=== PATIENT | female | born 1985 | race Caucasian/White ===

== ENCOUNTER → 2021-03-21 13:41 | Outpatient (BNVA) | payer MEDICAID, SELFPAY | PROVIDERS: PCP Registered Nurse; Visit Provider Physician Assistant ==

== ENCOUNTER → 2021-03-23 07:23 | Outpatient (BNVA) | payer MEDICAID, SELFPAY | PROVIDERS: PCP Registered Nurse; Visit Provider Surgery ==

== ENCOUNTER 2021-03-26 11:11 | Outpatient (REF) | payer MEDICAID, SELFPAY ==
--- NOTE | ~2021-03-26 | XR_ITS ---
EXAMINATION: XR CHEST CLINICAL INFORMATION: Morbid obesity. COMPARISON: Most recent chest radiograph dated 10/23/2017. TECHNIQUE: 2 views of the chest were obtained. FINDINGS: The lungs are clear. The cardiomediastinal silhouette is normal in size. There is no pleural effusion or pneumothorax. No acute osseous abnormality. XR/XR chest 2V IMPRESSION: No acute cardiopulmonary findings.
--- NOTE | 2021-03-26 11:16 | ECG_ITS ---
Test Reason : MORBID OBESITY Blood Pressure : / mmHG Vent. Rate : 082 BPM Atrial Rate : 082 BPM P-R Int : 126 ms QRS Dur : 108 ms QT Int : 362 ms P-R-T Axes : 055 016 031 degrees QTc Int : 422 ms Normal sinus rhythm Normal ECG When compared with ECG of 23-OCT-2017 15:15, No significant change was found Referred By: Jono Jones Electronically Signed By:ANN TANNER
[2021-03-26 11:45] LABS: MANUAL DIFF FLAG NO
[2021-03-26 11:49] LABS: Basophils Percent Auto 0.3 % (0-2); Eosinophils Absolute Auto 0.1 X10*3/uL (0.0-0.4); Eosinophils Percent Auto 1.2 % (0-4); Hematocrit 35.7 % (37-47); Hemoglobin 12.1 g/dl (12.0-16.0); Imm Gran Abs Auto 0.02 X10*3/uL (0.00-0.03); Imm Gran Pct Auto 0.3 % (0.0-0.4); Lymphocytes Absolute Auto 1.5 X10*3/uL (1.2-4.9); Lymphocytes Percent Auto 22.6 % (20-40); Mean Corpuscular HGB Conc 33.9 g/dl (31.0-35.0); Mean Corpuscular Hemoglobin 30.2 pg (27.0-33.0); Mean Platelet Volume 9.9 fL (9.4-12.3); Monocytes Absolute Auto 0.3 X10*3/uL (0.1-1.2); Monocytes Percent Auto 4.6 % (2-11); Neutrophils Absolute Auto 4.8 X10*3/uL (2.0-8.3); Platelet Count 211 X10*3/uL (160-400); Red Blood Count 4.01 X10*6/uL (4.20-5.50); Red Cell Distribution Width 13.1 % (11.0-16.0); White Blood Count 6.8 X10*3/uL (4.8-10.8)
[2021-03-26 12:16] LABS: Estimated Average Glucose 114 mg/dL; Hemoglobin A1c % 5.6 %
[2021-03-26 12:27] LABS: Alanine Aminotransferase 46 U/L (0-31); Albumin Level 4.3 g/dL (3.5-5.0); Alkaline Phosphatase 97 U/L (39-117); Anion Gap 15 (12-20); Aspartate Amino Transferase 56 U/L (5-31); Bilirubin Total 0.9 mg/dL (0.0-1.0); Blood Urea Nitrogen 11 mg/dL (9-16); C Reactive Protein 2.74 mg/dL (< or = 0.50); Calcium 9.5 mg/dL (8.4-10.2); Carbon Dioxide 27 mmol/L (22-29); Chloride 101 mmol/L (96-108); Cholesterol 199 mg/dL; Estimated Glomerular Filt Rate > 60; Glucose Random 102 mg/dL (60-115); HDL Cholesterol 30 mg/dL; Iron 68 mcg/dL (30-160); LDL Cholesterol Calculated 133 mg/dl; Percent Iron Saturation 21 % (15-50); Potassium 4.1 mmol/L (3.3-5.1); Sodium 139 mmol/L (135-145); Total Iron Binding Capacity 326 mcg/dL (228-428); Total Protein 7.1 g/dL (6.5-8.0); Triglycerides 182 mg/dL; Unsaturated Iron Binding 258 ug/dL
[2021-03-26 12:51] LABS: Ferritin 299 ng/mL (10-122); TSH reflex Free T4 1.73 uIU/mL (0.32-4.0); Vitamin D 25-OH Total 29.4 ng/mL (>30)
[2021-03-26 13:01] LABS: Folate 9.7 ng/mL (> or = 4.0); Vitamin B12 790 pg/mL (200-900)
[2021-03-27 10:40] LABS: Insulin Level Total 21.9 uIU/mL
[2021-03-27 19:27] LABS: Calcium (PTHI) 9.4 mg/dL (8.6-10.2); PTHI 34 pg/mL (14-64)
[2021-03-29 03:02] LABS: Zinc 77 mcg/dL (60-130)
[2021-03-29 15:10] LABS: Vitamin B1 <6 nmol/L (8-30)
[2021-03-30 01:55] LABS: Vitamin A 43 mcg/dL (38-98)
== END 2021-03-26 11:12 | disposition home or self-care (01) ==
LOC: HO.LAB 11:11
PROVIDERS: PCP Registered Nurse; Visit Provider Surgery
DX: E66.01 Morbid (severe) obesity due to excess calories (principal); J45.909 Unspecified asthma, uncomplicated; R73.03 Prediabetes
CPT/HCPCS: 36415; 71046; 80053; 80061; 82306; 82607; 82728; 82746; 83036; 83525; 83540; 83970; 84425; 84443; 84590; 84630; 85025; 86140; 93005

== ENCOUNTER 2021-03-27 10:54 | Outpatient (REF) | payer MEDICAID, SELFPAY ==
[2021-03-28 12:26] LABS: H Pylori Breath Test NOT DETECTED (NOT DETECTED)
== END 2021-03-27 10:55 | disposition home or self-care (01) ==
LOC: HO.LNP 10:54
PROVIDERS: Surgery; PCP Registered Nurse; Visit Provider Physician Assistant
DX: E66.01 Morbid (severe) obesity due to excess calories (principal); J45.909 Unspecified asthma, uncomplicated; R73.03 Prediabetes
CPT/HCPCS: 83013; 99211

== ENCOUNTER 2021-04-19 09:26 | Outpatient (REF) | payer MEDICAID, SELFPAY ==
--- NOTE | ~2021-04-19 | FL_ITS ---
EXAMINATION: XR GI SERIES CLINICAL INFORMATION: Morbid/severe obesity due to excess calories COMPARISON: None TECHNIQUE: Routine upper GI air-contrast study was performed in upright and lying position. FINDINGS: Following oral administration of thick barium and effervescent granules there is normal propagation bolus from the oral cavity through the pharynx, esophagus into the stomach without any evidence of obstruction, narrowing or stricture. The course, caliber and peristalsis of the stomach and the duodenal bulb is normal. No gastroesophageal reflux or hiatal hernia seen. FLUOROSCOPY TIME: 2.0 minutes DOSE AREA PRODUCT: 44.4-3 uGy-m2 (microgray-meter squared) FL/FL upper GI series IMPRESSION: Unremarkable upper GI air-contrast study.
--- NOTE | ~2021-04-19 | US_ITS ---
EXAMINATION: US COMPLETE ABDOMEN WITH LIVER ELASTOGRAPHY CLINICAL INFORMATION: Morbid obesity COMPARISON: None. TECHNIQUE: Real-time imaging of the abdominal viscera. Noninvasive ultrasound liver fibrosis assessment is performed using Jessenia ElastPQ point quantification shear wave elastography (pSWE) with a C5-2 MHz transducer. Multiple elastography samples are obtained. FINDINGS: PANCREAS: Normal. The visualized pancreatic head and body are normal in appearance. The remainder of the pancreas is obscured from visualization by the overlying bowel gas. ABDOMINAL AORTA: The proximal, middle, and distal aortic segments are normal in caliber. INFERIOR VENA CAVA: Visualized portions are normal. LIVER: Normal. The liver demonstrates normal size, contour and echogenicity. No focal lesion or intrahepatic biliary duct dilatation. The right lobe measures 14 cm in length. The left lobe measures 10 cm in length. Portal flow is hepatopedal Shear wave liver elastography median stiffness is 1.29 m/s (reference: normal median stiffness is 1.3 m/s or less). IQR/median stiffness to assess sampling precision is 0.23 (reference: good quality data set is IQR/median stiffness of 0.15 or less). GALLBLADDER: Normal. The gallbladder is physiologically distended without evidence of stones, sludge, polyps, wall thickening or pericholecystic fluid. Sonographic Boss sign is negative. COMMON BILE DUCT: Normal in caliber measuring 0.5 cm in diameter. RIGHT KIDNEY: Normal. No hydronephrosis. No renal calculi or focal parenchymal lesions. The kidney measures 11.7 cm in maximum dimension. LEFT KIDNEY: Normal. No hydronephrosis. No renal calculi or focal parenchymal lesions. The kidney measures 12.8 cm in maximum dimension. SPLEEN: Normal. The spleen measures 13.4 cm in maximum dimension. FREE FLUID: None. US/US abdomen comp w elastography IMPRESSION: In the absence of other known clinical signs, measurements rule out compensated advanced chronic liver disease. If there are known clinical signs, further testing may be needed for confirmation. IQR/median stiffness to assess sampling precision is 0.23 (reference: good quality data set is IQR/median stiffness of 0.15 or less). REFERENCE: Society of Radiologists in Ultrasound Liver Stiffness Thresholds (2020): LIVER STIFFNESS THRESHOLDS: *Liver Stiffness equal or less than 1.3 m/s: High probability of being normal. *Liver Stiffness less than 1.7 m/s: In the absence of other known clinical signs, rules out compensated advanced chronic liver disease. *Liver Stiffness 1.7-2.1 m/s: Suggestive of compensated advanced chronic liver disease but need further test for confirmation. *Liver Stiffness over 2.1 m/s: Rules in compensated advanced chronic liver disease. *Liver Stiffness over 2.4 m/s: Suggestive of clinically significant portal hypertension. QUALITY OF DATA SET: *IQR/Median value equal or less than 0.15 implies a quality data set. *IQR/Median value over 0.15 implies a poor quality data set. SIGNIFICANT CHANGE FROM PRIOR EXAM: Significant change if liver stiffness measurement is 10% or greater from prior exam. OTHER CONSIDERATIONS: The stage of liver fibrosis may be overestimated in the setting of acute hepatitis, liver inflammation, elevated liver function tests, hepatic vascular congestion, obstructive cholestasis, non-fasting state, and infiltrative diseases such as amyloidosis and lymphoma. In some patients with NAFLD, the liver stiffness thresholds for compensated advanced chronic liver disease may be lower. In causes other than viral hepatitis and NAFLD, liver stiffness thresholds are not well established.
== END 2021-04-19 09:27 | disposition home or self-care (01) ==
LOC: HO.US 09:26
PROVIDERS: Visit Provider Surgery
DX: Z01.818 Encounter for other preprocedural examination (principal); E66.01 Morbid (severe) obesity due to excess calories; K21.9 Gastro-esophageal reflux disease without esophagitis; J45.909 Unspecified asthma, uncomplicated; R73.03 Prediabetes
CPT/HCPCS: 74240; 76705; 76981

== ENCOUNTER → 2021-04-23 07:42 | Outpatient (BNVA) | payer MEDICAID, SELFPAY | PROVIDERS: PCP Registered Nurse; Visit Provider Surgery ==

== ENCOUNTER → 2021-04-30 08:05 | Outpatient (BNVA) | payer MEDICAID, SELFPAY | PROVIDERS: PCP Registered Nurse; Visit Provider Dietitian, Registered | DX: E66.01 Morbid (severe) obesity due to excess calories (principal); Z68.41 Body mass index [BMI] 40.0-44.9, adult | CPT/HCPCS: 97802 ==

== ENCOUNTER → 2021-05-14 08:07 | Outpatient (BNVA) | payer MEDICAID, SELFPAY | PROVIDERS: PCP Registered Nurse; Visit Provider Surgery ==

== ENCOUNTER → 2021-06-11 07:57 | Outpatient (BNVA) | payer MEDICAID, SELFPAY | PROVIDERS: PCP Registered Nurse; Visit Provider Surgery ==

== ENCOUNTER 2021-06-20 08:36 | Outpatient (REF) | payer MEDICAID, SELFPAY ==
[2021-06-20 08:47] LABS: MANUAL DIFF FLAG NO
[2021-06-20 09:03] LABS: Basophils Percent Auto 0.2 % (0-2); Eosinophils Absolute Auto 0.1 X10*3/uL (0.0-0.4); Hematocrit 36.6 % (37.0-47.0); Hemoglobin 12.1 g/dl (12.0-16.0); Imm Gran Abs Auto 0.03 X10*3/uL (0.00-0.03); Imm Gran Pct Auto 0.3 % (0.0-0.4); Lymphocytes Absolute Auto 2.3 X10*3/uL (1.2-4.9); Lymphocytes Percent Auto 26.5 % (20-40); Mean Corpuscular HGB Conc 33.1 g/dl (31.0-35.0); Mean Corpuscular Hemoglobin 29.6 pg (27.0-33.0); Mean Corpuscular Volume 89.5 fL (80.0-98.0); Monocytes Absolute Auto 0.4 X10*3/uL (0.1-1.2); Monocytes Percent Auto 4.4 % (2-11); Neutrophils Absolute Auto 5.9 x10*3/uL (2.0-8.3); Neutrophils Percent Auto 67.6 % (45-73); Red Blood Count 4.09 X10*6/uL (4.20-5.50); Red Cell Distribution Width 12.5 % (11.0-16.0); White Blood Count 8.8 X10*3/uL (4.8-10.8)
[2021-06-20 09:45] LABS: Mean Platelet Volume 11.9 fL (9.4-12.3)
[2021-06-20 09:46] LABS: Platelet Count 51 X10*3/uL (160-400)
== END 2021-06-20 08:37 | disposition home or self-care (01) ==
LOC: HO.LAB 08:36
PROVIDERS: Visit Provider Surgery
DX: D69.6 Thrombocytopenia, unspecified (principal)
CPT/HCPCS: 36415; 85025

== ENCOUNTER 2021-07-02 13:49 | Outpatient (REF) | payer MEDICAID, SELFPAY ==
[2021-07-02 15:12] LABS: Partial Thromboplastin Time 40.4 SEC (24.1-38.0)
[2021-07-04 10:31] LABS: Factor XI Activity 110 % normal (65-150)
== END 2021-07-02 13:50 | disposition home or self-care (01) ==
LOC: HO.LAB 13:49
PROVIDERS: PCP Registered Nurse; Visit Provider Internal Medicine
DX: D69.6 Thrombocytopenia, unspecified (principal)
CPT/HCPCS: 36415; 85250; 85270; 85730

== ENCOUNTER 2021-08-06 11:47 | Day surgery (SDC) | payer MEDICAID, SELFPAY ==
--- NOTE | ~2021-08-06 | CT_ITS ---
PROCEDURE: CT GUIDED BIOPSY CLINICAL INFORMATION: Thrombocytopenia. COMPARISON: None. TECHNIQUE: Following explaining CT-guided bone marrow biopsy procedure, benefits and risks, a written consent was obtained. Patient was placed prone on CT fluoroscopy table and preliminary CT imaging was obtained through the posterior pelvis. An optimal site was selected on the scanner and marked on the skin. The marked site on the skin was cleaned and draped in the usual sterile manner. 1% lidocaine was injected at the puncture site. A 22-gauge spinal needle was then advanced from the skin to the left posterior iliac crest border and 1% lidocaine was injected. Through a small skin incision, a 16-gauge guide needle was advanced from the skin from [id number] posterior iliac crest. The needle was then drilled into the bone marrow. A syringe containing EDTA and a second syringe containing heparin was attached to the needle and bone marrow aspiration performed. Subsequently, a bone cutting needle was introduced coaxially attached to a drill and advanced into the bone marrow. A core bone marrow sample was then obtained. The guide needle was withdrawn subsequently and complete hemostasis was achieved at the puncture site. A simple Band-Aid was applied postprocedure. Patient tolerated the procedure extremely well. Conscious sedation was administered and patient monitored by the radiologist and the IR nursing for [address] examination was performed using dose optimization techniques as appropriate, variously including the following: *Automated exposure control *Adjustment of mA and/or kV according to patient size (this includes techniques or standardized protocols for targeted exams where dose is matched to indication/reason for exam; i.e. extremities or head) *Use of iterative reconstruction technique DLP: 444 mGy-cm FINDINGS: Successful CT fluoroscopy-guided bone marrow biopsy performed without immediate complications. CT/CT biopsy bone marrow IMPRESSION: Successful CT fluoroscopy-guided bone marrow biopsy performed through the right posterior iliac bone marrow.
--- NOTE | ~2021-08-06 | CT_ITS ---
PROCEDURE: CT GUIDED BIOPSY CLINICAL INFORMATION: Thrombocytopenia. COMPARISON: None. TECHNIQUE: Following explaining CT-guided bone marrow biopsy procedure, benefits and risks, a written consent was obtained. Patient was placed prone on CT fluoroscopy table and preliminary CT imaging was obtained through the posterior pelvis. An optimal site was selected on the scanner and marked on the skin. The marked site on the skin was cleaned and draped in the usual sterile manner. 1% lidocaine was injected at the puncture site. A 22-gauge spinal needle was then advanced from the skin to the left posterior iliac crest border and 1% lidocaine was injected. Through a small skin incision, a 16-gauge guide needle was advanced from the skin from [id number] posterior iliac crest. The needle was then drilled into the bone marrow. A syringe containing EDTA and a second syringe containing heparin was attached to the needle and bone marrow aspiration performed. Subsequently, a bone cutting needle was introduced coaxially attached to a drill and advanced into the bone marrow. A core bone marrow sample was then obtained. The guide needle was withdrawn subsequently and complete hemostasis was achieved at the puncture site. A simple Band-Aid was applied postprocedure. Patient tolerated the procedure extremely well. Conscious sedation was administered and patient monitored by the radiologist and the IR nursing for [address] examination was performed using dose optimization techniques as appropriate, variously including the following: *Automated exposure control *Adjustment of mA and/or kV according to patient size (this includes techniques or standardized protocols for targeted exams where dose is matched to indication/reason for exam; i.e. extremities or head) *Use of iterative reconstruction technique DLP: 444 mGy-cm FINDINGS: Successful CT fluoroscopy-guided bone marrow biopsy performed without immediate complications. CT/CT biopsy aspirate bone marrow IMPRESSION: Successful CT fluoroscopy-guided bone marrow biopsy performed through the right posterior iliac bone marrow.
[2021-08-06 12:10] VITALS: BMI 42.4
[2021-08-06 12:13] LABS: MANUAL DIFF FLAG NO
[2021-08-06 12:20] LABS: Basophils Percent Auto 0.3 % (0-2); Eosinophils Absolute Auto 0.1 X10*3/uL (0.0-0.4); Eosinophils Percent Auto 1.2 % (0-4); Hematocrit 37.7 % (37.0-47.0); Hemoglobin 12.5 g/dl (12.0-16.0); Imm Gran Abs Auto 0.03 X10*3/uL (0.00-0.03); Imm Gran Pct Auto 0.4 % (0.0-0.4); Lymphocytes Absolute Auto 2.2 X10*3/uL (1.2-4.9); Lymphocytes Percent Auto 27.9 % (20-40); Mean Corpuscular HGB Conc 33.2 g/dl (31.0-35.0); Mean Corpuscular Hemoglobin 29.3 pg (27.0-33.0); Mean Corpuscular Volume 88.3 fL (80.0-98.0); Mean Platelet Volume 10.5 fL (9.4-12.3); Monocytes Absolute Auto 0.4 X10*3/uL (0.1-1.2); Monocytes Percent Auto 4.9 % (2-11); Neutrophils Absolute Auto 5.1 x10*3/uL (2.0-8.3); Neutrophils Percent Auto 65.3 % (45-73); Platelet Count 85 X10*3/uL (160-400); Red Blood Count 4.27 X10*6/uL (4.20-5.50); Red Cell Distribution Width 12.8 % (11.0-16.0); White Blood Count 7.8 X10*3/uL (4.8-10.8)
[2021-08-06 12:22] LABS: INTERNATIONAL NORM RATIO 1.1 (0.9-1.1); Prothrombin Time 12.6 SEC (9.9-13.0)
[2021-08-06 12:24] LABS: UPreg QC Valid YES; Urine Pregnancy NEGATIVE (NEGATIVE)
[2021-08-06 12:25] LABS: Partial Thromboplastin Time 42.9 SEC (24.1-38.0)
[2021-08-06 15:38] LABS: Bone Marrow SEE SEPARATE REPORT
[2021-08-06 15:45] VITALS: BP 124/72; PULSE 89; RESP 16; TEMP 36.7; O2SAT 97
[2021-08-06 16:00] VITALS: BP 126/81; PULSE 85; RESP 16; O2SAT 96
[2021-08-06 16:15] VITALS: BP 129/81; PULSE 85; RESP 16; O2SAT 97
[2021-08-06 16:30] VITALS: BP 116/74; PULSE 84; RESP 16; O2SAT 97
[2021-08-06 16:46] VITALS: BP 127/77; PULSE 89; RESP 16; TEMP 37.4; O2SAT 97
== END 2021-08-06 17:04 | disposition home or self-care (01) ==
PROVIDERS: Radiology Diagnostic Radiology; PCP Registered Nurse; Visit Provider Radiology Diagnostic Radiology
PROC: (CPT 38221; principal; 2021-08-06 13:30)
DX: D69.6 Thrombocytopenia, unspecified (principal); D69.2 Other nonthrombocytopenic purpura; I10 Essential (primary) hypertension
CPT/HCPCS: 36415; 38221; 38222; 81025; 85025; 85097; 85610; 85730; 88184; 88185; 88237; 88264; 88305; 88311; 88313; 99152; J1642; J2250; J3010

== ENCOUNTER 2023-03-17 09:59 | Emergency (ER) | payer MEDICAID, SELFPAY ==
--- NOTE | ~2023-03-17 | CT_ITS ---
EXAMINATION: CT ABDOMEN AND PELVIS WITHOUT CONTRAST CLINICAL INFORMATION: Right flank pain radiating to right lower quadrant. Urinary frequency. COMPARISON: Abdominal ultrasound March 2022 TECHNIQUE: Multidetector volumetric imaging was performed from the superior aspect of the liver through the pubic symphysis. Sagittal and coronal reformatted images were obtained on the technologist's workstation. This CT examination was performed using dose optimization techniques as appropriate, variously including the following: *Automated exposure control *Adjustment of mA and/or kV according to patient size (this includes techniques or standardized protocols for targeted exams where dose is matched to indication/reason for exam; i.e. extremities or head) *Use of iterative reconstruction technique DLP: 925 mGy-cm FINDINGS: LUNG BASES: The visualized lung bases are unremarkable. LIVER, GALLBLADDER, AND BILIARY TREE: The liver is slightly enlarged and low in attenuation suggestive of fatty infiltration. Liver is normal in size and contour. The gallbladder is unremarkable with no evidence of radiopaque gallstones, gallbladder wall thickening, or obvious pericholecystic inflammatory changes. PANCREAS: Unremarkable. SPLEEN: Upper normal-size measuring 12.8 cm in length. ADRENAL GLANDS: Unremarkable. KIDNEYS AND URETERS: The kidneys are normal in size, shape, and attenuation. No hydronephrosis, hydroureter, or calculi seen. No perinephric stranding. BLADDER: Unremarkable. GASTROINTESTINAL TRACT: The small and large bowel are unremarkable. There are surgical clips at the base of the cecum. The appendix is not seen and may been removed. ABDOMINAL WALL: No significant hernia is appreciated. LYMPH NODES: Normal. VASCULAR: Unremarkable. PELVIC VISCERA: Unremarkable. OSSEOUS STRUCTURES: Degenerative changes of the spine. CT/CT abdomen pelvis wo IV con IMPRESSION: No acute findings. Slightly enlarged fatty liver. Upper normal-size spleen. Fleischner guidelines were followed.
[2023-03-17 10:01] VITALS: BP 192/98; PULSE 76; RESP 18; TEMP 36.9; O2SAT 100; BMI 43.3
--- NOTE | 2023-03-17 10:12 | MHC.EDTECH ---
Urine and labs collected and sent
[2023-03-17 10:15] LABS: MANUAL DIFF FLAG NO
[2023-03-17 10:16] LABS: Appearance Urine Clear; Color Urine Yellow; Glucose Urine UA Negative (Negative); Leukocyte Esterase Urine Trace (Negative); Nitrite Urine Negative (Negative); PH 5.5 (5.0-9.0); UMIC TRIGGER UACC YES; Urine Blood Negative (Negative); Urine Ketones Negative (Negative); Urine Protein Negative (Neg-Trace)
[2023-03-17 10:17] LABS: UPreg QC Valid YES
[2023-03-17 10:18] LABS: Urine Pregnancy NEGATIVE (NEGATIVE)
[2023-03-17 10:19] LABS: Bacteria Urine Trace (None Seen); Hyaline Casts Urine 0-2 /LPF (0-2); RBC Urine 0-2 /HPF (0-2); WBC Urine 0-5 /HPF (0-5)
[2023-03-17 10:22] LABS: Basophils Percent Auto 0.3 % (0-2); Eosinophils Absolute Auto 0.1 X10*3/uL (0.0-0.4); Eosinophils Percent Auto 1.4 % (0-4); Hemoglobin 12.3 g/dl (12.0-16.0); Imm Gran Abs Auto 0.04 X10*3/uL (0.00-0.03); Imm Gran Pct Auto 0.4 % (0.0-0.4); Lymphocytes Absolute Auto 2.3 X10*3/uL (1.2-4.9); Lymphocytes Percent Auto 23.8 % (20-40); Mean Corpuscular HGB Conc 33.2 g/dl (31.0-35.0); Mean Corpuscular Hemoglobin 29.5 pg (27.0-33.0); Mean Corpuscular Volume 88.7 fL (80.0-98.0); Mean Platelet Volume 10.1 fL (9.4-12.3); Monocytes Absolute Auto 0.4 X10*3/uL (0.1-1.2); Monocytes Percent Auto 3.9 % (2-11); Neutrophils Absolute Auto 6.9 x10*3/uL (2.0-8.3); Neutrophils Percent Auto 70.2 % (45-73); Platelet Count 246 X10*3/uL (160-400); Red Blood Count 4.17 X10*6/uL (4.20-5.50); Red Cell Distribution Width 13.3 % (11.0-16.0); White Blood Count 9.9 X10*3/uL (4.8-10.8)
[2023-03-17 10:37] LABS: Anion Gap 12 (12-20); Blood Urea Nitrogen 9 mg/dL (9-16); Calcium 9.3 mg/dL (8.4-10.2); Carbon Dioxide 27 mmol/L (22-29); Chloride 105 mmol/L (96-108); Creatinine Clr Calc Pharmacy 129.3; Estimated Glomerular Filt Rate > 60; Glucose Random 135 mg/dL (60-115); Potassium 4.2 mmol/L (3.3-5.1); Sodium 140 mmol/L (135-145)
--- NOTE | 2023-03-17 10:47 | ED.BACK ---
HPI - Back Pain/Injury General Chief Complaint: Back Pain/Injury Stated Complaint: Back pain Time Seen by Provider: 03/17/23 10:47 Source: patient, RN notes reviewed and old records reviewed Mode of arrival: ambulatory History of Present Illness HPI Narrative: 37-year-old female with a past medical history of vitamin B1 deficiency, obesity, thrombocytopenia, prediabetic, asthma, restless leg syndrome, fibromyalgia, presenting to the ED complaining of right flank pain radiating around to RLQ since yesterday with associated nausea and urinary frequency. Denies experiencing similar symptoms in the past, fever/chills, vomiting, diarrhea, hematuria/dysuria, vaginal bleeding/discharge, incontinence/retention MD elicited complaint: back pain Related Data Home Medications Medication Instructions Recorded Confirmed acetaminophen 325 mg tablet 325 mg PO QID PRN pain 03/21/21 08/10/21 (Tylenol) albuterol sulfate 90 mcg/actuation 2 puff PO Q6H PRN wheezing 03/21/21 08/10/21 aerosol inhaler (ProAir HFA) cyclobenzaprine 10 mg tablet 10 mg PO BEDTIME 03/21/21 08/10/21 gabapentin 300 mg capsule 600 mg PO BID 03/21/21 08/10/21 ibuprofen 200 mg tablet 200 mg PO Q6H PRN Pain 03/21/21 08/10/21 levetiracetam 250 mg tablet 125 - 250 mg PO BEDTIME 03/21/21 08/10/21 ropinirole 0.25 mg tablet 0.5 mg PO BEDTIME 03/21/21 08/10/21 Previous Rx's Medication Instructions Recorded thiamine HCl (vitamin B1) 100 mg 100 mg PO DAILY #30 tabs 04/01/21 tablet acetaminophen 500 mg tablet 500 mg PO Q6H PRN fever or pain 03/17/23 (Tylenol Extra Strength) #14 tabs cyclobenzaprine 5 mg tablet 5 mg PO Q8H PRN pain (scale score 03/17/23 7-10) 5 days #14 tabs lidocaine 5 % topical patch 1 patch topical DAILY PRN pain #30 03/17/23 (Lidoderm) ea naproxen 500 mg tablet 500 mg PO BID PRN pain 10 days #20 03/17/23 tabs Allergies Allergy/AdvReac Type Severity Reaction Status Date / Time No Known Allergies Allergy Verified 08/10/21 11:45 Review of Systems Review of Systems: Constitutional: No Fever, No Chills, No Fatigue, No Malaise ENT/Mouth: No Ear Pain, No sore throat, No Rhinorrhea, No Swallowing Difficulty Eyes: No Eye Pain, No Swelling, No Redness Cardiovascular: No Chest Pain, No SOB Respiratory: No Cough, No Sputum, No Dyspnea Gastrointestinal: + Nausea, No Vomiting, No Diarrhea, No Constipation, + Abdominal pain Genitourinary: No irregular bleeding, No Dysuria, + Urinary Frequency, No Hematuria, No Urinary Incontinence/retention, + Flank Pain, No Urinary Flow Changes, No Hesitancy Musculoskeletal: No joint pain, No Myalgias, No Joint Swelling Skin: No Skin Lesions, No rash Neuro: No Weakness, No Numbness, No Paresthesias Yes all other systems are reviewed and are negative Constitutional: Constitutional: Reports as per [facility] [place] Past Medical History Attestation statement: The following information was validated with the patient. Source: old records reviewed Medical History Asthma Depression Fibromyalgia Morbid obesity Prediabetes Restless leg syndrome Surgical History Hx of appendectomy Hx of breast surgery Hx of colonoscopy Hx of endoscopy Hx of neck surgery Hx of wisdom tooth extraction Family History Family History Mother History of lung surgery Lung cancer COPD (chronic obstructive pulmonary disease) Father Diabetes HTN (hypertension) Brother Diabetes Family/Other Lung cancer Throat cancer Diabetes Maternal Grandmother Lung cancer Heart attack Stroke Diabetes Paternal Grandfather Prostate CA Family/Other Prostate CA Paternal Grandmother CHF (congestive heart failure) Diabetes Social History Social History Alcohol intake: current Alcohol intake frequency: holidays/special occasions only Alcohol type: wine Patient Tobacco Use Status: Never used Tobacco Advance Directives: No Advance Directives Information Provided: No Current occupational status: unemployed Physical Exam Vital Signs: Vital Signs: Last Vital Signs Temp 98.5 F 03/17/23 10:01 Pulse 76 03/17/23 10:01 Resp 18 03/17/23 10:01 BP 192/98 H 03/17/23 10:01 Pulse Ox 100 03/17/23 10:01 O2 Del Method Room Air 03/17/23 10:01 BMI result Body Mass Index 43.3 Const: General: cooperative, healthy appearing and no acute distress Orientation/consciousness: patient oriented x3 Limitations: no limitations HEENT: Head: Yes normal to inspection and Yes atraumatic Ears: hearing grossly normal bilaterally General nose exam: Normal external nose present Face and sinus: Yes normal facial exam Eyes: General: appearance normal, both eyes and all related structures EOM: EOMs intact bilaterally Neck: Neck: Yes normal visual inspection and Yes no meningeal signs Resp: Effort & Inspection: normal respiratory effort and no respiratory distress Cardio: Rate: regular rate Heart sounds: S1 normal heart sound present and S2 normal heart sound present GI: Inspection: Yes normal to inspection Palpation (GI): Soft to palpation, Tenderness to palpation present (GI) in the RLQ; with no rebound tenderness, no guarding and not rigid : General: Yes CVA tenderness on the right Back/Spine/Pelvis: Other: No midline cervical/thoracic/lumbar spinous tenderness/step-off or deformity Back: CVA tenderness Skin: Rashes: no rashes Wounds: no wounds Neuro: Other: Strength intact throughout. No saddle anesthesia. Sensation intact to light touch. Neurovascular intact distally General: patient oriented x3, tone normal, moves all extremities and no meningeal signs Cranial nerves: Yes CN's II-XII intact bilaterally Gait exam (Neuro): Normal gait present Extrem: General: Yes normal to inspection Course Course Course Narrative: -1113--labs and UA unremarkable CT abdomen pelvis wo IV con IMPRESSION: No acute findings. Slightly enlarged fatty liver. Upper normal-size spleen. ? Fleischner guidelines were followed. Results discussed with patient including worrisome signs and symptoms and strict return precautions, and when to return to the emergency department. They verbalized understanding and feel safe for discharge at this time. Medical Decision Making Medical Decision Making MDM Narrative: 37-year-old female with a past medical history of vitamin B1 deficiency, obesity, thrombocytopenia, prediabetic, asthma, restless leg syndrome, fibromyalgia, presenting to the ED complaining of right flank pain radiating around to RLQ since yesterday with associated nausea and urinary frequency. On exam VSS, NAD, nontoxic appearing, +R CVAT & RLQ ttp, no rebound or guarding. No midline spinous tenderness. Concern for renal colic/stone/pyelo vs UTI vs MSK pain/strain. Patient with prior appendectomy. Lower suspicion for cholecystitis/lithiasis/pancreatitis, cauda equina/cord compression Plan: Labs, UA ordered in triage, CT Please refer to course for remaining clinical decision making, interpretation of labs/imaging results, and discussions with consultants and/or family members. Differential Diagnosis Differential Diagnoses: The differential diagnosis associated with the presentation includes As above Admission/Observation Consideration of admission/observation: Escalation of care including admission/observation considered Lab Data MDM Lab Attestation statement: I reviewed the patient's lab results. 03/17/23 10:10 03/17/23 10:10 Labs: Lab Results 03/17/23 03/17/23 03/17/23 Range/Units 10:10 10:10 10:10 WBC 9.9 (4.8-10.8) X10*3/uL RBC 4.17 L (4.20-5.50) X10*6/uL Hgb 12.3 (12.0-16.0) g/dl Hct 37.0 (37.0-47.0) % MCV 88.7 (80.0-98.0) fL MCH 29.5 (27.0-33.0) pg MCHC 33.2 (31.0-35.0) g/dl RDW 13.3 (11.0-16.0) % Plt Count 246 D (160-400) X10*3/uL MPV 10.1 (9.4-12.3) fL Immature Gran % (Auto) 0.4 (0.0-0.4) % Neut % (Auto) 70.2 (45-73) % Lymph % (Auto) 23.8 (20-40) % [place] % (Auto) 3.9 (2-11) % Eos % (Auto) 1.4 (0-4) % Baso % (Auto) 0.3 (0-2) % Lymph # (Auto) 2.3 (1.2-4.9) X10*3/uL [place] # (Auto) 0.4 (0.1-1.2) X10*3/uL Eos # (Auto) 0.1 (0.0-0.4) X10*3/uL Baso # (Auto) 0.0 (0.0-0.2) X10*3/uL Abs Immat Gran (auto) 0.04 H (0.00-0.03) X10*3/uL Absolute Neuts (auto) 6.9 (2.0-8.3) x10*3/uL Absolute Nucleated RBC 0.000 (0.0-0.012) X10*3/uL Nucleated RBC % (auto) 0.0 (0.0-0.2) /100WBC Sodium 140 (135-145) mmol/L Potassium 4.2 (3.3-5.1) mmol/L Chloride 105 (96-108) mmol/L Carbon Dioxide 27 (22-29) mmol/L Anion Gap 12 (12-20) BUN 9 (9-16) mg/dL Creatinine 0.78 (0.5-1.4) mg/dL Estim Creat Clear Calc 129.3 Estimated GFR > 60 Random Glucose 135 H (60-115) mg/dL Calcium 9.3 (8.4-10.2) mg/dL Urine Color Yellow Urine Appearance Clear Urine pH 5.5 (5.0-9.0) Ur Specific [place] 1.020 (1.005-1.025) Urine Protein Negative (Neg-Trace) mg/dL Urine Glucose (UA) Negative (Negative) mg/dL Urine Ketones Negative (Negative) mg/dL Urine Blood Negative (Negative) Urine Nitrite Negative (Negative) Ur Leukocyte Esterase Trace H (Negative) Urine RBC 0-2 (0-2) /HPF Urine WBC 0-5 (0-5) /HPF Ur Squamous Epith Cells 3-5 (0-2) /HPF Urine Bacteria Trace (None Seen) Hyaline Casts 0-2 (0-2) /LPF Urine Test (NEGATIVE) 03/17/23 Range/Units 10:10 WBC (4.8-10.8) X10*3/uL RBC (4.20-5.50) X10*6/uL Hgb (12.0-16.0) g/dl Hct (37.0-47.0) % MCV (80.0-98.0) fL MCH (27.0-33.0) pg MCHC (31.0-35.0) g/dl RDW (11.0-16.0) % Plt Count (160-400) X10*3/uL MPV (9.4-12.3) fL Immature Gran % (Auto) (0.0-0.4) % Neut % (Auto) (45-73) % Lymph % (Auto) (20-40) % [place] % (Auto) (2-11) % Eos % (Auto) (0-4) % Baso % (Auto) (0-2) % Lymph # (Auto) (1.2-4.9) X10*3/uL [place] # (Auto) (0.1-1.2) X10*3/uL Eos # (Auto) (0.0-0.4) X10*3/uL Baso # (Auto) (0.0-0.2) X10*3/uL Abs Immat Gran (auto) (0.00-0.03) X10*3/uL Absolute Neuts (auto) (2.0-8.3) x10*3/uL Absolute Nucleated RBC (0.0-0.012) X10*3/uL Nucleated RBC % (auto) (0.0-0.2) /100WBC Sodium (135-145) mmol/L Potassium (3.3-5.1) mmol/L Chloride (96-108) mmol/L Carbon Dioxide (22-29) mmol/L Anion Gap (12-20) BUN (9-16) mg/dL Creatinine (0.5-1.4) mg/dL Estim Creat Clear Calc Estimated GFR Random Glucose (60-115) mg/dL Calcium (8.4-10.2) mg/dL Urine Color Urine Appearance Urine pH (5.0-9.0) Ur Specific [place] (1.005-1.025) Urine Protein (Neg-Trace) mg/dL Urine Glucose (UA) (Negative) mg/dL Urine Ketones (Negative) mg/dL Urine Blood (Negative) Urine Nitrite (Negative) Ur Leukocyte Esterase (Negative) Urine RBC (0-2) /HPF Urine WBC (0-5) /HPF Ur Squamous Epith Cells (0-2) /HPF Urine Bacteria (None Seen) Hyaline Casts (0-2) /LPF Urine Test NEGATIVE (NEGATIVE) Radiology Impression Discussion of test interpretation with radiology: I have reviewed the radiologist's reading. External Record Review External record reviewed: Inpatient record, Office record, Outpatient record, Prior outpatient labs, Prior outpatient radiology, Primary care record and Outside ED record Tests considered The following testing was considered but not selected: As above Prescription Management I considered prescription management with: Pain Medication and Antibiotic Discharge Plan Discharge Clinical Impression: Acute flank pain Patient Disposition: Home, Self-Care Instructions: Flank Pain (ED) Additional Instructions: Your urine, blood work, and CT scan were reassuring Your pain is likely musculoskeletal Flexeril is a muscle relaxer, take at night as it makes you drowsy, do not drive, drink alcohol, or operate machinery while taking it Naproxen as an anti-inflammatory / pain medication, take with food Lidoderm patches are numbing patches, apply to painful area In addition take Tylenol at home If symptoms persist or worsen, pain becomes unbearable, you developed urinary retention or incontinence, or weakness return to the ED Prescriptions: New lidocaine [Lidoderm] 5 % adhesive patch,medicated 1 patch topical DAILY MDD remove after 12 hours PRN (Reason: pain) Qty: 30 0RF Rx Instructions: leave on most painful area for up to 12 hrs cyclobenzaprine 5 mg tablet 5 mg PO Q8H PRN (Reason: pain (scale score 7-10)) 5 Days Qty: 14 0RF acetaminophen [Tylenol Extra Strength] 500 mg tablet 500 mg PO Q6H PRN (Reason: fever or pain) Qty: 14 0RF naproxen 500 mg tablet 500 mg PO BID PRN (Reason: pain) 10 Days Qty: 20 0RF No Action thiamine HCl (vitamin B1) 100 mg tablet 100 mg PO DAILY Qty: 30 2RF gabapentin 300 mg capsule 600 mg PO BID ropinirole 0.25 mg tablet 0.5 mg PO BEDTIME cyclobenzaprine 10 mg tablet 10 mg PO BEDTIME levetiracetam 250 mg tablet 125 - 250 mg PO BEDTIME albuterol sulfate [ProAir HFA] 90 mcg/actuation HFA aerosol inhaler 2 puff PO Q6H PRN (Reason: wheezing) ibuprofen 200 mg tablet 200 mg PO Q6H PRN (Reason: Pain) acetaminophen [Tylenol] 325 mg tablet 325 mg PO QID PRN (Reason: pain) Referrals: Holger Strickland MD [Primary Care Provider] - 5 days Interventions: ED Discharge Assessment Last Done: 03/17/23 12:28 Discharge Date/Time: 03/17/23 12:29
== END 2023-03-17 12:29 | disposition home or self-care (01) ==
PROVIDERS: Emergency Provider Emergency Medicine; PCP Internal Medicine
DX: M54.50 Low back pain, unspecified (principal); R10.31 Right lower quadrant pain; R45.1 Restlessness and agitation; Z79.899 Other long term (current) drug therapy
CPT/HCPCS: 36415; 74176; 80048; 81001; 81025; 85025; 99282; 99284

== ENCOUNTER 2023-09-29 13:24 | Outpatient (AMB) | payer BC, SELFPAY ==
[2023-09-29 13:32] VITALS: BP 150/80; PULSE 82; TEMP 36.5; O2SAT 96; BMI 44.9
--- NOTE | 2023-09-29 13:32 | AM.OFFWIN_ITS ---
Intake Vital Signs 09/29/23 13:32 Height 5 ft 5 in Weight 270 lb BMI 44.9 BP 150/80 H Blood Pressure Location Lt brachial Position Sitting Pulse 82 Pulse Source Pulse Oximeter Temp 97.7 F Temp Source Temporal Artery Scan Pulse Oximetry (%) 96 Oxygen Delivery Method Room Air Intake Visit Reasons: Est/low grade fever/vomiting (lobby masked) Intake Note: pt is here today low grade fever vomiting started Patient Tobacco Use Status: Never used Tobacco Allergies No Known Allergies Allergy (Verified 09/29/23 13:32) Do you need a note to return to daycare/school/sports/work: Yes HPI HPI Comments History of Present Illness Details 38-year-old female presents today compla ining of nausea vomiting and diarrhea for the last 3 days. She has been trying to stay hydrated and slowly advance her diet but somewhat unsuccessfully in the last day. She did go to [employer] today but was sent home. Does relate to diffuse abdominal pain but not specific PFSH Medical History Asthma Depression Fibromyalgia Morbid obesity Prediabetes Restless leg syndrome Surgical History Hx of appendectomy Hx of breast surgery Hx of colonoscopy Hx of endoscopy Hx of neck surgery Hx of wisdom tooth extraction Family History Mother History of lung surgery Lung cancer COPD (chronic obstructive pulmonary disease) Father Diabetes HTN (hypertension) Brother Diabetes Family/Other Lung cancer Throat cancer Diabetes Maternal Grandmother Lung cancer Heart attack Stroke Diabetes Paternal Grandfather Prostate CA Family/Other Prostate CA Paternal Grandmother CHF (congestive heart failure) Diabetes Social History Alcohol intake: current Alcohol intake frequency: holidays/special occasions only Alcohol type: wine Patient Tobacco Use Status: Never used Tobacco Current occupational status: unemployed Review of Systems Const All systems reviewed & are unremarkable except as noted in HPI and below Reports fatigue Eyes Reports no additional complaints ENT Reports no additional complaints Card Reports no additional complaints Resp Reports no additional complaints GI Reports change in stool character, Reports loose stools and Reports vomiting (X1 this morning) Reports no additional complaints Endo Reports fatigue Physical Exam Vital Signs: Last Vital Signs Temp 97.7 F 09/29/23 13:32 Pulse 82 09/29/23 13:32 BP 150/80 H 09/29/23 13:32 Pulse Ox 96 09/29/23 13:32 Oxygen Delivery Method Room Air 09/29/23 13:32 BMI result Body Mass Index 44.9 Const General: acute distress mild HEENT Head: Yes normal to inspection, Yes normocephalic and Yes atraumatic Ears: hearing grossly normal bilaterally General nose exam: Normal external nose present Face and sinus: Yes normal facial exam Mouth: Normal oral and palatal mucosa present Throat: Yes posterior oropharynx normal Eyes General: appearance normal, both eyes and all related structures Resp Effort & Inspection: normal respiratory effort Auscultation: clear to auscultation bilaterally Cardio Rate: regular rate Rhythm: regular rhythm GI Inspection: Yes normal to inspection Palpation (GI): Soft to palpation and Tenderness to palpation present (GI) (Mild diffuse tenderness. No right lower quadrant pain no guarding no Jeffery) Assessment & Plan Assessment & Plan (1) Enteritis due to Norovirus: Code(s): A08.11 - Acute gastroenteropathy due to [place] agent Plan: Continue to remain hydrated use ondansetron as needed. Plan See plan Medications: New ondansetron 4 mg PO TID PRN 10 tabs 0RF nausea and vomiting Coding Level of Care Code Est Pt Level 3 (10639) Diagnoses Enteritis due to Norovirus A08.11
== END 2023-09-29 16:00 | disposition home or self-care (01) ==
PROVIDERS: PCP Internal Medicine; Visit Provider Physician Assistant Medical
DX: A08.11 Acute gastroenteropathy due to Norwalk agent (principal)
CPT/HCPCS: 99213

== ENCOUNTER 2023-12-11 13:13 | Outpatient (AMB) | payer BC, SELFPAY ==
[2023-12-11 13:19] VITALS: BP 150/92; PULSE 82; TEMP 36.4; O2SAT 98
--- NOTE | 2023-12-11 13:19 | AM.OFFWIN_ITS ---
Intake Vital Signs 12/11/23 13:19 Height 5 ft 5 in BP 150/92 H Blood Pressure Location Rt brachial Position Sitting Pulse 82 Pulse Source Pulse Oximeter Temp 97.6 F Temp Source Oral Pulse Oximetry (%) 98 Intake Visit Reasons: EP lightheaded dizziness headache since friday Intake Note: pt is here for lightheadedness, dizziness with headache since friday Patient Tobacco Use Status: Never used Tobacco Allergies No Known Allergies Allergy (Verified 12/11/23 13:19) Do you need a note to return to daycare/school/sports/work: Yes HPI HPI Comments History of Present Illness Details 38 y/o female patient who presents to [facility] with c/o headaches, lightheadedness and dizziness since Friday. Denies nausea or vomiting. Denies fevers or chills. Denies any recent sick contact. Denies any head injury or trauma. Denies . She does endorse snoring at night time. [facility] Medical History Asthma Depression Fibromyalgia Morbid obesity Prediabetes Restless leg syndrome Surgical History Hx of appendectomy Hx of breast surgery Hx of colonoscopy Hx of endoscopy Hx of neck surgery Hx of wisdom tooth extraction Family History Mother History of lung surgery Lung cancer COPD (chronic obstructive pulmonary disease) Father Diabetes HTN (hypertension) Brother Diabetes Family/Other Lung cancer Throat cancer Diabetes Maternal Grandmother Lung cancer Heart attack Stroke Diabetes Paternal Grandfather Prostate CA Family/Other Prostate CA Paternal Grandmother CHF (congestive heart failure) Diabetes Social History Alcohol intake: current Alcohol intake frequency: holidays/special occasions only Alcohol type: wine Patient Tobacco Use Status: Never used Tobacco Current occupational status: unemployed Review of Systems Const All systems reviewed & are unremarkable except as noted in HPI and below Physical Exam Vital Signs: Last Vital Signs Temp 97.6 F 12/11/23 13:19 Pulse 82 12/11/23 13:19 BP 150/92 H 12/11/23 13:19 Pulse Ox 98 12/11/23 13:19 Const General: comfortable and no acute distress Nutritional Appearance: obese Orientation/consciousness: patient oriented x3 HEENT Head: Yes normocephalic Ears: external ears normal and TM abnormal bulging and with fluid behind the TM bilateral; not with effusion, not erythematous, not perforated, not retracted and not scarred General nose exam: Normal nasal mucous membranes and turbinates present Face and sinus: Yes sinuses nontender Mouth: moist mucous membranes Throat: Yes posterior oropharynx normal Resp Effort & Inspection: normal respiratory effort, able to speak in complete sentences, no audible wheezes and no cough Auscultation: clear to auscultation bilaterally, no crackles, no rales, no rhonchi and no wheezes Cardio Rate: regular rate Rhythm: regular rhythm Neuro General: patient oriented x3, gait normal and moves all extremities Psych Speech and movement: Normal speech and movement present Assessment & Plan Assessment & Plan (1) Dizziness: Code(s): R42 - Dizziness and giddiness Plan: - Hydrate well - Advised to get enough sleep at night - F/U with PCP for Sleep study - Rest. - No clear etiology at this time. Medications: New meclizine 50 mg PO BID 30 tabs 0RF R42 - Dizziness and giddiness Coding Level of Care Code Est Pt Level 3 (14839) Diagnoses Dizziness R42 Time Spent (min) 15
== END 2023-12-11 13:39 | disposition home or self-care (01) ==
PROVIDERS: PCP Internal Medicine; Visit Provider Nurse Practitioner Family
DX: R42 Dizziness and giddiness (principal)
CPT/HCPCS: 99213

== ENCOUNTER 2024-01-04 13:00 | Emergency (ER) | payer MEDICAID, SELFPAY ==
--- NOTE | ~2024-01-04 | CT_ITS ---
EXAMINATION: CT ABDOMEN AND PELVIS WITHOUT CONTRAST CLINICAL INFORMATION: Left lower quadrant pain blood in stool. Question colitis COMPARISON: CT abdomen pelvis 03/17/2023 TECHNIQUE: Multidetector volumetric imaging was performed from the superior aspect of the liver through the pubic symphysis. Sagittal and coronal reformatted images were obtained on the technologist's workstation. This CT examination was performed using dose optimization techniques as appropriate, variously including the following: *Automated exposure control *Adjustment of mA and/or kV according to patient size (this includes techniques or standardized protocols for targeted exams where dose is matched to indication/reason for exam; i.e. extremities or head) *Use of iterative reconstruction technique DLP: 92 mGy-cm FINDINGS: LUNG BASES: The lung bases are clear LIVER, GALLBLADDER, AND BILIARY TREE: The liver is mildly enlarged in size measuring 22 cm. It has normal contour and attenuation. No focal hepatic lesion or biliary ductal dilatation is present. The gallbladder is unremarkable with no evidence of radiopaque gallstones, gallbladder wall thickening, or obvious pericholecystic inflammatory changes. PANCREAS: Unremarkable. SPLEEN: Unremarkable. ADRENAL GLANDS: Unremarkable. KIDNEYS AND URETERS: The kidneys are normal in size, shape, and attenuation. No hydronephrosis, hydroureter, or calculi seen. No perinephric stranding. BLADDER: Unremarkable. GASTROINTESTINAL TRACT: The small and large bowel are unremarkable. Appendix is likely removed with a surgical suture at the site. ABDOMINAL WALL: No significant hernia is appreciated. LYMPH NODES: Normal. VASCULAR: Unremarkable. PELVIC VISCERA: The uterus is anteverted with a cervical tampon. No adnexal mass or free fluid. No abnormal pelvic lymph nodes. OSSEOUS STRUCTURES: No aggressive lytic or sclerotic process seen. CT/CT abdomen pelvis wo IV con IMPRESSION: No acute intra-abdominal process seen. Fleischner guidelines were followed.
[2024-01-04 13:40] VITALS: BP 188/104; PULSE 75; RESP 17; TEMP 36.7; O2SAT 97; BMI 45.2
--- NOTE | 2024-01-04 13:45 | ED_ITS ---
HPI - General Adult General Chief complaint: Abdominal Pain Stated complaint: blood in stool Time Seen by Provider: 01/04/24 18:30 Source: patient Mode of arrival: ambulatory Limitations: no limitations History of Present Illness ED Provider: Flaquito THOMAS HPI narrative: 38-year-old female history of restless legs syndrome, fibromyalgia, vitamin B1 deficiency, fatty liver presents to the ED for left lower quadrant abdominal pain with also blood in stool. Patient states having episode yesterday and today. Patient denies any dizziness, chest pain, shortness of breath, weakness. Patient denies any trauma. Patient denies any history of any ulcers. Related Data Previous Rx's ?Medication ?Instructions ?Recorded meclizine 50 mg tablet 50 mg PO BID #30 tabs 12/11/23 Allergies Allergy/AdvReac Type Severity Reaction Status Date / Time No Known Allergies Allergy Verified 01/04/24 13:45 Review of Systems 2 Review of Systems: Left lower quadrant abdominal pain. Two episodes of rectal bleeding. Yes all other systems are reviewed and are negative PMFSH Past Medical History Medical History Asthma Depression Fibromyalgia Morbid obesity Prediabetes Restless leg syndrome Surgical History Hx of appendectomy Hx of breast surgery Hx of colonoscopy Hx of endoscopy Hx of neck surgery Hx of wisdom tooth extraction Family History Family History Mother History of lung surgery Lung cancer COPD (chronic obstructive pulmonary disease) Father Diabetes HTN (hypertension) Brother Diabetes Family/Other Lung cancer Throat cancer Diabetes Maternal Grandmother Lung cancer Heart attack Stroke Diabetes Paternal Grandfather Prostate CA Family/Other Prostate CA Paternal Grandmother CHF (congestive heart failure) Diabetes Social History Social History Alcohol intake: current Alcohol intake frequency: holidays/special occasions only Alcohol type: wine Patient Tobacco Use Status: Never used Tobacco Advance Directives: No Advance Directives Information Provided: No Do you have a plan to hurt others: No Plan Current occupational status: unemployed Physical Exam ED Vital Signs: Vital Signs - 24 hr 01/04/24 13:40 01/04/24 16:00 01/04/24 20:26 Temperature 98.0 F 97.7 F 98.2 F Pulse Rate 75 82 76 Respiratory Rate 17 16 Blood Pressure 188/104 H 153/101 H 138/86 Pulse Oximetry 97 97 98 Oxygen Delivery Method Room Air Room Air Room Air BMI result Body Mass Index 45.2 Const General: cooperative, healthy appearing, comfortable, no acute distress, well developed, alert, awake and Physically active Orientation/consciousness: oriented to person, oriented to place, oriented to time and patient oriented x3 HENMT Head: Yes normal to inspection, Yes No palpable skull fracture present, Yes normocephalic, Yes atraumatic and No abrasion Eyes General: appearance normal, both eyes and all related structures Neck Neck: Yes normal visual inspection, Yes full ROM, Yes no lymphadenopathy, Yes no meningeal signs, Yes trachea midline, Yes supple, No anterior neck swelling and No tender Chest Chest palpation & inspection: normal inspection of the chest and normal palpation of entire chest wall Resp Effort & Inspection: normal respiratory effort and able to speak in complete sentences Auscultation: clear to auscultation bilaterally Cardio Jugular venous distension: no JVD Heart sounds: S1 normal heart sound present and S2 normal heart sound present GI Other: Rectal exam negative for sammi blood. Negative for melena. Negative for obvious hemorrhoids. Negative for anal fissures. Inspection: Yes normal to inspection Palpation (GI): Soft to palpation, not firm, Tenderness to palpation present (GI) in the LLQ, no guarding and not rigid General: No CVA tenderness and Yes no CVA tenderness Back/Spine/Pelvis Back: no CVA tenderness, No CVA tenderness and No back tenderness Skin General skin exam: no rashes or lesions noted, elasticity normal and turgor normal Neuro General: oriented to person, oriented to place, oriented to time, patient oriented x3, gait normal, tone normal, moves all extremities, Normal light touch and pain sensation, no meningeal signs, no focal motor deficits, CN's II-XI intact bilaterally and normal sensation to monofilament Extrem General: Yes normal to inspection, Yes full ROM and Yes capillary refill normal Psych Appearance: grossly normal, well kempt and not disheveled Course Course Course Narrative: RME: Done by LILA Lange: Patient presents to the ED for lower abdominal pain ( LLQ) with blood in stool for the past two days. Patient denies any rectal pain. Patient denies any vomiting. Patient denies any history of ulcers. Patient states no history of GI bleeding. Physical exam positive for periumbilical left lower quadrant tenderness on palpation. Labs ordered Medical Decision Making Medical Decision Making [facility] Narrative: 38-year-old female presents to the ED for left lower quadrant abdominal pain and 2 episodes of rectal bleeding. Patient has picture of bloody stool on her phone and the stool was sammi red blood. Abdominal CT scan labs normal. RECTAL EXAM NORMAL. PATIENT NOT HAVING GI BLEED. PATIENT EXPLAINED WORRISOME SIGNS INFORMED TO RETURN TO ED IMMEDIATELY IF SHE HAS NOT Differential Diagnosis Differential Diagnoses: The differential diagnosis associated with the presentation includes (COLITIS, HEMORRHOIDS, GI BLEED,) Admission/Observation Consideration of admission/observation: Escalation of care including admission/observation considered Lab Data [facility] Lab Attestation statement: I reviewed the patient's lab results. 01/04/24 14:50 01/04/24 14:50 Labs: Lab Results 01/04/24 01/04/24 01/04/24 Range/Units 14:50 18:35 19:14 WBC 7.5 (4.8-10.8) X10*3/uL RBC 4.11 L (4.20-5.50) X10*6/uL Hgb 12.4 (12.0-16.0) g/dl Hct 36.0 L (37.0-47.0) % MCV 87.6 (80.0-98.0) fL MCH 30.2 (27.0-33.0) pg MCHC 34.4 (31.0-35.0) g/dl RDW 13.3 (11.0-16.0) % Plt Count 211 (160-400) X10*3/uL MPV 9.9 (9.4-12.3) fL Immature Gran % (Auto) 0.4 (0.0-0.4) % Neut % (Auto) 67.6 (45-73) % Lymph % (Auto) 25.0 (20-40) % Starr % (Auto) 4.7 (2-11) % Eos % (Auto) 1.9 (0-4) % Baso % (Auto) 0.4 (0-2) % Lymph # (Auto) 1.9 (1.2-4.9) X10*3/uL Starr # (Auto) 0.4 (0.1-1.2) X10*3/uL Eos # (Auto) 0.1 (0.0-0.4) X10*3/uL Baso # (Auto) 0.0 (0.0-0.2) X10*3/uL Abs Immat Gran (auto) 0.03 (0.00-0.03) X10*3/uL Absolute Neuts (auto) 5.1 (2.0-8.3) x10*3/uL Absolute Nucleated RBC 0.000 (0.0-0.012) X10*3/uL Nucleated RBC % (auto) 0.0 (0.0-0.2) /100WBC PT 12.4 (11.1-13.3) SEC INR 1.0 (0.9-1.1) APTT 31.8 (26.0-36.8) SEC Sodium 138 (135-145) mmol/L Potassium 4.1 (3.3-5.1) mmol/L Chloride 105 (96-108) mmol/L Carbon Dioxide 25 (22-29) mmol/L Anion Gap 12 (12-20) BUN 9 (9-16) mg/dL Creatinine 0.72 (0.5-1.4) mg/dL Estim Creat Clear Calc 142.3 Estimated GFR > 60 Random Glucose 98 (60-115) mg/dL Calcium 9.4 (8.4-10.2) mg/dL Total Bilirubin 0.5 (0.0-1.0) mg/dL AST 37 H (5-31) U/L ALT 35 H (0-31) U/L Alkaline Phosphatase 86 (39-117) U/L Total Protein 7.1 (6.5-8.0) g/dL Albumin 4.1 (3.5-5.0) g/dL Beta HCG, Quant < 2 mIU/mL Urine Color Yellow Urine Appearance Clear Urine pH 5.5 (5.0-9.0) Ur Specific [place] 1.020 (1.005-1.025) Urine Protein Negative (Neg-Trace) mg/dL Urine Glucose (UA) Negative (Negative) mg/dL Urine Ketones Negative (Negative) mg/dL Urine Blood Negative (Negative) Urine Nitrite Negative (Negative) Ur Leukocyte Esterase Negative (Negative) Stool Occult Blood NEGATIVE (NEGATIVE) Independent Interpretation I performed an independent interpretation of an: CT Scan Radiology Impression Discussion of test interpretation with radiology: I have reviewed the radiologist's reading. Independent Historian Clinical information obtained from an independent historian. History obtained from or confirmed by: Other (PATIENT) External Record Review External record reviewed: Other (PRIOR VISITS) Discharge Plan Discharge Clinical Impression: Rectal bleeding Patient Disposition: Home, Self-Care Instructions: Rectal Bleeding (ED) Additional Instructions: RECOMMEND FOLLOW-UP WITH PRIMARY CARE PROVIDER AND V BELT BUILDER. RETURN TO THE ED IMMEDIATELY FOR WEAKNESS, DIZZINESS, NAUSEA, VOMITING, ABDOMINAL PAIN, RECTAL BLEEDING, PALE SKIN, CHEST PAIN, SHORTNESS OF BREATH, OR ANY OTHER CONCERNING SYMPTOMS. Prescriptions: No Action meclizine 50 mg tablet 50 mg PO BID Qty: 30 0RF Referrals: [facility] [place] [facility] [Provider Group] (RECTAL BLEEDING) Stand Alone Forms: Work/School Release Interventions: ED Discharge Assessment Last Done: 01/04/24 20:26 Discharge Date/Time: 01/04/24 20:27 Print Language: Beninese
[2024-01-04 14:57] LABS: MANUAL DIFF FLAG NO
[2024-01-04 15:01] LABS: Basophils Percent Auto 0.4 % (0-2); Eosinophils Absolute Auto 0.1 X10*3/uL (0.0-0.4); Eosinophils Percent Auto 1.9 % (0-4); Hemoglobin 12.4 g/dl (12.0-16.0); Imm Gran Abs Auto 0.03 X10*3/uL (0.00-0.03); Imm Gran Pct Auto 0.4 % (0.0-0.4); Lymphocytes Absolute Auto 1.9 X10*3/uL (1.2-4.9); Mean Corpuscular HGB Conc 34.4 g/dl (31.0-35.0); Mean Corpuscular Hemoglobin 30.2 pg (27.0-33.0); Mean Corpuscular Volume 87.6 fL (80.0-98.0); Mean Platelet Volume 9.9 fL (9.4-12.3); Monocytes Absolute Auto 0.4 X10*3/uL (0.1-1.2); Monocytes Percent Auto 4.7 % (2-11); Neutrophils Absolute Auto 5.1 x10*3/uL (2.0-8.3); Neutrophils Percent Auto 67.6 % (45-73); Platelet Count 211 X10*3/uL (160-400); Red Blood Count 4.11 X10*6/uL (4.20-5.50); Red Cell Distribution Width 13.3 % (11.0-16.0); White Blood Count 7.5 X10*3/uL (4.8-10.8)
[2024-01-04 15:11] LABS: Prothrombin Time 12.4 SEC (11.1-13.3)
[2024-01-04 15:14] LABS: Partial Thromboplastin Time 31.8 SEC (26.0-36.8)
[2024-01-04 15:31] LABS: Alanine Aminotransferase 35 U/L (0-31); Albumin Level 4.1 g/dL (3.5-5.0); Alkaline Phosphatase 86 U/L (39-117); Anion Gap 12 (12-20); Aspartate Amino Transferase 37 U/L (5-31); Bilirubin Total 0.5 mg/dL (0.0-1.0); Blood Urea Nitrogen 9 mg/dL (9-16); Calcium 9.4 mg/dL (8.4-10.2); Carbon Dioxide 25 mmol/L (22-29); Chloride 105 mmol/L (96-108); Creatinine Clr Calc Pharmacy 142.3; Estimated Glomerular Filt Rate > 60; Glucose Random 98 mg/dL (60-115); Potassium 4.1 mmol/L (3.3-5.1); Sodium 138 mmol/L (135-145); Total Protein 7.1 g/dL (6.5-8.0)
[2024-01-04 15:33] LABS: HCG Quantitative < 2 mIU/mL
[2024-01-04 16:00] VITALS: BP 153/101; PULSE 82; TEMP 36.5; O2SAT 97
[2024-01-04 18:42] LABS: Appearance Urine Clear; Color Urine Yellow; Glucose Urine UA Negative (Negative); Leukocyte Esterase Urine Negative (Negative); Nitrite Urine Negative (Negative); PH 5.5 (5.0-9.0); Urine Blood Negative (Negative); Urine Ketones Negative (Negative); Urine Protein Negative (Neg-Trace)
[2024-01-04 19:23] LABS: OBS Int Ctl Valid YES; OBS1 NEGATIVE (NEGATIVE)
[2024-01-04 20:26] VITALS: BP 138/86; PULSE 76; RESP 16; TEMP 36.8; O2SAT 98
== END 2024-01-04 20:27 | disposition home or self-care (01) ==
PROVIDERS: Physician Assistant; Emergency Provider Internal Medicine
DX: K62.5 Hemorrhage of anus and rectum (principal); J45.909 Unspecified asthma, uncomplicated
CPT/HCPCS: 36415; 74176; 80053; 81003; 82272; 84702; 85025; 85610; 85730; 99283; 99284

== ENCOUNTER 2024-09-29 05:22 | Emergency (ER) | payer BC, SELFPAY ==
--- NOTE | ~2024-09-29 | XR_ITS ---
CLINICAL HISTORY: chest pain with SOB 1 view chest x-ray Comparison: CR - XR CHEST 2V - 03/26/21 11:51 EDT Findings: The lungs are clear. Normal size heart. No acute fracture. IMPRESSION: 1. No acute cardiopulmonary abnormality. This document has been electronically signed by: Alfonso Reynoso on 09/29/2024 05:57:31
[2024-09-29 05:24] VITALS: BP 172/80; PULSE 82; RESP 22; TEMP 36.8; O2SAT 93; BMI 44.9
--- NOTE | 2024-09-29 05:32 | ECG_ITS ---
Test Reason : CP Blood Pressure : */* mmHG Vent. Rate : 72 BPM Atrial Rate : 72 BPM P-R Int : 136 ms QRS Dur : 102 ms QT Int : 360 ms P-R-T Axes : 30 20 35 degrees QTcB Int : 394 ms Normal sinus rhythm Incomplete right bundle branch block Borderline ECG When compared with ECG of 26-Mar-2021 11:34, No significant change was found Referred By: Generic ED Physician Electronically Signed By: FREDERIC WILSON MD
[2024-09-29 06:09] LABS: MANUAL DIFF FLAG NO
[2024-09-29 06:13] LABS: Basophils Percent Auto 0.5 % (0-2); Eosinophils Absolute Auto 0.2 X10*3/uL (0.0-0.4); Eosinophils Percent Auto 1.9 % (0-4); Hematocrit 37.1 % (37.0-47.0); Hemoglobin 12.7 g/dl (12.0-16.0); Imm Gran Abs Auto 0.07 X10*3/uL (0.00-0.03); Imm Gran Pct Auto 0.9 % (0.0-0.4); Lymphocytes Absolute Auto 1.7 X10*3/uL (1.2-4.9); Lymphocytes Percent Auto 22.1 % (20-40); Mean Corpuscular HGB Conc 34.2 g/dl (31.0-35.0); Mean Corpuscular Hemoglobin 29.8 pg (27.0-33.0); Mean Corpuscular Volume 87.1 fL (80.0-98.0); Mean Platelet Volume 9.9 fL (9.4-12.3); Monocytes Absolute Auto 0.4 X10*3/uL (0.1-1.2); Monocytes Percent Auto 4.9 % (2-11); Neutrophils Absolute Auto 5.5 x10*3/uL (2.0-8.3); Neutrophils Percent Auto 69.7 % (45-73); Platelet Count 219 X10*3/uL (160-400); Red Blood Count 4.26 X10*6/uL (4.20-5.50); Red Cell Distribution Width 13.2 % (11.0-16.0); White Blood Count 7.9 X10*3/uL (4.8-10.8)
[2024-09-29 06:24] LABS: Alanine Aminotransferase 42 U/L (0-31); Albumin Level 4.1 g/dL (3.5-5.0); Alkaline Phosphatase 117 U/L (39-117); Anion Gap 12 (12-20); Aspartate Amino Transferase 46 U/L (5-31); Bilirubin Total 0.5 mg/dL (0.0-1.0); Blood Urea Nitrogen 10 mg/dL (9-16); Calcium 9.3 mg/dL (8.4-10.2); Carbon Dioxide 27 mmol/L (22-29); Chloride 104 mmol/L (96-108); Creatinine Clr Calc Pharmacy 148.7; Estimated Glomerular Filt Rate > 60; Glucose Random 192 mg/dL (60-115); Sodium 139 mmol/L (135-145); Total Protein 7.4 g/dL (6.5-8.0)
[2024-09-29 06:30] LABS: Troponin-I High Sensitivity < 2.7 ng/L (<3.5-17.0)
[2024-09-29 06:54] LABS: Influenza A PCR NEGATIVE (Negative); Influenza B PCR NEGATIVE (Negative); Resp Syncy Virus RNA Qual PCR NEGATIVE (Negative); SARS COV2 PCR INHOUSE NEGATIVE (Negative)
[2024-09-29 08:00] VITALS: BP 156/82; PULSE 78; RESP 18; TEMP 36.8; O2SAT 100
--- NOTE | 2024-09-29 08:01 | ED_ITS ---
HPI - Chest Pain General Chief Complaint: Chest Pain Stated Complaint: CP, SoB Time Seen by Provider: 09/29/24 07:55 Source: patient Mode of arrival: ambulatory Limitations: no limitations History of Present Illness HPI narrative: This is a 39 years old the patient presented to the emergency department with a chief complaint of shortness of breath and left-sided sharp chest pain ongoing for about a week. Patient stated that she was diagnosed with a pneumonia a month ago and since then she has been having episodes of chest pain shortness of breath. MD complaint: chest pain and other (SOB) Onset (ago): week(s) Timing of current episode: constant Prior episodes: Yes Onset: during rest Pain location: substernal Pain radiation: none Severity: mild Quality: sharp Relieving factors: nothing Exacerbating factors: nothing Context: recent illness Associated symptoms: nausea Risk Factors Coronary artery disease risk factors: none Related Data Previous Rx's ?Medication ?Instructions ?Recorded meclizine 50 mg tablet 50 mg PO BID #30 tabs 12/11/23 Allergies Allergy/AdvReac Type Severity Reaction Status Date / Time No Known Allergies Allergy Verified 09/29/24 05:24 Review of Systems 2 Constitutional: Constitutional: Reports no additional constitutional complaints Cardiovascular: Cardiovascular: Reports as per HPI PMFSH Past Medical History PMF Narrative: Fibromyalgia, asthma, restless legs syndrome Medical History Depression Prediabetes Asthma Restless leg syndrome Fibromyalgia Morbid obesity Surgical History Hx of wisdom tooth extraction Hx of colonoscopy Hx of endoscopy Hx of neck surgery Hx of breast surgery Hx of appendectomy Family History Family History Mother History of lung surgery Lung cancer COPD (chronic obstructive pulmonary disease) Father Diabetes HTN (hypertension) Brother Diabetes Family/Other Lung cancer Throat cancer Diabetes Maternal Grandmother Lung cancer Heart attack Stroke Diabetes Paternal Grandfather Prostate CA Family/Other Prostate CA Paternal Grandmother CHF (congestive heart failure) Diabetes Social History Social History Alcohol intake: current Alcohol intake frequency: holidays/special occasions only Alcohol type: wine Patient Tobacco Use Status: Never used Tobacco Advance Directives: No Advance Directives Information Provided: Yes Do you have a plan to hurt others: No Plan Current occupational status: unemployed Physical Exam 2 Vital Signs: Vital Signs: Last Vital Signs Temp 98.2 F 09/29/24 08:00 Pulse 78 09/29/24 08:00 Resp 18 09/29/24 08:00 BP 156/82 H 09/29/24 08:00 Pulse Ox 100 09/29/24 08:00 O2 Del Method Room Air 09/29/24 08:00 BMI result Body Mass Index 44.9 No acute distress stable vital sign Const: General: cooperative Orientation/consciousness: patient oriented x3 Limitations: no limitations HEENT: Head: Yes normal to inspection Ears: hearing grossly normal bilaterally General nose exam: Normal external nose present Neck: Neck: Yes normal visual inspection and Yes full ROM Chest: Chest palpation & inspection: normal inspection of the chest Resp: Effort & Inspection: normal respiratory effort Auscultation: clear to auscultation bilaterally Cardio: Jugular venous distension: no JVD Rate: regular rate Rhythm: r egular rhythm GI: Inspection: Yes normal to inspection Palpation (GI): Soft to palpation, not firm and nontender Percussion: Yes normal to percussion Auscultation: normal bowel sounds : General: Yes no CVA tenderness Back/Spine/Pelvis: Back: no CVA tenderness Skin: General skin exam: no rashes or lesions noted Lesions: no lesions Rashes: no rashes Neuro: General: patient oriented x3 Cranial nerves: Yes CN's II-XII intact bilaterally Gait exam (Neuro): Normal gait present Course Reevaluation(s) Reevaluation #1: Patient presented to the emergency department with a chief complaint of chest pain, delta trop is flat, D-dimer is negative she has a low risk I think she can be discharged home also chest x-ray was normal she will follow-up with the PCP Time: 08:58 Medical Decision Making Medical Decision Making [facility] Narrative: Patient presented with chest pain, we will obtain electrocardiogram labs Differential Diagnosis Differential Diagnoses: The differential diagnosis associated with the presentation includes ACS/pericarditis/noncardiac chest pain Consult Healthcare Provider Management of the patient was discussed with: Hospitalist Lab Data MDM Lab Attestation statement: I reviewed the patient's lab results. 09/29/24 06:03 09/29/24 06:03 Labs: Lab Results 09/29/24 09/29/24 Range/Units 06:03 08:14 WBC 7.9 (4.8-10.8) X10*3/uL RBC 4.26 (4.20-5.50) X10*6/uL Hgb 12.7 (12.0-16.0) g/dl Hct 37.1 (37.0-47.0) % MCV 87.1 (80.0-98.0) fL MCH 29.8 (27.0-33.0) pg MCHC 34.2 (31.0-35.0) g/dl RDW 13.2 (11.0-16.0) % Plt Count 219 (160-400) X10*3/uL MPV 9.9 (9.4-12.3) fL Immature Gran % (Auto) 0.9 H (0.0-0.4) % Neut % (Auto) 69.7 (45-73) % Lymph % (Auto) 22.1 (20-40) % [place] % (Auto) 4.9 (2-11) % Eos % (Auto) 1.9 (0-4) % Baso % (Auto) 0.5 (0-2) % Lymph # (Auto) 1.7 (1.2-4.9) X10*3/uL [place] # (Auto) 0.4 (0.1-1.2) X10*3/uL Eos # (Auto) 0.2 (0.0-0.4) X10*3/uL Baso # (Auto) 0.0 (0.0-0.2) X10*3/uL Abs Immat Gran (auto) 0.07 H (0.00-0.03) X10*3/uL Absolute Neuts (auto) 5.5 (2.0-8.3) x10*3/uL Absolute Nucleated RBC 0.000 (0.0-0.012) X10*3/uL Nucleated RBC % (auto) 0.0 (0.0-0.2) /100WBC D-Dimer High Sensitivty < 150 NG/ML Sodium 139 (135-145) mmol/L Potassium 4.0 (3.3-5.1) mmol/L Chloride 104 (96-108) mmol/L Carbon Dioxide 27 (22-29) mmol/L Anion Gap 12 (12-20) BUN 10 (9-16) mg/dL Creatinine 0.68 (0.5-1.4) mg/dL Estim Creat Clear Calc 148.7 Estimated GFR > 60 Random Glucose 192 H (60-115) mg/dL Calcium 9.3 (8.4-10.2) mg/dL Total Bilirubin 0.5 (0.0-1.0) mg/dL AST 46 H (5-31) U/L ALT 42 H (0-31) U/L Alkaline Phosphatase 117 (39-117) U/L Troponin I High Sens < 2.7 < 2.7 (<3.5-17.0) ng/L Total Protein 7.4 (6.5-8.0) g/dL Albumin 4.1 (3.5-5.0) g/dL Influenza Type A (PCR) NEGATIVE (Negative) Influenza Type B (PCR) NEGATIVE (Negative) RSV RNA Qual (PCR) NEGATIVE (Negative) SARS-CoV-2 RNA (RT-PCR) NEGATIVE (Negative) ABG Data Attestation ABG: I personally reviewed and interpreted this ABG as follows: Independent Interpretation I performed an independent interpretation of an: EKG Interpretation: Normal sinus rhythm rate [address]-T changes this is a normal electrocardiogram Radiology Impression Discussion of test interpretation with radiology: I have reviewed the radiologist's reading. Discharge Plan Discharge Clinical Impression: Chest pain Qualifiers: Chest pain type: unspecified Qualified Code(s): R07.9 - Chest pain, unspecified Patient Disposition: Home, Self-Care Instructions: Chest Pain (DC) Additional Instructions: Please follow-up with your primary care physician call today and make an appointment. Your blood work was normal including the blood test for heart attack in the blood test for blood clot your chest x-ray also was within normal limits no pneumonia Prescriptions: No Action meclizine 50 mg tablet 50 mg PO BID Qty: 30 0RF Referrals: Physician,None [Primary Care Provider] - 2 days Print Language: [place]
--- OUTSIDE RECORDS SUMMARY | 2024-09-29 08:15 | XMS_ITS | Clinical Summary ---
Author Organization [facility] Address [address] [place] [address] Care Team Providers Care Protective Signal Superintendent Name Role Phone Akosua Kaplan MD Primary Care Provider Unavail able Allergies No known active allergies Medications Medication Sig Dispensed Refills Start Date End Date Status omeprazole (PRILOSEC) 20 MG capsule TAKE ONE CAPSULE BY MOUTH EVERY DAY 30 Cap 2 12/03/2017 Active fluticasone (FLONASE) 50 MCG/ACT nasal spray 2 sprays in each nostril daily 1 Bottle 0 05/27/2018 Active ALBUTEROL SULFATE (PROAIR HFA) 108 (90 BASE) MCG/ACT Aero Soln Inhale 2 Puffs into the lungs 4 times daily as needed for Cough or Wheezing. 1 Inhaler 0 05/27/2018 Active Active Problems Problem Noted Date Rectal bleeding 10/10/2017 Overview: Flex sigmoidoscopy pending. Follows with GI Elevated transaminase level 09/10/2017 Overview: Secondary to , s/p abdominal US 02/2017 ASCUS with positive high risk HPV 2016 Overview: 11/17/2014 at [facility] obgyn Marijuana use 05/12/2017 Prehypertension 05/12/2017 Fibromyalgia 03/11/2017 Overview: Followed with infectious disease and tucking machine operator as well as neurologist. No history of lymes disease (nonalcoholic steatohepatitis) 02/2017 Overview: February 2017; abdominal ultrasound GERD (gastroesophageal reflux disease) 0 02/24/2017 Overview: S/p EGD which was normal 01/20/2018 follows with GI Morbid obesity with BMI of 45.0-49.9, ad ult 02/24/2017 Polycystic ovarian syndrome 02/24/2017 Immunizations Name Administration Dates Next Due Pneumoccoccal(Adult) Polysaccharide PPSV23 09/03 Tdap 09/03/2013,11/13/2011 Family History Medical History Relation Name Comments Diabetes Brother Asthma, depress ion/anxiety Diabetes Father Hypercholestere ifeanyi, HTN Stroke Maternal Grandfather [place] Maternal Grandmother Lung ca ncer (smoker) Depression/Anxiety Mother GERD CA Prostate Paternal Grandfather CA Breast Negative Hx CA Colon Negative Hx CA Ovarian Negative Hx Uterine Cancer Negative Hx Relation Name Status Comments Brother Father Maternal Grandfather Maternal Grandmother Mother Paternal Grandfather Social History Tobacco Use Types Packs/Day Years Used Date Smoking Tobacco: Never Smokeless Tobacco: Never Alcohol Use Standard Drinks/Week Comments Yes 1 (1 standard drink = 0.6 oz pur e alcohol) per week Sex Assigned at Date Recorded Not on file Last Filed Vital Signs Vital Sign Reading Time Taken Comments Blood Pressure 110/72 07/25/2018 11:40 AM EST Pulse 72 07/25/2018 11:40 AM EST Temperature 36.7 ??C (98 ??F) 07/25/2018 11: 40 AM EST Respiratory Rate 20 07/10/2018 1:04 PM EST Oxygen Saturation 98% 05/27/2018 9:53 AM EDT Inhaled Oxygen Concentration - - Weight 123.6 kg (272 lb 6.4 oz) 018 11:40 AM EST Height 165.1 cm (5' 5 ) 07/25/2018 11:4 0 AM EST Body Mass Index 45.33 07/25/2018 11:40 AM EST Plan of Treatment Health Maintenance Due Date Last Done Comments Covid-19 Vaccine (#1) 03/20/1988 CERVICAL CANCER SCREENING 10/09/20202017, 11/07/2014 (External Completion) BASELINE HEALTH EXAM 18-39 05/12/2022 05/12/2017, CHOLESTEROL SCREENING 09/10/2022 09/10/2017 DTAP/TDAP/TD (3 - Td or Tdap) 09/03/2023 09/03/2013, 11/13/2011 INFLUENZA (#1) 2024 05/12/2017 (Refused) BMI CHECK/ADVISE 07/28/2024 05/27/2018, 06/2018, 10/28/2017, Additional history exists PNEUMOCOCCAL VACCINE FOR HIG H RISK PATIENTS (#1) 2052 09/03/2013 Care Teams Protective Signal Superintendent Relationship Specialty Start Date End Date Akosua Kaplan MD PCP - General Internal Medicine 02/17/17
--- OUTSIDE RECORDS SUMMARY | 2024-09-29 08:15 | XMS_ITS | Clinical Summary ---
Author Organization [facility] Address [address] [place] [address] Care Team Providers Care Supervisor Boat Outfitting Name Role Phone Akosua Kaplan MD Primary Care Provider Surgical History Surgery Date Site/Laterality Comments APPENDECTOMY 02/04/2016 PROCEDURE: LAPAROSCOPIC APPENDECTOMY WISDOM TOOTH EXTRACTION PROCEDURE: HISTORICAL WISDOM TEETH EXTRACTION COLONOSCOPY 2013 PROCEDURE: HISTORICAL COLONOSCOPY FLEXIBLE SIGMOIDOSCOPY 01/20/2018 PROCEDURE: HISTORICAL FLEXIBLE SIGMOIDOSCOPY; COMMENT: normal up to the transverse colon. 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 No history of lymes disease Marijuana use 05/12/2017 DX:Marijuana use Prehypertension 05/12/2017 DX:Prehypertensi on ASCUS with positive high risk HPV 05/29/2017 DX:ASCUS with positive high risk HPV; COMMENT: 11/17/2014 at [facility] obgyn Rectal bleeding 10/10/2017 DX:Rectal bleedi ng; COMMENT: Flex sigmoidoscopy pending. Follows with GI Elevated transaminase level 09/10/2017 DX:E levated transaminase level; COMMENT: Secondary to , s/p abdominal US 02/2017 (nonalcoholic steatohepatitis) 03/04/2017 DX: (nonalcoholic steatohepatitis); COMMENT: February 2017; abdominal ultrasound GERD (gastroesophageal reflux disease) 02/24/2017 DX:GERD (gastroesophageal reflux disease); COMMENT: S/p EGD which was normal 01/20/2018 follows with GI Family History Medical History Relation Name Comments Diabetes Brother Asthma, depress ion/anxiety Diabetes Father Hypercholestere ifeanyi, HTN Stroke Maternal Grandfather Heart attack Maternal Grandmother Lung ca ncer (smoker) Depression Mother GERD Prostate cancer Paternal Grandfather Breast cancer Neg Hx Colon cancer Neg Hx Ovarian cancer Neg Hx Uterine cancer Neg Hx Relation Name Status Comments Brother Father Maternal Grandfather Maternal Grandmother Mother Paternal Grandfather Social History Tobacco Use Types Packs/Day Years Used Date Smoking Tobacco: Never Smokeless Tobacco: Never Alcohol Use Standard Drinks/Week Comments Yes 1 (1 standard drink = 0.6 oz pur e alcohol) Comments Unknown Sex and Gender Information Value Date Recorded Sex Assigned at Not on file Legal Sex Female 3:06 AM EST Gender Identity Not on file Sexual Orientation Not on file Obstetrics History Plan of Treatment Health Maintenance Due Date Last Done Comments Hepatitis B Vaccines (1 of 3 - 19+ 3-dose series) 2006 Cervical Cancer Screening: P ap Smear 10/09/2020 10/09/2017 DTaP,Tdap,and Td Vaccines (3 - Td or Tdap) 09/03/2023 09/03/2013, 11/13/2011 COVID-19 Vaccine (2023-2 5 season) 2024 Influenza Vaccine (#1) 2024 Pneumococcal Vaccine: Pediatrics (0 to 5 Years) and At-Risk Patients (6 to 64 Years) Aged Out 09/03/2013 No longer eligible b ased on patient's age to complete this topic HIB Vaccines Aged Out No longer eligi ble based on patient's age to complete this topic HPV Vaccines Aged Out No longer eligi ble based on patient's age to complete this topic Hepatitis A Vaccines Aged Out No long er eligible based on patient's age to complete this topic IPV Vaccines Aged Out No longer eligi ble based on patient's age to complete this topic MMR Vaccines Aged Out No longer eligi ble based on patient's age to complete this topic Meningococcal ACWY Vaccine Aged Out N o longer eligible based on patient's age to complete this topic Meningococcal B Vacine Aged Out No lo nger eligible based on patient's age to complete this topic RSV Immunization Patients Under 20 months Aged Out No longer eligible b ased on patient's age to complete this topic Varicella Vaccines Aged Out No longer eligible based on patient's age to complete this topic Procedures Procedure Name Priority Date/Time Associated Diagnosis Comments PAP SMEAR Routine 10/09/2017 from Last 3 Months or Most Recently Relevant to Health Maintenance Results * Pap smear (10/09/2017) 10/09/2017 Narrative HISTORICAL TESTING LAB RESULTING AGENCY - 10/13/2017 3:49 PM EDT [id number] THINPREP PAP, IMAGED: NEGATIVE FOR SQUAMOUS INTRAEPITHELIAL LESION AND MALIGNANCY ??. RESULT OF APTIMA HIGH RISK HPV ASSAY: ? NEGATIVE ?? 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 ENDOCERVICAL/TRANSFORMATION ZONE COMPONENT PRESENT. SOURCE: THINPREP PAP HPV ANY DX: ??REFLEX 16 AND 18, CERVICAL, IMAGED: CLINICAL INFORMATION: HPV ANY DIAGNOSIS. PAP HX NEG [Z12.4, Z01.419] us Maria [facility] LAB CYTOLOGY ORDERABLES Final R esult HISTORICAL TESTING LAB RESULTING AGENCY from Last 3 Months or Most Recently Relevant to Health Maintenance Care Teams Supervisor Boat Outfitting Relationship Specialty Start Date End Date Akosua Kaplan MD PCP - General Internal Medicine 02/17/17
[2024-09-29 08:32] LABS: D Dimer High Sensitivity < 150 NG/ML
[2024-09-29 08:43] LABS: Troponin-I High Sensitivity < 2.7 ng/L (<3.5-17.0)
[2024-09-29 09:14] VITALS: BP 156/82; PULSE 78; RESP 18; TEMP 36.8; O2SAT 100
== END 2024-09-29 09:14 | disposition home or self-care (01) ==
PROVIDERS: Emergency Provider Emergency Medicine
DX: R07.9 Chest pain, unspecified (principal); J45.909 Unspecified asthma, uncomplicated
CPT/HCPCS: 0241U; 36415; 71045; 80053; 84484; 85025; 85379; 93005; 99283; 99284

== ENCOUNTER → 2024-09-29 05:32 | Outpatient (BNV) | payer BC, SELFPAY | PROVIDERS: Emergency Provider Emergency Medicine; Visit Provider Internal Medicine Cardiovascular Disease | DX: I45.10 Unspecified right bundle-branch block (principal) | CPT/HCPCS: 93010 ==

== ENCOUNTER → 2024-09-29 05:33 | Outpatient (BNV) | payer MEDICAID, SELFPAY | PROVIDERS: Visit Provider Radiology Vascular & Interventional Radiology | DX: R06.02 Shortness of breath (principal) | CPT/HCPCS: 71045 ==

== ENCOUNTER 2024-10-15 11:29 | Outpatient (AMB) | payer BC, SELFPAY ==
--- NOTE | 2024-10-15 11:31 | MHC.PC.OV ---
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 Intake Note: New [place] to [place] care and [place] [facility] [place] Special[place] Required: No Allergies No Known Allergies Allergy (Verified 10/15/24 12:10) Medication List - Last Reconciled 10/15/24 by SUE Wang No Known Home Meds Tobacco use date assessed: 10/15/24 Dental Screening Dental Screen Date: 10/15/24 Did you have a dental visit in the last 12 months?: No Did you have a dental problem in the last 6 months where you did not have access to dental care?: No Was dental information given to patient?: Patient has dentist HPI HPI Comments History of Present Illness Details 39 y/o f with elevated LFTs d/t fatty liver, MDD, RLS, fibromyalgia, vitamin b 1 def, autoimmmune thrombocytopenia, + CHRISSIE , hepatosplenomegaly (CT [facility] 2021) DM 2 s/p r lymphnode removal 2020 Social: [employer] Health Maintenance Tdap declined Flu declined pap Mammo 10/14/24 Ashleigh Ledezma 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 - The patient is a 39-year-old female presenting for primary care establishment and hospital discharge follow-up. She was recently hospitalized for an asthma exacerbation at [facility] and discharged without modifications to her existing treatment regime. SHe states she does not have an asthma dx. Symptoms of chest pain, respiratory discomfort, and elevated blood pressure have resurfaced following an initial pneumonia diagnosis confirmed by radiography in August 2024. In September, further concerns arose with elevated blood pressure episodes potentially resulting in ruptured vessels in the R eye. - Medical history reveals previously treated immune thrombocytopenic purpura, a labile positive CHRISSIE, and recent documentation of chronically elevated inflammatory markers (C-reactive protein). Rheum visits have involved extensive diagnostics for unresolvable differential diagnoses, including fibromyalgia, despite inconclusive results and fluctuating blood investigative results. An underlying potential autoimmune etiology complicates the clinical trajectory. - a1c today confirms Type 2 diabetes and consistently high blood pressure EKG at ED: right bundle branch block identified has never been on meds for htn. has occassional swelling ble + snoring, has never had sleep study Having L breast pain and lump: Mammo and Us managed by [facility] done yesterday; pt reports lymphnode found but otherwise wnl. Suffers ice pick headache over R eye Visual snow last eye exam 1 month ago Exam: Awake alert NAD R conjunctival hemorrage, PERRLA,EOMI RRR, 2/6 systolic murmur Reproducible chest pain over L anterior chest wall LS CTAB No edema BLE Results Labs 09/29/24 ED visit ^ lft, glucose 192 otherwise wnl PNA 08/2024 in [place] [facility] - Labs: Positive CHRISSIE documented; consistently elevated C-reactive protein with concurrent normal erythrocyte sedimentation rate historically. - Tests and Diagnostics: Recent EKG indicates incomplete right bundle branch block; recent mammogram and ultrasound showed stable lymph node Discussion Notes I advised the patient on her chronic and acute medical conditions, emphasizing the need to manage diabetes with metformin and hypertension with lisinopril. These medications were introduced with a detailed review of potential side effects and necessary adherence to dietary timing for optimal efficacy. Emphasized the necessity of further cardiovascular evaluation, which includes an echocardiogram and potential for pulmonary function testing contingent upon findings. Highlighted the necessity for a diabetic eye examination to be scheduled, considering heightened risk factors from both elevated glucose levels and blood pressure. Discussed continuation in the evaluation of autoimmune disorders. Advised repeated labs to reassess inflammatory markers and B1 vitamin levels. Provided instructions on how to use patient portal effectively for communication and follow-up appointments. Enabled immediate referrals for sleep study. Addressed the pivotal role of continuity in appointments to sequentially address multi-systemic considerations, emphasizing the structured plan established today whilst leaving space for flexibility in emergent assessments. Assessment and Plan 1. PNA: resolved. Evaluated post-hospitalization symptoms with timely pulmonary function testing anticipated. Management to ensure stabilization of respiratory status remains a priority amidst recent pulmonary episodes. 2. Type 2 diabetes mellitus: Treatment initiated with metformin 500 mg. Focused on regulation of patient's blood glucose levels with an adjunct dietary intervention to achieve target A1C levels and mitigate long-term microvascular complications. 3. Hypertension: Commenced lisinopril 5 mg medication to address consistently elevated blood pressure readings. Highlighted the requirement for comprehensive cardiac evaluation via echocardiography for etiologic clarity and risk management. 4. Immune thrombocytopenic purpura (ITP): Monitoring for this condition reemphasized, considering the interplay between positive CHRISSIE and comorbid autoimmune symptoms that potentially influence broader diagnosis. 5. Chest pain: Investigated chest sensations and directed correlation to non-cardiac musculoskeletal origins. Likely costochondritis 6. Hepatomegaly and fatty liver disease: Continue surveillance for liver function and concurrent glucose regulation effect on hepatic outcomes with concurrent hyperlipidemia evaluation strategies. 7. Visual issues: Prioritized diabetic retinopathy awareness with ophthalmic consultation, given previous peculiar visual phenomena and shared autoimmune risks profile. RTO 2 weeks for complex close interim fu Patient Instructions - Take metformin with the evening meal to avoid stomach upset and improve diabetes management. - Begin lisinopril, monitoring for any facial swelling or persistent cough, and report immediately if these occur. - Attend prescribed specialist appointments, including eye and echocardiogram evaluations. - Utilize the patient portal for communication and immediate healthcare needs. - Schedule a follow-up visit in two weeks to evaluate response to treatments. - Be observant of any changes or exacerbation in symptoms that require urgent attention. Consent Patient was informed and verbally consented to the use of an ambient scribe for clinic note documentation during this visit. Total time spent caring for the patient today was 75 minutes. This includes time spent before the visit reviewing the chart, time spent during the visit, and time spent after the visit on documentation, reviewing laboratory results, diagnostic imaging, medications, performing a medically necessary evaluation, counseling on diagnoses, care coordination, ordering appropriate tests, ordering appropriate medications, review of tests performed by other providers, reporting test results with the patient, communication with other healthcare providers. [facility] Medical History (Updated 10/15/24 @ 18:25 by Kiara Delaney, MARINE STEAM FITTER-) Anxiety and depression Asthma Depression Fibromyalgia GERD (gastroesophageal reflux disease) Headache IBS (irritable bowel syndrome) Morbid obesity Restless leg syndrome Surgical History (Updated 10/15/24 @ 18:24 by Kiara Delaney, JODI-) Hx of appendectomy Hx of breast surgery Hx of colonoscopy (~2020) Hx of endoscopy Hx of neck surgery Hx of wisdom tooth extraction Family History (Updated 10/15/24 @ 11:47 by Alicia Herrmann MA) Mother History of lung surgery Lung cancer COPD (chronic obstructive pulmonary disease) HTN (hypertension) Father Diabetes HTN (hypertension) Cardiovascular disease Brother Diabetes Family/Other Lung cancer Throat cancer Diabetes Maternal Grandmother Lung cancer Heart attack Stroke Diabetes Paternal Grandfather Prostate CA Family/Other Prostate CA Paternal Grandmother CHF (congestive heart failure) Diabetes Cardiovascular disease Social History (Updated 10/15/24 @ 11:36 by Alicia Herrmann MA) Household Members: Significant Other Housing: Apartment Are you a primary post anesthesia care unit nurse to a significant other at home: No Do you presently have visiting nurse or other home services: No Alcohol intake: current Alcohol intake frequency: holidays/special occasions only Alcohol type: wine Patient Tobacco Use Status: Never used Tobacco e-Cigarette/Vaping Use: Never Used Second Hand Smoke Exposure: No Current occupational status: unemployed Cognitive needs: No Hearing needs: No Vision needs: No Questionnaire PHQ-9 Over the last 2 weeks, how often have you been bothered by any of the following problems? 1. Little interest or pleasure in doing things: several days 2. Feeling down, depressed, or hopeless: several days 3. Trouble falling or staying asleep, or sleeping too much: more than half the days 4. Feeling tired or having little energy: nearly every day 5. Poor appetite or overeating: several days 6. Feeling bad about yourself - or that you are a failure or have let yourself or your family down: not at all 7. Trouble concentrating on things, such as reading the newspaper or watching television: several days 8. Moving or speaking so slowly that other people could have noticed. Or the opposite - being so fidgety or restless that you have been moving around a lot more than usual: not at all 9. Thoughts that you would be better off or of hurting yourself in some way: not at all Total score: 9 Depression Screening Interpretation: Positive Depression Screening Follow-up: Existing condition and Follow-up Visit Requested Depression Screening Done: Yes 59193 - PHQ-9 Billing: Yes Source: Developed by Drs. Fernando Valentino, Aga Rodriguez, Alan Anguiano and colleagues, with an educational giovanni from [employer]. Thrive Questionnaire Date Thrive assessed: 10/15/24 I am a: Patient What is your living situation today?: I have a steady place to live Within the past 12 months, did the food you bought not last and you didn't have the money to get more?: Never true Within the past 12 months, did you worry whether your food would run out before you got money to buy more?: Never true Do you have trouble paying for medicines?: No Do you have trouble getting transportation to medical appointments?: No Do you have trouble paying your heating and electricity bill?: No Do you have trouble taking care of your child, family member or friend?: No Do you have trouble with day-to-day activities such as bathing, preparing meals, shopping, managing finances, etc.?: No Are you currently unemployed and looking for a job?: No Are you interested in more education?: No Please select the resources that you would like help with: None Currently or been in a relationship where the following occur: No concerns reported THRIVE Score: 0 AUDIT C Alcohol Use Questionnaire (AUDIT-C) 1. How often do you have a drink containing alcohol?: Never 3. How often do you have six or more drinks on one occasion?: Never Total Score: 0 Score Reviewed/Action Taken: Yes MIKAELA-7 AMB Questionnaire MIKAELA-7 Date MIKAELA - 7 assessed: 10/15/24 Feeling nervous, anxious, or on edge: 1 = Several days Not being able to stop or control worryin = Not at all Worrying too much about different things: 1 = Several days Trouble relaxin = Several days Being so restless that it is hard to sit still: 0 = Not at all Becoming easily annoyed or irritable: 1 = Several days Feeling afraid as if something awful might happen: 1 = Several days Total MIKAELA-7 score (0-4 normal; 5-9 mild; 10-14 moderate; 15-21 severe): 5 Source: Developed by Drs. Fernando Valentino, Aga Rodriguez, Alan Anguiano and colleagues, with an educational giovanni from [employer]. MIKAELA-7 Assessment Billing MIKAELA-7 Assessment Tool: MIKAELA-7 Assessment 88369 Physical exam (Primary Care) Vital Signs: Last Vital Signs Temp 97.5 F 10/15/24 11:37 Pulse 76 10/15/24 11:37 Resp 13 10/15/24 11:37 BP 144/80 H 03/21/25 11:37 Pulse Ox 93 10/15/24 11:37 Oxygen Delivery Method Room Air 10/15/24 11:37 BMI result Body Mass Index 46.6 BMI Assessment/Plan discussion: High BMI High, discussed plan: lifestyle Tobacco/Smoking Status: Tobacco use Status Tobacco use date assessed 10/15/24 10/15/24 11:36 Patient Tobacco Use Status Never used Tobacco 10/15/24 11:36 e-Cigarette/Vaping Use Never Used 10/15/24 11:36 PHQ-9: PHQ-9 Score PHQ-9: Total score 9 10/15/24 11:53 Depression Screening Interpretation: Positive Depression Screening Follow-up: Existing condition and Follow-up Visit Requested Thrive Assessment: Date of Thrive Assessment Date Thrive assessed 10/15/24 10/15/24 11:32 Currently or been in a relationship where the following occur: No concerns reported Results AMB Hemoglobin A1c AMB Hemoglobin A1c 6.9 % Last Edit by Alicia Herrmann MA on 10/15/24 11:57 Results Reviewed Results Reviewed: Laboratory Last Values Hgb A1c (Clinic) 6.9 % (4.0-6.0) H 10/15/24 11:52 Coding Level of Care Code New Pt Level 5 (44823) Complex EM visit Add On G2211 Diagnoses Hospital discharge follow-up Z09 Incomplete right bundle branch block I45.10 Autoimmune thrombocytopenia D69.3 Primary hypertension I10 Hypertension type: primary hypertension Conjunctival hemorrhage, right eye H11.31 History of Lyme disease Z86.19 Diabetes mellitus type 2 with complications E11.8 Steatosis, liver K76.0 Vitamin B1 deficiency E51.9 Snoring R06.83 Influenza vaccination declined Z28.21 Tetanus, diphtheria, and acellular pertussis (Tdap) vaccination declined Z28.21 Mild episode of recurrent major depressive disorder F33.0 Major depression episode severity: mild Morbid obesity E66.01 CPT Codes PROLONG OUTPT/OFFICE VIS - G2212 Additional Codes MIKAELA-7 Assessment Billing - MIKAELA-7 Assessment Tool: MIKAELA-7 Assessment 64453 ([id number]) PHQ-9 - 35066 - PHQ-9 Billing: Yes ([id number]) Assessment & Plan Assessment & Plan (1) Hospital discharge follow-up: Code(s): Z09 - Encounter for follow-up examination after completed treatment for conditions other than malignant neoplasm (2) Incomplete right bundle branch block: Code(s): I45.10 - Unspecified right bundle-branch block Category: Medical (3) Autoimmune thrombocytopenia: Code(s): D69.3 - Immune thrombocytopenic purpura Category: Medical (4) HTN (hypertension): Code(s): I10 - Essential (primary) hypertension Category: Medical Qualifiers: Hypertension type: primary hypertension Qualified Code(s): I10 - Essential (primary) hypertension (5) Conjunctival hemorrhage, right eye: Code(s): H11.31 - Conjunctival hemorrhage, right eye Category: Medical (6) History of Lyme disease: Code(s): Z86.19 - Personal history of other infectious and parasitic diseases Category: Medical (7) Diabetes mellitus type 2 with complications: Onset Date: ~09/2024 Code(s): E11.8 - Type 2 diabetes mellitus with unspecified complications Category: Medical (8) Steatosis, liver: Code(s): K76.0 - Fatty (change of) liver, not elsewhere classified Category: Medical (9) Vitamin B1 deficiency: Code(s): E51.9 - Thiamine deficiency, unspecified Category: Medical (10) Snoring: Code(s): R06.83 - Snoring Category: Medical (11) Influenza vaccination declined: Code(s): Z28.21 - Immunization not carried out because of patient refusal Category: Medical (12) Tetanus, diphtheria, and acellular pertussis (Tdap) vaccination declined: Code(s): Z28.21 - Immunization not carried out because of patient refusal Category: Medical (13) MDD (major depressive disorder), recurrent episode: Code(s): F33.9 - Major depressive disorder, recurrent, unspecified Category: Medical Qualifiers: Major depression episode severity: mild Qualified Code(s): F33.0 - Major depressive disorder, recurrent, mild (14) Morbid obesity: Comment: BMI 46 Code(s): E66.01 - Morbid (severe) obesity due to excess calories Category: Medical Plan . Orders: Orders AMB Hemoglobin A1c Today Z13.9 - Encounter for screening, unspecified TSH reflex Free T4 Today E11.8 - Type 2 diabetes mellitus with unspecified complications, E51.9 - Thiamine deficiency, unspecified, I10 - Essential (primary) hypertension, K76.0 - Fatty (change of) liver, not elsewhere classified Vitamin D 1,25 dihydroxy Today E11.8 - Type 2 diabetes mellitus with unspecified complications, E51.9 - Thiamine deficiency, unspecified, I10 - Essential (primary) hypertension, K76.0 - Fatty (change of) liver, not elsewhere classified Vitamin B1 Today E11.8 - Type 2 diabetes mellitus with unspecified complications, E51.9 - Thiamine deficiency, unspecified, I10 - Essential (primary) hypertension, K76.0 - Fatty (change of) liver, not elsewhere classified Lipid Panel Today E11.8 - Type 2 diabetes mellitus with unspecified complications, E51.9 - Thiamine deficiency, unspecified, I10 - Essential (primary) hypertension, K76.0 - Fatty (change of) liver, not elsewhere classified Microalbumin, Random (w Creat) Today E11.8 - Type 2 diabetes mellitus with unspecified complications, E51.9 - Thiamine deficiency, unspecified, I10 - Essential (primary) hypertension, K76.0 - Fatty (change of) liver, not elsewhere classified CRP High Sensitivity Today E11.8 - Type 2 diabetes mellitus with unspecified complications, E51.9 - Thiamine deficiency, unspecified, I10 - Essential (primary) hypertension, K76.0 - Fatty (change of) liver, not elsewhere classified Erythrocyte Sedimentation Rate Today E11.8 - Type 2 diabetes mellitus with unspecified complications, E51.9 - Thiamine deficiency, unspecified, I10 - Essential (primary) hypertension, K76.0 - Fatty (change of) liver, not elsewhere classified CA echo transthoracic complete Today I10 - Essential (primary) hypertension, I45.10 - Unspecified right bundle-branch block RT home sleep study Today R06.83 - Snoring Referrals Ophthalmology Referral E11.8 - Type 2 diabetes mellitus with unspecified complications, H11.31 - Conjunctival hemorrhage, right eye, I10 - Essential (primary) hypertension Medications: New metformin ER 500 mg PO QPM 90 tabs 0RF lisinopril 5 mg PO DAILY 90 tabs 0RF
[2024-10-15 11:37] VITALS: BP 144/80; PULSE 76; RESP 13; TEMP 36.4; O2SAT 93; BMI 46.6
--- OUTSIDE RECORDS SUMMARY | 2024-10-15 14:03 | XMS_ITS | Encounter Summary ---
Author Organization [facility] Address [address] [place] [address] Care Team Providers Care Electrogalvanizing Machine Operator Name Role Phone Akosua Kaplan MD Primary Care Provider Unavail able Reason for Visit * Reason Onset Date Comments Prior Authorization 10/10/2017 Encounter Details Date Type Department Care Team Description 10/10/2017 Telephone Gastroenterology - [address] [address] [place] PA-C Prior Authorization Social History Tobacco Use Types Packs/Day Years Used Date Smoking Tobacco: Never Smokeless Tobacco: Never Alcohol Use Standard Drinks/Week Comments Yes 1 (1 standard drink = 0.6 oz pur e alcohol) per week Sex Assigned at Date Recorded Not on file documented as of this encounter Miscellaneous Notes * Telephone Encounter - Shanda Abel - 10/23/2017 1:50 PM EDT [facility] Auth # [id number] 11/04/17- 02/03/18 * Telephone Encounter - Shanda Abel - 10/10/2017 10:57 AM EDT Form faxed to [employer] for auth * Telephone Encounter - Charlee Alfonso - 10/10/2017 9:40 AM EDT Pre-auth needed Patient is scheduled for an Flex Sigmoid and Upper Endoscopy on 11-04-17 Patients insurance: Payor: [employer] / Plan: [facility] TYPE [facility] $15/$22 / Product Type: HMO [id number] Appointment is with Dary Figueroa MD Code to process pre-auth for: [id number] (Upper Endoscopy) and [id number] (Flex Sigmoid) Location of procedure: [facility] documented in this encounter Plan of Treatment Not on file documented as of this encounter Visit Diagnoses Not on filedocumented in this encounter Care Teams Electrogalvanizing Machine Operator Relationship Specialty Start Date End Date Akosua Kaplan MD PCP - General Internal Medicine 02/17/17 documented as of this encounter
--- OUTSIDE RECORDS SUMMARY | 2024-10-15 14:03 | XMS_ITS | Encounter Summary ---
Author Organization [facility] Address [address] [place] [address] Care Team Providers Care Technical Designer Name Role Phone Akosua Kaplan MD Primary Care Provider Unavail able Reason for Visit * Reason Onset Date Comments Prior Authorization 12/24/2017 Encounter Details Date Type Department Care Team Description 12/24/2017 Telephone Gastroenterology - [address] [address] [place] PA-C Prior Authorization Social History Tobacco Use Types Packs/Day Years Used Date Smoking Tobacco: Never Smokeless Tobacco: Never Alcohol Use Standard Drinks/Week Comments Yes 1 (1 standard drink = 0.6 oz pur e alcohol) per week Sex Assigned at Date Recorded Not on file documented as of this encounter Miscellaneous Notes * Telephone Encounter - Shanda Abel - 12/26/2017 9:19 AM EDT [facility] auth #[id number] 12/24/17 - 03/26/18 Dr Medina * Telephone Encounter - Shanda Abel - 12/24/2017 4:01 PM EDT Form faxed to [facility] for auth * Telephone Encounter - Asha Hilario - 12/24/2017 3:13 PM EDT Pre-auth needed Patient is scheduled for an Endoscopy on 01/20/18 Patients insurance: Payor: [employer] / Plan: -[facility] TYPE III $15/$22 / Product Type: HMO [id number] Appointment is with Gustavo Medina MD Code to process pre-auth for: [id number] and [id number] Location of procedure: [facility] documented in this encounter Plan of Treatment Not on file documented as of this encounter Visit Diagnoses Not on filedocumented in this encounter Care Teams Technical Designer Relationship Specialty Start Date End Date Akosua Kaplan MD PCP - General Internal Medicine 02/17/17 documented as of this encounter
--- OUTSIDE RECORDS SUMMARY | 2024-10-15 14:03 | XMS_ITS | Encounter Summary ---
Author Organization [facility] Address [address] [place] [address] Care Team Providers Care Research Chief Engineer Name Role Phone Akosua Kaplan MD Primary Care Provider Unavail able Encounter Details Date Type Department Care Team Description 02/26/2017 Release of Information Medical Records [address] [place] [address] Abstract, Provider Social History Tobacco Use Types Packs/Day Years Used Date Smoking Tobacco: Never Alcohol Use Standard Drinks/Week Comments Yes 0 (1 standard drink = 0.6 oz pur e alcohol) Sex Assigned at Date Recorded Not on file documented as of this encounter Plan of Treatment Not on file documented as of this encounter Visit Diagnoses Not on filedocumented in this encounter Care Teams Research Chief Engineer Relationship Specialty Start Date End Date Akosua Kaplan MD PCP - General Internal Medicine 02/17/17 documented as of this encounter
--- OUTSIDE RECORDS SUMMARY | 2024-10-15 14:03 | XMS_ITS | Clinical Summary ---
Author Organization [facility] Address [address] [place] [address] Care Team Providers Care Artillery Maintenance Supervisor Name Role Phone Akosua Kaplan MD Primary Care Provider [phone] Surgical History Surgery Date Site/Laterality Comments APPENDECTOMY [...] obesity with BMI of 4 5.0-49.9, adult ([facility]/H[facility]) 02/24/2017 DX:Morbid obesity with BMI o f 45.0-49.9, adult ([facility]) Fibromyalgia 03/11/2017 DX:Fibromyalgia; COMMENT: Followed with infectious disease and ethnic studies professor as well as neurologist. No history of lymes disease Marijuana use 05/12/2017 DX:Marijuana use Prehypertension 05/12/2017 DX:Prehypertensi on ASCUS with positive high risk HPV 05/29/2017 DX:ASCUS with positive high risk HPV; COMMENT: 11/17/2014 at [facility] obgyn Rectal bleeding 10/10/2017 DX:Rectal bleedi [...] RESULTING AGENCY - 10/13/2017 3:49 PM EDT [id number] THINPREP PAP, IMAGED: NEGATIVE FOR SQUAMOUS INTRAEPITHELIAL [...] Recently Relevant to Health Maintenance Care Teams Artillery Maintenance Supervisor Relationship Specialty Start Date End Date Akosua Kaplan MD PCP - General Internal Medicine 02/17/17
== END 2024-10-15 12:27 | disposition home or self-care (01) ==
LOC: HO.HMCFM 11:29
PROVIDERS: PCP Nurse Practitioner Family; Visit Provider Nurse Practitioner Family
DX: I45.10 Unspecified right bundle-branch block (principal); D69.3 Immune thrombocytopenic purpura; I10 Essential (primary) hypertension; H11.31 Conjunctival hemorrhage, right eye; Z86.19 Personal history of other infectious and parasitic diseases; E11.8 Type 2 diabetes mellitus with unspecified complications; K76.0 Fatty (change of) liver, not elsewhere classified; E51.9 Thiamine deficiency, unspecified; R06.83 Snoring; E66.01 Morbid (severe) obesity due to excess calories; F33.0 Major depressive disorder, recurrent, mild; Z68.42 Body mass index [BMI] 45.0-49.9, adult; Z28.21 Immunization not carried out because of patient refusal; Z13.9 Encounter for screening, unspecified

== ENCOUNTER → 2024-10-15 11:29 | Outpatient (BNVA) | payer BC, SELFPAY | PROVIDERS: Visit Provider Nurse Practitioner Family | DX: Z09 Encounter for follow-up examination after completed treatment for conditions other than malignant neoplasm (principal); I45.10 Unspecified right bundle-branch block; D69.3 Immune thrombocytopenic purpura; I10 Essential (primary) hypertension; H11.31 Conjunctival hemorrhage, right eye; E11.8 Type 2 diabetes mellitus with unspecified complications; K76.0 Fatty (change of) liver, not elsewhere classified; E51.9 Thiamine deficiency, unspecified; R06.83 Snoring; F33.0 Major depressive disorder, recurrent, mild; E66.01 Morbid (severe) obesity due to excess calories; Z68.42 Body mass index [BMI] 45.0-49.9, adult; Z86.19 Personal history of other infectious and parasitic diseases; Z28.21 Immunization not carried out because of patient refusal | CPT/HCPCS: 83036; 96127 ==

== ENCOUNTER 2024-10-15 12:37 | Outpatient (REF) | payer BC, SELFPAY ==
[2024-10-15 14:38] LABS: Cholesterol 163 mg/dL (<200); HDL Cholesterol 34 mg/dL (>40); LDL Cholesterol Calculated 75 mg/dL (<100); Triglycerides 273 mg/dL (<150)
[2024-10-15 14:49] LABS: Creatinine Urine 141.44 mg/dL; Microalbum/Creatinine Ratio Ur 17.6 ug/mg cr (<30)
[2024-10-15 14:53] LABS: TSH reflex Free T4 1.53 uIU/mL (0.32-4.0)
[2024-10-15 15:08] LABS: Erythrocyte Sedimentation Rate 38 MM/HR (0-20)
[2024-10-18 10:19] LABS: CRP High Sensitivity >20.0 mg/L
[2024-10-21 15:39] LABS: VITAMIN D (1,25 OH) D3 69 pg/mL; Vit D (1,25-Dihydroxy) Total 69 pg/mL (18-72); Vitamin D (1,25 OH) D2 <8 pg/mL
[2024-10-24 01:13] LABS: Vitamin B1 9 nmol/L (8-30)
== END 2024-10-15 12:38 | disposition home or self-care (01) ==
LOC: HO.WFDLDS 12:37
PROVIDERS: Visit Provider Nurse Practitioner Family
DX: E11.8 Type 2 diabetes mellitus with unspecified complications (principal); I10 Essential (primary) hypertension; K76.0 Fatty (change of) liver, not elsewhere classified; E51.9 Thiamine deficiency, unspecified
CPT/HCPCS: 36415; 80061; 82043; 82570; 82652; 84425; 84443; 85652; 86141

== ENCOUNTER 2024-11-01 08:37 | Outpatient (AMB) | payer BC, SELFPAY ==
--- NOTE | 2024-11-01 08:39 | A.OFFPC_ITS ---
Vital Signs 11/01/24 08:44 Height 5 ft 5 in Weight 273 lb BMI 45.4 BP 112/68 Blood Pressure Location Rt brachial Position Sitting Respiration 12 Pulse 85 Pulse Source Pulse Oximeter Temp 97.2 F Temp Source Oral Pulse Oximetry (%) 97 Oxygen Delivery Method Room Air Intake Visit Reasons: 2 weeks 30 min close interim fu multiple Intake Note: 2 week follow up. Patient also c/o of body aches x 2 weeks Furnace Charger Required: No Allergies No Known Allergies Allergy (Verified 11/01/24 08:40) Medication List - Last Reconciled 11/01/24 by Kiara Delaney, RESEARCH NEUROPSYCHOLOGIST-BC lisinopril 5 mg PO DAILY metformin ER 500 mg PO QPM Tobacco use date assessed: 11/01/24 Dental Screening Dental Screen Date: 11/01/24 Did you have a dental visit in the last 12 months?: Yes Did you have a dental problem in the last 6 months where you did not have access to dental care?: No Was dental information given to patient?: Patient has dentist HPI HPI Comments History of Present Illness Details 39 y/o f with elevated LFTs d/t fatty li greg, MDD, RLS, fibromyalgia, vitamin b 1 def, autoimmmune thrombocytopenia, + CHRISSIE , hepatosplenomegaly (CT CDH 2021) DM 2, smooth muscle ab + s/p r lymphnode removal 2020 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 Here is how to follow up on lab results and for blood pressure control after starting lisinopril. At the last office visit she was started on lisinopril 5 mg. Taking us directly without side effects. Blood pressure has improved. Does not monitor at home. Diabetes type 2 started on metformin 500 mg at the last office visit. Taking us directly without side effects. Not monitoring blood sugar at home. This is okay with me. Is still working on getting a diabetic eye exam scheduled. In regards to her labs we reviewed these today in detail. She does have elevated CRP and sed rate. She reports that she has a history of smooth muscle antibody in the past. I do not have records of these but she reports that she will get me the records. She has chronic aches and pains affecting multiple joints specific to her hip. She reports that while walking she has pain in lateral lower extremities bilateral, right worse than left, reports a severe tightening of her calf muscles to a point where she has to stop walking. She reports that overall her muscles feel tight after short duration of physical activity. She continues to complain of pain in the left anterior chest wall that has been persistent for months without change. She also complains of right upper quadrant pain present since August when she was diagnosed with pneumonia. At that time it was thought to be relative to the pneumonia. This is not resolved and the pain continuous. It is intermittent in nature. Described as a deep ache. Worse with twisting her torso. Not associated with any fever, chills, nausea, vomiting, change in bowel habits. Echocardiogram scheduled for next week Results Labs 09/29/24 ED visit ^ lft, glucose 192 otherwise wnl PNA 08/2024 in [place] at Urgent Care - Labs: Positive CHRISSIE documented; consist ently elevated C-reactive protein with concurrent normal erythrocyte sedimentation rate historically. - Tests and Diagnostics: Recent EKG lillie cates incomplete right bundle branch block; recent mammogram and ultrasound showed stable lymph node Physical Exam Awake alert NAD R PERRLA,EOMI RRR, 2/6 systolic murmur Reproducible chest pain over L anterior chest wall LS CTAB Abd soft, normoactive bs, pain over RUQ w/ palp w/o rebound or rigidity. No CvAT No spinal tenderness, normal strength No edema BLE Tone is firm in ext x 4, more so in legs; Discussion Notes During the visit, I discussed the patient's current management plan for hypertension, with lisinopril having shown effective improvement in blood pressure. We explored ongoing muscle and leg pain, chest discomfort, and a potential secondary case of fibromyalgia, noting elevated inflammatory markers and positive antibody tests. Based on ongoing discomfort and uncertain diagnosis, I recommended additional specialty evaluations to further elucidate the underlying condition. I proposed referrals to immunology to address possible autoimmune factors, and a consult with physiatry to assess musculoskeletal pain, emphasizing the need for answers due to the complexity of symptoms. Follow-up appointments were discussed, particularly in relation to awaiting results of previously ordered echocardiogram. Recommendations included scheduling an eye exam for diabetes management and addressing outstanding medical records from past visits, highlighting integration into care. The patient expressed understanding and agreement with the proposed plan. Assessment and Plan 1. Hypertension: The patient's blood pre ssure management with lisinopril is effective. I advised continuing the current treatment without alterations. 2. Muscle Pain: The patient's persistent muscle discomfort necessitates further evaluation by a rotary drill operator to assess underlying causes related to musculoskeletal and activity limitations. 3. Chest Pain: I advised monitoring and reevaluation considering the ongoing nature of chest discomfort, linked potentially to inflammatory or muscular origins. 4. Elevated Inflammatory Markers: The linda zhang has elevated ESR and CRP along with positive antibodies; I recommended an immunology consultation to assess for autoimmune involvement. 5. Autoimmune Conditions: Given the diag nosis of autoimmune thrombocytopenia, I advised an immunology referral for extensive evaluation of concurrent autoimmune factors potentially affecting the patient. 6. DM 2 cont Metformin, schedule eye exa m. Patient Instructions - Continue taking lisinopril as prescrib ed for blood pressure. - Schedule an appointment with physiatry for musculoskeletal assessment. - Await contact or initiate scheduling w ith the allergy and immunology clinic for evaluation. - Follow through with an home health clinical supervisor for an overdue diabetic eye exam. - Monitor symptoms and report any signif icant changes or worsening immediately. - RTO 3 months with labs 1 week before f or DM, Htn fu sooner PRN Consent Patient was informed and verbally consented to the use of an ambient scribe for clinic note documentation during this visit. Total time spent caring for the patient today was 45 minutes. This includes time spent before the visit reviewing the chart, time spent during the visit, and time spent after the visit on documentation, reviewing laboratory results, diagnostic imaging, medications, performing a medically necessary evaluation, counseling on diagnoses, care coordination, ordering appropriate tests, ordering appropriate medications, review of tests performed by other providers, reporting test results with the patient, communication with other healthcare providers. [facility] Medical History (Updated 11/01/24 @ 10:08 by JODI Wang-ALESSANDRO) Anxiety and depression Asthma Depression Fibromyalgia GERD (gastroesophageal reflux disease) Headache IBS (irritable bowel syndrome) Morbid obesity Restless leg syndrome Surgical History (Updated 10/15/24 @ 18:24 by JODI Wang-ALESSANDRO) Hx of appendectomy Hx of breast surgery Hx of colonoscopy (~2020) Hx of endoscopy Hx of neck surgery Hx of wisdom tooth extraction Family History (Updated 10/15/24 @ 11:47 by Alicia Herrmann MA) Mother History of lung surgery Lung cancer COPD (chronic obstructive pulmonary disease) HTN (hypertension) Father Diabetes HTN (hypertension) Cardiovascular disease Brother Diabetes Family/Other Lung cancer Throat cancer Diabetes Maternal Grandmother Lung cancer Heart attack Stroke Diabetes Paternal Grandfather Prostate CA Family/Other Prostate CA Paternal Grandmother CHF (congestive heart failure) Diabetes Cardiovascular disease Social History (Updated 10/15/24 @ 11:36 by Alicia Herrmann MA) Household Members: Significant Other Both parents involved: No Caregiver staying overnight: No Housing: Apartment Are you a primary respiratory care specialist to a significant other at home: No Do you presently have visiting nurse or other home services: No 75 years or older and lives alone: No Alcohol intake: current Alcohol intake frequency: holidays/special occasions only Alcohol type: wine Patient Tobacco Use Status: Never used Tobacco e-Cigarette/Vaping Use: Never Used Second Hand Smoke Exposure: No Current occupational status: unemployed Cognitive needs: No Hearing needs: No Vision needs: No Questionnaire Thrive Questionnaire Date Thrive assessed: 11/01/24 I am a: Patient What is your living situation today?: I have a steady place to live Within the past 12 months, did the food you bought not last and you didn't have the money to get more?: Never true Within the past 12 months, did you worry whether your food would run out before you got money to buy more?: Never true Do you have trouble paying for medicines?: No Do you have trouble getting transportation to medical appointments?: No Do you have trouble paying your heating and electricity bill?: No Do you have trouble taking care of your child, family member or friend?: No Do you have trouble with day-to-day activities such as bathing, preparing meals, shopping, managing finances, etc.?: No Are you currently unemployed and looking for a job?: No Are you interested in more education?: No Please select the resources that you would like help with: None Currently or been in a relationship where the following occur: No concerns reported THRIVE Score: 0 MIKAELA-7 AMB Questionnaire MIKAELA-7 Date MIKAELA - 7 assessed: 11/01/24 Source: Developed by Drs. Fernando Valentino, Aga Rodriguez, Alan Anguiano and colleagues, with an educational giovanni from [employer]. Physical exam (Primary Care) Vital Signs: Last Vital Signs Temp 97.2 F 11/01/24 08:44 Pulse 85 11/01/24 08:44 Resp 12 11/01/24 08:44 BP 112/68 11/01/24 08:44 Pulse Ox 97 11/01/24 08:44 Oxygen Delivery Method Room Air 11/01/24 08:44 BMI result Body Mass Index 45.4 Tobacco/Smoking Status: Tobacco use Status Tobacco use date assessed 11/01/24 11/01/24 08:42 Patient Tobacco Use Status Never used Tobacco 11/01/24 08:42 e-Cigarette/Vaping Use Never Used 11/01/24 08:42 Thrive Assessment: Date of Thrive Assessment Date Thrive assessed 11/01/24 11/01/24 08:42 Currently or been in a relationship where the following occur: No concerns reported Coding Level of Care Code Est Pt Level 5 (18835) Complex EM visit Add On G2211 Diagnoses Primary hypertension I10 Hypertension type: primary hypertension Diabetes mellitus type 2 with complications E11.8 Autoimmune thrombocytopenia D69.3 CHRISSIE positive R76.8 Elevated C-reactive protein (CRP) R79.82 Elevated sed rate R70.0 Myalgia M79.10 Arthralgia, unspecified joint M25.50 Joint pain location: unspecified Raised antibody titer R76.0 Assessment & Plan Assessment & Plan (1) HTN (hypertension): Code(s): I10 - Essential (primary) hypertension Category: Medical Qualifiers: Hypertension type: primary hypertension Qualified Code(s): I10 - Essential (primary) hypertension (2) Diabetes mellitus type 2 with complications: Onset Date: ~09/2024 Code(s): E11.8 - Type 2 diabetes mellitus with unspecified complications Category: Medical (3) Autoimmune thrombocytopenia: Code(s): D69.3 - Immune thrombocytopenic purpura Category: Medical (4) CHRISSIE positive: Code(s): R76.8 - Other specified abnormal immunological findings in serum Category: Medical (5) Elevated C-reactive protein (CRP): Code(s): R79.82 - Elevated C-reactive protein (CRP) Category: Medical (6) Elevated sed rate: Code(s): R70.0 - Elevated erythrocyte sedimentation rate Category: Medical (7) Myalgia: Code(s): M79.10 - Myalgia, unspecified site Category: Medical (8) Arthralgia: Code(s): M25.50 - Pain in unspecified joint Category: Medical Qualifiers: Joint pain location: unspecified Qualified Code(s): M25.50 - Pain in unspecified joint (9) Raised antibody titer: Comment: SMOOTH MUSCLE + Code(s): R76.0 - Raised antibody titer Category: Medical Plan . Orders: Orders Comprehensive Met. Panel 3 Months E11.8 - Type 2 diabetes mellitus with unspecified complications, I10 - Essential (primary) hypertension Hemoglobin A1c 3 Months E11.8 - Type 2 diabetes mellitus with unspecified co mplications, I10 - Essential (primary) hypertension Vitamin B12 and Folate 3 Months E11.8 - Type 2 diabetes mellitus with unspecified complications, I10 - Essential (primary) hypertension Lipid Panel 3 Months E11.8 - Type 2 diabetes mellitus with unspecified complications, I10 - Essential (primary) hypertension Referrals Allergy & Immunology Referral D69.3 - Immune thrombocytopenic purpura, R70.0 - Elevated erythrocyte sedimentation rate, R76.8 - Other specified abnormal immunological findings in serum, R79.82 - Elevated C-reactive protein (CRP) Physiatry Referral M25.50 - Pain in unspecified joint, M79.10 - Myalgia, unspecified site, R70.0 - Elevated erythrocyte sedimentation rate, R76.8 - Other specified abnormal immunological findings in serum, R79.82 - Elevated C-reactive protein (CRP)
[2024-11-01 08:44] VITALS: BP 112/68; PULSE 85; RESP 12; TEMP 36.2; O2SAT 97; BMI 45.4
--- OUTSIDE RECORDS SUMMARY | 2024-11-01 09:10 | XMS_ITS | Encounter Summary ---
Author Organization [facility] Address [address] [place] [address] Care Team Providers Care Adjustment Clerk Name Role Phone Akosua Kaplan MD Primary Care Provider Unavail able Encounter Details Date Type Department Care Team Description 01/20/2018 Hospital Medical Records [address] [place] [address] Mindy Medina MD [address] [place] [address] Social History Tobacco Use Types Packs/Day Years [...] on filedocumented in this encounter Care Teams Adjustment Clerk Relationship Specialty Start Date End Date Akosua Kaplan MD PCP - General Internal Medicine 02/17/17 documented as of this encounter
--- OUTSIDE RECORDS SUMMARY | 2024-11-01 09:10 | XMS_ITS | Encounter Summary ---
Author Organization [facility] Address [address] [place] [address] Care Team Providers Care Jet Wiper Name Role Phone Akosua Kaplan MD Primary Care Provider Unavail able Reason for Visit * Reason Onset Date Comments Prior Authorization 12/24/2017 Encounter Details Date Type Department Care Team Description 12/24/2017 Telephone Gastroenterology - [address] [address] [place] PA-C Prior Authorization Social History [...] Shanda Abel - 12/26/2017 9:19 AM EDT [facility] auth #[id number] 12/24/17 - 03/26/18 Dr Medina * Telephone Encounter - Shanda Abel - 12/24/2017 4:01 PM EDT Form faxed to [facility] for auth * Telephone Encounter - Asha Hilario - 12/24/2017 3:13 PM EDT Pre-auth needed Patient is scheduled for an Endoscopy on 01/20/18 Patients insurance: Payor: [employer] / Plan: -[facility] TYPE III $15/$22 / Product Type: HMO [id number] Appointment is with Gsutavo Medina MD Code to process pre-auth for: [id number] and [id number] Location of procedure: [facility] documented in this encounter Plan of Treatment Not on file documented as of this encounter Visit Diagnoses Not on filedocumented in this encounter Care Teams Jet Wiper Relationship Specialty Start Date End Date Akosua Kaplan MD PCP - General Internal Medicine 02/17/17 documented as of this encounter
--- OUTSIDE RECORDS SUMMARY | 2024-11-01 09:10 | XMS_ITS | Clinical Summary ---
Author Organization [facility] Address [address] [place] [address] Care Team Providers Care Ophthalmic Aide Name Role Phone Akosua Kaplan MD Primary [...] obesity with BMI of 4 5.0-49.9, adult ([facility]/HCC) 02/24/2017 DX:Morbid obesity with BMI o f 45.0-49.9, adult ([facility]) Fibromyalgia 03/11/2017 DX:Fibromyalgia; COMMENT: Followed with infectious disease and automotive general sales manager as well as neurologist. No history of lymes disease Marijuana use 05/12/2017 DX:Marijuana use Prehypertension 05/12/2017 DX:Prehypertensi on ASCUS with positive high risk HPV 05/29/2017 DX:ASCUS with positive high risk HPV; COMMENT: 11/17/2014 at [facility] obgyn Rectal bleeding 10/10/2017 DX:Rectal bleedi [...] RESULTING AGENCY - 10/13/2017 3:49 PM EDT [id number] THINPREP PAP, IMAGED: NEGATIVE FOR SQUAMOUS INTRAEPITHELIAL [...] Recently Relevant to Health Maintenance Care Teams Ophthalmic Aide Relationship Specialty Start Date End Date Akosua Kaplan MD PCP - General Internal Medicine 02/17/17
--- OUTSIDE RECORDS SUMMARY | 2024-11-01 09:10 | XMS_ITS | Clinical Summary ---
Author Organization [facility] Address [address] [place] [address] Care Team Providers Care Lead Cook Name Role Phone Akosua Kaplan MD Primary [...] high risk HPV 2016 Overview: 11/17/2014 at [facility] obgyn Marijuana use 05/12/2017 Prehypertension 05/12/2017 Fibromyalgia 03/11/2017 Overview: Followed with infectious disease and plant maintenance supervisor as well as neurologist. No history of [...] Father Hypercholestere ifeanyi, HTN Stroke Maternal Grandfather [place] Maternal Grandmother Lung ca ncer (smoker) Depression/Anxiety [...] - Td or Tdap) 09/03/2023 09/03/2013, 11/13/2011 BMI CHECK/ADVISE 07/28/2024 05/27/2018, 06/2018, 10/28/2017, Additional history exists INFLUENZA (Season Ended) 2025 05/12/2017 (Refu sed) PNEUMOCOCCAL VACCINE FOR HIG H RISK PATIENTS (#1) 2052 09/03/2013 Care Teams Lead Cook Relationship Specialty Start Date End Date Akosua Kaplan MD PCP - General Internal Medicine 02/17/17
== END 2024-11-01 09:13 | disposition home or self-care (01) ==
LOC: HO.HMCFM 08:37
PROVIDERS: PCP Nurse Practitioner Family; Visit Provider Nurse Practitioner Family
DX: I10 Essential (primary) hypertension (principal); E11.8 Type 2 diabetes mellitus with unspecified complications; D69.3 Immune thrombocytopenic purpura; R76.8 Other specified abnormal immunological findings in serum; R79.82 Elevated C-reactive protein (CRP); R70.0 Elevated erythrocyte sedimentation rate; M79.10 Myalgia, unspecified site; M25.50 Pain in unspecified joint; R76.0 Raised antibody titer

== ENCOUNTER → 2024-11-01 08:37 | Outpatient (BNVA) | payer BC, SELFPAY | PROVIDERS: PCP Nurse Practitioner Family; Visit Provider Nurse Practitioner Family | DX: Z13.89 Encounter for screening for other disorder (principal) ==

== ENCOUNTER → 2024-11-08 07:57 | Outpatient (REF) | payer BC, SELFPAY ==
--- NOTE | 2024-11-08 08:00 | CA_ITS ---
Transthoracic Echocardiogram Patient (Last, First, Middle): Rachelle Shore A Gender: Female Date of : 1985 Age: 39 Procedure Date: 11/08/2024 Procedure Type: Transthoracic Echocardiogram Location: OP Height: 165. cm Weight: 122.47 kg BSA: 2.25 m2 Heart Rate: 77 bpm BP: 128 / 70 mmHg Banquet Server: RIAZ Referring MD: Kiara Delaney [facility]- Rn Gastroenterology: Mitch Cortez MD Symptoms: I10 - Essential (primary) hypertension Study Quality: Technically Difficult w/contrast ECG Rhythm: Sinus Conclusions: - 1. Technically limited study 2. Normal LV systolic function with LVEF of 60-65% 3. Limited visualization of cardiac valves with normal cardiac valvular Dopplers Findings Procedure Information Contrast agent, definity, is being given per protocol without apparent complications. Left Ventricle Normal left ventricular size, thickness, and systolic function. The visually estimated ejection fraction is between 60-65%. Spectral Doppler is indicative of a normal filling pattern. Right Ventricle The right ventricle was not well visualized. Atria The left atrium is normal in size. Interatrial shunt cannot be excluded. The right atrium was not well visualized. Aortic Valve The aortic valve was not well visualized. There is mild aortic valve stenosis. There is no aortic valve regurgitation. Mitral Valve Normal mitral valve structure and function. There is trace mitral valve regurgitation. There is no mitral valve stenosis. Pulmonic Valve The pulmonic valve was not well visualized. Tricuspid Valve The tricuspid valve was not well visualized. Tricuspid regurgitation envelope is inadequate for calculation of right ventricular systolic pressure. Great Vessels The aorta was not well visualized. The pulmonary artery was not well visualized. Venous The inferior vena cava is normal in size and collapses greater than 50% with inspiration. Pericardium/Pleural The pericardium was not well visualized. Prior Study Comparison No prior study available for comparison. Measurements 2D Linear Measurements IVSd: 1.01 0.6-0.9/0.6-1.0 cm LVIDd: 4.50 3.9-5.3/4.2-5.9 cm LVIDd Index: 2.00 2.4-3.2/2.2-3.1 cm/m2 LVIDs: 2.89 2.0-3.6 cm LVPWd: 0.89 0.7-1.1 cm LA Diam: 4.60 2.7-3.8/3.0-4.0 cm LAIDs Index: 2.04 1.5-2.3 cm/m2 LV Mass: 177.60 67-162/88-224 g LV Mass Index: 78.94 43-95/49-115 g/m2 LVOT Diam: 1.90 3.0+(-)1.3 cm 2D Systolic Function EF 4C: 55.00 >55% EF 2C: 69.90 >55% EF BiP: 62.70 >55% Mitral Valve MV Pk E: 0.99 MV PK A: 0.83 MV Decel Time: 240.00 E/A: 1.20 E'Lateral: 13.70 E'Medial: 9.25 E/E' Med: 10.60 E/E' Lat: 7.20 PHT: 70.00 MVA PHT: 3.14 Decel Zapata: 4.10 Aortic Valve AoV Pk Perfecto: 1.62 AoV Mn Perfecto: 1.12 AoV VTI: 0.34 AoV Pk Grad: 10.00 Aov Mn Grad: 6.00 CARMEN Cont.VTI: 2.55 LVOT LVOT Pk Perfecto: 1.57 LVOT Mn Perfecto: 1.06 LVOT VTI: 0.30 LVOT Pk Grad: 10.00 LVOT Mn Grad: 5.00 LVOT Diam: 1.90 LVOT Area: 2.84 Diastolic Function MV Pk E: 0.99 MV Pk A: 0.83 E/A: 1.20 E'Medial: 9.25 E/E' Med: 10.60 E' Laterial: 13.70 E/E' Lat: 7.20 Right Ventricle TAPSE (mm): 21.90 TVS' Perfecto: 10.20 Tricuspid Valve RA Press: 3.00 Great Vessels Aorta Sinus of Valsalva: 2.90 2.0-3.5 cm Ao Asc: 3.10 2.1-3.4 cm Ao Arch: 2.90 Pulmonary Valve PV Pk Perfecto: 1.15 Peak PV Grad: 5.00 Updated in Other Vendor System with Status of Final Mitch Cortez MD electronically signed on 11/08/2024 4:34:50 PM with status of Final
--- OUTSIDE RECORDS SUMMARY | 2024-11-08 08:02 | XMS_ITS | Encounter Summary ---
Author Organization [facility] Address [address] [place] [address] Care Team Providers Care Professional Athlete Name Role Phone Akosua Kaplan MD Primary Care Provider Unavail able Reason for Visit * Reason Onset Date Comments Prior Authorization 10/10/2017 Encounter Details Date Type Department Care Team Description 10/10/2017 Telephone Gastroenterology - [address] [address] [place] PA-C Prior Authorization Social History [...] Shanda Abel - 10/23/2017 1:50 PM EDT [facility] Auth # [id number] 11/04/17- 02/03/18 * Telephone Encounter - Shanda Abel - 10/10/2017 10:57 AM EDT Form faxed to [employer] for auth * Telephone Encounter - Charlee Alfonso - 10/10/2017 9:40 AM EDT Pre-auth needed Patient is scheduled for an Flex Sigmoid and Upper Endoscopy on 11-04-17 Patients insurance: Payor: [employer] / Plan: [facility] TYPE [facility] $15/$22 / Product Type: HMO [id number] Appointment is with Dary Figueroa MD Code to process pre-auth for: [id number] (Upper Endoscopy) and [id number] (Flex Sigmoid) Location of procedure: [facility] documented in this encounter Plan of Treatment Not on file documented as of this encounter Visit Diagnoses Not on filedocumented in this encounter Care Teams Professional Athlete Relationship Specialty Start Date End Date Akosua Kaplan MD PCP - General Internal Medicine 02/17/17 documented as of this encounter
--- OUTSIDE RECORDS SUMMARY | 2024-11-08 08:02 | XMS_ITS | Clinical Summary ---
Author Organization [facility] Address [address] [place] [address] Care Team Providers Care Shoe Reconditioner Name Role Phone Akosua Kaplan MD Primary [...] high risk HPV 2016 Overview: 11/17/2014 at [facility] obgyn Marijuana use 05/12/2017 Prehypertension 05/12/2017 Fibromyalgia 03/11/2017 Overview: Followed with infectious disease and cocktail lounge manager as well as neurologist. No history [...] Father Hypercholestere ifeanyi, HTN Stroke Maternal Grandfather [place] Maternal Grandmother Lung ca ncer (smoker) Depression/Anxiety [...] RISK PATIENTS (#1) 2052 09/03/2013 Care Teams Shoe Reconditioner Relationship Specialty Start Date End Date Akosua Kaplan MD PCP - General Internal Medicine 02/17/17
--- OUTSIDE RECORDS SUMMARY | 2024-11-08 08:02 | XMS_ITS | Clinical Summary ---
Author Organization [facility] Address [address] [place] [address] Care Team Providers Care Buffet Waiter/Waitress Name Role Phone Akosua Kaplan MD Primary [...] obesity with BMI of 4 5.0-49.9, adult (CMS/HCC V24, CMS/HCC V28) 02/24/2017 DX:Morbid obesity wit h BMI of 45.0-49.9, adult ([facility]) Fibromyalgia 03/11/2017 DX:Fibromyalgia; COMMENT: Followed with infectious disease and case management associate as well as neurologist. No history of lymes disease Marijuana use 05/12/2017 DX:Marijuana use Prehypertension 05/12/2017 DX:Prehypertensi on ASCUS with positive high risk HPV 05/29/2017 DX:ASCUS with positive high risk HPV; COMMENT: 11/17/2014 at [facility] obn Rectal bleeding 10/10/2017 DX:Rectal bleedi ng; COMMENT: [...] Vaccine (2023-2 5 season) 2024 Influenza Vaccine (Season Ended) 2025 Pneumococcal Vaccine: Pediatrics (0 to 5 Years) [...] age to complete this topic Meningococcal B Vaccine Aged Out No l onger eligible based on patient's age to complete [...] RESULTING AGENCY - 10/13/2017 3:49 PM EDT [id number] THINPREP PAP, IMAGED: NEGATIVE FOR SQUAMOUS INTRAEPITHELIAL [...] Recently Relevant to Health Maintenance Care Teams Buffet Waiter/Waitress Relationship Specialty Start Date End Date Akosua Kaplan MD PCP - General Internal Medicine 02/17/17
--- OUTSIDE RECORDS SUMMARY | 2024-11-08 08:02 | XMS_ITS | Encounter Summary ---
Author Organization [facility] Address [address] [place] [address] Care Team Providers Care Manager Event Name Role Phone Akosua Kaplan MD Primary Care Provider Unavail able Encounter Details Date Type Department Care Team Description 09/22/2018 Release of Information Medical Records [address] [place] [address] Abstract, Provider Social History Tobacco Use Types [...] on filedocumented in this encounter Care Teams Manager Event Relationship Specialty Start Date End Date Akosua Kaplan MD PCP - General Internal Medicine 02/17/17 documented as of this encounter
== END ==
LOC: HO.CARD 07:57
PROVIDERS: PCP Nurse Practitioner Family; Visit Provider Nurse Practitioner Family
DX: I10 Essential (primary) hypertension (principal); I45.10 Unspecified right bundle-branch block
CPT/HCPCS: 93306; Q9957

== ENCOUNTER → 2024-11-08 08:00 | Outpatient (BNV) | payer BC, SELFPAY | PROVIDERS: PCP Nurse Practitioner Family; Visit Provider Internal Medicine Cardiovascular Disease | DX: I10 Essential (primary) hypertension (principal) | CPT/HCPCS: 93306 ==

== ENCOUNTER 2024-11-12 10:29 | Outpatient (AMB) | payer BC, SELFPAY ==
--- NOTE | 2024-11-12 07:37 | A.OFFPC_ITS ---
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 Here is how to follow up on lab results and for blood pressure control after starting lisinopril. At the last office visit she was started on lisinopril 5 mg. Taking us directly without side effects. Blood pressure has improved. Does not monitor at home. Diabetes type 2 started on metformin 500 mg at the last office visit. Taking us directly without side effects. Not monitoring blood sugar at home. This is okay with me. Is still working on getting a diabetic eye exam scheduled. In regards to her labs we reviewed these today in detail. She does have elevated CRP and sed rate. She reports that she has a history of smooth muscle antibody in the past. I do not have records of these but she reports that she will get me the records. She has chronic aches and pains affecting multiple joints specific to her hip. She reports that while walking she has pain in lateral lower extremities bilateral, right worse than left, reports a severe tightening of her calf muscles to a point where she has to stop walking. She reports that overall her muscles feel tight after short duration of physical activity. She continues to complain of pain in the left anterior chest wall that has been persistent for months without change. She also complains of right upper quadrant pain present since August when she was diagnosed with pneumonia. At that time it was thought to be relative to the pneumonia. This is not resolved and the pain continuous. It is intermittent in nature. Described as a deep ache. Worse with twisting her torso. Not associated with any fever, chills, nausea, vomiting, change in bowel habits. Echocardiogram scheduled for next week Results Labs 3/5/25 ED visit ^ lft, glucose 192 otherwise wnl PNA 08/2024 in [place] at Urgent Care - Labs: Positive CHRISSIE documented; consist ently elevated C-reactive protein with concurrent normal erythrocyte sedimentation rate historically. - Tests and Diagnostics: Recent EKG lillie cates incomplete right bundle branch block; recent mammogram and ultrasound showed stable lymph node Physical Exam Awake alert NAD R PERRLA,EOMI RRR, 2/6 systolic murmur Reproducible chest pain over L anterior chest wall LS CTAB Abd soft, normoactive bs, pain over RUQ w/ palp w/o rebound or rigidity. No CvAT No spinal tenderness, normal strength No edema BLE Tone is firm in ext x 4, more so in legs; Discussion Notes During the visit, I discussed the patient's current management plan for hypertension, with lisinopril having shown effective improvement in blood pressure. We explored ongoing muscle and leg pain, chest discomfort, and a potential secondary case of fibromyalgia, noting elevated inflammatory markers and positive antibody tests. Based on ongoing discomfort and uncertain diagnosis, I recommended additional specialty evaluations to further elucidate the underlying condition. I proposed referrals to immunology to address possible autoimmune factors, and a consult with physiatry to assess musculoskeletal pain, emphasizing the need for answers due to the complexity of symptoms. Follow-up appointments were discussed, particularly in relation to awaiting results of previously ordered echocardiogram. Recommendations included scheduling an eye exam for diabetes management and addressing outstanding medical records from past visits, highlighting integration into care. The patient expressed understanding and agreement with the proposed plan. Assessment and Plan 1. Hypertension: The patient's blood pre ssure management with lisinopril is effective. I advised continuing the current treatment without alterations. 2. Muscle Pain: The patient's persistent muscle discomfort necessitates further evaluation by a install technician to assess underlying causes related to musculoskeletal and activity limitations. 3. Chest Pain: I advised monitoring and reevaluation considering the ongoing nature of chest discomfort, linked potentially to inflammatory or muscular origins. 4. Elevated Inflammatory Markers: The linda zhang has elevated ESR and CRP along with positive antibodies; I recommended an immunology consultation to assess for autoimmune involvement. 5. Autoimmune Conditions: Given the diag nosis of autoimmune thrombocytopenia, I advised an immunology referral for extensive evaluation of concurrent autoimmune factors potentially affecting the patient. 6. DM 2 cont Metformin, schedule eye exa m. Patient Instructions - Continue taking lisinopril as prescrib ed for blood pressure. - Schedule an appointment with physiatry for musculoskeletal assessment. - Await contact or initiate scheduling w ith the allergy and immunology clinic for evaluation. - Follow through with an certified energy manager for an overdue diabetic eye exam. - Monitor symptoms and report any signif icant changes or worsening immediately. - RTO 3 months with labs 1 week before f or DM, Htn fu sooner PRN Consent Patient was informed and verbally consented to the use of an ambient scribe for clinic note documentation during this visit. Total time spent caring for the patient today was 45 minutes. This includes time spent before the visit reviewing the chart, time spent during the visit, and time spent after the visit on documentation, reviewing laboratory results, diagnostic imaging, medications, performing a medically necessary evaluation, counseling on diagnoses, care coordination, ordering appropriate tests, ordering appropriate medications, review of tests performed by other providers, reporting test results with the patient, communication with other healthcare providers. [facility] Medical History (Updated 11/09/24 @ 10:39 by JODI Wang-ALESSNADRO) Anxiety and depression Asthma Depression Fibromyalgia GERD (gastroesophageal reflux disease) Headache IBS (irritable bowel syndrome) Morbid obesity Restless leg syndrome Surgical History (Updated 10/15/24 @ 18:24 by JODI Wang-ALESSANDRO) Hx of appendectomy Hx of breast surgery Hx of colonoscopy (~2020) Hx of endoscopy Hx of neck surgery Hx of wisdom tooth extraction Family History (Updated 10/15/24 @ 11:47 by Alicia Herrmann MA) Mother History of lung surgery Lung cancer COPD (chronic obstructive pulmonary disease) HTN (hypertension) Father Diabetes HTN (hypertension) Cardiovascular disease Brother Diabetes Family/Other Lung cancer Throat cancer Diabetes Maternal Grandmother Lung cancer Heart attack Stroke Diabetes Paternal Grandfather Prostate CA Family/Other Prostate CA Paternal Grandmother CHF (congestive heart failure) Diabetes Cardiovascular disease Social History (Updated 10/15/24 @ 11:36 by Alicia Herrmann MA) Household Members: Significant Other Housing: Apartment Are you a primary child care coordinator to a significant other at home: No Do you presently have visiting nurse or other home services: No Alcohol intake: current Alcohol intake frequency: holidays/special occasions only Alcohol type: wine Patient Tobacco Use Status: Never used Tobacco e-Cigarette/Vaping Use: Never Used Second Hand Smoke Exposure: No Current occupational status: unemployed Cognitive needs: No Hearing needs: No Vision needs: No Questionnaire Thrive Questionnaire Date Thrive assessed: 11/01/24 MIKAELA-7 AMB Questionnaire MIKAELA-7 Date MIKAELA - 7 assessed: 11/01/24 Source: Developed by Drs. Fernando Valentino, Aga Rodriguez, Alan Anguiano and colleagues, with an educational giovanni from [employer]. Physical exam (Primary Care) Tobacco/Smoking Status: Tobacco use Status Tobacco use date assessed 11/01/24 11/04/24 10:16 Patient Tobacco Use Status Never used Tobacco 11/04/24 10:16 e-Cigarette/Vaping Use Never Used 11/04/24 10:16 Thrive Assessment: Date of Thrive Assessment Date Thrive assessed 11/01/24 11/04/24 10:16 Coding
--- NOTE | 2024-11-12 07:40 | MHC.PC.OV ---
Intake Visit Reasons: review labs Intake Note: telehealth to review labs [place] Manager Required: No Allergies No Known Allergies Allergy (Verified 11/12/24 10:27) Medication List - Last Reconciled 11/12/24 by JODI Wang- lisinopril 5 mg PO DAILY metformin ER 500 mg PO QPM Tobacco use date assessed: 11/01/24 Dental Screening Dental Screen Date: 11/01/24 HPI HPI Comments History of Present Illness Details 39 y/o f with elevated LFTs d/t fatty liver, MDD, RLS, fibromyalgia, vitamin b 1 def, autoimmmune thrombocytopenia, + CHRISSIE , hepatosplenomegaly (CT CDH 2021) DM 2, smooth muscle ab + s/p r lymphnode removal 2020 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 Telehealth results today to review Echo, done to eval murmur noted on physical exam along w/ uncontrolled HTN: - The patient is a 39-year-old female presenting with echocardiogram findings suggestive of aortic stenosis. - The echocardiogram showed suboptimal results, revealing aortic valve stenosis and trace mitral valve regurgitation. - The patient recalls her father underwent surgery for potentially his aortic valve but is not entirely sure, ? familial predisposition. - She experiences persistent left-sided chest pain initially thought to be breast-related. - She is in the process of scheduling and completing multiple specialist referrals and assessments, including allergy/immunology (she needs to call), ophthalmology (scheduled next week), and physiatry (02/2025), along with a planned sleep study (December 2024). Results Echo 10/2024 - see below Labs 09/29/24 ED visit ^ lft, glucose 192 otherwise wnl PNA 08/2024 in [place] at Urgent Care - Labs: Positive CHRISSIE documented; consistently elevated C-reactive protein with concurrent normal erythrocyte sedimentation rate historically. - Tests and Diagnostics: Recent EKG indicates incomplete right bundle branch block; recent mammogram and ultrasound showed stable lymph node Assessment and Plan 1. Aortic Valve Stenosis & Mild Mitral Valve Regurgitation; Chest pain The echocardiogram findings indicate aortic valve stenosis. Given her age, this raises concerns of a possible genetic or autoimmune etiology. Referral to cardiology is planned for further workup Persistent chest pain, not fully attributed to breast pain, necessitates further investigation. A cardiology referral will assist in elucidating cardiac contribution. Telehealth Attestation This visit was conducted via telehealth, and all medical evaluation was appropriately documented. Information was obtained accurately through virtual communication. The patient has been explained that this is an interactive (audio/video) telehealth encounter and what that consists of. The patient understands and wishes to proceed. [employer] platform was used. Total time spent caring for the patient today was 16 minutes. This includes time spent before the visit reviewing the chart, time spent during the visit, and time spent after the visit on documentation, reviewing laboratory results, diagnostic imaging, medications, performing a medically necessary evaluation, counseling on diagnoses, care coordination, ordering appropriate tests, ordering appropriate medications, review of tests performed by other providers, reporting test results with the patient, communication with other healthcare providers. REPLACED BY [facility] Medical History Anxiety and depression Asthma Depression Fibromyalgia GERD (gastroesophageal reflux disease) Headache IBS (irritable bowel syndrome) Morbid obesity Restless leg syndrome Surgical History Hx of appendectomy Hx of breast surgery Hx of colonoscopy (~2020) Hx of endoscopy Hx of neck surgery Hx of wisdom tooth extraction Family History Mother History of lung surgery Lung cancer COPD (chronic obstructive pulmonary disease) HTN (hypertension) Father Diabetes HTN (hypertension) Cardiovascular disease Brother Diabetes Family/Other Lung cancer Throat cancer Diabetes Maternal Grandmother Lung cancer Heart attack Stroke Diabetes Paternal Grandfather Prostate CA Family/Other Prostate CA Paternal Grandmother CHF (congestive heart failure) Diabetes Cardiovascular disease Social History Household Members: Significant Other Both parents involved: No Caregiver staying overnight: No Housing: Apartment Are you a primary career development facilitator to a significant other at home: No Do you presently have visiting nurse or other home services: No 75 years or older and lives alone: No Alcohol intake: current Alcohol intake frequency: holidays/special occasions only Alcohol type: wine Patient Tobacco Use Status: Never used Tobacco e-Cigarette/Vaping Use: Never Used Second Hand Smoke Exposure: No Current occupational status: unemployed Cognitive needs: No Hearing needs: No Vision needs: No Questionnaire Thrive Questionnaire Date Thrive assessed: 11/01/24 MIKAELA-7 AMB Questionnaire MIKAELA-7 Date MIKAELA - 7 assessed: 11/01/24 Source: Developed by Drs. Fernando Valentino, Aga Rodriguez, Alan Anguiano and colleagues, with an educational giovanni from [employer]. Physical exam (Primary Care) Tobacco/Smoking Status: Tobacco use Status Tobacco use date assessed 11/01/24 11/12/24 07:42 Patient Tobacco Use Status Never used Tobacco 11/12/24 07:42 e-Cigarette/Vaping Use Never Used 11/12/24 07:42 Thrive Assessment: Date of Thrive Assessment Date Thrive assessed 11/01/24 11/12/24 07:42 Telehealth Telehealth Telehealth Platform: [employer] Location of provider rendering services: practice address Location of patient: address on file Patient Identification confirmed using: Name, : Yes Telehealth method: voice only Patient verbally consented to treatment: Yes Patient verbally consented to billing insurance company: Yes Patient informed of any privacy concerns related to visit: Yes Minutes spent on Phone/Video with Pt.: 8 Results Reviewed Results Reviewed: [address] [address] Cardiology Report Signed Patient: Rachelle Shore MR#: [id number] : 1985 Acct:[id number] Age/Sex: 39 / F ADM Date: 11/08/24 Loc: [facility] Attending Dr: Kiara KAY Ordering Physician: Kiara Delaney Date of Service: 11/08/24 Procedure(s): CA echo transthorac w con Accession Number(s): cc: Kiara Delaney~ Transthoracic Echocardiogram Patient (Last, First, Middle): Rachelle Shore A Gender: Female Date of : 1985 Age: 39 Procedure Date: 11/08/2024 Procedure Type: Transthoracic Echocardiogram Location: OP Height: 165. cm Weight: 122.47 kg BSA: 2.25 m2 Heart Rate: 77 bpm BP: 128 / 70 mmHg Bioinformatics Programmer: RIAZ Keene MD: Kiara Delaney [facility] Screen Operator: Mitch Cortez MD Symptoms: I10 - Essential (primary) hypertension Study Quality: Technically Difficult w/contrast ECG Rhythm: Sinus Conclusions: - 1. Technically limited study 2. Normal LV systolic function with LVEF of 60-65% 3. Limited visualization of cardiac valves with normal cardiac valvular Dopplers Findings Procedure Information Contrast agent, definity, is being given per protocol without apparent complications. Left Ventricle Normal left ventricular size, thickness, and systolic function. The visually estimated ejection fraction is between 60-65%. Spectral Doppler is indicative of a normal filling pattern. Right Ventricle The right ventricle was not well visualized. Atria The left atrium is normal in size. Interatrial shunt cannot be excluded. The right atrium was not well visualized. Aortic Valve The aortic valve was not well visualized. There is mild aortic valve stenosis. There is no aortic valve regurgitation. Mitral Valve Normal mitral valve structure and function. There is trace mitral valve regurgitation. There is no mitral valve stenosis. Pulmonic Valve The pulmonic valve was not well visualized. Tricuspid Valve The tricuspid valve was not well visualized. Tricuspid regurgitation envelope is inadequate for calculation of right ventricular systolic pressure. Great Vessels The aorta was not well visualized. The pulmonary artery was not well visualized. Venous The inferior vena cava is normal in size and collapses greater than 50% with inspiration. Pericardium/Pleural The pericardium was not well visualized. Prior Study Comparison No prior study available for comparison. Measurements 2D Linear Measurements IVSd: 1.01 0.6-0.9/0.6-1.0 cm LVIDd: 4.50 3.9-5.3/4.2-5.9 cm LVIDd Index: 2.00 2.4-3.2/2.2-3.1 cm/m2 LVIDs: 2.89 2.0-3.6 cm LVPWd: 0.89 0.7-1.1 cm LA Diam: 4.60 2.7-3.8/3.0-4.0 cm LAIDs Index: 2.04 1.5-2.3 cm/m2 LV Mass: 177.60 67-162/88-224 g LV Mass Index: 78.94 43-95/49-115 g/m2 LVOT Diam: 1.90 3.0+(-)1.3 cm 2D Systolic Function EF 4C: 55.00 >55% EF 2C: 69.90 >55% EF BiP: 62.70 >55% Mitral Valve MV Pk E: 0.99 MV PK A: 0.83 MV Decel Time: 240.00 E/A: 1.20 E'Lateral: 13.70 E'Medial: 9.25 E/E' Med: 10.60 E/E' Lat: 7.20 PHT: 70.00 MVA PHT: 3.14 Decel [place]: 4.10 Aortic Valve AoV Pk Perfecto: 1.62 AoV Mn Perfecto: 1.12 AoV VTI: 0.34 AoV Pk Grad: 10.00 Aov Mn Grad: 6.00 CARMEN Cont.VTI: 2.55 LVOT LVOT Pk Perfecto: 1.57 LVOT Mn Perfecto: 1.06 LVOT VTI: 0.30 LVOT Pk Grad: 10.00 LVOT Mn Grad: 5.00 LVOT Diam: 1.90 LVOT Area: 2.84 Diastolic Function MV Pk E: 0.99 MV Pk A: 0.83 E/A: 1.20 E'Medial: 9.25 E/E' Med: 10.60 E' Laterial: 13.70 E/E' Lat: 7.20 Right Ventricle TAPSE (mm): 21.90 TVS' Perfecto: 10.20 Tricuspid Valve RA Press: 3.00 Great Vessels Aorta Sinus of Valsalva: 2.90 2.0-3.5 cm Ao Asc: 3.10 2.1-3.4 cm Ao Arch: 2.90 Pulmonary Valve PV Pk Perfecto: 1.15 Peak PV Grad: 5.00 Updated in Other Vendor System with Status of Final Mitch Cortez MD electronically signed on 11/08/2024 4:34:50 PM with status of Final Coding Level of Care Code Tele Est Pt Level 3 (89481) Complex EM visit Add On G2211 Diagnoses Aortic valve stenosis, etiology of cardiac valve disease unspecified I35.0 Cardiac valve disease etiology: etiology unspecified Incomplete right bundle branch block I45.10 Primary hypertension I10 Hypertension type: primary hypertension History of Lyme disease Z86.19 Elevated C-reactive protein (CRP) R79.82 Assessment & Plan Assessment & Plan (1) Aortic valvar stenosis: Comment: echo 10/2024 mild, mild mitral valve regurg Code(s): I35.0 - Nonrheumatic aortic (valve) stenosis Category: Medical Qualifiers: Cardiac valve disease etiology: etiology unspecified Qualified Code(s): I35.0 - Nonrheumatic aortic (valve) stenosis (2) Incomplete right bundle branch block: Code(s): I45.10 - Unspecified right bundle-branch block Category: Medical (3) HTN (hypertension): Code(s): I10 - Essential (primary) hypertension Category: Medical Qualifiers: Hypertension type: primary hypertension Qualified Code(s): I10 - Essential (primary) hypertension (4) History of Lyme disease: Code(s): Z86.19 - Personal history of other infectious and parasitic diseases Category: Medical (5) Elevated C-reactive protein (CRP): Code(s): R79.82 - Elevated C-reactive protein (CRP) Category: Medical Plan . Orders: Referrals Cardiology Referral I10 - Essential (primary) hypertension, I35.0 - Nonrheumatic aortic (valve) stenosis, I45.10 - Unspecified right bundle-branch block, R79.82 - Elevated C-reactive protein (CRP), Z86.19 - Personal history of other infectious and parasitic diseases
--- OUTSIDE RECORDS SUMMARY | 2024-11-12 11:24 | XMS_ITS | Clinical Summary ---
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 No history of lymes disease Marijuana use 05/12/2017 DX:Marijuana use Prehypertension 05/12/2017 DX:Prehypertensi on ASCUS with positive high risk HPV 05/29/2017 DX:ASCUS with positive high risk HPV; COMMENT: 11/17/2014 at [facility] obn Rectal bleeding 10/10/2017 DX:Rectal bleedi [...] RESULTING AGENCY - 10/13/2017 3:49 PM EDT [id number] THINPREP PAP, IMAGED: NEGATIVE FOR SQUAMOUS INTRAEPITHELIAL LESION AND MALIGNANCY ??. RESULT OF APTIMA HIGH RISK HPV ASSAY: ? NEGATIVE ?? 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 ENDOCERVICAL/TRANSFORMATION ZONE COMPONENT PRESENT. SOURCE: THINPREP PAP HPV ANY DX: ??REFLEX 16 AND 18, CERVICAL, IMAGED: CLINICAL INFORMATION: HPV ANY DIAGNOSIS. PAP HX NEG [Z12.4, Z01.419] us Marai MASON LAB CYTOLOGY ORDERABLES Final R esult HISTORICAL TESTING LAB RESULTING AGENCY from Last 3 Months or Most Recently Relevant to Health Maintenance Care Teams Software Support Specialist Relationship Specialty Start Date End Date Akosua Kaplan MD PCP - General Internal Medicine 02/17/17
== END 2024-11-12 14:33 | disposition home or self-care (01) ==
LOC: HO.HMCFM 10:29
PROVIDERS: PCP Nurse Practitioner Family; Visit Provider Nurse Practitioner Family
DX: I35.0 Nonrheumatic aortic (valve) stenosis (principal); I45.10 Unspecified right bundle-branch block; I10 Essential (primary) hypertension; Z86.19 Personal history of other infectious and parasitic diseases; R79.82 Elevated C-reactive protein (CRP)

== ENCOUNTER → 2024-11-12 10:29 | Outpatient (BNVA) | payer BC, SELFPAY | PROVIDERS: PCP Nurse Practitioner Family; Visit Provider Nurse Practitioner Family | DX: I35.0 Nonrheumatic aortic (valve) stenosis (principal); I34.0 Nonrheumatic mitral (valve) insufficiency; I45.10 Unspecified right bundle-branch block; I10 Essential (primary) hypertension; R79.82 Elevated C-reactive protein (CRP); Z86.19 Personal history of other infectious and parasitic diseases | CPT/HCPCS: 98966 ==

== ENCOUNTER 2024-12-27 12:07 | Outpatient (REF) | payer BC, SELFPAY ==
--- OUTSIDE RECORDS SUMMARY | 2024-12-27 13:16 | XMS_ITS | Encounter Summary ---
Author Organization [facility] Address [address] [place] [address] Care Team Providers Care Manager Location Name Role Phone Akosua Kaplan MD Primary Care Provider Unavail able Reason for Visit * Reason Onset Date Comments Prior Authorization 10/10/2017 Encounter Details Date Type Department Care Team Description 10/10/2017 Telephone Gastroenterology - [address] [address] [place] PA-C Prior Authorization Social History [...] Shanda Abel - 10/23/2017 1:50 PM EDT [facility] Auth # [id number] 11/04/17- 02/03/18 * Telephone Encounter - Shanda Abel - 10/10/2017 10:57 AM EDT Form faxed to [employer] for auth * Telephone Encounter - Charlee Alfonso - 10/10/2017 9:40 AM EDT Pre-auth needed Patient is scheduled for an Flex Sigmoid and Upper Endoscopy on 11-04-17 Patients insurance: Payor: [employer] / Plan: [facility] TYPE III $15/$22 / Product Type: HMO [id number] Appointment is with Dary Figueroa MD Code to process pre-auth for: 41711 (Upper Endoscopy) and 95099 (Flex Sigmoid) Location of procedure: [facility] documented in this encounter Plan of Treatment Not on file documented as of this encounter Visit Diagnoses Not on filedocumented in this encounter Care Teams Manager Location Relationship Specialty Start Date End Date Akosua Kaplan MD PCP - General Internal Medicine 02/17/17 documented as of this encounter
[2024-12-27 13:18] LABS: MANUAL DIFF FLAG NO
[2024-12-27 13:30] LABS: Basophils Percent Auto 0.4 % (0-2); Eosinophils Absolute Auto 0.1 X10*3/uL (0.0-0.4); Eosinophils Percent Auto 1.5 % (0-4); Hemoglobin 12.2 g/dl (12.0-16.0); Imm Gran Abs Auto 0.05 X10*3/uL (0.00-0.03); Imm Gran Pct Auto 0.7 % (0.0-0.4); Lymphocytes Absolute Auto 1.8 X10*3/uL (1.2-4.9); Lymphocytes Percent Auto 23.9 % (20-40); Mean Corpuscular HGB Conc 34.9 g/dl (31.0-35.0); Mean Corpuscular Hemoglobin 30.5 pg (27.0-33.0); Mean Corpuscular Volume 87.5 fL (80.0-98.0); Mean Platelet Volume 9.8 fL (9.4-12.3); Monocytes Absolute Auto 0.2 X10*3/uL (0.1-1.2); Monocytes Percent Auto 3.1 % (2-11); Neutrophils Absolute Auto 5.3 x10*3/uL (2.0-8.3); Neutrophils Percent Auto 70.4 % (45-73); Platelet Count 217 X10*3/uL (160-400); Red Cell Distribution Width 13.2 % (11.0-16.0); White Blood Count 7.5 X10*3/uL (4.8-10.8)
[2024-12-27 13:39] LABS: Ammonia 27 umol/L (13-55)
[2024-12-27 13:47] LABS: Lactic Acid 1.5 mmol/L (0.5-2.0)
[2024-12-27 13:58] LABS: Alanine Aminotransferase 47 U/L (0-31); Albumin Level 4.4 g/dL (3.5-5.0); Alkaline Phosphatase 100 U/L (39-117); Anion Gap 13 (12-20); Aspartate Amino Transferase 46 U/L (5-31); Bilirubin Total 0.5 mg/dL (0.0-1.0); Blood Urea Nitrogen 10 mg/dL (9-16); C Reactive Protein 2.42 mg/dL (< or = 0.50); Calcium 9.5 mg/dL (8.4-10.2); Carbon Dioxide 27 mmol/L (22-29); Chloride 103 mmol/L (96-108); Estimated Glomerular Filt Rate > 60; Glucose Random 129 mg/dL (60-115); Potassium 4.2 mmol/L (3.3-5.1); Sodium 139 mmol/L (135-145); Total Protein 7.2 g/dL (6.5-8.0)
[2024-12-27 14:00] LABS: Ammonia 37 umol/L (13-55)
[2024-12-27 14:08] LABS: Erythrocyte Sedimentation Rate 34 MM/HR (0-20)
[2024-12-28 04:54] LABS: IgA 255 mg/dL (47-310); IgG 887 mg/dL (600-1640); IgM 188 mg/dL (50-300)
[2024-12-28 11:29] LABS: Immunoglobulin G Subclass 1 409 mg/dL (382-929); Immunoglobulin G Subclass 2 302 mg/dL (241-700); Immunoglobulin G Subclass 3 27 mg/dL (22-178); Immunoglobulin G Subclass 4 35.8 mg/dL (4-86); Immunoglobulin G Total 808 mg/dL (600-1640)
[2024-12-28 17:53] LABS: Anti DNA DS Antibody <1 IU/mL; Antibody to SS-A Antigen <1.0 NEG AI (<1.0 NEG); Antibody to SS-B Antigen <1.0 NEG AI (<1.0 NEG)
[2024-12-28 20:53] LABS: Cardiolipin IgG Ab <2.0 GPL-U/mL; Cardiolipin IgM Ab <2.0 MPL-U/mL
[2024-12-28 22:08] LABS: SM/Ribonucleoprotein Ab <1.0 NEG AI (<1.0 NEG); Smith Protein <1.0 NEG AI (<1.0 NEG)
[2024-12-29 19:07] LABS: Prot Elec - Albumin 4.2 g/dL (3.8-4.8); Prot Elec - Alpha1 0.3 g/dL (0.2-0.3); Prot Elec - Alpha2 0.7 g/dL (0.5-0.9); Prot Elec - Beta 1 0.5 g/dL (0.4-0.6); Prot Elec - Beta 2 0.4 g/dL (0.2-0.5); Prot Elec - Gamma 0.8 g/dL (0.8-1.7); Prot Elec - Total Protein 6.9 g/dL (6.1-8.1)
[2024-12-29 19:22] LABS: Tetanus Antitoxiod Antibody 0.34 IU/mL
[2024-12-30 04:59] LABS: Beta-2 Glycoprotein IgA 4.6 U/mL (<20.0); Beta-2 Glycoprotein IgG <2.0 U/mL (<20.0); Beta-2 Glycoprotein IgM <2.0 U/mL (<20.0)
[2025-01-02 15:24] LABS: Anti Nuclear Antibody Pattern Nuclear, Speckled; Anti Nuclear Antibody Screen POSITIVE (NEGATIVE)
[2025-01-03 11:19] LABS: Phosphatidylethanol 16:0-18:1 NEGATIVE; Phosphatidylethanol 16:0-18:2 NEGATIVE
== END 2024-12-27 12:08 | disposition home or self-care (01) ==
LOC: HO.LAB 12:07
PROVIDERS: PCP Nurse Practitioner Family; Visit Provider Allergy & Immunology
DX: T78.40XA Allergy, unspecified, initial encounter (principal); R53.83 Other fatigue
CPT/HCPCS: 36415; 80053; 80321; 81256; 82140; 82550; 82784; 83516; 83520; 83605; 84165; 85025; 85652; 86038; 86039; 86140; 86146; 86147; 86225; 86235; 86355; 86357; 86359; 86360; 86648; 86774

== ENCOUNTER → 2025-01-18 07:56 | Outpatient (REF) | payer BC, SELFPAY ==
--- OUTSIDE RECORDS SUMMARY | 2025-01-18 08:00 | XMS_ITS | Clinical Summary ---
Author Organization [facility] Address [address] [place] [address] Care Team Providers Care Engineer Intern Name Role Phone Akosua Kaplan MD Primary [...] obesity wit h BMI of 45.0-49.9, adult ([facility]) Fibromyalgia 03/11/2017 DX:Fibromyalgia; COMMENT: Followed with infectious disease and nascar pit crew person as well as neurologist. No history of lymes disease Marijuana use 05/12/2017 DX:Marijuana use Prehypertension 05/12/2017 DX:Prehypertensi on ASCUS with positive high risk HPV 05/29/2017 DX:ASCUS with positive high risk HPV; COMMENT: 11/17/2014 at [facility] obn Rectal bleeding 10/10/2017 DX:Rectal bleedi [...] RESULTING AGENCY - 10/13/2017 3:49 PM EDT [id number] THINPREP PAP, IMAGED: NEGATIVE FOR SQUAMOUS INTRAEPITHELIAL LESION AND MALIGNANCY . RESULT OF APTIMA HIGH RISK HPV ASSAY: NEGATIVE (SEROTYPES 16,18,31,33,35,39,45,51,52,56,58,59,66,68) JEAN-PIERRE NOLAN(ASCP) (CASE ELECTRONICALLY SIGNED 10 13 2017) ADEQUACY: SATISFACTORY. ENDOCERVICAL/TRANSFORMATION ZONE COMPONENT PRESENT. SOURCE: THINPREP PAP HPV ANY DX: REFLEX 16 AND 18, CERVICAL, IMAGED: CLINICAL INFORMATION: HPV ANY DIAGNOSIS. PAP HX NEG [Z12.4, Z01.419] us Maria MASON LAB CYTOLOGY ORDERABLES Final R esult HISTORICAL TESTING LAB RESULTING AGENCY from Last 3 Months or Most Recently Relevant to Health Maintenance Care Teams Engineer Intern Relationship Specialty Start Date End Date Akosua Kaplan MD PCP - General Internal Medicine 02/17/17
== END ==
LOC: HO.SL 07:56
PROVIDERS: PCP Nurse Practitioner Family; Visit Provider Nurse Practitioner Family
DX: R06.83 Snoring (principal); G47.13 Recurrent hypersomnia
CPT/HCPCS: 95806

== ENCOUNTER → 2025-01-18 08:39 | Outpatient (BNV) | payer BC, SELFPAY | PROVIDERS: PCP Nurse Practitioner Family; Visit Provider Internal Medicine | DX: G47.33 Obstructive sleep apnea (adult) (pediatric) (principal) | CPT/HCPCS: 95806 ==

== ENCOUNTER 2025-01-24 14:04 | Outpatient (AMB) | payer BC, SELFPAY ==
--- NOTE | 2025-01-24 14:08 | A.OFFPC_ITS ---
Intake Visit Reasons: review sleep study results Intake Note: Telehealth to review sleep study Piano Accompanist Required: No Allergies No Known Allergies Allergy (Verified 01/24/25 15:57) Medication List - Last Reconciled 01/24/25 by JODI Wang- lisinopril 5 mg PO DAILY metformin ER 500 mg PO QPM Tobacco use date assessed: 01/24/25 Dental Screening Dental Screen Date: 01/24/25 Did you have a dental visit in the last 12 months?: Yes Did you have a dental problem in the last 6 months where you did not have access to dental care?: No Was dental information given to patient?: Patient has dentist HPI HPI Comments 2 History of Present Illness0 Details 39 y/o f with elevated LFTs d/t fatty li greg, MDD, RLS, fibromyalgia, vitamin b 1 def, autoimmmune thrombocytopenia, + CHRISSIE , hepatosplenomegaly (CT CDH 2021) DM 2, smooth muscle ab + s/p r lymphnode removal 2020 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 History of Present Illness - The patient is a 39-year-old female pr esenting to review sleep study results - See below for report - Diagnosed moderate to severe obstructi ve sleep apnea from recent sleep study. - Low nocturnal oxygen levels reported i n sleep study. Results: - Diagnostic Tests: Sleep Study indicati ng moderate to severe obstructive sleep apnea and low nocturnal oxygen levels. Assessment and Plan 1. Obstructive Sleep Apnea - Plan for CPAP therapy. - Pt agrees to the Requirement to use t he machine for at least 4 hours per night on 70% of nights. - Discussed fittings and options for mas ks. - 60-day follow-up for compliance review . - Recommend checking insurance for suppl y options. 2. Nocturnal Hypoxemia - Linked to obstructive sleep apnea. - CPAP to assist. Patient would like to think about this and check w/ insurance before starting. I have created the order but have not submitted she has an appt w/ me next week and we can fu Given names of Donn, [facility] and [facility] for DME providers. Telehealth Attestation This visit was conducted via telehealth, and the documentation accurately reflects the visit's event. The patient has been explained that this is an interactive (audio/video) telehealth encounter and what that consists of. The patient understands and wishes to proceed. [employer] platform was used. Total time spent caring for the patient today was 21 minutes. This includes time spent before the visit reviewing the chart, time spent during the visit, and time spent after the visit on documentation, reviewing laboratory results, diagnostic imaging, medications, performing a medically necessary evaluation, counseling on diagnoses, care coordination, ordering appropriate tests, ordering appropriate medications, review of tests performed by other providers, reporting test results with the patient, communication with other healthcare providers. [facility] Medical History Anxiety and depression Asthma Depression Fibromyalgia GERD (gastroesophageal reflux disease) Headache IBS (irritable bowel syndrome) Morbid obesity Restless leg syndrome Surgical History Hx of appendectomy Hx of breast surgery Hx of colonoscopy (~2020) Hx of endoscopy Hx of neck surgery Hx of wisdom tooth extraction Family History Mother History of lung surgery Lung cancer COPD (chronic obstructive pulmonary disease) HTN (hypertension) Father Diabetes HTN (hypertension) Cardiovascular disease Brother Diabetes Family/Other Lung cancer Throat cancer Diabetes Maternal Grandmother Lung cancer Heart attack Stroke Diabetes Paternal Grandfather Prostate CA Family/Other Prostate CA Paternal Grandmother CHF (congestive heart failure) Diabetes Cardiovascular disease Social History Household Members: Significant Other Both parents involved: No Caregiver staying overnight: No Housing: Apartment Are you a primary direct care provider to a significant other at home: No Do you presently have visiting nurse or other home services: No 75 years or older and lives alone: No Alcohol intake: current Alcohol intake frequency: holidays/special occasions only Alcohol type: wine Patient Tobacco Use Status: Never used Tobacco e-Cigarette/Vaping Use: Never Used Second Hand Smoke Exposure: No Current occupational status: unemployed Cognitive needs: No Hearing needs: No Vision needs: No Questionnaire Thrive Questionnaire Date Thrive assessed: 11/01/24 MIKAELA-7 AMB Questionnaire MIKAELA-7 Date MIKAELA - 7 assessed: 11/01/24 Source: Developed by Drs. Fernando Valentino, Aga Rodriguez, Alan Anguiano and colleagues, with an educational giovanni from [employer]. Physical exam (Primary Care) Tobacco/Smoking Status: Tobacco use Status Tobacco use date assessed 01/24/25 01/24/25 14:09 Patient Tobacco Use Status Never used Tobacco 01/24/25 14:09 e-Cigarette/Vaping Use Never Used 01/24/25 14:09 Thrive Assessment: Date of Thrive Assessment Date Thrive assessed 11/01/24 01/24/25 14:09 Telehealth Telehealth Telehealth Platform: [employer] Location of provider rendering services: practice address Location of patient: address on file Patient Identification confirmed using: Name, : Yes Telehealth method: voice only Patient verbally consented to treatment: Yes Patient verbally consented to billing insurance company: Yes Patient informed of any privacy concerns related to visit: Yes Minutes spent on Phone/Video with Pt.: 7 Results Reviewed Results Reviewed: Coding Level of Care Code Tele Est Pt Level 3 (97681) Complex EM visit Add On G2211 Diagnoses KATERINE (obstructive sleep apnea) G47.33 Assessment & Plan Assessment & Plan (1) KATERINE (obstructive sleep apnea): Onset Date: ~01/24/25 Comment: KATERINE MOD-SEVERE, AHI 16.3 SNORING 70% BORDERLINE NOCTURNAL HYPOXEMIA, O2 SAT < 88% FOR 6 MINUTES PLAN: CPAP W/ AUTOPAP MODE AND PRESSURE OF 6-20CM Code(s): G47.33 - Obstructive sleep apnea (adult) (pediatric) Category: Medical Plan .
--- OUTSIDE RECORDS SUMMARY | 2025-01-24 14:38 | XMS_ITS | Clinical Summary ---
Author Organization [facility] Address [address] [place] [address] Care Team Providers Care Bus Aide Name Role Phone Akosua Kaplan MD [...] obesity wit h BMI of 45.0-49.9, adult ([facility]) Fibromyalgia 03/11/2017 DX:Fibromyalgia; COMMENT: Followed with infectious disease and reverse logistics analyst as well as neurologist. No history of lymes disease Marijuana use 05/12/2017 DX:Marijuana use Prehypertension 05/12/2017 DX:Prehypertensi on ASCUS with positive high risk HPV 05/29/2017 DX:ASCUS with positive high risk HPV; COMMENT: 11/17/2014 at [facility] obn Rectal bleeding 10/10/2017 DX:Rectal bleedi [...] RESULTING AGENCY - 10/13/2017 3:49 PM EDT [id number] THINPREP PAP, IMAGED: NEGATIVE FOR SQUAMOUS INTRAEPITHELIAL [...] Recently Relevant to Health Maintenance Care Teams Bus Aide Relationship Specialty Start Date End Date Akosua Kaplan MD PCP - General Internal Medicine 02/17/17
== END 2025-01-24 16:04 | disposition home or self-care (01) ==
LOC: HO.HMCFM 14:04
PROVIDERS: PCP Nurse Practitioner Family; Visit Provider Nurse Practitioner Family
DX: G47.33 Obstructive sleep apnea (adult) (pediatric) (principal)

== ENCOUNTER → 2025-01-24 14:04 | Outpatient (BNVA) | payer BC, SELFPAY | PROVIDERS: PCP Nurse Practitioner Family; Visit Provider Nurse Practitioner Family | DX: G47.33 Obstructive sleep apnea (adult) (pediatric) (principal); G25.81 Restless legs syndrome; M79.7 Fibromyalgia | CPT/HCPCS: 98966 ==

== ENCOUNTER 2025-01-27 07:38 | Outpatient (REF) | payer BC, SELFPAY ==
--- OUTSIDE RECORDS SUMMARY | 2025-01-27 07:40 | XMS_ITS | Clinical Summary ---
Author Organization [facility] Address [address] [place] [address] Care Team Providers Care Criminal Defense Lawyer Name Role Phone Akosua Kaplan MD Primary [...] obesity wit h BMI of 45.0-49.9, adult ([facility]) Fibromyalgia 03/11/2017 DX:Fibromyalgia; COMMENT: Followed with infectious disease and rotary drier as well as neurologist. No history of lymes disease Marijuana use 05/12/2017 DX:Marijuana use Prehypertension 05/12/2017 DX:Prehypertensi on ASCUS with positive high risk HPV 05/29/2017 DX:ASCUS with positive high risk HPV; COMMENT: 11/17/2014 at [facility] obn Rectal bleeding 10/10/2017 DX:Rectal bleedi [...] (2023-2 5 season) 2024 Influenza Vaccine (#1) 2025 Pneumococcal Vaccine: Pediatrics (0 to 5 [...] RESULTING AGENCY - 10/13/2017 3:49 PM EDT [id number] THINPREP PAP, IMAGED: NEGATIVE FOR SQUAMOUS INTRAEPITHELIAL [...] Recently Relevant to Health Maintenance Care Teams Criminal Defense Lawyer Relationship Specialty Start Date End Date Akosua Kaplan MD PCP - General Internal Medicine 02/17/17
[2025-01-27 08:36] LABS: Hemoglobin A1C 164.9195 umol/L; Total Hemoglobin (HGBA1C) 3275.3911 umol/L
[2025-01-27 08:48] LABS: Alanine Aminotransferase 56 U/L (0-31); Albumin Level 4.5 g/dL (3.5-5.0); Alkaline Phosphatase 116 U/L (39-117); Anion Gap 10 (12-20); Aspartate Amino Transferase 51 U/L (5-31); Blood Urea Nitrogen 9 mg/dL (9-16); Calcium 9.1 mg/dL (8.4-10.2); Carbon Dioxide 28 mmol/L (22-29); Chloride 104 mmol/L (96-108); Cholesterol 178 mg/dL (<200); Estimated Glomerular Filt Rate > 60; HDL Cholesterol 35 mg/dL (>40); Potassium 4.4 mmol/L (3.3-5.1); Sodium 138 mmol/L (135-145); Total Protein 7.2 g/dL (6.5-8.0); Triglycerides 199 mg/dL (<150)
[2025-01-27 09:19] LABS: Folate 7.4 ng/mL (> or = 4.0); Vitamin B12 823 pg/mL (200-900)
== END 2025-01-27 07:39 | disposition home or self-care (01) ==
LOC: HO.LAB 07:38
PROVIDERS: PCP Nurse Practitioner Family; Visit Provider Nurse Practitioner Family
DX: E11.8 Type 2 diabetes mellitus with unspecified complications (principal); I10 Essential (primary) hypertension
CPT/HCPCS: 36415; 80053; 80061; 82607; 82746; 83036

== ENCOUNTER 2025-02-02 08:20 | Outpatient (AMB) | payer BC, SELFPAY ==
--- NOTE | 2025-02-02 08:24 | A.OFFPC_ITS ---
Vital Signs 02/02/25 08:27 Height 5 ft 5 in Weight 280 lb 2 oz BMI 46.6 BP 130/84 Blood Pressure Location Rt brachial Position Sitting Respiration 14 Pulse 83 Pulse Source Pulse Oximeter Temp 98.5 F Temp Source Oral Pulse Oximetry (%) 96 Intake Visit Reasons: 12 WEEKS 30MIN LABS 1 WEEK BEFORE ROUTINE DM FU Intake Note: Follow up. Lab results Allergies No Known Allergies Allergy (Verified 02/02/25 08:32) Medication List - Last Reconciled 02/02/25 by JODI Wang- lisinopril 5 mg PO DAILY metformin ER 500 mg PO QPM Tobacco use date assessed: 02/02/25 Dental Screening Dental Screen Date: 01/24/25 HPI HPI Comments History of Present Illness Details 39 y/o f with elevated LFTs d/t fatty li greg, MDD, RLS, fibromyalgia, vitamin b 1 def, autoimmmune thrombocytopenia, + CHRISSIE , hepatosplenomegaly (CT CDH 2021) DM 2, smooth muscle ab + , KATERINE, Aortic Valve Stenosis, Incomplete RBBB, Elevated Ferritin, s/p r lymphnode removal 2020 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 Labs done. 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 Cards first appt next week for eval and tx of Echo History of Present Illness - The patient is a 39-year-old female pr esenting with complex routine follow-up - Increasing dyspnea impacting daily act ivities, worsening over two months. - Significant dizziness episode while se ated at 8 PM, lasting five minutes. - Increased muscle spasms with physical activity, worsening over two weeks. - Dysphagia with increased difficulty sw allowing noted in the last two months; family history present. - HTN - controlled on lisinopril w/o vidya e effects. - Type 2 diabetes mellitus with A1c impr oving from 6.9 to 6.8. Tolerating metformin er 500mg QD. DM Eye exam UTD. - New dx KATERINE. Agreeable to start CPAP th erapy. Order to be faxed to [facility]. Still having chest pain - initial appt w/ Cards next week and also feels breathing not great, feels more out of breath; feels very sob with short distances Also having some dizziness Had episode while seated at 8pm at home, last 5 min, This clears w/ time Legs very painful, spasms feel like they could collapse Feels like going to have a douglas horse bilat. did have one in the right calf. Feels she is drinking enough fluids Feels like she cannot regulate body temp Feels like having a hard time swallowing in the past 2 months Cannot ID any triggers; spit itself can cause this sensation Mom dx w/ Achalasia RUQ abd pain cont Hx of elevated ferritin, lab review 2020 299 Did see Heme 2021. Had initial consult w/ Dr Biswas from Immune, labs done, will fu next week for a plan Review of Systems - Respiratory: Reports increased dyspnea on exertion and rest. - Cardiovascular: Denies new chest pain, reports dizziness episode. - Gastrointestinal: Reports dysphagia in creasing over two months. - Musculoskeletal: Reports muscle spasms and increased leg cramps. - Neurological: Reports dizziness with a significant episode while seated. - Endocrine: Reports ongoing management of diabetes with recent A1c improvement. - General: Reports stable elevated liver enzymes. Physical Exam Awake alert NAD PERRLA,EOMI RRR, 2/6 systolic murmur Reproducible chest pain over L anterior chest wall LS CTAB Abd soft, normoactive bs, pain over RUQ w/ palp w/o rebound or rigidity. No CvAT No spinal tenderness, normal strength No edema BLE Tone is firm in ext x 4, more so in legs; Results - Labs: A1c decreased from 6.9 to 6.8, s table elevated liver enzymes, previously elevated ferritin at 299, other routine labs reportedly stable. - Sleep study + for KATERINE Discussion Notes During the visit, we reviewed the patient's complex medical history including sleep apnea, hypertension, and diabetes. We discussed ongoing management strategies and the importance of regular follow-ups. For sleep apnea, I will send a CPAP order to [facility], addressing insurance coverage if needed. We discussed increasing metformin dosage to improve diabetes management. I emphasized follow-ups with cardiology for the reported cardiovascular symptoms. The importance of regular follow-ups, managing anxiety over medical findings, and the role of consistent communication with specialists were also discussed. The patient acknowledges understanding the plan and necessity of communication with all involved specialties. The patient is aware of the need to notify if there are any issues obtaining medications or equipment prescribed. Assessment and Plan 1. Sleep Apnea - CPAP order to [facility]. - Insurance coverage discussions. - Compliance visit in 3 months to be marie johnnie. 2. Essential Hypertension - Continue lisinopril. - Monitor blood pressure, 3. Type 2 Diabetes Mellitus - Increase metformin dosage from 500mg Q D to 1000mg QD - Aim for A1c 6. 4. Dysphagia/RUQ pain - Monitor symptoms; family history consi tay, MOm w/ achalasia; If cont, will need to consider GI referral Hold @ this time, 5. Dyspnea on Exertion - Scallop Dredger follow-up. - Consider Pulm referral after Immune an d Cards work up. 6. Dizziness - Document episodes. - Cardiology notify. 7. Increased Muscle Tone/Spasms - Ensure hydration. - Monitor progression. 8. Elevated Liver Enzymes/Ferritin - Continue stable monitoring. I called lab unable to add Ferritin to 01/27/25 labs; will consider need to re- eval in the future. Patient Instructions - Use CPAP machine as instructed; call i f issues arise with mask or machine. - Take lisinopril as prescribed. - Increase metformin to two tablets once a day. - Watch for difficulty swallowing specif ic foods or liquids and tell me about any changes. - Keep cardiology appointments and tell them about dizziness and breathing symptoms. - Stay hydrated and report any muscle cr amping or pain. - Follow up in three months or as needed . Consent Patient was informed and verbally consented to the use of an ambient scribe for clinic note documentation during this visit. Total time spent caring for the patient today was 45 minutes. This includes time spent before the visit reviewing the chart, time spent during the visit, and time spent after the visit on documentation, reviewing laboratory results, diagnostic imaging, medications, performing a medically necessary evaluation, counseling on diagnoses, care coordination, ordering appropriate tests, ordering appropriate medications, review of tests performed by other providers, reporting test results with the patient, communication with other healthcare providers. [facility] Medical History Anxiety and depression Asthma Depression Fibromyalgia GERD (gastroesophageal reflux disease) Headache IBS (irritable bowel syndrome) Morbid obesity Restless leg syndrome Surgical History Hx of wisdom tooth extraction Hx of colonoscopy (~2020) Hx of endoscopy Hx of neck surgery Hx of breast surgery Hx of appendectomy Family History Mother History of lung surgery Lung cancer COPD (chronic obstructive pulmonary disease) HTN (hypertension) Father Diabetes HTN (hypertension) Cardiovascular disease Brother Diabetes Family/Other Lung cancer Throat cancer Diabetes Maternal Grandmother Lung cancer Heart attack Stroke Diabetes Paternal Grandfather Prostate CA Family/Other Prostate CA Paternal Grandmother CHF (congestive heart failure) Diabetes Cardiovascular disease Social History (Updated 02/02/25 @ 08:30 by Deisy Arroyo CMA) Household Members: Significant Other Both parents involved: No Caregiver staying overnight: No Housing: Apartment Are you a primary skin care therapist to a significant other at home: No Do you presently have visiting nurse or other home services: No 75 years or older and lives alone: No Alcohol intake: current Alcohol intake frequency: holidays/special occasions only Alcohol type: wine Patient Tobacco Use Status: Never used Tobacco e-Cigarette/Vaping Use: Never Used Second Hand Smoke Exposure: No Current occupational status: unemployed Cognitive needs: No Hearing needs: No Vision needs: No Questionnaire Thrive Questionnaire Date Thrive assessed: 10/15/24 I am a: Patient What is your living situation today?: I have a steady place to live Within the past 12 months, did the food you bought not last and you didn't have the money to get more?: Never true Within the past 12 months, did you worry whether your food would run out before you got money to buy more?: Never true Do you have trouble paying for medicines?: No Do you have trouble getting transportation to medical appointments?: No Do you have trouble paying your heating and electricity bill?: No Do you have trouble taking care of your child, family member or friend?: No Do you have trouble with day-to-day activities such as bathing, preparing meals, shopping, managing finances, etc.?: No Are you currently unemployed and looking for a job?: No Are you interested in more education?: No Please select the resources that you would like help with: None Currently or been in a relationship where the following occur: No concerns reported THRIVE Score: 0 AUDIT C Alcohol Use Questionnaire (AUDIT-C) 1. How often do you have a drink containing alcohol?: Never 3. How often do you have six or more drinks on one occasion?: Never Total Score: 0 MIKAELA-7 AMB Questionnaire MIKAELA-7 Date MIKAELA - 7 assessed: 11/01/24 Source: Developed by Drs. Fernando Valentino, Aga Rodriguez, Alan Anguiano and colleagues, with an educational giovanni from [employer]. Physical exam (Primary Care) Vital Signs: Last Vital Signs Temp 98.5 F 02/02/25 08:27 Pulse 83 02/02/25 08:27 Resp 14 02/02/25 08:27 BP 130/84 02/02/25 08:27 Pulse Ox 96 02/02/25 08:27 BMI result Body Mass Index 46.6 Tobacco/Smoking Status: Tobacco use Status Tobacco use date assessed 02/02/25 02/02/25 08:30 Patient Tobacco Use Status Never used Tobacco 02/02/25 08:30 e-Cigarette/Vaping Use Never Used 02/02/25 08:30 Thrive Assessment: Date of Thrive Assessment Date Thrive assessed 10/15/24 02/02/25 08:24 Currently or been in a relationship where the following occur: No concerns reported Results Reviewed Results Reviewed: RUN: 02/02/25 0832 PAGE 1 [facility] [address] [place] [id number] Nurse Special: Dg Chowdhury M.D. Specimen Inquiry Name: Rachelle Shore Age/Sex: 39/F : 1985 Unit#: [id number] Attend Dr: Kiara Delaney EMERGENCY VETERINARIAN- Re01/27/25 Status: DEP REF Location: HO.LAB Disch: SPEC : [id number] ANGIE: 01/27/25 STATUS: COMP REQ : [id number] RECD: 01/27/[address] [facility] [address]: Kiara Delaney EMERGENCY VETERINARIAN- COMP: 01/27/25 ENTERED: 01/27/[address]: ORDERED: CMP, Lipid Panel Test Result Flag Reference Sodium 138 135-145 mmol/L Potassium 4.4 3.3-5.1 mmol/L CL 104 96-108 mmol/L CO2 28 22-29 mmol/L Gap 10 L 12-20 BUN 9 9-16 mg/dL Creat 0.61 0.5-1.4 mg/dL eGFR > 60 Chronic Kidney Disease: Estimated GFR < 60 mL/min/1.73m2 Severe Kidney Disease: Estimated GFR < 15 mL/min/1.73m2 Glucose, Random 174 H 60-115 mg/dL CA 9.1 8.4-10.2 mg/dL Total Bili 0.5 0.0-1.0 mg/dL AST (GOT) 51 H 5-31 U/L ALT (GPT) 56 H 0-31 U/L Protein, Total 7.2 6.5-8.0 g/dL Alb 4.5 3.5-5.0 g/dL Triglyceride 199 H <150 mg/dL Desirable Triglyceride: less than 150 mg/dL Borderline High Triglyceride 150-199 mg/dL High Triglyceride: 200-499 mg/dL Very High Triglyceride: greater than or equal to 5OO mg/dL Cholesterol 178 <200 mg/dL Desirable Cholesterol: less than 200 mg/dL Borderline High Cholesterol: 200-239 mg/dL High Cholesterol: greater than 239 mg/dL LDL Calculated 104 H <100 mg/dL Desirable LDL: less than 100 mg/dL Near Optimal/Above Optimal LDL: 110-129 mg/dL Borderline High LDL: 130-159 mg/dL High LDL: 160-189 mg/dL Very High LDL: greater than or equal to 190 mg/dL HDL 35 L >40 mg/dL Desirable HDL: greater than 40 mg/dL Note: This HDL assay may give artificially low results in patients with liver disease. Alk Phos 116 39-117 U/L Coding Level of Care Code Est Pt Level 5 (18276) Complex EM visit Add On G2211 Diagnoses Primary hypertension I10 Hypertension type: primary hypertension Aortic valve stenosis, etiology of cardiac valve disease unspecified I35.0 Cardiac valve disease etiology: etiology unspecified Incomplete right bundle branch block I45.10 Diabetes mellitus type 2 with complications E11.8 Steatosis, liver K76.0 Arthralgia, unspecified joint M25.50 Joint pain location: unspecified Myalgia M79.10 KATERINE (obstructive sleep apnea) G47.33 Elevated ferritin R79.89 Assessment & Plan Assessment & Plan (1) HTN (hypertension): Code(s): I10 - Essential (primary) hypertension Category: Medical Qualifiers: Hypertension type: primary hypertension Qualified Code(s): I10 - Essential (primary) hypertension (2) Aortic valvar stenosis: Comment: echo 10/2024 mild, mild mitral valve regurg Code(s): I35.0 - Nonrheumatic aortic (valve) stenosis Category: Medical Qualifiers: Cardiac valve disease etiology: etiology unspecified Qualified Code(s): I35.0 - Nonrheumatic aortic (valve) stenosis (3) Incomplete right bundle branch block: Code(s): I45.10 - Unspecified right bundle-branch block Category: Medical (4) Diabetes mellitus type 2 with complications: Onset Date: ~09/2024 Comment: HTN and obesity BMI > 46 Code(s): E11.8 - Type 2 diabetes mellitus with unspecified complications Category: Medical (5) Steatosis, liver: Code(s): K76.0 - Fatty (change of) liver, not elsewhere classified Category: Medical (6) Arthralgia: Code(s): M25.50 - Pain in unspecified joint Category: Medical Qualifiers: Joint pain location: unspecified Qualified Code(s): M25.50 - Pain in unspecified joint (7) Myalgia: Code(s): M79.10 - Myalgia, unspecified site Category: Medical (8) KATERINE (obstructive sleep apnea): Onset Date: ~01/24/25 Comment: KATERINE MOD-SEVERE, AHI 16.3 SNORING 70% BORDERLINE NOCTURNAL HYPOXEMIA, O2 SAT < 88% FOR 6 MINUTES PLAN: CPAP W/ AUTOPAP MODE AND PRESSURE OF 6-20CM [facility] Code(s): G47.33 - Obstructive sleep apnea (adult) (pediatric) Category: Medical (9) Elevated ferritin: Comment: HEME EVAL 2021 Code(s): R79.89 - Other specified abnormal findings of blood chemistry Category: Medical Plan . Medications: Changed From metformin ER 500 mg PO QPM 90 tabs 0RF To metformin ER 1,000 mg (2 x 500 mg) PO QPM 180 tabs 1RF Refilled lisinopril 5 mg PO DAILY 90 tabs 0RF
[2025-02-02 08:27] VITALS: BP 130/84; PULSE 83; RESP 14; TEMP 36.9; O2SAT 96; BMI 46.6
--- OUTSIDE RECORDS SUMMARY | 2025-02-02 08:29 | XMS_ITS | Clinical Summary ---
Author Organization [facility] Address [address] [place] [address] Care Team Providers Care Buying Agent Name Role Phone Akosua Kaplan MD Primary [...] wit h BMI of 45.0-49.9, adult ([facility]) Fibromyalgia 03/11/2017 DX:Fibromyalgia; COMMENT: Followed with infectious disease and scanning clerk as well as neurologist. No history of lymes disease Marijuana use 05/12/2017 DX:Marijuana use Prehypertension 05/12/2017 DX:Prehypertensi on ASCUS with positive high risk HPV 05/29/2017 DX:ASCUS with positive high risk HPV; COMMENT: 11/17/2014 at [facility] obn Rectal bleeding 10/10/2017 DX:Rectal bleedi [...] 5 Years) and At-Risk Patients (6 to 49 Years) Aged Out 09/03/2013 No longer eligible [...] RESULTING AGENCY - 10/13/2017 3:49 PM EDT [id number] THINPREP PAP, IMAGED: NEGATIVE FOR SQUAMOUS INTRAEPITHELIAL [...] Recently Relevant to Health Maintenance Care Teams Buying Agent Relationship Specialty Start Date End Date Akosua Kaplan MD PCP - General Internal Medicine 02/17/17
== END 2025-02-02 08:58 | disposition home or self-care (01) ==
LOC: HO.HMCFM 08:21
PROVIDERS: PCP Nurse Practitioner Family; Visit Provider Nurse Practitioner Family
DX: I10 Essential (primary) hypertension (principal); I35.0 Nonrheumatic aortic (valve) stenosis; I45.10 Unspecified right bundle-branch block; E11.8 Type 2 diabetes mellitus with unspecified complications; K76.0 Fatty (change of) liver, not elsewhere classified; M25.50 Pain in unspecified joint; M79.10 Myalgia, unspecified site; G47.33 Obstructive sleep apnea (adult) (pediatric); R79.89 Other specified abnormal findings of blood chemistry

== ENCOUNTER 2025-02-10 12:45 | Outpatient (AMB) | payer BC, SELFPAY ==
--- NOTE | 2025-02-10 12:51 | MHC.OFFVIS ---
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 There was reported on the echocardiogram in the body of the report that she had mild aortic stenosis although the summary says that normal cardiac valves with Doppler. I reviewed the echocardiogram again it seems like she has no aortic stenosis and the body of the report probably has a typographical error. However patient over the last month has been getting more and more short of breath and that is where she is referred here. She gets short of breath with even minimal exertion. This is a new symptom for her which has gone significantly worse over the last month or so. She has had shortness of breath for some time. She denies any clear orthopnea but does have nocturnal cough. She denies any wheezing otherwise. Denies any leg edema. No abdominal distension. She has no exertional chest pain. However she has intermittently episodes of thumping in his chest and says that that is quite painful. She has recently diagnose hypertension diabetes as recently diagnose moderately severe sleep apnea. She said she has issue with a weight for some time and had join the bariatric surgical program in his had achieved some weight loss but then subsequently current undergo surgery because of thrombocytopenia and since then has gained some weight back. [facility] Medical History Anxiety and depression Headache GERD (gastroesophageal reflux disease) IBS (irritable bowel syndrome) Depression Asthma Restless leg syndrome Fibromyalgia Morbid obesity Surgical History Hx of wisdom tooth extraction Hx of colonoscopy (~2020) Hx of endoscopy Hx of neck surgery Hx of breast surgery Hx of appendectomy Family History Mother History of lung surgery Lung cancer COPD (chronic obstructive pulmonary disease) HTN (hypertension) Father Diabetes HTN (hypertension) Cardiovascular disease Brother Diabetes Family/Other Lung cancer Throat cancer Diabetes Maternal Grandmother Lung cancer Heart attack Stroke Diabetes Paternal Grandfather Prostate CA Family/Other Prostate CA Paternal Grandmother CHF (congestive heart failure) Diabetes Cardiovascular disease Social History Household Members: Significant Other Both parents involved: No Caregiver staying overnight: No Housing: Apartment Are you a primary intensive care unit registered nurse to a significant other at home: No Do you presently have visiting nurse or other home services: No 75 years or older and lives alone: No Alcohol intake: current Alcohol intake frequency: holidays/special occasions only Alcohol type: wine Patient Tobacco Use Status: Never used Tobacco e-Cigarette/Vaping Use: Never Used Second Hand Smoke Exposure: No Current occupational status: unemployed Cognitive needs: No Hearing needs: No Vision needs: No Review of Systems Const Denies chills, Denies daytime sleepiness, Denies fatigue, Denies fever(s), Denies frequent falls, Denies poor appetite, Denies snoring, Denies stops breathing during sleep, Denies weakness, Denies weight gain and Denies weight loss Eyes Denies loss of vision ENT Denies dizziness and Denies hearing loss Card Denies chest pain, Denies claudication, Denies leg edema, Denies lightheadedness, Denies palpitations, Denies dyspnea, Denies dyspnea on exertion and Denies orthopnea Resp Denies cough, Denies excessive phlegm production, Denies dyspnea, Denies dyspnea on exertion, Denies snoring and Denies wheezing GI Denies abdominal pain, Denies hematochezia, Denies change in bowel habits, Denies nausea and Denies vomiting Denies urinary frequency and Denies dysuria Musc Denies arthralgias, Denies muscle weakness, Denies numbness and Denies other (frequent falls) Skin/Breast Denies nail changes and Denies rash Neuro Denies Abnormal speech present, Denies dizziness, Denies frequent falls, Denies loss of vision, Denies memory loss, Denies numbness and Denies weakness Psych Denies depression and Denies memory loss Endo Denies fatigue and Denies palpitations Clayton/Lymph Reports easy bruising and Reports other (anemia) Aller/Immun Denies wheezing Physical Exam Vital Signs: Last Vital Signs Pulse 85 02/10/25 12:52 BP 120/80 02/10/25 12:52 BMI result Body Mass Index 45.5 Const General: cooperative, comfortable, no acute distress, alert and awake Nutritional Appearance: obese Orientation/consciousness: patient oriented x3 Limitations: no limitations HEENT Head: Yes normocephalic and Yes atraumatic Neck Neck: Yes trachea midline, Yes supple and Yes no JVD Resp Effort & Inspection: normal respiratory effort Auscultation: clear to auscultation bilaterally Cardio Jugular venous distension: no JVD Rate: regular rate Rhythm: regular rhythm Heart sounds: S1 normal heart sound present, S2 normal heart sound present, no click, no gallops and no murmurs GI Auscultation: normal bowel sounds Skin General skin exam: no rashes or lesions noted Neuro General: patient oriented x3 and no focal motor deficits Speech: No Abnormal speech present Extrem General: Yes no clubbing, cyanosis or edema Office Procedures EKG Details: EKG shows normal sinus rhythm normal EKG with small R prime which could be incomplete right bundle-branch block which was seen in the past. [id number], Complete Assessment & Plan Assessment & Plan (1) Short of breath on exertion: Code(s): R06.02 - Shortness of breath Category: Medical Plan: Exertional shortness of breath which has been rapidly progressive recently as per the patient with no other signs of congestive heart failure. She has multiple risk factors including diabetes and hypertension which could make her susceptible for atherosclerotic disease. Would suggest her to undergo exercise myocardial perfusion imaging to evaluate for the same. If this is within normal limits I suspect that her shortness of breath is probably related to passive smoking exposure and underlying chronic lung disease and/or restrictive pulmonary defect related to her weight. Echocardiogram is within normal limits with normal LV function as well as no valvular abnormalities including aortic stenosis and this was after thorough review of the findings. Will correct the findings in the main body of the echocardiogram. She has multiple comorbidities related to her weight and this was discussed with her and she would be main focus of treatment. She understands. Her blood pressure is currently well optimized on lisinopril therapy. Her diabetes on metformin therapy with improving hemoglobin A1c. She would also benefit from sleep apnea treatment. Given his symptoms suggestive of palpitation extra systoles will obtain a Holter monitor. Will follow up in the clinic in 2 months time, sooner p.r.n.. Thank you for allowing me to partake in her care Coding Level of Care Code New Pt Level 4 (43209) Complex EM visit Add On G2211 Diagnoses Short of breath on exertion R06.02 CPT Codes EKG - CPT: 68092-[id number], Complete ([id number])
[2025-02-10 12:52] VITALS: BP 120/80; PULSE 85; BMI 45.5
--- OUTSIDE RECORDS SUMMARY | 2025-02-10 13:08 | XMS_ITS | Clinical Summary ---
Author Organization [facility] Address [address] [place] [address] Care Team Providers Care Oiler Bander Name Role Phone Akosua Kaplan MD Primary [...] obesity wit h BMI of 45.0-49.9, adult ([facility]) Fibromyalgia 03/11/2017 DX:Fibromyalgia; COMMENT: Followed with infectious disease and electrostatic powder coating technician as well as neurologist. No history of lymes disease Marijuana use 05/12/2017 DX:Marijuana use Prehypertension 05/12/2017 DX:Prehypertensi on ASCUS with positive high risk HPV 05/29/2017 DX:ASCUS with positive high risk HPV; COMMENT: 11/17/2014 at [facility] obn Rectal bleeding 10/10/2017 DX:Rectal bleedi [...] RESULTING AGENCY - 10/13/2017 3:49 PM EDT [id number] THINPREP PAP, IMAGED: NEGATIVE FOR SQUAMOUS INTRAEPITHELIAL [...] Recently Relevant to Health Maintenance Care Teams Oiler Bander Relationship Specialty Start Date End Date Akosua Kaplan MD PCP - General Internal Medicine 02/17/17
== END 2025-02-10 13:21 | disposition home or self-care (01) ==
LOC: HO.HCS 12:46
PROVIDERS: PCP Nurse Practitioner Family; Visit Provider Internal Medicine Cardiovascular Disease
DX: R06.02 Shortness of breath (principal)
CPT/HCPCS: 93010; 99214

== ENCOUNTER → 2025-02-10 12:45 | Outpatient (BNVA) | payer BC, SELFPAY | PROVIDERS: PCP Nurse Practitioner Family; Visit Provider Internal Medicine Cardiovascular Disease | DX: R06.02 Shortness of breath (principal) | CPT/HCPCS: 93005 ==

== ENCOUNTER 2025-02-25 09:19 | Outpatient (AMB) | payer BC, SELFPAY ==
[2025-02-25 09:25] VITALS: BMI 45.8
--- NOTE | 2025-02-25 09:25 | MHC.OFFVIS ---
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 Patient was referred by [facility] on 11/04/24. At today's visit she states that for the last 13 years she has had muscle pain. Patient states that she has been to multiple departments through out the years to figure out why her muscles are so tight. She states that she has numbness and tingling that radiates all over her body. Patient reports that she never tried physical therapy and didn't feel comfortable with injections. 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 Patient was referred for elevated CRP. Noted elevated CRP and ESR (September and December). Review of labs done in [facility]: Positive CHRISSIE Normal SSA, SSB, anti Charles, dsDNA, B12 and folate. Do not see CK levels as well. Reviewed notes from Cardiology as well. She says CRP been elevated for a few years. She says she's been chronicallhy ill (fatigue, muscle pain, joint pain, spasms, numbness, tightness) without specific diagnosis. She understands blood tests are non specific. Saw Rheumatology before COVID at [facility]. No specific diagnosis besides fibromyalgia. No EMG done yet. No muscle biopspy. History of Lyme? - but after seeing ID it was thought that it was false positive. Brother has RA. Recalls uncle with spina bifida. [facility] Medical History Anxiety and depression Headache GERD (gastroesophageal reflux disease) IBS (irritable bowel syndrome) Depression Asthma Restless leg syndrome Fibromyalgia Morbid obesity Surgical History Hx of wisdom tooth extraction Hx of colonoscopy (~2020) Hx of endoscopy Hx of neck surgery Hx of breast surgery Hx of appendectomy Family History Mother History of lung surgery Lung cancer COPD (chronic obstructive pulmonary disease) HTN (hypertension) Father Diabetes HTN (hypertension) Cardiovascular disease Brother Diabetes Family/Other Lung cancer Throat cancer Diabetes Maternal Grandmother Lung cancer Heart attack Stroke Diabetes Paternal Grandfather Prostate CA Family/Other Prostate CA Paternal Grandmother CHF (congestive heart failure) Diabetes Cardiovascular disease Social History (Updated 02/25/25 @ 09:32 by Raquel Horna) Household Members: Significant Other Both parents involved: No Caregiver staying overnight: No Housing: Apartment Are you a primary animal daycare provider to a significant other at home: No Do you presently have visiting nurse or other home services: No 75 years or older and lives alone: No Alcohol intake: current Alcohol intake frequency: holidays/special occasions only Alcohol type: wine Patient Tobacco Use Status: Never used Tobacco e-Cigarette/Vaping Use: Never Used Second Hand Smoke Exposure: No Current occupational status: employed 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 Patient was appropriately conversant and oriented. Good historian. MSK: Inspection reveals appropriate head and neck positioning. Cervical ROM was full. Spurling's sign negative. Bilateral shoulder, elbow and wrist ROM WNL. No ligamentous laxity or crepitance. No increased effusion. Lumbar range of motion full. No specific abnormalities or instability found on inspection and palpation of the spine and extremities. Strength is 5/5 in all muscle groups tested. No increased tone noted. No atrophy. No skin changes noted. Neurological: Mood appears normal, good affect, and appropriate for the circumstances. Neurologic examination of the upper and lower extremities was nonfocal with intact sensation, muscle stretch reflexes and without focal motor deficits. De Luna?s negative bilaterally. Babinski was down going bilaterally. Clonus was negative. Gait is non-antalgic without loss of balance. Patient was able to perform heel walk and toe walk. Patient able to squat. Vital Signs: BMI result Body Mass Index 45.8 Results Reviewed Results Reviewed: Results and notes reviewed as above. Assessment & Plan Assessment & Plan (1) Arthralgia: Code(s): M25.50 - Pain in unspecified joint Category: Medical Qualifiers: Joint pain location: unspecified Qualified Code(s): M25.50 - Pain in unspecified joint (2) Myalgia: Code(s): M79.10 - Myalgia, unspecified site Category: Medical Plan Chronic complains of pain/myalgia/arthralgia and paresthesias. Blood tests such as ESR and CRP, even CHRISSIE, are nonspecific. Recent tests for dsDNA, anti Charles, SSA/SSB, were all negative. Do not see that CK has been tested at all. No EMG yet. We can check CK levels. Advised to not exercise prior to blood test, and to hydrate fully, so as to avoid false positive. We can do EMG to rule out myopathy although low suspicion as exam does not show weakness or atrophy. To be scheduled. Referring patient to our deep fat cook fry. Assessment and plan discussed with patient, and patient was agreeable. All questions were answered thoroughly. Arianne Osullivan MD, MICHAEL Board Certified, [place] Board of [employer] Medicine and Rehabilitation (ABPMR) Board Certified, [place] Board of Electrodiagnostic Medicine (ABEM) Orders: Orders CK, Total+Isoenzymes, Serum Today M79.10 - Myalgia, unspecified site NE nerve conduction velocity Today M79.10 - Myalgia, unspecified site NE electromyogram (EMG) Today M79.10 - Myalgia, unspecified site Referrals Rheumatology Referral M25.50 - Pain in unspecified joint, M79.10 - Myalgia, unspecified site Coding Level of Care Code New Pt Level 4 (48576) Diagnoses Arthralgia, unspecified joint M25.50 Joint pain location: unspecified Myalgia M79.10
--- OUTSIDE RECORDS SUMMARY | 2025-02-25 09:32 | XMS_ITS | Clinical Summary ---
Author Organization [facility] Address [address] [place] [address] Care Team Providers Care Mental Health Professional Name Role Phone Akosua Kaplan MD Primary [...] obesity wit h BMI of 45.0-49.9, adult ([facility]) Fibromyalgia 03/11/2017 DX:Fibromyalgia; COMMENT: Followed with infectious disease and aligner barrel and receiver as well as neurologist. No history of lymes disease Marijuana use 05/12/2017 DX:Marijuana use Prehypertension 05/12/2017 DX:Prehypertensi on ASCUS with positive high risk HPV 05/29/2017 DX:ASCUS with positive high risk HPV; COMMENT: 11/17/2014 at [facility] obn Rectal bleeding 10/10/2017 DX:Rectal bleedi [...] or Tdap) 09/03/2023 09/03/2013, 11/13/2011 COVID-19 Vaccine ( - 2023-2 5 season) 2024 Depression Screening 07/28/2024 Influenza Vaccine (#1) 2025 Pneumococcal Vaccine: Pediatrics [...] RESULTING AGENCY - 10/13/2017 3:49 PM EDT [id number] THINPREP PAP, IMAGED: NEGATIVE FOR SQUAMOUS INTRAEPITHELIAL [...] Recently Relevant to Health Maintenance Care Teams Mental Health Professional Relationship Specialty Start Date End Date Akosua Kaplan MD PCP - General Internal Medicine 02/17/17
--- OUTSIDE RECORDS SUMMARY | 2025-02-25 09:32 | XMS_ITS | Encounter Summary ---
Author Organization Located Within [facility] Address [address] [place] [address] Phone Care Team Providers Care Cast Shell Grinder Name Role Phone Maia Diamond MEDICAL PATHOLOGY TEACHER Primary Care Provider Susie Goode MD Unavailable [phone] Melyssa Matthew PA-C Unavailable [phone] Holger Strickland MD Unavailable Holger Strickland MD Primary Care Provider [phone] Unknown, Unknown Primary Care Provider Kiara Vernon TRACTOR CRANE OPERATOR Primary Care Provider Reason for Referral * MRI/CAT Scan - Closed Specialty Diagnoses / Procedures Referred By Cecile hopper Referred To Contact Radiology Diagnoses Dizziness Numbness Procedures MRI Brain Carlos Fox MD Phone: tel: fax: [email or web address] Referral ID Status Reason Start Date Expiration Date Visits Re quested Visits Authorized [id number] Closed 03/05/2022 03/05/2023 1 1 Encounter Details Date Type Department Care Team (Latest Contact Info) Description 03/05/2022 Transcribe Orders [facility] Department [address] [place] [phone] Carlos Fox MD [address] [place] [address], [address] [place] [address] [email or web address] Dizziness (Primary Dx); Numbness Social History Tobacco Use Types Packs/Day Years Used Date Smoking Tobacco: Never Smokeless Tobacco: Never Alcohol Use Standard Drinks/Week Comments Yes 0 (1 standard drink = 0.6 oz pur e alcohol) 1-2 drinks, 1-2 x month Child or Family Care Answer Date Record ed Do you have problems with on e of the following making it difficult for you to work, study, or receive health care? No 10/29/2021 Education Answer Date Recorded Are you interested in help w ith more adult education (for example, completing high school, GED, job training, learning the Congolese language, technical skills, or developing parenting skills)? No 10/29/2021 Are you concerned about learning? Not on file 10/29/2021 Not on file 10/29/2021 Not on file 10/29/2021 Food Answer Date Recorded Within the past 6 months we worried whether our food would run out before we got money to buy more. Sometimes True 022 Within the past 6 months the food we bought just didn't last and we didn't have enough money to get more. Sometimes True 10/2021 Paying for Meds Answer Date Recorded Do you have trouble paying for medicines? No 10/29/2021 Paying Utility Bills Answer Date Record ed Do you have trouble paying your heating or elect ricity bill? No 10/29/2021 Transportation Answer Date Recorded Has the lack of transportati on kept you from medical appointments or from getting medications? No 10/29/2021 Comments No Sex and Gender Information Value Date Recorded Sex Assigned at Female 09/21/2018 5:03 PM EST Legal Sex Female 5:25 PM EST Gender Identity Female 09/21/2018 5:03 PM EST Sexual Orientation Straight 09/21/2018 5: 03 PM EST documented as of this encounter Plan of Treatment Not on file documented as of this encounter Results * MRI BRAIN WITHOUT CONTRAST (03/12/2022 9:03 PM EDT) Anatomical Region Laterality Modality Head Magnetic Resonan ce 03/12/2022 10:0 3 PM EDT Impressions 03/13/2022 9:20 AM EDT No acute intracranial abnormality. Narrative 03/13/2022 9:20 AM EDT MRI BRAIN WITHOUT CONTRAST TECHNIQUE: Multi-sequence, multi-planar MRI of the brain was performed without intravenous contrast. COMPARISON: MRI BRAIN WITHOUT CONTRAST FINDINGS: Brain Parenchyma: No evidence of acute infarct, mass lesion, or hemorrhage. Ventricular System and Extra-Axial Spaces: There is no evidence of midline shift or hydrocephalus. Extracranial Structures: Arterial flow voids in the skull base are present. No sinus or mastoid fluid. Procedure Note Tanika Luis MD - 03/13/2022 MRI BRAIN WITHOUT CONTRAST TECHNIQUE: Multi-sequence, multi-planar MRI of the brain was performed withoutintravenous contrast. COMPARISON: MRI BRAIN WITHOUT CONTRAST FINDINGS: Brain Parenchyma: No evidence of acute infarct, mass lesion, orhemorrhage. Ventricular System and Extra-Axial Spaces: There is no evidence of midlineshift or hydrocephalus. Extracranial Structures: Arterial flow voids in the skull base arepresent. No sinus or mastoid fluid. IMPRESSION: No acute intracranial abnormality. us Carlos Fox MD IMG MR HEAD/NECK Final Resul t documented in this encounter Visit Diagnoses Diagnosis Dizziness- Primary Dizziness and giddiness Numbness Disturbance of skin sensation Dizziness Dizziness and giddiness Numbness Disturbance of skin sensation documented in this encounter Additional Health Concerns Assessment Noted Time PHQ-2 Depression Total Score: 2 10/30/19 22 9:55 AM EDT documented as of this encounter Care Teams Cast Shell Grinder Relationship Specialty Start Date End Date Maia Diamond CNP [address] [place] [address] [email or web address] PCP - General Internal Medicine 10/11/19 01/09/23 Holger Strickland MD [address] [place] [address] PCP - General Internal Medicine 01/10/23 06/22/23 Unknown, Vy, PCP - General 06/23/23 10/13/24 Kiara Turk NP [address] [place] [address] [facility] [place] [address] [email or web address] PCP - General Nurse Practitioner 10/14/24 Susie Goode MD [address] [place] [address] [email or web address] 08/13/21 Melyssa Matthew PA-C [address] [place] [phone] [email or web address] Physician Computer Recycling Worker Hematology 08/15/21 Holger Strickland MD [address] [place] [address] [email or web address] Insurance Assigned Provider 04/06/22 04/05/23 documented as of this encounter Additional Source Comments The information contained in this document represents components of the legal health record. It is not the complete legal health record.Located Within [facility]
== END 2025-02-25 10:17 | disposition home or self-care (01) ==
LOC: HO.HOS 09:19
PROVIDERS: PCP Nurse Practitioner Family; Visit Provider Physical Medicine & Rehabilitation
DX: M25.50 Pain in unspecified joint (principal); M79.10 Myalgia, unspecified site
CPT/HCPCS: 99203

== ENCOUNTER → 2025-03-04 07:57 | Outpatient (REF) | payer BC, SELFPAY ==
--- OUTSIDE RECORDS SUMMARY | 2025-03-04 08:00 | XMS_ITS | Encounter Summary ---
Author Organization [facility] Address [address] [place] [address] Care Team Providers Care Road Consultant Name Role Phone Akosua Kaplan MD Primary Care Provider Unavail able Reason for Visit * Reason Onset Date Comments Prior Authorization 10/10/2017 Encounter Details Date Type Department Care Team Description 10/10/2017 Telephone Gastroenterology - [address] [address] [place] Robin PA-C Prior Authorization Social History [...] Shanda Abel - 10/23/2017 1:50 PM EDT [facility] Auth # [id number] 11/04/17- 02/03/18 * Telephone Encounter - Shanda Abel - 10/10/2017 10:57 AM EDT Form faxed to [email or web address] for auth * Telephone Encounter - Charlee Alfonso - 10/10/2017 9:40 AM EDT Pre-auth needed Patient is scheduled for an Flex Sigmoid and Upper Endoscopy on 11-04-17 Patients insurance: Payor: [employer] / Plan: [facility] TYPE III $15/$22 / Product Type: HMO [id number] Appointment is with Dary Figueroa MD Code to process pre-auth for: 71943 (Upper Endoscopy) and 80907 (Flex Sigmoid) Location of procedure: [facility] documented in this encounter Plan of Treatment Not on file documented as of this encounter Visit Diagnoses Not on filedocumented in this encounter Care Teams Road Consultant Relationship Specialty Start Date End Date Akosua Kaplan MD PCP - General Internal Medicine 02/17/17 documented as of this encounter
--- OUTSIDE RECORDS SUMMARY | 2025-03-04 08:00 | XMS_ITS | Clinical Summary ---
Author Organization [facility] Address [address] [place] [address] Care Team Providers Care Barking Machine Feeder Name Role Phone Akosua Kaplan MD Primary [...] wit h BMI of 45.0-49.9, adult ([facility]) Fibromyalgia 03/11/2017 DX:Fibromyalgia; COMMENT: Followed with infectious disease and agricultural education teacher as well as neurologist. No history of lymes disease Marijuana use 05/12/2017 DX:Marijuana use Prehypertension 05/12/2017 DX:Prehypertensi on ASCUS with positive high risk HPV 05/29/2017 DX:ASCUS with positive high risk HPV; COMMENT: 11/17/2014 at [facility] obn Rectal bleeding 10/10/2017 DX:Rectal bleedi ng; [...] RESULTING AGENCY - 10/13/2017 3:49 PM EDT [id number] THINPREP PAP, IMAGED: NEGATIVE FOR SQUAMOUS INTRAEPITHELIAL [...] Recently Relevant to Health Maintenance Care Teams Barking Machine Feeder Relationship Specialty Start Date End Date Akosua Kaplan MD PCP - General Internal Medicine 02/17/17
--- NOTE | 2025-03-04 08:08 | HM_ITS ---
Conclusion: 1. Patient was monitored for total period of 6 days and 22 hours 2. Baseline was normal sinus rhythm with average heart of 82 beats per minute 3. Rare PACs noted 4. No significant pauses noted 5. Patient marked the counter 18 times with symptoms of predominantly chest pain correlating with sinus rhythm MTDD
[2025-03-09 21:13] LABS: CK-BB None Detected (None Detected); CK-MB 0 % (<5); CK-MM 100 % (95-100); Creatine Kinase,Total,Serum 84 U/L (20-239)
== END ==
LOC: HO.CARD 07:57
PROVIDERS: Absent Provider Physical Medicine & Rehabilitation; PCP Nurse Practitioner Family; Visit Provider Internal Medicine Cardiovascular Disease
DX: R00.2 Palpitations (principal); M79.10 Myalgia, unspecified site
CPT/HCPCS: 36415; 82552; 93242

== ENCOUNTER → 2025-03-04 08:08 | Outpatient (BNV) | payer BC, SELFPAY | PROVIDERS: Absent Provider Physical Medicine & Rehabilitation; PCP Nurse Practitioner Family; Visit Provider Internal Medicine Cardiovascular Disease | DX: I49.1 Atrial premature depolarization (principal) | CPT/HCPCS: 93244 ==

== ENCOUNTER 2025-03-21 08:56 | Outpatient (AMB) | payer BC, SELFPAY ==
--- NOTE | 2025-03-21 09:00 | MHC.PC.OV ---
Vital Signs 03/21/25 09:05 Height 5 ft 5 in Weight 269 lb 8 oz BMI 44.8 BP 114/72 Blood Pressure Location Rt brachial Position Sitting Respiration 14 Pulse 88 Pulse Source Pulse Oximeter Temp 97.8 F Temp Source Temporal Artery Scan Pulse Oximetry (%) 97 Oxygen Delivery Method Room Air Intake Visit Reasons: body rash Intake Note: Rachelle presents in the office today for a body rash. Allergies No Known Allergies Allergy (Verified 03/21/25 09:03) Tobacco use date assessed: 03/21/25 Dental Screening Dental Screen Date: 03/21/25 Did you have a dental visit in the last 12 months?: Yes Did you have a dental problem in the last 6 months where you did not have access to dental care?: No Was dental information given to patient?: Patient has dentist HPI HPI Comments History of Present Illness Details This is a 39-year-old female with a past medical history of hypertension, aortic valve stenosis, KATERINE and type 2 diabetes presenting for evaluation of a rash. The patient had a heart monitor for a week that was removed about a week ago. She had a red patch where it was on the left side of the chest that was itchy. This started to fade. Last Friday she developed itching and redness and a couple of small bumps on her back which spread to her stomach and her arms. She took an antihistamine 1 time. Her scalp is also itchy. No fevers, chills or recent illnesses. No other new environmental exposures other than the heart monitor adhesive patch. ROS: Constitutional: No fevers or chills Eyes: No vision changes, blurry vision, double vision, eye pain, eye redness, eye discharge. ENT: No ear pain, congestion or sore throat Respiratory: No shortness of breath, cough or sputum production. Gastrointestinal: No vomiting or diarrhea Musculoskeletal: No myalgias Skin: see HPI Physical exam: Constitutional: Alert, in no distress. Ear, Nose and Throat: Canals clear. TMs normal. Normal nasal mucosa. No nasal discharge. No oral lesions. Neck: Supple, Full range of motion. No lymphadenopathy. Respiratory: Clear to auscultation. Cardiovascular: S1 S2 regular. No murmurs. Skin: Mildly erythematous patches on the trunk and upper extremities with a few scattered papules on the trunk that appear excoriated. There is a well-demarcated light area of erythema on the left side of the chest where she had the monitor. Extremities: Warm and well perfused. No clubbing, cyanosis or edema. [facility] Medical History (Updated 03/21/25 @ 09:29 by LILA Clemons) Acute dermatitis Anxiety and depression Headache GERD (gastroesophageal reflux disease) IBS (irritable bowel syndrome) Depression Asthma Restless leg syndrome Fibromyalgia Morbid obesity Surgical History Hx of wisdom tooth extraction Hx of colonoscopy (~2020) Hx of endoscopy Hx of neck surgery Hx of breast surgery Hx of appendectomy Family History Mother History of lung surgery Lung cancer COPD (chronic obstructive pulmonary disease) HTN (hypertension) Father Diabetes HTN (hypertension) Cardiovascular disease Brother Diabetes Family/Other Lung cancer Throat cancer Diabetes Maternal Grandmother Lung cancer Heart attack Stroke Diabetes Paternal Grandfather Prostate CA Family/Other Prostate CA Paternal Grandmother CHF (congestive heart failure) Diabetes Cardiovascular disease Social History (Updated 03/21/25 @ 09:04 by Shilpa Reece MA) Household Members: Significant Other Both parents involved: No Caregiver staying overnight: No Housing: Apartment Are you a primary home care associate to a significant other at home: No Do you presently have visiting nurse or other home services: No 75 years or older and lives alone: No Alcohol intake: current Alcohol intake frequency: holidays/special occasions only Alcohol type: wine Patient Tobacco Use Status: Never used Tobacco e-Cigarette/Vaping Use: Never Used Second Hand Smoke Exposure: No Use of substances other than those prescribed or required for medical reasons: No Current occupational status: employed Current occupation: [employer]- [employer] Cognitive needs: No Hearing needs: No Vision needs: No Questionnaire Thrive Questionnaire Date Thrive assessed: 10/15/24 I am a: Patient What is your living situation today?: I have a steady place to live Within the past 12 months, did the food you bought not last and you didn't have the money to get more?: Never true Within the past 12 months, did you worry whether your food would run out before you got money to buy more?: Never true Do you have trouble paying for medicines?: No Do you have trouble getting transportation to medical appointments?: No Do you have trouble paying your heating and electricity bill?: No Do you have trouble taking care of your child, family member or friend?: No Do you have trouble with day-to-day activities such as bathing, preparing meals, shopping, managing finances, etc.?: No Are you currently unemployed and looking for a job?: No Are you interested in more education?: No Please select the resources that you would like help with: None Currently or been in a relationship where the following occur: No concerns reported THRIVE Score: 0 MIKAELA-7 AMB Questionnaire MIKAELA-7 Date MIKAELA - 7 assessed: 11/01/24 Source: Developed by Drs. Fernando Valentino, Aga Rodriguez, Alan Anguiano and colleagues, with an educational giovanni from [employer]. Physical exam (Primary Care) Vital Signs: Last Vital Signs Temp 97.8 F 03/21/25 09:05 Pulse 88 03/21/25 09:05 Resp 14 03/21/25 09:05 BP 114/72 03/21/25 09:05 Pulse Ox 97 03/21/25 09:05 Oxygen Delivery Method Room Air 03/21/25 09:05 BMI result Body Mass Index 44.8 Tobacco/Smoking Status: Tobacco use Status Tobacco use date assessed 03/21/25 03/21/25 09:08 Patient Tobacco Use Status Never used Tobacco 03/21/25 09:04 e-Cigarette/Vaping Use Never Used 03/21/25 09:04 Thrive Assessment: Date of Thrive Assessment Date Thrive assessed 10/15/24 03/21/25 09:01 Currently or been in a relationship where the following occur: No concerns reported Coding Level of Care Code Est Pt Level 3 (19779) Diagnoses Acute dermatitis L30.9 Assessment & Plan Assessment & Plan (1) Acute dermatitis: Code(s): L30.9 - Dermatitis, unspecified Category: Medical Plan: This is likely a delayed hypersensitivity reaction to the adhesive from the heart monitor. Start Zyrtec 10 mg daily with Pepcid 20 mg twice daily. Continue both until symptom-free for 1 week then stop Pepcid. Continue Zyrtec another 2 weeks and if symptoms do not return stop this medication. Applied topical triamcinolone to the rash twice daily for 10 days. Reviewed side effects of topical steroids. Call if symptoms do not resolve were worsen. Medications: New famotidine (Pepcid) 20 mg PO BID 60 tabs 0RF cetirizine (Zyrtec) 10 mg PO DAILY 30 tabs 0RF triamcinolone acetonide 0.1% 1 appl topical BID 30 grams 0RF
[2025-03-21 09:05] VITALS: BP 114/72; PULSE 88; RESP 14; TEMP 36.6; O2SAT 97; BMI 44.8
--- OUTSIDE RECORDS SUMMARY | 2025-03-21 09:35 | XMS_ITS | Encounter Summary ---
Author Organization [facility] Address [address] [place] [address] [place] [address] Phone Care Team Providers Care Agents' Records Clerk Name Role Phone Maia Diamond VISION IMPAIRED TEACHER Primary Care Provider Susie Goode MD Unavailable [phone] Melyssa Matthew PA-C Unavailable [phone] Holger Strickland MD Unavailable Holger Strickland MD Primary Care Provider [phone] Unknown, Unknown Primary Care Provider Kiara Vernon CONE TRUCKER Primary Care Provider Reason for Referral * MRI/CAT Scan - Closed Specialty Diagnoses / Procedures Referred By Cecile hopper Referred To Contact Radiology Diagnoses Dizziness Numbness Procedures MRI Brain Carlos Fox MD Phone: tel: fax: [email or web address] Referral ID Status Reason Start Date Expiration Date Visits Re quested Visits Authorized [id number] Closed 03/05/2022 03/05/2023 1 1 Encounter Details Date Type Department Care Team (Latest Contact Info) Description 03/05/2022 Transcribe Orders [facility] Department [address] [place] [phone] Carlos Fox MD [address] [place] [address], [address] [place] [address] [email or web address] Dizziness (Primary Dx); Numbness Social History [...] high school, GED, job training, learning the Beninese language, technical skills, or developing parenting skills)? [...] documented as of this encounter Care Teams Agents' Records Clerk Relationship Specialty Start Date End Date Maia Diamond CNP [address] [place] [address] [email or web address] PCP - General Internal Medicine 10/11/19 01/09/23 Holger Strickland MD [address] [place] [address] PCP - General Internal Medicine 01/10/23 06/22/23 Unknown, Vy, PCP - General 06/23/23 10/13/24 Kiara Turk, CEASAR [address] [place] [address] [facility] [place] [address] [email or web address] PCP - General Nurse Practitioner 10/14/24 Susie Goode MD [address] [place] [address] [email or web address] 08/13/21 Melyssa Matthew PA-C [address] [place] [address] Physician Systems Test Analyst Hematology 08/15/21 Holger Strickland MD [address] [place] [address] [email or web address] Insurance Assigned Provider 04/06/22 04/05/23 documented as of this encounter Additional Source Comments The information contained in this document represents components of the legal health record. It is not the complete legal health record.[facility]
--- OUTSIDE RECORDS SUMMARY | 2025-03-21 09:35 | XMS_ITS | Clinical Summary ---
Author Organization [facility] Address [address] [place] [address] Care Team Providers Care Bar Finish Operator Name Role Phone Akosua Kaplan MD [...] obesity wit h BMI of 45.0-49.9, adult ([facility]) Fibromyalgia 03/11/2017 DX:Fibromyalgia; COMMENT: Followed with infectious disease and flight security specialist as well as neurologist. No history of lymes disease Marijuana use 05/12/2017 DX:Marijuana use Prehypertension 05/12/2017 DX:Prehypertensi on ASCUS with positive high risk HPV 05/29/2017 DX:ASCUS with positive high risk HPV; COMMENT: 11/17/2014 at [facility] obn Rectal bleeding 10/10/2017 DX:Rectal bleedi [...] RESULTING AGENCY - 10/13/2017 3:49 PM EDT [id number] THINPREP PAP, IMAGED: NEGATIVE FOR SQUAMOUS INTRAEPITHELIAL [...] Recently Relevant to Health Maintenance Care Teams Bar Finish Operator Relationship Specialty Start Date End Date Akosua Kaplan MD PCP - General Internal Medicine 02/17/17
== END 2025-03-21 09:28 | disposition home or self-care (01) ==
LOC: HO.HMCFM 08:57
PROVIDERS: PCP Nurse Practitioner Family; Visit Provider Physician Assistant Medical
DX: L30.9 Dermatitis, unspecified (principal)

== ENCOUNTER 2025-03-30 09:19 | Outpatient (REF) | payer BC, SELFPAY ==
--- NOTE | 2025-03-30 09:22 | EMG_ITS ---
Chief complaint: Muscle aches Please see my previous note for full history. Reason for referral: Evaluate for myopathy Procedure done: Right upper and lower extremities NCS/EMG Precautions and/or limitations: None The limb temperature was monitored continuously and remained between 32-36 degrees C during the performance of the NCS. Nerve Conduction Studies Anti Sensory Summary Table ?Stim Site NR Onset (ms) Norm Onset (ms) Peak (ms) Norm Peak (ms) O-P Amp (?V) Norm O-P Amp Site1 Site2 Delta-0 (ms) Dist (cm) Perfecto (m/s) Norm Perfecto (m/s) Right Median Anti Sensory (2nd Digit) Wrist ? 2.8 3.7 <3.6 36.8 >10 Wrist 2nd Digit 2.8 14.0 50 Left Sural Anti Sensory (Lat Mall) Calf ? 2.1 2.8 <4.0 6.7 >5.0 Calf Lat Mall 2.1 14.0 67 Right Sural Anti Sensory (Lat Mall) Calf ? 2.9 3.4 <4.0 5.8 >5.0 Calf Lat Mall 2.9 14.0 48 Right Ulnar Anti Sensory (5th Digit) Wrist ? 1.8 2.6 <3.7 15.1 >15.0 Wrist 5th Digit 1.8 14.0 78 Motor Summary Table ?Stim Site NR Onset (ms) Norm Onset (ms) O-P Amp (mV) Norm O-P Amp iAmp (mV) Amp (1st) (%) Site1 Site2 Delta-0 (ms) Dist (cm) Perfecto (m/s) Norm Perfecto (m/s) Right Median Motor (Abd Poll Brev) Wrist ? 3.7 <3.9 8.4 >4.5 9.9 100.0 Elbow Wrist 3.7 19.5 53 >45 Elbow ? 7.4 8.6 10.2 102.4 Right Peroneal Motor (Ext Dig Brev) Ankle ? 3.8 <4.0 5.9 >2.5 7.0 100.0 Ankle Ext Dig Brev 3.8 0.0 B Fib ? 9.8 5.5 6.7 93.2 B Fib Ankle 6.0 30.5 51 >40 Poplt ? 10.6 5.2 6.3 88.1 Poplt B Fib 0.8 5.0 63 >40 Right Tibial Motor (Abd Cortes Brev) Ankle ? 4.1 <5 14.6 >2.5 19.9 100.0 Ankle Abd Cortes Brev 4.1 0.0 Knee ? 11.8 14.0 19.1 95.9 Knee Ankle 7.7 39.0 51 >40 Right Ulnar Motor (Abd Dig Minimi) Wrist ? 2.7 <3.0 8.8 >5 9.9 100.0 B Elbow Wrist 3.6 20.0 56 >45 B Elbow ? 6.3 8.4 9.8 95.5 A Elbow B Elbow 1.5 10.0 67 >45 A Elbow ? 7.8 8.3 10.1 94.3 Comparison Summary Table ?Stim Site NR Peak (ms) Norm Peak (ms) P-T Amp (?V) Site1 Site2 Delta-P (ms) Norm Delta (ms) Right Median/Radial Dig I Comparison (Digit 1 - 10cm) Median ? 3.1 <2.9 88.2 Median Radial 0.8 Radial ? 2.3 <2.8 26.7 EMG ?Side Muscle Nerve Root Ins Act Fibs Psw Amp Dur Poly Recrt Int Pat Comment Right 1stDorInt Ulnar C8-T1 Nml Nml Nml Nml Nml 0 Nml Complete Right FlexCarRad Median C6-7 Nml Nml Nml Nml Nml 0 Nml Complete Right FlexCarpiUln Ulnar C8,T1 Nml Nml Nml Nml Nml 0 Nml Complete Right Biceps Musculocut C5-6 Nml Nml Nml Nml Nml 0 Nml Complete Right Triceps Radial C6-7-8 Nml Nml Nml Nml Nml 0 Nml Complete Right Deltoid Axillary C5-6 Nml Nml Nml Nml Nml 0 Nml Complete Right AbdHallucis MedPlantar S1-2 Nml Nml Nml Nml Nml 0 Nml Complete Right AntTibialis Dp Br Peron L4-5 Nml Nml Nml Nml Nml 0 Nml Complete Right PostTibialis Tibial L5, S1 Nml Nml Nml Nml Nml 0 Nml Complete Right MedGastroc Tibial S1-2 Nml Nml Nml Nml Nml 0 Nml Complete Right VastusMed Femoral L2-4 Nml Nml Nml Nml Nml 0 Nml Complete Paraspinal EMG ?Side Muscle Nerve Root Ins Act Fibs Psw Comment Right Cervical Upper Rami Nml Nml Nml Right Cervical Mid Rami Nml Nml Nml Right Cervical Lower Rami Nml Nml Nml Right Lumbar Upper Rami Nml Nml Nml Right Lumbar Mid Rami Nml Nml Nml Right Lumbar Lower Rami Nml Nml Nml FINDINGS: Right median sensory nerve showed prolonged peak latency. Increase interlatency difference between right median radial sensory nerves. All other nerves tested were within normal. Concentric needle EMG was performed in selected muscles of the right upper and lower extremities, cervical paraspinals, lumbar paraspinals. Study did not reveal signs of electric abnormalities as shown in the table above. No myopathic looking units. IMPRESSION: 1. This is an abnormal study. 2. There is electrodiagnostic evidence for right mild median neuropathy at the wrist, consistent with carpal tunnel syndrome. 3. There is no electrodiagnostic evidence for ulnar neuropathy, brachial plexopathy, cervical radiculopathy, peroneal neuropathy, tibial neuropathy, lumbosacral plexopathy, lumbar radiculopathy, or peripheral neuropathy. 3. There is no electrodiagnostic evidence for myopathy. CLINICAL COMMENT: Advised to wear wrist splints at night. She is waiting to see Rheumatology Thank you for your kind referral. Arianne Osullivan MD, MICHAEL Board Certified, [place] Board of Physical Medicine and Rehabilitation (ABPMR) Board Certified, [place] Board of Electrodiagnostic Medicine (ABEM) CODIN [phone] x [phone] MTDD
--- OUTSIDE RECORDS SUMMARY | 2025-03-30 10:03 | XMS_ITS | Encounter Summary ---
Author Organization [facility] Address [address] [place] [address] Phone Care Team Providers Care Detonator Assembler Name Role Phone Maia Diamond CNP Primary Care Provider Vick Yuen MD Unavailable [phone] Susie Goode MD Unavailable [phone] Melyssa MatthewC Unavailable [phone] Holger Strickland MD Unavailable Holger Strickland MD Primary Care Provider Unknown, Unknown Primary Care Provider Kiara Vernon NP Primary Care Provider Encounter Details Date Type Department Care Team (Latest Contact Info) Description 12/06/2020 Transcribe Orders Virtual Department [address] [place] [address] Aga Noble NP [address] [place] [address] Pre-procedure lab exam (Primary Dx) Social History Tobacco Use Types Packs/Day Years [...] work, study, or receive health care? No 04/14/2019 Education Answer Date Recorded Are you interested in help w ith more adult education (for example, completing high school, GED, job training, learning the Maltese language, technical skills, or developing parenting skills)? Yes 04/14/2019 Are you concerned about learning? Not on file 04/14/2019 Not on file 04/14/2019 Not on file 04/14/2019 Food Answer Date Recorded Within the past 6 months we worried whether our food would run out before we got money to buy more. Often True 04/14/2019 Within the past 6 months the food we bought just didn't last and we didn't have enough money to get more. Often True 9 Paying for Meds Answer Date Recorded Do you have trouble paying for medicines? Yes 04/14/2019 Paying Utility Bills Answer Date Record ed Do you have trouble paying your heating or elect ricity bill? Yes 04/14/2019 Transportation Answer Date Recorded Has the lack of transportati on kept you from medical appointments or from getting medications? No 04/14/2019 Comments No Sex and Gender Information Value Date Recorded Sex Assigned at Female 09/21/2018 5:03 PM EST Legal Sex Female 5:25 PM EST Gender Identity Female 09/21/2018 5:03 PM EST Sexual Orientation Straight 09/21/2018 5: 03 PM EST documented as of this encounter Plan of Treatment Not on file documented as of this encounter Results * COVID-19 PCR Order (12/08/2020 12:40 PM EDT) COVID-19 Comment [id number] [facility] COVID Testing Status Sent to [facility] 12/08/2020 12:4 0 PM EDT 12/08/2020 4:43 PM EDT Aga Noble NP BODY FLUIDS AND STOOLS OR DERABLES Final Result [facility] [address] [place] [address] documented in this encounter Visit Diagnoses Diagnosis Pre-procedure lab exam- Primary Pre-procedural laboratory examination documented in this encounter Additional Health Concerns Infection Onset Date Last Indicated Resolved Time CoV-Risk 08/16/2021 08/17/2021 08/18/2021 7:33 AM EST CoV-Exposed Comment:Positive COVID-19 08/16/2021 08/16/2021 08/18/2021 7:3 3 AM EST COVID-19 08/17/2021 08/17/2021 09/07/2021 1:22 AM EST Assessment Noted Time PHQ-2 Depression Total Score: 0 09/29/19 2:34 PM EST documented as of this encounter Care Teams Detonator Assembler Relationship Specialty Start Date End Date Maia Diamond, ARIANNA [address] [place] [address] [email or web address] PCP - General Internal Medicine 10/11/19 01/09/23 Holger Strickland MD [address] [place] [address] [email or web address] PCP - General Internal Medicine 01/10/23 06/22/23 Unknown, Vy, PCP - General 06/23/23 10/13/24 Kiara Turk, CEASAR [address] [place] [address] [facility] [place] [address] [email or web address] PCP - General Nurse Practitioner 10/14/24 Vick Yuen MD [address] [place] [address] [email or web address] Insurance Assigned Provider 01/31/20 01/05/22 Susie Goode MD [address] [place] [address] [email or web address] Hematology [email or web address] Oncology 08/13/21 Melyssa Matthew PA-C [address] [place] [address] [email or web address] Physician Tensile Tester Hematology 08/15/21 Holger Strickland MD [address] [place] [address] [email or web address] Insurance Assigned Provider 04/06/22 04/05/23 documented as of this encounter Additional Source Comments The information contained in this document represents components of the legal health record. It is not the complete legal health record.[facility]
--- OUTSIDE RECORDS SUMMARY | 2025-03-30 10:03 | XMS_ITS | Encounter Summary ---
Author Organization [facility]ly [facility] Address [address] [place] [address] [place] [address] Phone Care Team Providers Care Fixed Income Portfolio Manager Name Role Phone Maia Diamond WATCH PARTS GRINDER Primary Care Provider Susie Goode MD Unavailable [phone] Melyssa Matthew PA-C Unavailable [phone] Holger Strickland MD Unavailable Holger Strickland MD Primary Care Provider [phone] Unknown, Unknown Primary Care Provider Kiara Vernon TESTING SHAKING SHIPPING Primary Care Provider Reason for Referral * MRI/CAT Scan - Closed Specialty Diagnoses / Procedures Referred By Cecile hopper Referred To Contact Radiology Diagnoses Dizziness Numbness Procedures MRI Brain Carlos Fox MD Phone: tel: fax: [email or web address] Referral ID Status Reason Start Date Expiration Date Visits Re quested Visits Authorized [id number] Closed 03/05/2022 03/05/2023 1 1 Encounter Details Date Type Department Care Team (Latest Contact Info) Description 03/05/2022 Transcribe Orders [facility] Department [address] [place] [address] Carlos Fox MD [address] [place] [address], [address] [place] [address] [email or web address] Dizziness (Primary Dx); Numbness Social [...] high school, GED, job training, learning the Wolof language, technical skills, or developing parenting skills)? [...] documented as of this encounter Care Teams Fixed Income Portfolio Manager Relationship Specialty Start Date End Date Maia Diamond CNP [address] [place] [address] [email or web address] PCP - General Internal Medicine 10/11/19 01/09/23 Holger Strickland MD [address] [place] [address] PCP - General Internal Medicine 01/10/23 06/22/23 Unknown, Vy, PCP - General 06/23/23 10/13/24 Kiara Turk, CEASAR [address] [place] [address] [facility] [place] [address] [email or web address] PCP - General Nurse Practitioner 10/14/24 Susie Goode MD [address] [place] [address] [email or web address] 08/13/21 Melyssa Matthew PA-C [address] [place] [address] Physician Ship Propeller Finisher Hematology 08/15/21 Holger Strickland MD [address] [place] [address] [email or web address] Insurance Assigned Provider 04/06/22 04/05/23 documented as of this encounter Additional Source Comments The information contained in this document represents components of the legal health record. It is not the complete legal health record.[facility]
--- OUTSIDE RECORDS SUMMARY | 2025-03-30 10:03 | XMS_ITS | Encounter Summary ---
Author Organization [facility] Address [address] [place] [address] Phone Care Team Providers Care Dental Service Chief Name Role Phone Maia Diamond CITY EDITOR Primary Care Provider Susie Goode MD Unavailable [phone] Melyssa Matthew PA-C Unavailable [phone] Holger Strickland MD Unavailable Holger Strickland MD Primary Care Provider [phone] Unknown, Unknown Primary Care Provider Kiara Vernon NP Primary Care Provider Encounter Details Date Type Department Care Team (Late st Contact Info) Description 03/05/2022 Procedure Pass [facility], [address] [address] Social History Tobacco Use Types Packs/Day Years [...] high school, GED, job training, learning the Gambian language, technical skills, or developing parenting skills)? [...] Diagnoses Not on filedocumented in this encounter Additional Health Concerns Assessment Noted Time PHQ-2 Depression Total Score: 2 10/30/19 22 9:55 AM EDT documented as of this encounter Care Teams Dental Service Chief Relationship Specialty Start Date End Date Maia iDamond CNP [address] [place] [address] PCP - General Internal Medicine 10/11/19 01/09/23 Holger Strickland MD [address] [place] [address] PCP - General Internal Medicine 01/10/23 06/22/23 Unknown, Vy, PCP - General 06/23/23 10/13/24 Kiara Turk NP NPI: [id number] [place] [address] [place] [address] [email or web address] PCP - General Nurse Practitioner 10/14/24 Susie Goode MD [address] [place] [address] [email or web address] Hematology and Oncology 08/13/21 Melyssa Matthew PA-C [address] [place] [address] [email or web address] Physician Hot Pipe Gauger Hematology 08/15/21 Holger Strickland MD [address] [place] [address] [email or web address] Insurance Assigned Provider 04/06/22 04/05/23 documented as of this encounter Additional Source Comments The information contained in this document represents components of the legal health record. It is not the complete legal health record.[facility]
--- OUTSIDE RECORDS SUMMARY | 2025-03-30 10:03 | XMS_ITS | Encounter Summary ---
Author Organization [facility] Address [address] [place] [address] Phone Care Team Providers Care Social Science Teacher Name Role Phone Maia Diamond INTEGRATED CIRCUIT LAYOUT DESIGNER Primary Care Provider Vick Yuen MD Unavailable [phone] Susie Goode MD Unavailable [phone] Melyssa MatthewC Unavailable [phone] Holger Strickland MD Unavailable Holger Strickland MD Primary Care Provider [phone] Unknown, Unknown Primary Care Provider Kiara Vernon NP Primary Care Provider Encounter Details Date Type Department Care Team (Late st Contact Info) Description 05/22/2020 Ancillary Orders [facility] Medical [facility] Rheumatology [address] [place] [address] Dick Coles MD [address] [place] [address] [email or web address] Fibromyalgia Social History Tobacco Use Types Packs/Day Years [...] high school, GED, job training, learning the Australian language, technical skills, or developing parenting skills)? [...] documented as of this encounter Results * XR HAND 3 OR MORE VIEWS (BILATERAL) (05/22/2020 11:28 AM EDT) Anatomical Region Laterality Modality Hand Left Computed Radiogr aphy 05/22/2020 11:5 4 AM EDT Impressions 05/22/2020 12:01 PM EDT No significant arthritic changes. No clear explanation for the patient's signs and symptoms. Narrative 05/22/2020 12:01 PM EDT HISTORY: Pain and stiffness bilaterally. COMPARISON: Arthritis series of hands and wrists 10/15/2018. VIEWS: Three views of each hand and wrist was obtained in an arthritis series. FINDINGS: Left: No significant arthritic changes. Joint spaces well-maintained. No evidence of fractures, subluxations or dislocations. No suspicious lytic or blastic lesions within the bones. No suspicious soft tissue calcifications. Right: No significant arthritic changes. Joint spaces well-maintained. No evidence of fractures, subluxations or dislocations. No suspicious lytic or blastic lesions within the bones. No suspicious soft tissue calcifications. Procedure Note Deven Ellis MD - 05/22/2020 HISTORY: Pain and stiffness bilaterally. COMPARISON: Arthritis series of hands and wrists 10/15/2018. VIEWS: Three views of each hand and wrist was obtained in an arthritisseries. FINDINGS: Left: No significant arthritic changes. Joint spaces well-maintained. Noevidence of fractures, subluxations or dislocations. No suspicious lyticor blastic lesions within the bones. No suspicious soft tissuecalcifications. Right: No significant arthritic changes. Joint spaces well-maintained. Noevidence of fractures, subluxations or dislocations. No suspicious lyticor blastic lesions within the bones. No suspicious soft tissuecalcifications. IMPRESSION: No significant arthritic changes. No clear explanation for the patient'ssigns and symptoms. Dick Coles MD IMG XR UPPER EXTR EMITY Final Result documented in this encounter Visit Diagnoses Diagnosis Fibromyalgia Unspecified myalgia and myositis Fibromyalgia Unspecified myalgia and myositis documented in this encounter Additional Health Concerns Infection Onset Date Last Indicated Resolved Time CoV-Risk 08/16/2021 08/17/2021 08/18/2021 7:33 AM EST CoV-Exposed Comment:Positive COVID-19 08/16/2021 08/16/2021 08/18/2021 7:3 3 AM EST COVID-19 08/17/2021 08/17/2021 09/07/2021 1:22 AM EST Assessment Noted Time PHQ-2 Depression Total Score: 0 09/29/19 2:34 PM EST documented as of this encounter Care Teams Social Science Teacher Relationship Specialty Start Date End Date Maia Diamond CNP [address] [place] [address] PCP - General Internal Medicine 10/11/19 01/09/23 Holger Strickland MD [address] [place] [address] PCP - General Internal Medicine 01/10/23 06/22/23 Unknown, Unknown, MD PCP - General 06/23/23 10/13/24 Kiara Turk, DINKEY DISPATCHER [address] [place] [address] [email or web address] PCP - General Nurse Practitioner 10/14/24 Vick Yuen MD [address] [place] [address] Insurance Assigned Provider 01/31/20 01/05/22 Susie Goode MD [address] [place] [address] [email or web address] 08/13/21 Melyssa Matthew PA-C [address] [place] [address] [email or web address] Physician Cytogenetic Technologist Hematology 08/15/21 Holger Strickland MD [address] [place] [address] Insurance Assigned Provider 04/06/22 04/05/23 documented as of this encounter Additional Source Comments The information contained in this document represents components of the legal health record. It is not the complete legal health record.[facility]
--- OUTSIDE RECORDS SUMMARY | 2025-03-30 10:03 | XMS_ITS | Encounter Summary ---
Author Organization Formerly [facility] Address [address] [place] [address] Phone Care Team Providers Care Smocker Name Role Phone Maia Diamond COLOR TECHNICIAN Primary Care Provider Maia Diamond COLOR TECHNICIAN Primary Care Provider Vick Yuen MD Unavailable [phone] Susie Goode MD Unavailable [phone] Melsysa Matthew-C Unavailable Holger Strickland MD Unavailable Holger Strickland MD Primary Care Provider [phone] Unknown, Unknown Primary Care Provider Kaira Vernon PROCESS PROJECT ENGINEER Primary Care Provider Encounter Details Date Type Department Care Team (Late st Contact Info) Description 06/08/2019 Procedure Pass [place] Admitting Dept - Virtual Department [address] [place] [address] Social History Tobacco Use Types Packs/Day Years [...] high school, GED, job training, learning the Irish language, technical skills, or developing parenting skills)? [...] filedocumented in this encounter Additional Health Concerns Infection Onset Date Last Indicated Resolved Time CoV-Risk 12/30/2019 12/30/2019 01/13/2020 1:24 AM EDT CoV-Risk 02/12/2020 02/12/2020 02/26/2020 1:24 AM EDT CoV-Risk 05/01/2020 05/01/2020 05/15/2020 1:24 AM EDT CoV-Risk 08/16/2021 08/17/2021 08/18/2021 7:33 AM EST CoV-Exposed Comment:Positive COVID-19 08/16/2021 08/16/2021 08/18/2021 7:3 3 AM EST COVID-19 08/17/2021 08/17/2021 09/07/2021 1:22 AM EST Assessment Noted Time PHQ-2 Depression Total Score: 0 09/29/19 2:34 PM EST documented as of this encounter Care Teams Smocker Relationship Specialty Start Date End Date Maia Diamond BetsyARIANNA [address] [place], [place] [email or web address] PCP - General Internal Medicine 04/13/19 10/10/19 Dankjose Maia BetsyARIANNA [address] [place], [place] [email or web address] PCP - General Internal Medicine 10/11/19 01/09/23 Holger Strickland MD [address] [place], [place] [email or web address] PCP - General Internal Medicine 01/10/23 06/22/23 Unknown, Vy, PCP - General 06/23/23 10/13/24 Kiara Turk, CEASAR [address] [place] [phone] [email or web address] PCP - General Nurse Practitioner 10/14/24 Vick Yuen MD [address] [place], [place] [email or web address] Insurance Assigned Provider 01/31/20 01/05/22 Susie Goode MD [address] [place] [address] [email or web address] Hematology and Oncology 08/13/21 Melyssa Matthew PA-C [address] [place] [address] [email or web address] Physician Associate Professor Of Theatre Hematology 08/15/21 Holger Strickland MD [address] [place] [address] [email or web address] Insurance Assigned Provider 04/06/22 04/05/23 documented as of this encounter Additional Source Comments The information contained in this document represents components of the legal health record. It is not the complete legal health record.[facility]
--- OUTSIDE RECORDS SUMMARY | 2025-03-30 10:03 | XMS_ITS | Encounter Summary ---
Author Organization [facility] Address [address] [place] [address] Phone Care Team Providers Care Bingo Clerk Name Role Phone Maia Diamond CNP Primary Care Provider Vick Yuen MD Unavailable Susie Goode MD Unavailable [phone] Melyssa Matthew-C Unavailable Holger Strickland MD Unavailable Holger Strickland MD Primary Care Provider Unknown, Unknown Primary Care Provider Kiara Vernon NP Primary Care Provider Encounter Details Date Type Department Care Team (Latest Contact Info) Description 01/05/2021 Transcribe Orders Virtual Department [address] [place] [address] Aga Noble NP [address] [place], [place] [id number] (nonalcoholic steatohepatitis) (Primary Dx); LLQ abdominal pain; RUQ abdominal pain Social History Tobacco Use Types Packs/Day Years [...] high school, GED, job training, learning the Kazakh language, technical skills, or developing parenting skills)? [...] documented as of this encounter Results * US LIVER WITH ELASTOGRAPHY (01/23/2021 9:30 AM EDT) Anatomical Region Laterality Modality Abdomen Ultrasound 01/23/2021 9:01 PM EDT Impressions 01/23/2021 9:11 PM EDT Sonographic findings of steatosis. The IQR to median ratio is less than 15% and the measure of liver stiffness is therefore acceptable. The median shear wave speed is 1.21 m/s. This is less than or equal to 1.3 m/s, which corresponds with a high probability of being normal. SOCIETY OF RADIOLOGISTS IN ULTRASOUND CONSENSUS: In the setting of elevated liver function tests, nonfasting, vascular congestion, etc., the stage of liver fibrosis may be overestimated. In some patients with NAFLD, the cut-off values for compensated advanced chronic liver disease may be lower. In causes other than viral hepatitis and NAFLD, the cut-off values are not well established. Narrative 01/23/2021 9:11 PM EDT TECHNIQUE: Focused ultrasound evaluation of the liver. Volumetric sweeps were obtained and reviewed. COMPARISON: None FINDINGS: LIVER: Diffusely echogenic liver parenchyma is compatible with steatosis. No focal lesions. Portal vein is patent. ELASTOGRAPHY: Liver stiffness measurements were obtained in the right hepatic lobe on a M2G ultrasound machine. 2D shear wave elastography technique was utilized following SRU guidelines. 10 valid measurements were obtained. Median shear wave speed is: 1.21 m/s (4.5 kPa). IQR to median ratio: 6.82% (m/s) and 13.3% (kPa) BILIARY: Gallbladder: Unremarkable Common bile duct measures 0.5 cm, minimally dilated. Others: Visualized portions of the pancreas are unremarkable. Right hydronephrosis. Visualized portions of the upper aorta and inferior vena cava are unremarkable. Procedure Note Ling Kim MD - 01/23/2021 TECHNIQUE: Focused ultrasound evaluation of the liver. Volumetric sweeps wereobtained and reviewed. COMPARISON: None FINDINGS: LIVER: Diffusely echogenic liver parenchyma is compatible with steatosis.No focal lesions. Portal vein is patent. ELASTOGRAPHY: Liver stiffness measurements were obtained in the righthepatic lobe on a [employer] ultrasound machine. 2D shear wave elastographytechnique was utilized following SRU guidelines. 10 valid measurements were obtained. Median shear wave speed is: 1.21m/s (4.5 kPa). IQR to median ratio: 6.82% (m/s) and 13.3% (kPa) BILIARY: Gallbladder: Unremarkable Common bile duct measures 0.5 cm, minimally dilated. Others: Visualized portions of the pancreas are unremarkable. Righthydronephrosis. Visualized portions of the upper aorta and inferior venacava are unremarkable. IMPRESSION: Sonographic findings of steatosis. The IQR to median ratio is less than 15% and the measure of liverstiffness is therefore acceptable. The median shear wave speed is 1.21 m/s. This is less than or equal to1.3 m/s, which corresponds with a high probability of being normal. SOCIETY OF RADIOLOGISTS IN ULTRASOUND CONSENSUS: In the setting of elevated liver function tests, nonfasting, vascularcongestion, etc., the stage of liver fibrosis may be overestimated. Insome patients with NAFLD, the cut-off values for compensated advancedchronic liver disease may be lower. In causes other than viral hepatitisand NAFLD, the cut-off values are not well established. us Aga Noble SINGLE RESOURCE BOSS IMG US ABDOMEN Final Res ult documented in this encounter Visit Diagnoses Diagnosis (nonalcoholic steatohepatitis)- Primary Other chronic nonalcoholic liver disease LLQ abdominal pain Abdominal pain, left lower quadrant RUQ abdominal pain Abdominal pain, right upper quadrant (nonalcoholic steatohepatitis) Other chronic nonalcoholic liver disease LLQ abdominal pain Abdominal pain, left lower quadrant RUQ abdominal pain Abdominal pain, right upper quadrant documented in this encounter Additional Health Concerns Infection Onset Date Last Indicated Resolved Time CoV-Risk 08/16/2021 08/17/2021 08/18/2021 7:33 AM EST CoV-Exposed Comment:Positive COVID-19 08/16/2021 08/16/2021 08/18/2021 7:3 3 AM EST COVID-19 08/17/2021 08/17/2021 09/07/2021 1:22 AM EST Assessment Noted Time PHQ-2 Depression Total Score: 0 09/29/19 19 2:34 PM EST documented as of this encounter Care Teams Bingo Clerk Relationship Specialty Start Date End Date Maia Diamond CNP [address] [place] [address] PCP - General Internal Medicine 10/11/19 01/09/23 Holger Strickland MD [address] [place] [address] PCP - General Internal Medicine 01/10/23 06/22/23 Unknown, Unknown, PCP - General 06/23/23 10/13/24 Kiara Turk NP [address] [place] [address] [email or web address] PCP - General Nurse Practitioner 10/14/24 Vick Yuen MD [address] [place] [address] [email or web address] Insurance Assigned Provider 01/31/20 01/05/22 Susie Goode MD [address] [place] [address] [email or web address] 08/13/21 Melyssa Matthew PA-C [address] [place] [address] Physician Community Center Worker Hematology 08/15/21 Holger Strickland MD [address] [place] [phone] Insurance Assigned Provider 04/06/22 04/05/23 documented as of this encounter Additional Source Comments The information contained in this document represents components of the legal health record. It is not the complete legal health record.[facility]
--- OUTSIDE RECORDS SUMMARY | 2025-03-30 10:03 | XMS_ITS | Encounter Summary ---
Author Organization [facility] Address [address] [place] [address] Phone Care Team Providers Care Physician/Allergy/Immunology Name Role Phone Vick Yuen MD Primary Care Provider Maia Diamond CNP Primary Care Provider Maia Diamond CNP Primary Care Provider Vick Yuen MD Unavailable Susie Goode MD Unavailable [phone] Melyssa Matthew-Junior Unavailable Holger Strickland MD Unavailable Holger Strickland MD Primary Care Provider [phone] Unknown, Unknown Primary Care Provider Kiara Vernon NP Primary Care Provider Encounter Details Date Type Department Care Team (Late st Contact Info) Description 11/18/2018 Procedure Pass [facility],Outside Imaging [address] [place], [place] [phone] Social History Tobacco Use Types Packs/Day Years Used Date Smoking Tobacco: Never Assessed Comments No Sex and Gender Information Value [...] COVID-19 08/17/2021 08/17/2021 09/07/2021 1:22 AM EST documented as of this encounter Care Teams Physician/Allergy/Immunology Relationship Specialty Start Date End Date Vick Yuen MD [address] [place] [address] [email or web address] PCP - General Internal Medicine 11/03/18 04/12/19 Maia Diamond CNP [address] [place] [address] [email or web address] PCP - General Internal Medicine 04/13/19 10/10/19 Maia Diamond CNP [address] [place] [address] [email or web address] PCP - General Internal Medicine 10/11/19 01/09/23 Holger Strickland MD [address] [place] [address] PCP - General Internal Medicine 6/16/23 11/26/23 Unknown, Unknown, MD PCP - General 06/23/23 10/13/24 Kiara Turk NP [address] [place] [address] [email or web address] PCP - General Nurse Practitioner 10/14/24 Vick Yuen MD [address] [place] [phone] Insurance Assigned Provider 01/31/20 01/05/22 Susie Goode MD [address] [place] [address] [email or web address] 08/13/21 Melyssa Matthew PA-C [address] [place] [address] Physician Supervisor Dock Hematology 08/15/21 Holger Strickland MD [address] [place] [phone] Insurance Assigned Provider 04/06/22 04/05/23 documented as of this encounter Additional Source Comments The information contained in this document represents components of the legal health record. It is not the complete legal health record.[facility]
--- OUTSIDE RECORDS SUMMARY | 2025-03-30 10:04 | XMS_ITS | Encounter Summary ---
Author Organization [facility] Address [address] [place] [address] [place] [phone] Phone Care Team Providers Care Project Controls Scheduler Name Role Phone Maia Diamond VP ANCILLARY Primary Care Provider Susie Goode MD Unavailable [phone] Melyssa Matthew PA-C Unavailable [phone] Holger Strickland MD Unavailable Holger Strickland MD Primary Care Provider [phone] Unknown, Unknown Primary Care Provider Kiara Vernon NP Primary Care Provider Encounter Details Date Type Department Care Team (Late st Contact Info) Description 11/25/2022 Procedure Pass [facility], Ct Scan - [address] [address] Social History Tobacco Use Types Packs/Day Years Used Date Smoking Tobacco: Never Smokeless Tobacco: Never Alcohol Use Standard Drinks/Week Comments Yes 0 (1 standard drink = 0.6 oz pur e alcohol) 1-2 drinks, monthly or less Child or Family Care Answer Date Record ed Do you have problems with on e of the following making it difficult for you to work, study, or receive health care? No 11/06/2022 Education Answer Date Recorded Are you interested in help w ith more adult education (for example, completing high school, GED, job training, learning the Slovenian language, technical skills, or developing parenting skills)? No 11/06/2022 Food Answer Date Recorded Within the past 6 months we worried whether our food would run out before we got money to buy more. Never True 11/06/2022 Within the past 6 months the food we bought just didn't last and we didn't have enough money to get more. Never True Residential Stability Answer Date Recor ded What is your housing situation today? I have karla sing 11/06/2022 How many times have you move d in the past 12 months? Zero (I did not move) 11/06/2022 Paying for Meds Answer Date Recorded Do you have trouble paying for medicines? No 11/06/2022 Paying Utility Bills Answer Date Record ed Do you have trouble paying your heating or elect ricity bill? No 11/06/2022 Transportation Answer Date Recorded Has the lack of transportati on kept you from medical appointments or from getting medications? No 11/06/2022 Unemployment Answer Date Recorded Are you currently unemployed or working on a part-time or temporary basis, and looking for work? No 11/06/2022 Intimate Partner Violence Answer Date R ecorded Denied Basic Needs Not on file 11/06/2022 In the past 12 months have y ou been in a relationship with a person who hurts, threatens, or tries to control you? No 11/06/2022 Worried food would run out Not on file 11/06 In the past 12 months have y ou been in a relationship with a person who hurts, threatens, or tries to control you? No 11/06/2022 Comments No Sex and Gender Information Value [...] Noted Time PHQ-2 Depression Total Score: 2 11/07/19 23 2:27 AM EDT documented as of this encounter Care Teams Project Controls Scheduler Relationship Specialty Start Date End Date Maia Diamond CNP [address] [place] [address] PCP - General Internal Medicine 10/11/19 01/09/23 Holger Strickland MD [address] [place] [address] PCP - General Internal Medicine 01/10/23 06/22/23 Unknown, Unknown, PCP - General 06/23/23 10/13/24 Kiara Turk, ALPACA FARMER [address] [place] [address] [address] [email or web address] PCP - General Nurse Practitioner 10/14/24 Susie Goode MD [address] [place] [address] [email or web address] 08/13/21 Melyssa Matthew PA-C [address] [place] [address] Physician Yarn Weight And Strength Tester Hematology 08/15/21 Holger Strickland MD [address] [place] [address] [email or web address] Insurance Assigned Provider 04/06/22 04/05/23 documented as of this encounter Additional Source Comments The information contained in this document represents components of the legal health record. It is not the complete legal health record.[facility]
--- OUTSIDE RECORDS SUMMARY | 2025-03-30 10:04 | XMS_ITS | Encounter Summary ---
Author Organization [facility] Address [address] [place] [address] Phone Care Team Providers Care Professor Of Legal Studies Name Role Phone Vick Yuen MD Primary Care Provider Maia Diamond CNP Primary Care Provider Maia Diamond CNP Primary Care Provider Vick Yuen MD Unavailable [phone] Susie Goode MD Unavailable [phone] Melyssa Matthew-Junior Unavailable [phone] Holger Strickland MD Unavailable Holger Strickland MD Primary Care Provider [phone] Unknown, Unknown Primary Care Provider Kiara Vernon NP Primary Care Provider Reason for Referral * MRI/CAT Scan - Closed Specialty Diagnoses / Procedures Referred By Cecile hopper Referred To Contact Procedures MRI Brain Outside (No Interpretation) System, Provider Not In, PhD [address] [address] Referral ID Status Reason Start Date Expiration Date Visits Re quested Visits Authorized [id number] Closed 11/18/2018 11/18/2019 1 1 Encounter Details Date Type Department Care Team (Late st Contact Info) Description 11/18/2018 Ancillary Orders [facility],Outside Imaging [address] [place] [address] System, Provider Not In, PhD Partners [address] [address] Social History Tobacco Use Types Packs/Day Years Used Date Smoking Tobacco: Never Smokeless Tobacco: Never Alcohol Use Standard Drinks/Week Comments Yes 3 (1 standard drink = 0.6 oz pur e alcohol) occasional Comments No Sex and Gender Information Value Date Recorded Sex Assigned at Female 09/21/2018 5:03 PM EST Legal Sex Female 5:25 PM EST Gender Identity Female 09/21/2018 5:03 PM EST Sexual Orientation Straight 09/21/2018 5: 03 PM EST documented as of this encounter Plan of Treatment Not on file documented as of this encounter Results * MRI Brain Outside (No Interpretation) (11/17/2014 12:00 AM EDT) Narrative SYSTEMGENERATED, DOCUMENTATION - 11/18/2018 5:04 PM EDT This study is for PACS storage only and not for interpretation. us Provider Not In System PhD IMG OUTSIDE IMAGING W /OUT INTERPRETATION Final Result documented in this encounter Visit Diagnoses Not on filedocumented [...] documented as of this encounter Care Teams Professor Of Legal Studies Relationship Specialty Start Date End Date Vick Yuen MD [address] [place] [address] [email or web address] PCP - General Internal Medicine 11/03/18 04/12/19 Maia Diamond CNP [address] [place] [address] [email or web address] PCP - General Internal Medicine 04/13/19 10/10/19 Maia Diamond, ARIANNA [address] [place] [address] [email or web address] PCP - General Internal Medicine 10/11/19 01/09/23 Holger Strickland MD [address] [place] [address] [email or web address] PCP - General Internal Medicine 01/10/23 06/22/23 Unknown, Vy, PCP - General 06/23/23 10/13/24 Kiara Turk, CEASAR [address] [place] [address] [phone] [email or web address] PCP - General Nurse Practitioner 10/14/24 Vick Yuen MD [address] [place] [address] [email or web address] Insurance Assigned Provider 01/31/20 01/05/22 Susie Goode MD [address] [place] [address] [email or web address] Surgical Hematology and Oncology 08/13/21 Melyssa Matthew PA-C [address] [place] [address] [email or web address] Physician Life Support Technician Hematology 08/15/21 Holger Strickland MD [address] [place] [address] [email or web address] Insurance Assigned Provider 04/06/22 04/05/23 documented as of this encounter Additional Source Comments The information contained in this document represents components of the legal health record. It is not the complete legal health record.[facility]
--- OUTSIDE RECORDS SUMMARY | 2025-03-30 10:04 | XMS_ITS | Encounter Summary ---
Author Organization [facility] Address [address] [place] [address] Phone Care Team Providers Care Coring Machine Operator Name Role Phone Vick Yuen MD Primary Care Provider Maia Diamond CNP Primary Care Provider Maia Diamond CNP Primary Care Provider Vick Yuen MD Unavailable Susie Goode MD Unavailable [phone] Melyssa Matthew-Junior Unavailable Holger Strickland MD Unavailable Holger Strickland MD Primary Care Provider Unknown, Unknown Primary Care Provider Kiara Vernon NP Primary Care Provider Encounter Details Date Type Department Care Team (Late st Contact Info) Description 11/12/2018 Procedure Pass [facility], [address] [address] Social History Tobacco Use Types Packs/Day Years [...] documented as of this encounter Care Teams Coring Machine Operator Relationship Specialty Start Date End Date Vick Yuen MD [address] [place] [address] [email or web address] PCP - General Internal Medicine 11/03/18 04/12/19 Maia Diamond CNP [address] [place] [address] [email or web address] PCP - General Internal Medicine 04/13/19 10/10/19 Maia Diamond CNP [address] [place] [address] [email or web address] PCP - General Internal Medicine 10/11/19 01/09/23 Holger Strickland MD [address] [place] [address] PCP - General Internal Medicine 01/10/23 06/22/23 Unknown, Vy, PCP - General 06/23/23 10/13/24 Kiara Turk NP [address] [place] [address] [email or web address] PCP - General Nurse Practitioner 10/14/24 Vick Yuen MD [address] [place] [address] Insurance Assigned Provider 01/31/20 01/05/22 Susie Goode MD [address] [place] [address] Hematology and Oncology 08/13/21 Melyssa Matthew PA-C [address] [place] [address] Physician Chicken Vaccinator Hematology 08/15/21 Holger Strickland MD [address] [place] [address] [email or web address] Insurance Assigned Provider 04/06/22 04/05/23 documented as of this encounter Additional Source Comments The information contained in this document represents components of the legal health record. It is not the complete legal health record.[facility]
--- OUTSIDE RECORDS SUMMARY | 2025-03-30 10:04 | XMS_ITS | Encounter Summary ---
Author Organization [facility] Address [address] [place] [address] Phone Care Team Providers Care Cell Assembly Pinner Name Role Phone Maia Diamond CNP Primary Care Provider Vick Yuen MD Unavailable Susie Goode MD Unavailable [phone] Melyssa MatthewC Unavailable [phone] Holger Strickland MD Unavailable Holger Strickland MD Primary Care Provider [phone] Unknown, Unknown Primary Care Provider Kiara Vernon NP Primary Care Provider Encounter Details Date Type Department Care Team (Latest Contact Info) Description 12/06/2020 Transcribe Orders [facility] Laboratory [address] [phone] Aga Noble NP [address] [place] [address] Rectal bleeding (Primary Dx); Generalized abdominal pain Social History Tobacco Use Types [...] high school, GED, job training, learning the Azerbaijani language, technical skills, or developing parenting skills)? [...] documented as of this encounter Results * Calprotectin, stool (12/14/2020 11:31 AM EDT) Calprotectin, stool <27.1 <50.0 mcg/g [facility] Calprotectin Interp Negative Negative [facility] Stool (Stool) 12/14/2020 11: 31 AM EDT 12/14/2020 11:33 AM EDT Aga Noble NP BODY FLUIDS AND STOOLS OR DERABLES Final Result [facility] [address] [place] [address] * Hepatitis B core antibody, total (12/06/2020 1:34 PM EDT) Pathologist [facility] HEP B CORE AB, TOT NON-REACTI VE NON-REACTI VE [facility] Blood 12/06/2020 1:34 PM EDT 12/06/2020 1:45 PM EDT Aga Noble CONCRETE FORM SETTER LAB BLOOD ORDERABLES Roro l Result Performing Organization Address City/[facility]/ZIP Co de Phone Number [address] [address] * CPK (creatine kinase) (12/06/2020 1:34 PM EDT) Pathologist [facility] CREATINE KINASE 88 21 - 215 U/L [facility] Blood 12/06/2020 1:34 PM EDT 12/06/2020 1:45 PM EDT Aga Noble CONCRETE FORM SETTER LAB BLOOD ORDERABLES Roro l Result Performing Organization Address [facility]/ZIP Co de Phone Number [address] [address] * (ABNORMAL) Ferritin (12/06/2020 1:34 PM EDT) Pathologist [facility] FERRITIN 204(H) 13 - 150 ug/L [facility] Blood 12/06/2020 1:34 PM EDT 12/06/2020 1:45 PM EDT Aga Noble CONCRETE FORM SETTER LAB BLOOD ORDERABLES Roro l Result Performing Organization Address City/[facility]/ZIP Co de Phone Number [address] [address] * Iron and iron binding capacity (12/06/2020 1:34 PM EDT) Pathologist [facility] IRON 72 30 - 160 ug/dL [facility] IRON BINDING CAPACITY 312 228 - 428 ug/dL [facility] TRANSFERRIN SATURAT. 23 15 - 50 % [facility] Blood 12/06/2020 1:34 PM EDT 12/06/2020 1:45 PM EDT Aga Noble NP LAB BLOOD ORDERABLES Roro l Result Performing Organization Address [facility] Co de Phone Number [address] [address] * Hepatitis C antibody, qualitative (12/06/2020 1:34 PM EDT) HCV NON-REACTIV E NON-REACTI VE [facility] Blood 12/06/2020 1:34 PM EDT 12/06/2020 1:45 PM EDT Aga Noble NP LAB BLOOD ORDERABLES Roro l Result Performing Organization Address [facility] Phone Number [address] [address] * Hepatitis B surface antigen (12/06/2020 1:34 PM EDT) HBV SURFACE ANTIGEN NON-REACTI VE NON-REACTI VE [facility] Blood 12/06/2020 1:34 PM EDT 12/06/2020 1:45 PM EDT Aga Noble NP LAB BLOOD ORDERABLES Roro l Result Performing Organization Address [facility] Co de Phone Number [address] [address] * Hepatitis B surface antibody (12/06/2020 1:34 PM EDT) HBV SURFACE ANTIBODY Negative [facility] Comment: Unvaccinated: Negative Vaccinated: Positive Blood 12/06/2020 1:34 PM EDT 12/06/2020 1:45 PM EDT Aga Noble NP LAB BLOOD ORDERABLES Roro l Result Performing Organization Address City/[facility] Co de Phone Number [address] [address] * HEPATITIS A ANTIBODY, TOTAL (12/06/2020 1:34 PM EDT) [facility] HAV TOTAL AB NON-REACTI VE NON-REACTI VE [facility] Blood 12/06/2020 1:34 PM EDT 12/06/2020 1:45 PM EDT Aga Noble NP LAB BLOOD ORDERABLES Roro l Result Performing Organization Address [facility]/State/ZIP Co de Phone Number [address] [address] * (ABNORMAL) C-Reactive Protein (12/06/2020 1:34 PM EDT) [facility] C REACTIVE PROTEIN 24.9(H) 0.0 - 4.0 mg/L [facility] Blood 12/06/2020 1:34 PM EDT 12/06/2020 1:45 PM EDT Aga Nolbe CONCRETE FORM SETTER LAB BLOOD ORDERABLES Roro l Result Performing Organization Address City/[facility]/ZIP Co de Phone Number [address] [address] * (ABNORMAL) Comprehensive metabolic panel (12/06/2020 1:34 PM EDT) [facility] SODIUM 139 133 - 146 mmol/L [facility] POTASSIUM 4.2 3.3 - 5.1 mmol/L [facility] CHLORIDE 103 96 - 108 mmol/L [facility] CO2 23 21 - 35 mmol/L [facility] BUN 8 6 - 19 mg/dL [facility] CREATININE 0.60 0.5 - 1.5 mg/dL [facility] GLUCOSE 113(H) 70 - 99 mg/dL [facility] ALBUMIN 4.3 3.9 - 4.8 g/dL [facility] TOTAL PROTEIN 7.5 6.5 - 8.0 g/dL [facility] CALCIUM 9.7 8.4 - 10.3 mg/dL [facility] ALKALINE PHOSPHATASE 117 39 - 117 U/L [facility] TOTAL BILIRUBIN 0.4 0.0 - 1.2 mg/dL [facility] AST 48(H) 0 - 37 U/L [facility] ALT 41(H) 0 - 40 U/L [facility] GLOBULIN 3.2 1 - 4.8 g/dL [facility] EGFR 120 >59 mL/min/1.7 3m2 [facility] Comment:Estimated glomerular filtration rate calculated using the CKD-EPI equation. ANION GAP 17 10 - 20 mmol/L [facility] Blood 12/06/2020 1:34 PM EDT 12/06/2020 1:45 PM EDT Aga Noble NP LAB BLOOD ORDERABLES Roro l Result Performing Organization Address City/[facility]/ZIP Co de Phone Number [facility] [address] [place] [address] * Ceruloplasmin (12/06/2020 1:34 PM EDT) CERULOPLASMIN 38 20 - 60 mg/dL [facility] Blood 12/06/2020 1:34 PM EDT 12/06/2020 1:44 PM EDT Aga Noble NP LAB BLOOD ORDERABLES Roro l Result [facility] [address] [place] [address] * Tissue transglutaminase IgA (12/06/2020 1:34 PM EDT) TTG IGA ANTIBODY <1.2 <4.0 (Negative) U/mL [facility] Blood 12/06/2020 1:34 PM EDT 12/06/2020 1:45 PM EDT Aga Noble NP LAB BLOOD ORDERABLES Roro l Result [facility] [address] [place] [address] * Smooth Muscle Antibody (12/06/2020 1:34 PM EDT) SMOOTH MUSCLE AB POSITIVE AT 1:40 [facility] Comment:Normal: Negative at 1:20 Blood 12/06/2020 1:34 PM EDT 12/06/2020 1:44 PM EDT Aga Noble CONCRETE FORM SETTER LAB BLOOD ORDERABLES Roro l Result Performing Organization Address City/[facility]/ZIP Co de Phone Number [address] [address] * Antinuclear antibody (CHRISSIE) (12/06/2020 1:34 PM EDT) CHRISSIE SCREEN ON HEP 2 Negative Negative [facility] Blood 12/06/2020 1:34 PM EDT 12/06/2020 1:45 PM EDT Aga Noble CONCRETE FORM SETTER LAB BLOOD ORDERABLES Roro l Result Performing Organization Address [facility] Co de Phone Number [address] [address] * Anti-Mitochondrial Antibody (AMA) (12/06/2020 1:34 PM EDT) MITOCHONDRIAL AB NEGATIVE AT 1:20 [facility] Comment:Normal: Negative at 1:20 Blood 12/06/2020 1:34 PM EDT 12/06/2020 1:44 PM EDT Aga Noble CONCRETE FORM SETTER LAB BLOOD ORDERABLES Roro l Result Performing Organization Address City/[facility]/ZIP Co de Phone Number [address] [address] * Oofwm-5-zvphaiqtavv phenotyping (12/06/2020 1:34 PM EDT) ALPHA 1 ANTITRYPSIN 167 100 - 190 mg/dL [facility] Comment: (NOTE) ADDITIONAL INFORMATION Method: Nephelometry A1A PHENOTYPE MM bands [facility] Comment: (NOTE) ADDITIONAL INFORMATION Method: Isoelectric Focusing, This assay identifies the phenotype of the circulating yghen-8-skpcjjrrate (A1A) protein. If the patient is on replacement therapy or has been recently transfused, the phenotype will detect patient and replacement or transfused plasma A1A protein. This test also cannot detect a null allele which could be responsible for an A1A deficiency. Blood 12/06/2020 1:34 PM EDT 12/06/2020 1:45 PM EDT Aga Noble CONCRETE FORM SETTER LAB BLOOD ORDERABLES Roro mcmillan Result [facility] [address] [place] [address] documented in this encounter Visit Diagnoses Diagnosis Rectal bleeding- Primary Hemorrhage of rectum and anus Generalized abdominal pain Abdominal pain, generalized documented in this encounter Additional Health Concerns Infection Onset Date Last Indicated Resolved Time CoV-Risk 08/16/2021 08/17/2021 08/18/2021 7:33 AM EST CoV-Exposed Comment:Positive COVID-19 08/16/2021 08/16/2021 08/18/2021 7:3 3 AM EST COVID-19 08/17/2021 08/17/2021 09/07/2021 1:22 AM EST Assessment Noted Time PHQ-2 Depression Total Score: 0 09/29/19 2:34 PM EST documented as of this encounter Care Teams Cell Assembly Pinner Relationship Specialty Start Date End Date Maia Diamond CNP [address] [place] [address] [email or web address] PCP - General Internal Medicine 10/11/19 01/09/23 Holger Strickland MD [address] [place] [address] PCP - General Internal Medicine 01/10/23 06/22/23 Unknown, Vy, PCP - General 06/23/23 10/13/24 Kiara Turk, CONCRETE FORM SETTER [address] [place] [address] [facility] [place] [address] [email or web address] PCP - General Nurse Practitioner 10/14/24 Vick Yuen MD [address] [place] [address] [email or web address] Insurance Assigned Provider 01/31/20 01/05/22 Susie Goode MD [address] [place] [address] [email or web address] 08/13/21 Melyssa Matthew PA-C [address] [place] [address] [email or web address] Physician Industrial Safety And Health Technician Hematology 08/15/21 Holger Strickland MD [address] [place] [address] [email or web address] Insurance Assigned Provider 04/06/22 04/05/23 documented as of this encounter Additional Source Comments The information contained in this document represents components of the legal health record. It is not the complete legal health record.[facility]
--- OUTSIDE RECORDS SUMMARY | 2025-03-30 10:04 | XMS_ITS | Encounter Summary ---
Author Organization [facility] Address [address] [place] [address] Phone Care Team Providers Care Hand Heel Seat Fitter Name Role Phone Maia Diamond CNP Primary Care Provider Vick Yuen MD Unavailable Susie Goode MD Unavailable [phone] Melyssa Matthew-C Unavailable [phone] Holger Strickland MD Unavailable Holger Strickland MD Primary Care Provider [phone] Unknown, Unknown Primary Care Provider Kiara Vernon NP Primary Care Provider Encounter Details Date Type Department Care Team (Late st Contact Info) Description 12/11/2020 Procedure Pass [facility] Admitting Dept Virtual Department [address] [place] [address] Social History Tobacco Use Types Packs/Day Years [...] high school, GED, job training, learning the Portuguese language, technical skills, or developing parenting skills)? [...] documented as of this encounter Care Teams Hand Heel Seat Fitter Relationship Specialty Start Date End Date Maia Diamond CNP [address] [place] [address] [email or web address] PCP - General Internal Medicine 10/11/19 01/09/23 Holger Strickland MD [address] [place] [address] PCP - General Internal Medicine 01/10/23 06/22/23 Unknown, Vy, PCP - General 06/23/23 10/13/24 Kiara Turk, ALUMINUM MOLDER [address] [place] [address] [address] [email or web address] PCP - General Nurse Practitioner 10/14/24 Vick Yuen MD [address] [place] [address] Insurance Assigned Provider 01/31/20 01/05/22 Susie Goode MD [address] [place] [address] [email or web address] 08/13/21 Melyssa Matthew PA-C [address] [place] [address] Physician Boring Machine Feeder Hematology 08/15/21 Holger Strickland MD [address] [place] [address] Insurance Assigned Provider 04/06/22 04/05/23 documented as of this encounter Additional Source Comments The information contained in this document represents components of the legal health record. It is not the complete legal health record.[facility]
--- OUTSIDE RECORDS SUMMARY | 2025-03-30 10:04 | XMS_ITS | Encounter Summary ---
Author Organization [facility] Address [address] [place] [address] [place] [address] Phone Care Team Providers Care Social Studies Teacher Name Role Phone Susie Goode MD Unavailable [phone] Melyssa Matthew PA-C Unavailable [phone] Holger Strickland MD Unavailable Holger Strickland MD Primary Care Provider [phone] Unknown, Unknown Primary Care Provider Kiara Vernon NP Primary Care Provider Encounter Details Date Type Department Care Team (Late st Contact Info) Description 03/13/2023 Procedure Pass [facility] - [address] [place] [address] Social History Tobacco Use Types Packs/Day Years Used Date Smoking Tobacco: Never Smokeless Tobacco: Never Alcohol Use Standard Drinks/Week Comments Not Currently 0 (1 standard drink = 0.6 oz [...] high school, GED, job training, learning the Emirati language, technical skills, or developing parenting skills)? [...] your housing situation today? I have karla lr 11/06/2022 How many times have you move [...] basis, and looking for work? No 11/06/2022 Digital Access Answer Date Recorded No 12/18/2022 No 12/18/2022 Reliable internet access at home? Not on file 12/18/2022 Device with a working camera? Not on file Intimate Partner Violence Answer Date R ecorded [...] as of this encounter Care Teams Social Studies Teacher Relationship Specialty Start Date End Date Holger Strickland MD [address] [place] [address] PCP - General Internal Medicine 01/10/23 06/22/23 Unknown, Vy, PCP - General 06/23/23 10/13/24 Kiara Turk NP [address] [place] [address] [facility] [place] [address] [email or web address] PCP - General Nurse Practitioner 10/14/24 Susie Godoe MD [address] [place] [address] [email or web address] 08/13/21 Melyssa Matthew PA-C [address] [place] [address] [facility] Teacher Hematology 08/15/21 Holger Strickland MD [address] [place] [address] [email or web address] Insurance Assigned Provider 04/06/22 04/05/23 documented as of this encounter Additional Source Comments The information contained in this document represents components of the legal health record. It is not the complete legal health record.[facility]
--- OUTSIDE RECORDS SUMMARY | 2025-03-30 10:04 | XMS_ITS | Encounter Summary ---
Author Organization [facility] Address [address] [place] [address] Phone Care Team Providers Care Digital Photo Printer Name Role Phone Maia Diamond CNP Primary Care Provider Vick Yuen MD Unavailable [phone] Susie Goode MD Unavailable [phone] Melyssa Matthew-C Unavailable [phone] Holger Strickland MD Unavailable Holger Strickland MD Primary Care Provider Unknown, Unknown Primary Care Provider Kiara Vernon NP Primary Care Provider Encounter Details Date Type Department Care Team (Late st Contact Info) Description 12/28/2020 Procedure Pass [place] Admitting Dept - Virtual Department [address] [place] [address] Social History Tobacco Use Types Packs/Day Years [...] high school, GED, job training, learning the Romansh language, technical skills, or developing parenting skills)? [...] documented as of this encounter Care Teams Digital Photo Printer Relationship Specialty Start Date End Date Maia Diamond CNP [address] [place] [address] [email or web address] PCP - General Internal Medicine 10/11/19 01/09/23 Holger Strickland MD [address] [place] [address] PCP - General Internal Medicine 01/10/23 06/22/23 Unknown, Vy, PCP - General 06/23/23 10/13/24 Kiara Turk, FACILITIES SUPERVISOR [address] [place] [address] [address] [email or web address] PCP - General Nurse Practitioner 10/14/24 Vick Yuen MD [address] [place] [address] Insurance Assigned Provider 01/31/20 01/05/22 Susie Goode MD [address] [place] [address] [email or web address] [email or web address] 08/13/21 Melyssa Matthew PA-C [address] [place] [address] Physician Network Professional Hematology 08/15/21 Holger Strickland MD [address] [place] [address] Insurance Assigned Provider 04/06/22 04/05/23 documented as of this encounter Additional Source Comments The information contained in this document represents components of the legal health record. It is not the complete legal health record.[facility]
--- OUTSIDE RECORDS SUMMARY | 2025-03-30 10:04 | XMS_ITS | Encounter Summary ---
Author Organization [facility] Address [address] [place] [address] Phone Care Team Providers Care Genetic Coordinator Name Role Phone Maia Diamond CNP Primary Care Provider Vick Yuen MD Unavailable [phone] Susie Goode MD Unavailable [phone] Melyssa Matthew-C Unavailable [phone] Holger Strickland MD Unavailable Holger Strickland MD Primary Care Provider Unknown, Unknown Primary Care Provider Kiara Vernon NP Primary Care Provider Encounter Details Date Type Department Care Team (Late st Contact Info) Description 05/17/2020 Procedure Pass [facility] - [address] [address] Social History Tobacco Use Types Packs/Day Years [...] high school, GED, job training, learning the Ukrainian language, technical skills, or developing parenting skills)? [...] documented as of this encounter Care Teams Genetic Coordinator Relationship Specialty Start Date End Date Maia Diamond CNP [address] [place] [address] [email or web address] PCP - General Internal Medicine 10/11/19 01/09/23 Holger Strickland MD [address] [place] [address] PCP - General Internal Medicine 01/10/23 06/22/23 Unknown, Vy, PCP - General 06/23/23 10/13/24 Kiara Turk, PLASTIC TUBING INSULATION SUPERVISOR [address] [place] [address] [address] [email or web address] PCP - General Nurse Practitioner 10/14/24 Vick Yuen MD [address] [place] [address] Insurance Assigned Provider 01/31/20 01/05/22 Susie Goode MD [address] [place] [address] Hematology and Oncology 08/13/21 Melyssa Matthew PA-C [address] [place] [address] Physician Occupational Health Nurse Supervisor Hematology 08/15/21 Holger Strickland MD [address] [place] [address] Insurance Assigned Provider 04/06/22 04/05/23 documented as of this encounter Additional Source Comments The information contained in this document represents components of the legal health record. It is not the complete legal health record.[facility]
--- OUTSIDE RECORDS SUMMARY | 2025-03-30 10:04 | XMS_ITS | Clinical Summary ---
Author Organization [facility] Address [address] [place] [address] Phone Care Team Providers Care Wool Hat Forming Machine Tender Name Role Phone Susie Goode MD Unavailable Melyssa Matthew PA-C Unavailable [phone] Kiara Turk NP Primary Care Provider Allergies No known active allergies Medications therapeutic multivitamin tablet Take 1 tablet by mouth daily. Active ibuprofen (ADVIL,MOTRIN) 200 MG tabletIndications :Fibromyalgia,Chr onic pain disorder Take 400 mg by mouth every 6 (six) hours as needed for pain (specific location in comments). Active ascorbic acid (VITAMIN C ORAL) Take by mouth daily. Active acetaminophen (TYLENOL) 325 mg tablet Take 1-2 tablets (325-650 mg total) by mouth every 6 (six) hours as needed (mild - moderate pain). 9 Active docosahexaenoic acid/epa (FISH OIL ORAL) Take by mouth. Active cholecalciferol, vitamin D3, (VITAMIN D3 ORAL) Take 1,000 Units by mouth daily. Active thiamine (VITAMIN B-1) 100 MG tablet TAKE 1 TABLET BY MOUTH EVERY DAY 90 tablet 3 Active Active Problems Problem Noted Date Diagnosed Date Splenomegaly 12/24/2022 Overview (12/24/2022): Chronic finding, stable on most recent imaging 11/2022 Mass of upper outer quadrant of right breast Assessment & Plan (11/11/2022 6:50 AM EDT): Check ultrasound LUQ pain 11/11/2022 Assessment & Plan (11/11/2022 6:50 AM EDT): Check CT abdomen/pelvis given ongoing pain, history of abnormal study. Essential hypertension 11/11/2022 Assessment & Plan (11/11/2022 6:49 AM EDT): Discussed pharmacologic management of hypertension, she prefers to restart the spironolactone which she previously took for PCOS. Nausea 08/14/2022 Assessment & Plan (08/14/2022 2:37 PM EST): The nausea appears to be dyspepsia associated. Increase the omeprazole from 20 to 40 mg for 2 weeks only. I can call in an antiemetic. Obtain hCG urine just to rule out even though the patient had menstruation just a couple days ago. Mau called into the pharmacy. Avoidance of nonsteroidals for at least 3 weeks. Skin nodule 08/14/2022 Enlarged lymph nodes 08/14/2022 Assessment & Plan (08/14/2022 2:35 PM EST): This should be a left axillary subdermal nodule, will obtain a ultrasound at [facility] and see if it is a cyst or a lymph node. If it turns out to be a lymph node I would refer the patient to general surgery to investigate further. IFG (impaired fasting glucose) 06/13/2022 Assessment & Plan (06/13/2022 10:33 PM EST): Continue to monitor. Continue to cut back on starches/sweets Hirsutism 06/13/2022 Assessment & Plan (06/13/2022 10:34 PM EST): Await labs. Consider increasing dose prn Arthralgia 12/01/2021 Elevated C-reactive protein (CRP) 12/01/2021 Positive CHRISSIE (antinuclear antibody) 11/06/2021 Overview (11/06/2021): Low pos Anti-smooth Muscle AB Likely the cause of her Low positive CHRISSIE - labs with normal lft's and U/S with stable hepatic steatosis - continue GI f/u Assessment & Plan (11/06/2021 6:28 AM EDT): Low pos Anti-smooth Muscle AB Likely the cause of her Low positive CHRISSIE - labs with normal lft's and U/S with stable hepatic steatosis - continue GI f/u Morbid obesity 10/16/2021 Thrombocytopenia 06/13/2021 Assessment & Plan (06/13/2021 9:33 AM EST): -Referral to Hematology placed 05/14/21 Plt 55 06/08/21 Plt 62 Vitamin B1 deficiency 04/26/2021 Diverticulosis 12/12/2020 Overview (12/12/2020): 2020 colonoscopy Left ovarian cyst 05/31/2020 Overview (05/31/2020): 4.9 cm , hemorrhagic on u/s Assessment & Plan (05/31/2020 2:27 PM EST): As pain much better, recommend repeat in 6-8 weeks If persistent or enlarging, will then discuss removal/cystectomy Secondary fibromyalgia 05/05/2019 Chronic fatigue syndrome 05/05/2019 Spondylosis of cervical hilda on without myelopathy or radiculopathy 11/12/2018 Lumbar spondylosis 11/12/2018 Dysmenorrhea 10/15/2018 Neck pain 10/15/2018 Pain in both hands 10/15/2018 Sleep disorder 10/15/2018 Tinnitus of both ears 09/28/2018 Infertility, female 09/28/2018 Chronic tension-type headache, not intractable 0 09/28/2018 Rectal bleeding 10/10/2017 Overview (09/28/2018): Overview: Flex sigmoidoscopy pending. Follows with GI Elevated transaminase level 09/10/2017 Overview (09/28/2018): Overview: Secondary to , s/p abdominal US 02/2017 ASCUS with positive high risk HPV 05/29/2017 Overview (09/28/2018): Overview: 11/17/2014 at [facility] obgyn Marijuana use 05/12/2017 Fibromyalgia 03/11/2017 Overview (10/16/2021): Overview: Followed with infectious disease and obstetrician/gynecologist as well as neurologist. No history of lymes disease Followed with infectious disease and obstetrician/gynecologist as well as neurologist. No history of lymes disease Assessment & Plan (11/11/2022 6:50 AM EDT): Continue to work on regular physical activity, healthy weight loss. Prefers to avoid starting pharmacologic therapy at this time. Assessment & Plan (11/06/2021 6:26 AM EDT): Patient's symptoms are most consistent with fibromyalgia, she does have elevations in her inflammatory markers which has been persistent. We have previously tried a course of prednisone without improvement in symptoms or inflammation markers. No signs or symptoms to suggest underlying inflammatory arthritis - continue gabapentin and cyclobenzaprine per PCP. Consider trial of Lyrica. Will leave to discretion of PCP -d/c Amitriptyline due to AE - stressed importance of exercise and treating underlying depression/anxiety for fibromyalgia. -Imperative to treat underlying sleep disorder . Encouraged pt to consider trial of CPAP until completes her goal of weight loss. (nonalcoholic steatohepatitis) 03/04/2017 Overview (09/28/2018): Overview: February 2017; abdominal ultrasound GERD (gastroesophageal reflux disease) 7 Overview (09/28/2018): Overview: S/p EGD which was normal 01/20/2018 follows with GI Morbid obesity with BMI of 45.0-49.9, adult 01/27 Assessment & Plan (06/13/2022 10:33 PM EST): Referring to RD Polycystic ovarian syndrome 02/24/2017 Assessment & Plan (12/18/2021 11:02 AM EDT): Hirsutism as expression of PCOS. Agree with the management spironolactone which she appears to be tolerating well. Obtain potassium level and sodium levels today along with creatinine. Patient will keep up with fluids for this diuretic. Consider increase in 2 months if no effect. The increase would be from 50 mg twice daily up to 100 mg twice daily. For insulin resistance assessment check hemoglobin A1c in 2 months consider metformin if A1c on the rise. This was discussed with the patient also on visit. 15 minutes of discussion time taken but an additional 10 minutes to research topics associated with today. 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 PCOS based on history -Will get a TSH w/ reflex -HCG quant -CBC -Hgb evaluation -Discussed PCOS management w/ OCPs. Pt will consider this option will like to get more information first before starting OCPs -Naproxen ordered to help w/ bleeding -Warning s/sx discussed and when how to contact midwives At high risk for tick borne illness 05/26/2019 11/01/2021 Acute bilateral low back pain 10/15/2018 11/01/2021 Insomnia 09/28/2018 05/05/2019 Prehypertension 05/12/2017 11/11/2022 Immunizations Immunization Administration Dates Next Due Influenza Quadrivalent MDCK Preservative Free IM 04/21/2019 Influenza Quadrivalent Preservative Free IM 05/29,05/29/2020,09/02/2018 Influenza Recombinant Yamile valent Preservative Free IM 04/05/2020 MMR 11/03/2018 Pneumococcal polysaccharide PPSV23 09/03/2013 Tdap 09/03/2013,11/13/2011 Family History Medical History Relation Comments Diabetes Brother Diabetes Father Cancer Maternal Grandmother Lung cancer Cancer Mother Lung cancer Emphysema Mother Seizures Mother Relation Status Comments Brother Alive Father Alive Maternal Grandmother Mother Alive Social History Tobacco Use Types Packs/Day Years Used Date Smoking Tobacco: Never Smokeless Tobacco: Never Tobacco Cessation:Counseling Given: Not Answered Alcohol Use Standard Drinks/Week Comments Not Currently 0 (1 standard drink = 0.6 oz pur e alcohol) 1-2 drinks, monthly or less Child or Family Care Answer Date Record ed Do you have problems with on e of the following making it difficult for you to work, study, or receive health care? No 11/06/2022 Education Answer Date Recorded Are you interested in more education? Not on lilian e 11/07/2024 Are you concerned about learning? Not on file 11/07/2024 No 11/07/2024 No 11/07/2024 Food Answer Date Recorded Within the past [...] Orientation Straight 09/21/2018 5: 03 PM EST Last Filed Vital Signs Vital Sign Reading Time Taken Comments Blood Pressure 128/64 09/08/2024 4:28 PM EST Pulse 101 11/06/2022 1:01 PM EDT Temperature 36.1 C (97 F) 10/01/2022 1:25 PM EST Respiratory Rate 16 11/06/2022 1:01 PM EDT Oxygen Saturation 96% 11/06/2022 1:01 PM EDT Inhaled Oxygen Concentration - - Weight 123.7 kg (272 lb 9.6 oz) 11/06/2022 1:01 PM EDT Height 165.1 cm (5' 5 ) 11/06/2022 1:01 PM EDT Body Mass Index 45.36 11/06/2022 1:01 PM EDT Plan of Treatment Health Maintenance Due Date Last Done Comments HEPATITIS A VACCINES (1 of 2 - Risk 2-dose series) 2006 PNEUMOCOCCAL VACCINES (0-49 years) (2 of 2 - PCV) 09/03/2014 09/03/2013 Adult Td,Tdap Booster 09/03/2023 09/03/2013, 012 DEPRESSION SCREENING 11/07/2023 11/06/2022 INFLUENZA VACCINE (#1) 2025 0, 05/29/2020, 04/05/2020, Additional history exists BLOOD PRESSURE 03/08/2025 09/08/2024 COVID-19 VACCINE ( season) 2025 SCREENING FOR DIABETES 09/22/2027 5, 11/06/2022, 10/16/2018 PAP SMEAR 09/08/2029 09/08/2024, 10/0 07/2018, 04/27/2019, Additional history exists HEPATITIS C SCREENING Completed 11/06/2022 , 11/06/2022, 11/30/2021, Additional history exists HIV ONE-TIME SCREENING (18-65 YEARS) Completed 11/06/2022 SMOKING STATUS SCREENING (Once After 26 Yrs) Completed 10/14/2024 HIB VACCINES Aged Out No longer eligi ble based on patient's age to complete this topic MENINGOCOCCAL VACCINES (ACWY) Aged Out No longer eligible based on patient's age to complete this topic MENINGOCOCCAL VACCINES (B) Aged Out N o longer eligible based on patient's age to complete this topic Medical Devices Not on file Procedures Procedure Name Priority Date/Time Associated Diagnosis Comments PAP TEST Routine 09/08/2024 12:00 AM EST HEPATITIS C ANTIBODY, QUALITATIVE Routine 11/06/2022 1:58 PM EDT Routine general medical examination at a health care facility GLUCOSE Routine 10/16/2018 9:39 AM EDT Infertility, female from Last 3 Months or Most Recently Relevant to Health Maintenance Results * Pap Test (09/08/2024 12:00 AM EST) 09/08/2024 09/09/2024 9:3 2 AM EST Narrative SEE NARRATIVE - 09/15/2024 11:27 [place] [address] Graphic Pre Press Trades Worker: Robin Alonso MD MECHANICAL METER TESTER Cytology Report FINAL DIAGNOSIS A. PAP SMEAR (THIN PREP) CE: SPECIMEN ADEQUACY: Satisfactory for evaluation; transformation zone present. INTERPRETATION: NEGATIVE FOR INTRAEPITHELIAL LESION OR MALIGNANCY. This specimen was analyzed by the automated ThinPrep Imaging System ([employer] Pari.) and the selected mejia were reviewed by a assembler golf wood head. Electronically Signed Out By: JEAN-PIERRE Jolley(ASCP) The Pap test is a screening test primarily for squamous cancers and precursors and has associated false-negative and false-positive results. New technologies such as liquid-based preparations may decrease but will not eliminate all false-negative results. Regular sampling and follow-up of unexplained clinical signs and symptoms are recommended to minimize false negative results. PROCEDURES/ADDENDA HPV Testing (Requested) Ordered Date: 09/09/2024 A. PAP SMEAR (THIN PREP) CE: High-risk HPV Panel w/ extended genotyping NEG HPV 16-NEG HPV 18-NEG HPV 45-NEG HPV 33/58-NEG HPV 31-NEG HPV 56/59/66-NEG HPV 51-NEG HPV 52-NEG HPV 35/39/68-NEG Performed by real-time polymerase chain reaction (PCR) at [facility], [address] [place] [address] using the FDA-approved BD Onclarity9 HPV Assay with extended genotyping. Uses of the assay in scenarios other than those approved by the FDA should be considered off-label use. The accuracy and precision of this test for all other off-label specimen sources has been verified in the Cytopathology Laboratory of the [facility] and has not been cleared or approved by the U.S. Food and Drug Administration. Clinical correlation is advised. The assay assesses the E6/E7 DNA target and utilizes human beta globin as an internal control. Cytology and HPV testing are screening assays and should not be used as the sole means of detecting cancer. False-positives and false-negatives can occur. CLINICAL HISTORY Date of Last Menstrual Period: 08-15-2024 Other Clinical Conditions: Screening Pap SPECIMEN SOURCE A: PAP SMEAR (THIN PREP) CE Patient Name: SCOTT SHORE : 1985 (Age: 38) Sex: F Institution: [facility] Location[place] [facility] [place] Date of Collection: 09/08/2024 Date of Reported: 09/15/2024 11:27 Results to: Bobby Pearce MD us Bobby Pearce MD CYTOLOGY ORDERABLES Final Result SEE NARRATIVE * Hepatitis C antibody, qualitative (11/06/2022 1:58 PM EDT) HCV NON-REACTIV E NON-REACTI VE [facility] Blood 11/06/2022 1:58 PM EDT 11/06/2022 2:06 PM EDT us Maia Humphreyricky NURSE ADVISOR LAB BLOOD ORDERABLES F inal Result Performing Organization Address City/[facility]/ZIP Co de Phone Number [address] [address] * (ABNORMAL) Glucose (10/16/2018 9:39 AM EDT) GLUCOSE 105(H) 70 - 99 mg/dL [facility] Blood 10/16/2018 9:39 AM EDT 10/16/2018 9:44 AM EDT us Fernando Srinivasan MD LAB BLOOD ORDERABLES Final Resu lt Performing Organization Address [facility] Co de Phone Number [address] [address] from Last 3 Months or Most Recently Relevant to Health Maintenance Insurance [facility] POS [facility] [place] [address] [place] [address] [facility] [place] [place] [address] [facility] [place] [address] Advance Directives For more information, please contact: [phone] (9AM - 5PM [place], Friday-Friday) * Full Code (Latest Code Status on File) Date Activated Date Inactivated Comments 12/28/2020 11:33 AM Question Answer Comments Code Status Confirmed With: Patient * Full Code (Presumed) Date Activated Date Inactivated Comments 06/08/2019 12:19 PM 06/08/2019 6:25 PM Care Teams Wool Hat Forming Machine Tender Relationship Specialty Start Date End Date Kiara Turk NP [address] [place] [phone] [email or web address] PCP - General Nurse Practitioner 10/14/24 Susie Goode MD [address] [place] [address] [email or web address] 08/13/21 Melyssa Matthew PA-C [address] [place] [address] Physician Maintenance Service Technician Hematology 08/15/21 Additional Source Comments The information contained in this document represents components of the legal health record. It is not the complete legal health record.[facility]
--- OUTSIDE RECORDS SUMMARY | 2025-03-30 10:04 | XMS_ITS | Encounter Summary ---
Author Organization [facility] Address [address] [place] [address] Phone Care Team Providers Care Gauge And Weigh Machine Adjuster Name Role Phone Maia Diamond GOVERNOR ASSEMBLER HYDRAULIC Primary Care Provider Susie Goode MD Unavailable [phone] Melyssa Matthew PA-C Unavailable [phone] Holger Strickland MD Unavailable Holger Strickland MD Primary Care Provider [phone] Unknown, Unknown Primary Care Provider Kiara Vernon NP Primary Care Provider Encounter Details Date Type Department Care Team (Late st Contact Info) Description 10/01/2022 Procedure Pass [employer] [employer] [facility], [address] [place] [address] Social History Tobacco Use Types Packs/Day Years [...] high school, GED, job training, learning the Croatian language, technical skills, or developing parenting skills)? [...] documented as of this encounter Care Teams Gauge And Weigh Machine Adjuster Relationship Specialty Start Date End Date Maia Diamond CNP [address] [place] [address] PCP - General Internal Medicine 10/11/19 01/09/23 Holger Strickland MD [address] [place] [address] PCP - General Internal Medicine 01/10/23 06/22/23 Unknown, Vy, PCP - General 06/23/23 10/13/24 Kiara Turk NP [address] [place] [address] [place] [address] [email or web address] PCP - General Nurse Practitioner 10/14/24 Susie Goode MD [address] [place] [address] [email or web address] Hematology and Oncology 08/13/21 Melyssa Matthew PA-C [address] [place] [address] [email or web address] Physician Weapons System Instrument Mechanic Hematology 08/15/21 Holger Strickland MD [address] [place] [address] [email or web address] Insurance Assigned Provider 04/06/22 04/05/23 documented as of this encounter Additional Source Comments The information contained in this document represents components of the legal health record. It is not the complete legal health record.[facility]
--- OUTSIDE RECORDS SUMMARY | 2025-03-30 10:04 | XMS_ITS | Encounter Summary ---
Author Organization [facility] Address [address] [place] [address] Phone Care Team Providers Care Clinical Data Abstractor Name Role Phone Maia Diamond BEHAVIORAL HEALTH CASE MANAGER Primary Care Provider Susie Goode MD Unavailable [phone] Melyssa Matthew PA-C Unavailable [phone] Holger Strickland MD Unavailable Holger Strickland MD Primary Care Provider [phone] Unknown, Unknown Primary Care Provider Kiara Vernon NP Primary Care Provider Encounter Details Date Type Department Care Team (Late st Contact Info) Description 11/06/2022 Procedure Pass [address] [address] Social History Tobacco Use Types Packs/Day Years [...] high school, GED, job training, learning the Lao language, technical skills, or developing parenting skills)? [...] documented as of this encounter Care Teams Clinical Data Abstractor Relationship Specialty Start Date End Date Maia Diamond CNP [address] [place] [address] PCP - General Internal Medicine 10/11/19 01/09/23 Holger Strickland MD [address] [place] [address] PCP - General Internal Medicine 01/10/23 06/22/23 Unknown, Unknown, PCP - General 06/23/23 10/13/24 Kiara Turk, SPORTS PHOTOGRAPHER [address] [place] [address] [email or web address] PCP - General Nurse Practitioner 10/14/24 Susie Goode MD [address] [place] [address] [email or web address] 08/13/21 Melyssa Matthew PA-C [address] [place] [address] Physician Web Weaver Hematology 08/15/21 Holger Strickland MD [address] [place] [address] Insurance Assigned Provider 04/06/22 04/05/23 documented as of this encounter Additional Source Comments The information contained in this document represents components of the legal health record. It is not the complete legal health record.[facility]
--- OUTSIDE RECORDS SUMMARY | 2025-03-30 10:04 | XMS_ITS | Encounter Summary ---
Author Organization [facility] Address [address] [facility] [address] [place] [address] Phone Care Team Providers Care Informatics Application Analyst Name Role Phone Susie Goode MD Unavailable [phone] Melyssa Matthew PA-C Unavailable [phone] Unknown, Unknown Primary Care Provider Kiara Vernon ENGINEERED WOOD DESIGNER Primary Care Provider Encounter Details Date Type Department Care Team (Late st Contact Info) Description 09/08/2024 Procedure Pass [facility] - [address] [place] [address] Social History Tobacco Use Types Packs/Day Years [...] high school, GED, job training, learning the Danish language, technical skills, or developing parenting skills)? [...] documented as of this encounter Care Teams Informatics Application Analyst Relationship Specialty Start Date End Date Unknown, Unknown, MD PCP - General 06/23/23 10/13/24 Kiara Turk NP [address] [place] [address] Dr [facility] [place] [address] [email or web address] PCP - General Nurse Practitioner 10/14/24 Susie Goode MD [address] [place] [address] [email or web address] 08/13/21 Melyssa Matthew PA-C [address] [place] [address] [email or web address] Physician Commutator Inspector Hematology 08/15/21 documented as of this encounter Additional Source Comments The information contained in this document represents components of the legal health record. It is not the complete legal health record.[facility]
--- OUTSIDE RECORDS SUMMARY | 2025-03-30 10:05 | XMS_ITS | Encounter Summary ---
Author Organization [facility] Address [address] [place] [address] Phone Care Team Providers Care Manager Army Name Role Phone Susie Goode MD Unavailable [phone] Melyssa Matthew PA-C Unavailable [phone] Unknown, Unknown Primary Care Provider Kiara Vernon COUTIERIER Primary Care Provider Encounter Details Date Type Department Care Team (Late st Contact Info) Description 09/08/2024 Procedure Pass [facility] - [address] [place] [address] Social History Tobacco Use Types Packs/Day Years [...] documented as of this encounter Care Teams Manager Army Relationship Specialty Start Date End Date Unknown, Unknown, MD PCP - General 06/23/23 10/13/24 Kiara Turk NP [address] [place] [address] [place] [address] [email or web address] PCP - General Nurse Practitioner 10/14/24 Susie Goode MD [address] [place] [address] [email or web address] 08/13/21 Melyssa Matthew PA-C [address] [place] [address] [email or web address] Physician Statement Request Clerk Hematology 08/15/21 documented as of this encounter Additional Source Comments The information contained in this document represents components of the legal health record. It is not the complete legal health record.[facility]
--- OUTSIDE RECORDS SUMMARY | 2025-03-30 10:05 | XMS_ITS | Clinical Summary ---
Author Organization [facility] Address [address] [place] [address] Care Team Providers Care Police Chief Deputy Name Role Phone Akosua Kaplan MD Primary [...] wit h BMI of 45.0-49.9, adult ([facility]) Fibromyalgia 03/11/2017 DX:Fibromyalgia; COMMENT: Followed with infectious disease and hot saw helper as well as neurologist. No history of lymes disease Marijuana use 05/12/2017 DX:Marijuana use Prehypertension 05/12/2017 DX:Prehypertensi on ASCUS with positive high risk HPV 05/29/2017 DX:ASCUS with positive high risk HPV; COMMENT: 11/17/2014 at [facility] obn Rectal bleeding 10/10/2017 DX:Rectal bleedi [...] - Td or Tdap) 09/03/2023 09/03/2013, 11/13/2011 Depression Screening 07/28/2024 COVID-19 Vaccine (1 - 2023-2 5 season) 2025 Influenza Vaccine (#1) 2025 Pneumococcal Vaccine: Pediatrics [...] RESULTING AGENCY - 10/13/2017 3:49 PM EDT [id number] THINPREP PAP, IMAGED: NEGATIVE FOR SQUAMOUS INTRAEPITHELIAL [...] Recently Relevant to Health Maintenance Care Teams Police Chief Deputy Relationship Specialty Start Date End Date Akosua Kaplan MD PCP - General Internal Medicine 02/17/17
== END 2025-03-30 09:20 | disposition home or self-care (01) ==
LOC: HO.NEURO 09:19
PROVIDERS: PCP Nurse Practitioner Family; Visit Provider Physical Medicine & Rehabilitation
DX: M79.10 Myalgia, unspecified site (principal); R94.131 Abnormal electromyogram [EMG]
CPT/HCPCS: 95886; 95911

== ENCOUNTER → 2025-03-30 09:22 | Outpatient (BNV) | payer BC, SELFPAY | PROVIDERS: PCP Nurse Practitioner Family; Visit Provider Physical Medicine & Rehabilitation | DX: G56.01 Carpal tunnel syndrome, right upper limb (principal) | CPT/HCPCS: 95886; 95911 ==

== ENCOUNTER → 2025-04-07 07:54 | Outpatient (REF) | payer BC, SELFPAY ==
--- NOTE | ~2025-04-07 | NM_ITS ---
EXERCISE MYOCARDIAL PERFUSION STUDY INDICATION: Shortness of breath, palpitations TECHNIQUE: The patient was brought in for an exercise perfusion study on 04/07/2025. Patient performed exercise as per Juan protocol and was injected 35 mCi of sestamibi once target heart rate was achieved. Images were obtained using the SPECT gamma camera interlaced with the gating device. Images were obtained in supine position. Resting perfusion study was performed on 04/13/2025. Patient was administered 35 mCi of sestamibi intravenously at rest. Images were then obtained in supine position. Total DLP 126 mGy-cm. Images were processed with the software and compared side to side in short axis, horizontal long axis and vertical long axis views. FINDINGS: Raw aquisition reviewed. The stress perfusion study showed no significant perfusion abnormality. Both uncorrected as well as CT attenuation corrected images were reviewed. The gated study shows normal LV systolic function with calculated LVEF of >70%. LV cavity is normal in size. The gated study shows normal wall thickening and contraction of segments. Resting study shows no significant perfusion abnormality. Gating at rest reveals normal wall motion with ejection fraction at 60%. The findings are consistent with no clear reversible or fixed perfusion abnormality. VT/VT cardiolite stress test IMPRESSION: 1. Myocardial perfusion imaging study shows normal myocardial perfusion. 2. Gated LVEF is > 70% during stress and 60% during rest. 3. Transient ischemic dilatation not present. EKG component of the test reported separately. Electronically signed by: Krishna Mckinney MD 04/14/2025 04:02 PM EDT
--- NOTE | 2025-04-07 07:56 | CA_ITS ---
Acquisition Time: 2025-04-07 08:06:24 Total Exercise Time: 00:07:15 Test Indications: Dyspnea,Palpitations Medications: LISINOPRIL METFORMIN Protocol: MAIA Max HR: 160 BPM 87% of Pred: 183 BPM Max BP: 150/84 mmHG Max Work Load: 8.9 METS Exercise stress test with exercise 7 mins 15 secs of Maia Protocol, achieving 87% MPHR, with reports of SOB, no chest pain, without any arrythmias, with normotensive response to exercise. Without any EKG changes meeting criteria for ischemia. In recovery, pt's breathing slowly returned to baseline. Nuclear images pending. Test reviewed with Dr. Cortez. Referred By: Mitch Cortez Electronically Signed By: Leonides Yoon
--- OUTSIDE RECORDS SUMMARY | 2025-04-07 07:58 | XMS_ITS | Encounter Summary ---
Author Organization [facility] Address [address] [place] [address] Phone Care Team Providers Care Executive Meeting Manager Name Role Phone Maia Diamond AGRICULTURAL SCIENCES PROFESSOR Primary Care Provider Susie Goode MD Unavailable [phone] Melyssa Matthew PA-C Unavailable [phone] Holger Strickland MD Unavailable Holger Strickland MD Primary Care Provider [phone] Unknown, Unknown Primary Care Provider Kiara Vernon NP Primary Care Provider Encounter Details Date Type Department Care Team (Late st Contact Info) Description 03/05/2022 Procedure Pass [facility], [address] [address] Social History Tobacco Use Types Packs/Day Years [...] high school, GED, job training, learning the Mauritian language, technical skills, or developing parenting skills)? [...] documented as of this encounter Care Teams Executive Meeting Manager Relationship Specialty Start Date End Date Maia Diamond CNP [address] [place] [address] PCP - General Internal Medicine 10/11/19 01/09/23 Holger Strickland MD [address] [place] [address] PCP - General Internal Medicine 01/10/23 06/22/23 Unknown, Vy, PCP - General 06/23/23 10/13/24 Kiara Turk NP NPI: [id number] [place] [address] [place] [address] [email or web address] PCP - General Nurse Practitioner 10/14/24 Susie Goode MD [address] [place] [address] [email or web address] Hematology and Oncology 08/13/21 Melyssa Matthew PA-C [address] [place] [address] [email or web address] Physician Knockup Worker Hematology 08/15/21 Holger Strickland MD [address] [place] [address] [email or web address] Insurance Assigned Provider 04/06/22 04/05/23 documented as of this encounter Additional Source Comments The information contained in this document represents components of the legal health record. It is not the complete legal health record.[facility]
--- OUTSIDE RECORDS SUMMARY | 2025-04-07 07:58 | XMS_ITS | Encounter Summary ---
Author Organization [facility] Address [address] [place] [address] Phone Care Team Providers Care Zipper Repairer Name Role Phone Maia Diamond TREASURY CONSULTANT Primary Care Provider Maia Diamond TREASURY CONSULTANT Primary Care Provider Vick Yuen MD Unavailable Susie Goode MD Unavailable [phone] Melyssa Matthew-C Unavailable Holger Strickland MD Unavailable Holger Strickland MD Primary Care Provider Unknown, Unknown Primary Care Provider Kiara Vernon FOOD SERVICE TECHNICIAN Primary Care Provider Encounter Details Date Type Department Care Team (Late st Contact Info) Description 06/08/2019 Procedure Pass [place] Admitting Dept - Virtual Department [address] [place] [address] Social History Tobacco Use Types Packs/Day Years [...] high school, GED, job training, learning the Greek language, technical skills, or developing parenting skills)? [...] documented as of this encounter Care Teams Zipper Repairer Relationship Specialty Start Date End Date Maia Diamond BetsyARIANNA [address] [place], [place] [email or web address] PCP - General Internal Medicine 04/13/19 10/10/19 Dankjose Maia BetsyARIANNA [address] [place], [place] [email or web address] PCP - General Internal Medicine 10/11/19 01/09/23 Holger Strickland MD [address] [place], [place] [email or web address] PCP - General Internal Medicine 01/10/23 06/22/23 Unknown, Vy, PCP - General 06/23/23 10/13/24 Kiara Turk, CEASAR [address] [place] [address] [phone] [email or web address] PCP - General Nurse Practitioner 10/14/24 Vick Yuen MD [address] [place], [place] [email or web address] Insurance Assigned Provider 01/31/20 01/05/22 Susie Goode MD [address] [place] [address] [email or web address] [employer] Hematology and Oncology 08/13/21 Melyssa Matthew PA-C [address] [place] [address] [email or web address] Physician Alarm Field Technician Hematology 08/15/21 Holger Strickland MD [address] [place] [address] [email or web address] Insurance Assigned Provider 04/06/22 04/05/23 documented as of this encounter Additional Source Comments The information contained in this document represents components of the legal health record. It is not the complete legal health record.[facility]
--- OUTSIDE RECORDS SUMMARY | 2025-04-07 07:58 | XMS_ITS | Encounter Summary ---
Author Organization [facility] Address [address] [place] [address] Phone Care Team Providers Care Systems Software Engineer Name Role Phone Vick Yuen MD Primary Care Provider Maia Diamond CNP Primary Care Provider Maia Diamond CNP Primary Care Provider Vick Yuen MD Unavailable [phone] Susie Goode MD Unavailable [phone] Melyssa Matthew-Junior Unavailable Holger Strickland MD Unavailable Holger Strickland MD Primary Care Provider [phone] Unknown, Unknown Primary Care Provider Kiara Vernon NP Primary Care Provider Encounter Details Date Type Department Care Team (Late st Contact Info) Description 11/18/2018 Procedure Pass [facility],Outside Imaging [address] [place], [place] [id number] Social History Tobacco Use Types Packs/Day Years [...] documented as of this encounter Care Teams Systems Software Engineer Relationship Specialty Start Date End Date Vick Yuen MD [address] [place] [address] [email or web address] PCP - General Internal Medicine 11/03/18 04/12/19 Maia Diamond CNP [address] [place] [address] [email or web address] PCP - General Internal Medicine 04/13/19 10/10/19 Maia Diamond CNP [address] [place] [address] [email or web address] PCP - General Internal Medicine 10/11/19 01/09/23 Holger Strickland MD [address] [place] [address] PCP - General Internal Medicine 6/16/23 11/26/23 Unknown, Unknown, MD PCP - General 06/23/23 10/13/24 Kiara Turk NP [address] [place] [address] [email or web address] PCP - General Nurse Practitioner 10/14/24 Vick Yuen MD [address] [place] [address] Insurance Assigned Provider 01/31/20 01/05/22 Susie Goode MD [address] [place] [address] [email or web address] 08/13/21 Melyssa Matthew PA-C [address] [place] [address] Physician Graphic Art Technician Hematology 08/15/21 Holger Strickland MD [address] [place] [phone] Insurance Assigned Provider 04/06/22 04/05/23 documented as of this encounter Additional Source Comments The information contained in this document represents components of the legal health record. It is not the complete legal health record.[facility]
--- OUTSIDE RECORDS SUMMARY | 2025-04-07 07:58 | XMS_ITS | Encounter Summary ---
Author Organization [facility] Address [address] [place] [address] [place] [address] Phone Care Team Providers Care Benefit Specialist Name Role Phone Maia Diamond POLYSOM TECH Primary Care Provider Susie Goode MD Unavailable [phone] Melyssa Matthew PA-C Unavailable [phone] Holger Strickland MD Unavailable Holger Strickland MD Primary Care Provider [phone] Unknown, Unknown Primary Care Provider Kiara Vernon WAREHOUSE COORDINATOR Primary Care Provider Reason for Referral * MRI/CAT Scan - Closed Specialty Diagnoses / Procedures Referred By Cecile hopper Referred To Contact Radiology Diagnoses Dizziness Numbness Procedures MRI Brain Carlos Fox MD Phone: tel: fax: [email or web address] Referral ID Status Reason Start Date Expiration Date Visits Re quested Visits Authorized [id number] Closed 03/05/2022 03/05/2023 1 1 Encounter Details Date Type Department Care Team (Latest Contact Info) Description 03/05/2022 Transcribe Orders [facility] Department [address] [place] [address] Carlos Fox MD [address] [place] [address], [address] [place] [address] [email or web address] Dizziness (Primary Dx); Numbness Social [...] high school, GED, job training, learning the Sinhala language, technical skills, or developing parenting skills)? [...] documented as of this encounter Care Teams Benefit Specialist Relationship Specialty Start Date End Date Maia Diamond CNP [address] [place] [address] [email or web address] PCP - General Internal Medicine 10/11/19 01/09/23 Holger Strickland MD [address] [place] [address] PCP - General Internal Medicine 01/10/23 06/22/23 Unknown, Vy, PCP - General 06/23/23 10/13/24 Kiara Turk, CEASAR [address] [place] [address] [facility] [place] [address] [email or web address] PCP - General Nurse Practitioner 10/14/24 Susie Goode MD [address] [place] [address] [email or web address] 08/13/21 Melyssa Matthew PA-C [address] [place] [address] Physician Senior Counsel Hematology 08/15/21 Holger Strickland MD [address] [place] [address] [email or web address] Insurance Assigned Provider 04/06/22 04/05/23 documented as of this encounter Additional Source Comments The information contained in this document represents components of the legal health record. It is not the complete legal health record.[facility]
--- OUTSIDE RECORDS SUMMARY | 2025-04-07 07:58 | XMS_ITS | Encounter Summary ---
Author Organization [facility] Address [address] [place] [address] Phone Care Team Providers Care Pit Furnace Melter Name Role Phone Maia Diamond ANIME DESIGNER Primary Care Provider Vick Yuen MD Unavailable Susie Goode MD Unavailable [phone] Melyssa Matthew-C Unavailable Holger Strickland MD Unavailable Holger Strickland MD Primary Care Provider [phone] Unknown, Unknown Primary Care Provider Kiara Vernon NP Primary Care Provider Encounter Details Date Type Department Care Team (Late st Contact Info) Description 05/22/2020 Ancillary Orders [facility] Medical [facility] Rheumatology [address] [place] [address] Dick Coles MD [address] [place] [address] [email or web address] Fibromyalgia Social History Tobacco Use Types Packs/Day [...] high school, GED, job training, learning the Chinese language, technical skills, or developing parenting skills)? [...] documented as of this encounter Care Teams Pit Furnace Melter Relationship Specialty Start Date End Date Maia Diamond CNP [address] [place] [address] PCP - General Internal Medicine 10/11/19 01/09/23 Holger Strickland MD [address] [place] [address] PCP - General Internal Medicine 01/10/23 06/22/23 Unknown, Unknown, MD PCP - General 06/23/23 10/13/24 Kiara Turk, MATE SHIP [address] [place] [address] [email or web address] PCP - General Nurse Practitioner 10/14/24 Vick Yuen MD [address] [place] [address] Insurance Assigned Provider 01/31/20 01/05/22 Susie Goode MD [address] [place] [address] [email or web address] 08/13/21 Melyssa Matthew PA-C [address] [place] [address] [email or web address] Physician Conciliation Court Judge Hematology 08/15/21 Holger Strickland MD [address] [place] [address] Insurance Assigned Provider 04/06/22 04/05/23 documented as of this encounter Additional Source Comments The information contained in this document represents components of the legal health record. It is not the complete legal health record.[facility]
--- OUTSIDE RECORDS SUMMARY | 2025-04-07 07:59 | XMS_ITS | Encounter Summary ---
Author Organization [facility] Address [address] [place] [address] Phone Care Team Providers Care Music Therapy Specialist Name Role Phone Maia Diamond CNP Primary Care Provider Vick Yuen MD Unavailable Susie Goode MD Unavailable [phone] Melyssa Matthew-C Unavailable [phone] Holger Strickland MD Unavailable Holger Strickland MD Primary Care Provider Unknown, Unknown Primary Care Provider Kiara Vernon NP Primary Care Provider Encounter Details Date Type Department Care Team (Late st Contact Info) Description 12/11/2020 Procedure Pass [facility] Admitting Dept Virtual Department [address] [place] [address] Social History Tobacco Use Types Packs/Day Years [...] high school, GED, job training, learning the Mozambican language, technical skills, or developing parenting skills)? [...] documented as of this encounter Care Teams Music Therapy Specialist Relationship Specialty Start Date End Date Maia Diamond CNP [address] [place] [address] [email or web address] PCP - General Internal Medicine 10/11/19 01/09/23 Holger Strickland MD [address] [place] [address] PCP - General Internal Medicine 01/10/23 06/22/23 Unknown, Vy, PCP - General 06/23/23 10/13/24 Kiara Turk, TUBE BUILDER [address] [place] [address] [address] [email or web address] PCP - General Nurse Practitioner 10/14/24 Vick Yuen MD [address] [place] [address] Insurance Assigned Provider 01/31/20 01/05/22 Susie Goode MD [address] [place] [address] [email or web address] 08/13/21 Melyssa Matthew PA-C [address] [place] [address] Physician Janitorial Supervisor Hematology 08/15/21 Holger Strickland MD [address] [place] [address] Insurance Assigned Provider 04/06/22 04/05/23 documented as of this encounter Additional Source Comments The information contained in this document represents components of the legal health record. It is not the complete legal health record.[facility]
--- OUTSIDE RECORDS SUMMARY | 2025-04-07 07:59 | XMS_ITS | Encounter Summary ---
Author Organization [facility] Address [address] [place] [address] Phone Care Team Providers Care Optical Coating Technician Name Role Phone Maia Diamond CNP Primary Care Provider Vick Yuen MD Unavailable [phone] Susie Goode MD Unavailable [phone] Melyssa Matthew-C Unavailable Holger Strickland MD Unavailable Holger Strickland MD Primary Care Provider [phone] Unknown, Unknown Primary Care Provider Kiara Vernon NP Primary Care Provider Encounter Details Date Type Department Care Team (Latest Contact Info) Description 12/06/2020 Transcribe Orders Virtual Department [address] [place] [address] Aga Noble NP [address] [place] [address] Pre-procedure lab exam (Primary Dx) Social History [...] high school, GED, job training, learning the Albanian language, technical skills, or developing parenting skills)? [...] Order (12/08/2020 12:40 PM EDT) COVID-19 Comment [id number] [facility] COVID Testing Status Sent to [facility] 12/08/2020 12:4 0 PM EDT 12/08/2020 4:43 PM EDT Aga Noble NP BODY FLUIDS AND STOOLS OR DERABLES Final Result [facility] [address] [place] [address] documented in this encounter Visit Diagnoses Diagnosis [...] documented as of this encounter Care Teams Optical Coating Technician Relationship Specialty Start Date End Date Maia Diamond, ARIANNA [address] [place] [address] [email or web address] PCP - General Internal Medicine 10/11/19 01/09/23 Holger Strickladn MD [address] [place] [address] [email or web address] PCP - General Internal Medicine 01/10/23 06/22/23 Unknown, Vy, PCP - General 06/23/23 10/13/24 Kiara Turk, CEASAR [address] [place] [address] [facility] [place] [address] [email or web address] PCP - General Nurse Practitioner 10/14/24 Vick Yuen MD [address] [place] [address] [email or web address] Insurance Assigned Provider 01/31/20 01/05/22 Susie Goode MD [address] [place] [address] [email or web address] [email or web address] [email or web address] 08/13/21 Melyssa Matthew PA-C [address] [place] [address] [email or web address] Physician Sales Analyst Hematology 08/15/21 Holger Strickland MD [address] [place] [address] [email or web address] Insurance Assigned Provider 04/06/22 04/05/23 documented as of this encounter Additional Source Comments The information contained in this document represents components of the legal health record. It is not the complete legal health record.[facility]
--- OUTSIDE RECORDS SUMMARY | 2025-04-07 07:59 | XMS_ITS | Clinical Summary ---
Author Organization [facility] Address [address] [place] [address] Phone Care Team Providers Care Power Reactor Supervisor Name Role Phone Susie Goode MD Unavailable [phone] Melyssa Matthew PA-C Unavailable [phone] Kiara Turk NP Primary Care Provider Allergies [...] subdermal nodule, will obtain a ultrasound at [facility] and see if it is a cyst [...] HPV 05/29/2017 Overview (09/28/2018): Overview: 11/17/2014 at [facility] obgyn Marijuana use 05/12/2017 Fibromyalgia 03/11/2017 Overview (10/16/2021): Overview: Followed with infectious disease and motor hotel manager as well as neurologist. No history of lymes disease Followed with infectious disease and motor hotel manager as well as neurologist. No history [...] SEE NARRATIVE - 09/15/2024 11:27 [place] [address] Dietetic Technician Registered: Robin Alonso MD SPOOL TENDER Cytology Report FINAL DIAGNOSIS A. PAP SMEAR (THIN PREP) CE: SPECIMEN ADEQUACY: Satisfactory for evaluation; transformation zone present. INTERPRETATION: NEGATIVE FOR INTRAEPITHELIAL LESION OR MALIGNANCY. This specimen was analyzed by the automated ThinPrep Imaging System ([employer].) and the selected mejia were reviewed by a web systems developer. Electronically Signed Out By: JEAN-PIERRE Jolley(ASCP) The [...] by real-time polymerase chain reaction (PCR) at [facility], [address] [place] [address] using the FDA-approved BD Onclarity9 HPV Assay with extended genotyping. Uses of the assay in scenarios other than those approved by the FDA should be considered off-label use. The accuracy and precision of this test for all other off-label specimen sources has been verified in the Cytopathology Laboratory of the [facility] and has not been cleared or approved [...] : 1985 (Age: 38) Sex: F Institution: [facility] Location: [facility] Date of Collection: 09/08/2024 Date of Reported: 09/15/2024 11:27 Results to: Bobby Pearce MD us Bobby Pearce MD CYTOLOGY ORDERABLES Final Result SEE NARRATIVE * Hepatitis C antibody, qualitative (11/06/2022 1:58 PM EDT) HCV NON-REACTIV E NON-REACTI VE [facility] Blood 11/06/2022 1:58 PM EDT 11/06/2022 2:06 PM EDT us Maia Humphreyricky [facility] LAB BLOOD ORDERABLES F inal Result Performing Organization Address City/[facility]/ZIP Co de Phone Number [address] [address] * (ABNORMAL) Glucose (10/16/2018 9:39 AM EDT) GLUCOSE 105(H) 70 - 99 mg/dL [facility] Blood 10/16/2018 9:39 AM EDT 10/16/2018 9:44 AM EDT us Fernando Srinivasan MD LAB BLOOD ORDERABLES Final Resu lt Performing Organization Address [facility] Co de Phone Number [address] [address] from Last 3 Months or Most Recently Relevant to Health Maintenance Insurance [facility] POS [facility] [facility] [place] [address] [place] [address] [facility] Address[facility] [id number] [place], [place] [phone] [place] [address] [facility] Address: [facility] [id number] [place], [place] [phone] [place] [address] Advance Directives For more information, please contact: [phone] (9AM - 5PM [place], Friday-Friday) * Full Code (Latest Code Status on File) Date Activated Date Inactivated Comments 12/28/2020 11:33 AM Question Answer Comments Code Status Confirmed With: Patient * Full Code (Presumed) Date Activated Date Inactivated Comments 06/08/2019 12:19 PM 06/08/2019 6:25 PM Care Teams Power Reactor Supervisor Relationship Specialty Start Date End Date Kiara Turk NP [address] [place] [address] [email or web address] PCP - General Nurse Practitioner 10/14/24 Susie Goode MD [address] [place] [address] [email or web address] [email or web address] 08/13/21 Melyssa Matthew PA-C [address] [place] [address] Physician Bridge Design Engineer Hematology 08/15/21 Additional Source Comments The information contained in this document represents components of the legal health record. It is not the complete legal health record.[facility]
--- OUTSIDE RECORDS SUMMARY | 2025-04-07 07:59 | XMS_ITS | Encounter Summary ---
Author Organization [facility] Address [address] [place] [address] Phone Care Team Providers Care Novelties Sales Representative Name Role Phone Maia Diamond CNP Primary Care Provider Vick Yuen MD Unavailable Susie Goode MD Unavailable [phone] Melyssa Matthew-C Unavailable [phone] Holger Strickland MD Unavailable Holger Strickland MD Primary Care Provider [phone] Unknown, Unknown Primary Care Provider Kiara Vernon NP Primary Care Provider Encounter Details Date Type Department Care Team (Latest Contact Info) Description 01/05/2021 Transcribe Orders Virtual Department 30 [place] [address] Aga Noble NP 10 [place], [place] [phone] (nonalcoholic steatohepatitis) (Primary Dx); LLQ abdominal pain; [...] high school, GED, job training, learning the Yi language, technical skills, or developing parenting skills)? [...] in the right hepatic lobe on a [employer] ultrasound machine. 2D shear wave elastography technique [...] obtained in the righthepatic lobe on a [employer] ultrasound machine. 2D shear wave elastographytechnique was [...] are not well established. us Aga Noble RACECAR DRIVER IMG US ABDOMEN Final Res ult documented [...] documented as of this encounter Care Teams Novelties Sales Representative Relationship Specialty Start Date End Date Maia Diamond CNP [address] [place] [address] PCP - General Internal Medicine 10/11/19 01/09/23 Holger Strickland MD [address] [place] [address] PCP - General Internal Medicine 01/10/23 06/22/23 Unknown, Unknown, PCP - General 06/23/23 10/13/24 Kiara Turk NP [address] [place] [address] [email or web address] PCP - General Nurse Practitioner 10/14/24 Vick Yuen MD [address] [place] [address] [email or web address] Insurance Assigned Provider 01/31/20 01/05/22 Susie Goode MD [address] [place] [address] [email or web address] 08/13/21 Melyssa Matthew PA-C [address] [place] [address] Physician Particleboard Factory Worker Hematology 08/15/21 Holger Strickland MD [address] [place] [address] Insurance Assigned Provider 04/06/22 04/05/23 documented as of this encounter Additional Source Comments The information contained in this document represents components of the legal health record. It is not the complete legal health record.[facility]
--- OUTSIDE RECORDS SUMMARY | 2025-04-07 07:59 | XMS_ITS | Encounter Summary ---
Author Organization [facility] Address [address] [place] [address] Phone Care Team Providers Care Visitor Services Information Assistant Name Role Phone Maia Diamond WATERWORKS PUMP STATION OPERATOR Primary Care Provider Susie Goode MD Unavailable [phone] Melyssa Matthew PA-C Unavailable [phone] Holger Strickland MD Unavailable Holger Strickland MD Primary Care Provider [phone] Unknown, Unknown Primary Care Provider Kiara Vernon NP Primary Care Provider Encounter Details Date Type Department Care Team (Late st Contact Info) Description 10/01/2022 Procedure Pass [facility], [address] [place] [address] Social History Tobacco Use Types Packs/Day Years [...] documented as of this encounter Care Teams Visitor Services Information Assistant Relationship Specialty Start Date End Date Maia Diamond CNP [address] [place] [address] PCP - General Internal Medicine 10/11/19 01/09/23 Holger Strickland MD [address] [place] [address] PCP - General Internal Medicine 01/10/23 06/22/23 Unknown, Vy, PCP - General 06/23/23 10/13/24 Kiara Turk NP [address] [place] [address] [place] [address] [email or web address] PCP - General Nurse Practitioner 10/14/24 Susie Goode MD [address] [place] [address] [email or web address] Rental [employer] Hematology and Oncology 08/13/21 Melyssa Matthew PA-C [address] [place] [address] [email or web address] Physician Consultant Dietitian Hematology 08/15/21 Holger Strickland MD [address] [place] [address] [email or web address] Insurance Assigned Provider 04/06/22 04/05/23 documented as of this encounter Additional Source Comments The information contained in this document represents components of the legal health record. It is not the complete legal health record.[facility]
--- OUTSIDE RECORDS SUMMARY | 2025-04-07 08:00 | XMS_ITS | Encounter Summary ---
Author Organization [facility] Address [address] [place] [address] Phone Care Team Providers Care Dishcloth Folder Name Role Phone Maia Diamond CNP Primary Care Provider Vick Yuen MD Unavailable Susie Goode MD Unavailable [phone] Melyssa Matthew-C Unavailable Holger Strickland MD Unavailable Holger Strickland MD Primary Care Provider [phone] Unknown, Unknown Primary Care Provider Kiara Vernon NP Primary Care Provider Encounter Details Date Type Department Care Team (Latest Contact Info) Description 12/06/2020 Transcribe Orders [facility] Laboratory [address] [phone] Aga Noble NP 10 [place] [address] Rectal bleeding (Primary Dx); Generalized abdominal pain [...] high school, GED, job training, learning the East Timorese language, technical skills, or developing parenting skills)? [...] AM EDT) Calprotectin, stool <27.1 <50.0 mcg/g [facility] Calprotectin Interp Negative Negative [facility] Stool (Stool) 12/14/2020 11: 31 AM EDT 12/14/2020 11:33 AM EDT Aga Noble NP BODY FLUIDS AND STOOLS OR DERABLES Final Result [facility] [address] [place] [address] * Hepatitis B core antibody, total (12/06/2020 1:34 PM EDT) Pathologist [facility] HEP B CORE AB, TOT NON-REACTI VE NON-REACTI VE [facility] Blood 12/06/2020 1:34 PM EDT 12/06/2020 1:45 PM EDT Aga Noble USER ACCEPTANCE TESTER LAB BLOOD ORDERABLES Roro l Result Performing Organization Address City/[facility]/ZIP Co de Phone Number [address] [address] * CPK (creatine kinase) (12/06/2020 1:34 PM EDT) Pathologist [facility] CREATINE KINASE 88 21 - 215 U/L [facility] Blood 12/06/2020 1:34 PM EDT 12/06/2020 1:45 PM EDT Aga Noble USER ACCEPTANCE TESTER LAB BLOOD ORDERABLES Roro l Result Performing Organization Address [facility]/ZIP Co de Phone Number [address] [address] * (ABNORMAL) Ferritin (12/06/2020 1:34 PM EDT) Pathologist [facility] FERRITIN 204(H) 13 - 150 ug/L [facility] Blood 12/06/2020 1:34 PM EDT 12/06/2020 1:45 PM EDT Aga Noble USER ACCEPTANCE TESTER LAB BLOOD ORDERABLES Roro l Result Performing Organization Address City/[facility]/ZIP Co de Phone Number [address] [address] * Iron and iron binding capacity (12/06/2020 1:34 PM EDT) Pathologist [facility] IRON 72 30 - 160 ug/dL [facility] IRON BINDING CAPACITY 312 228 - 428 ug/dL [facility] TRANSFERRIN SATURAT. 23 15 - 50 % [facility] Blood 12/06/2020 1:34 PM EDT 12/06/2020 1:45 PM EDT Aga Noble NP LAB BLOOD ORDERABLES Roro l Result Performing Organization Address [facility] Co de Phone Number [address] [address] * Hepatitis C antibody, qualitative (12/06/2020 1:34 PM EDT) HCV NON-REACTIV E NON-REACTI VE [facility] Blood 12/06/2020 1:34 PM EDT 12/06/2020 1:45 PM EDT Aga Noble NP LAB BLOOD ORDERABLES Roro l Result Performing Organization Address [facility] Phone Number [address] [address] * Hepatitis B surface antigen (12/06/2020 1:34 PM EDT) HBV SURFACE ANTIGEN NON-REACTI VE NON-REACTI VE [facility] Blood 12/06/2020 1:34 PM EDT 12/06/2020 1:45 PM EDT Aga Noble NP LAB BLOOD ORDERABLES Roro l Result Performing Organization Address [facility] Co de Phone Number [address] [address] * Hepatitis B surface antibody (12/06/2020 1:34 PM EDT) HBV SURFACE ANTIBODY Negative [facility] Comment: Unvaccinated: Negative Vaccinated: Positive Blood 12/06/2020 1:34 PM EDT 12/06/2020 1:45 PM EDT Aga Noble NP LAB BLOOD ORDERABLES Roro l Result Performing Organization Address City/[facility] Co de Phone Number [address] [address] * HEPATITIS A ANTIBODY, TOTAL (12/06/2020 1:34 PM EDT) [facility] HAV TOTAL AB NON-REACTI VE NON-REACTI VE [facility] Blood 12/06/2020 1:34 PM EDT 12/06/2020 1:45 PM EDT Aga Noble NP LAB BLOOD ORDERABLES Roro l Result Performing Organization Address [facility]/State/ZIP Co de Phone Number [address] [address] * (ABNORMAL) C-Reactive Protein (12/06/2020 1:34 PM EDT) [facility] C REACTIVE PROTEIN 24.9(H) 0.0 - 4.0 mg/L [facility] Blood 12/06/2020 1:34 PM EDT 12/06/2020 1:45 PM EDT Aga Noble USER ACCEPTANCE TESTER LAB BLOOD ORDERABLES Roro l Result Performing Organization Address City/[facility]/ZIP Co de Phone Number [address] [address] * (ABNORMAL) Comprehensive metabolic panel (12/06/2020 1:34 PM EDT) [facility] SODIUM 139 133 - 146 mmol/L [facility] POTASSIUM 4.2 3.3 - 5.1 mmol/L [facility] CHLORIDE 103 96 - 108 mmol/L [facility] CO2 23 21 - 35 mmol/L [facility] BUN 8 6 - 19 mg/dL [facility] CREATININE 0.60 0.5 - 1.5 mg/dL [facility] GLUCOSE 113(H) 70 - 99 mg/dL [facility] ALBUMIN 4.3 3.9 - 4.8 g/dL [facility] TOTAL PROTEIN 7.5 6.5 - 8.0 g/dL [facility] CALCIUM 9.7 8.4 - 10.3 mg/dL [facility] ALKALINE PHOSPHATASE 117 39 - 117 U/L [facility] TOTAL BILIRUBIN 0.4 0.0 - 1.2 mg/dL [facility] AST 48(H) 0 - 37 U/L [facility] ALT 41(H) 0 - 40 U/L [facility] GLOBULIN 3.2 1 - 4.8 g/dL [facility] EGFR 120 >59 mL/min/1.7 3m2 [facility] Comment:Estimated glomerular filtration rate calculated using the CKD-EPI equation. ANION GAP 17 10 - 20 mmol/L [facility] Blood 12/06/2020 1:34 PM EDT 12/06/2020 1:45 PM EDT Aga Noble NP LAB BLOOD ORDERABLES Roro l Result Performing Organization Address City/[facility]/ZIP Co de Phone Number [facility] [address] [place] [address] * Ceruloplasmin (12/06/2020 1:34 PM EDT) CERULOPLASMIN 38 20 - 60 mg/dL [facility] Blood 12/06/2020 1:34 PM EDT 12/06/2020 1:44 PM EDT Aga Noble NP LAB BLOOD ORDERABLES Roro l Result [facility] [address] [place] [address] * Tissue transglutaminase IgA (12/06/2020 1:34 PM EDT) TTG IGA ANTIBODY <1.2 <4.0 (Negative) U/mL [facility] [address] Blood 12/06/2020 1:34 PM EDT 12/06/2020 1:45 PM EDT Aga Noble NP LAB BLOOD ORDERABLES Roro l Result [facility] [address] [place] [address] * Smooth Muscle Antibody (12/06/2020 1:34 PM EDT) SMOOTH MUSCLE AB POSITIVE AT 1:40 [facility] Comment:Normal: Negative at 1:20 Blood 12/06/2020 1:34 PM EDT 12/06/2020 1:44 PM EDT Aga Noble USER ACCEPTANCE TESTER LAB BLOOD ORDERABLES Roro l Result Performing Organization Address City/[facility]/ZIP Co de Phone Number [address] [address] * Antinuclear antibody (CHRISSIE) (12/06/2020 1:34 PM EDT) CHRISSIE SCREEN ON HEP 2 Negative Negative [facility] Blood 12/06/2020 1:34 PM EDT 12/06/2020 1:45 PM EDT Aga Noble USER ACCEPTANCE TESTER LAB BLOOD ORDERABLES Roro l Result Performing Organization Address [facility] Co de Phone Number [address] [address] * Anti-Mitochondrial Antibody (AMA) (12/06/2020 1:34 PM EDT) MITOCHONDRIAL AB NEGATIVE AT 1:20 [facility] Comment:Normal: Negative at 1:20 Blood 12/06/2020 1:34 PM EDT 12/06/2020 1:44 PM EDT Aga Noble USER ACCEPTANCE TESTER LAB BLOOD ORDERABLES Roro l Result Performing Organization Address City/[facility]/ZIP Co de Phone Number [address] [address] * Jmggw-7-kucisxvprmb phenotyping (12/06/2020 1:34 PM EDT) ALPHA 1 ANTITRYPSIN 167 100 - 190 mg/dL [facility] Comment: (NOTE) ADDITIONAL INFORMATION Method: Nephelometry A1A PHENOTYPE MM bands [facility] Comment: (NOTE) ADDITIONAL INFORMATION Method: Isoelectric Focusing, This assay identifies the phenotype of the circulating auafr-0-iwkkzouqjpa (A1A) protein. If the patient is on replacement therapy or has been recently transfused, the phenotype will detect patient and replacement or transfused plasma A1A protein. This test also cannot detect a null allele which could be responsible for an A1A deficiency. Blood 12/06/2020 1:34 PM EDT 12/06/2020 1:45 PM EDT Aga Noble USER ACCEPTANCE TESTER LAB BLOOD ORDERABLES Roro mcmillan Result [facility] [address] [place] [address] documented in this encounter Visit Diagnoses Diagnosis [...] documented as of this encounter Care Teams Dishcloth Folder Relationship Specialty Start Date End Date Maia Diamond CNP [address] [place] [phone] [email or web address] PCP - General Internal Medicine 10/11/19 01/09/23 Holger Strickland MD [address] [place] [address] PCP - General Internal Medicine 01/10/23 06/22/23 Unknown, Vy, PCP - General 06/23/23 10/13/24 Kiara Turk, USER ACCEPTANCE TESTER [address] [place] [address] [facility] [place] [address] [email or web address] PCP - General Nurse Practitioner 10/14/24 Vick Yuen MD [address] [place] [address] [email or web address] Insurance Assigned Provider 01/31/20 01/05/22 Susie Goode MD [address] [place] [address] [email or web address] 08/13/21 Melyssa Matthew PA-C [address] [place] [address] [email or web address] Physician Activities Director Hematology 08/15/21 Holger Strickland MD [address] [place] [address] [email or web address] Insurance Assigned Provider 04/06/22 04/05/23 documented as of this encounter Additional Source Comments The information contained in this document represents components of the legal health record. It is not the complete legal health record.[facility]
--- OUTSIDE RECORDS SUMMARY | 2025-04-07 08:00 | XMS_ITS | Encounter Summary ---
Author Organization [facility] Address [address] [facility] [address] [place] [address] Phone Care Team Providers Care Incident Response Engineer Name Role Phone Susie Goode MD Unavailable [phone] Melyssa Matthew PA-C Unavailable [phone] Unknown, Unknown Primary Care Provider Kiara Vernon SUPERVISOR [employer] Primary Care Provider Encounter Details Date Type Department Care Team (Late st Contact Info) Description 09/08/2024 Procedure Pass [facility] - [address] [place] [address] Social History Tobacco Use Types Packs/Day Years [...] documented as of this encounter Care Teams Incident Response Engineer Relationship Specialty Start Date End Date Unknown, Unknown, MD PCP - General 06/23/23 10/13/24 Kiara Turk NP [address] [place] [address] Dr [place] [facility] [address] [email or web address] PCP - General Nurse Practitioner 10/14/24 Susie Goode MD [address] [place] [address] [email or web address] Hematology [email or web address] 08/13/21 Melyssa Matthew PA-C [address] [place] [address] [email or web address] Physician Table Games Dual Rate Supervisor Hematology 08/15/21 documented as of this encounter Additional Source Comments The information contained in this document represents components of the legal health record. It is not the complete legal health record.[facility]
--- OUTSIDE RECORDS SUMMARY | 2025-04-07 08:00 | XMS_ITS | Encounter Summary ---
Author Organization [facility] Address [address] [place] [address] [place] [address] Phone Care Team Providers Care Director Web Name Role Phone Susie Goode MD Unavailable [phone] Melyssa Matthew PA-C Unavailable [phone] Holger Strickland MD Unavailable Holger Strickland MD Primary Care Provider [phone] Unknown, Unknown Primary Care Provider Kiara Vernon NP Primary Care Provider Encounter Details Date Type Department Care Team (Late st Contact Info) Description 03/13/2023 Procedure Pass [facility] - [address] [place] [address] Social History Tobacco Use Types Packs/Day Years [...] high school, GED, job training, learning the Turkmen language, technical skills, or developing parenting skills)? [...] documented as of this encounter Care Teams Director Web Relationship Specialty Start Date End Date Holger Strickland MD [address] [place] [address] PCP - General Internal Medicine 01/10/23 06/22/23 Unknown, Vy, PCP - General 06/23/23 10/13/24 Kiara Turk NP [address] [place] [address] [place] [address] [email or web address] PCP - General Nurse Practitioner 10/14/24 Susie Goode MD [address] [place] [address] [email or web address] 08/13/21 Meylssa Matthew PA-C [address] [place] [email or web address] Physician Cryptological Technician Hematology 08/15/21 Holger Strickland MD [address] [place] [address] [email or web address] Insurance Assigned Provider 04/06/22 04/05/23 documented as of this encounter Additional Source Comments The information contained in this document represents components of the legal health record. It is not the complete legal health record.[facility]
--- OUTSIDE RECORDS SUMMARY | 2025-04-07 08:00 | XMS_ITS | Encounter Summary ---
Author Organization [facility] Address [address] [place] [address] Phone Care Team Providers Care Stain Wiper Name Role Phone Vick Yuen MD Primary Care Provider Maia Diamond CNP Primary Care Provider Maia Diamond CNP Primary Care Provider Vick Yuen MD Unavailable Susie Goode MD Unavailable [phone] Melyssa Matthew-Junior Unavailable [phone] Holger Strickland MD Unavailable Holger Strickland MD Primary Care Provider Unknown, Unknown Primary Care Provider Kiara Vernon NP Primary Care Provider Encounter Details Date Type Department Care Team (Late st Contact Info) Description 11/12/2018 Procedure Pass [facility], [address] [address] Social History Tobacco Use Types Packs/Day Years [...] documented as of this encounter Care Teams Stain Wiper Relationship Specialty Start Date End Date Vick Yuen MD [address] [place] [address] [email or web address] PCP - General Internal Medicine 11/03/18 04/12/19 Maia Diamond CNP [address] [place] [address] [email or web address] PCP - General Internal Medicine 04/13/19 10/10/19 Maia Diamond CNP [address] [place] [address] [email or web address] PCP - General Internal Medicine 10/11/19 01/09/23 Holger Strickland MD [address] [place] [address] PCP - General Internal Medicine 01/10/23 06/22/23 Unknown, Vy, PCP - General 06/23/23 10/13/24 Kiara Turk NP [address] [place] [address] [email or web address] PCP - General Nurse Practitioner 10/14/24 Vick Yuen MD [address] [place] [address] Insurance Assigned Provider 01/31/20 01/05/22 Susie Goode MD [address] [place] [address] [email or web address] 08/13/21 Melyssa Matthew PA-C [address] [place] [address] Physician Medicine Assistant Hematology 08/15/21 Holger Strickland MD [address] [place] [address] [email or web address] Insurance Assigned Provider 04/06/22 04/05/23 documented as of this encounter Additional Source Comments The information contained in this document represents components of the legal health record. It is not the complete legal health record.[facility]
--- OUTSIDE RECORDS SUMMARY | 2025-04-07 08:00 | XMS_ITS | Encounter Summary ---
Author Organization [facility] Address [address] [place] [address] Phone Care Team Providers Care Air Analyst Name Role Phone Maia Diamond CNP Primary Care Provider Vick Yuen MD Unavailable Susie Goode MD Unavailable [phone] Melyssa Matthew-C Unavailable [phone] Holger Strickland MD Unavailable Holger Strickland MD Primary Care Provider [phone] Unknown, Unknown Primary Care Provider Kiara Vernon NP Primary Care Provider Encounter Details Date Type Department Care Team (Late st Contact Info) Description 12/28/2020 Procedure Pass [place] Admitting Dept - Virtual Department [address] [place] [address] Social History Tobacco Use Types Packs/Day Years [...] high school, GED, job training, learning the Cook Islander language, technical skills, or developing parenting skills)? [...] documented as of this encounter Care Teams Air Analyst Relationship Specialty Start Date End Date Maia Diamond CNP [address] [place] [address] [email or web address] PCP - General Internal Medicine 10/11/19 01/09/23 Holger Strickland MD [address] [place] [address] PCP - General Internal Medicine 01/10/23 06/22/23 Unknown, Vy, PCP - General 06/23/23 10/13/24 Kiara Turk, AUTOMOBILE REPAIR SERVICE ESTIMATOR [address] [place] [address] [address] [email or web address] PCP - General Nurse Practitioner 10/14/24 Vick Yuen MD [address] [place] [address] Insurance Assigned Provider 01/31/20 01/05/22 Susie Goode MD [address] [place] [address] [email or web address] 08/13/21 Melyssa Matthew PA-C [address] [place] [address] Physician Parole Or Probation Officer Hematology 08/15/21 Holger Strickland MD [address] [place] [address] Insurance Assigned Provider 04/06/22 04/05/23 documented as of this encounter Additional Source Comments The information contained in this document represents components of the legal health record. It is not the complete legal health record.[facility]
--- OUTSIDE RECORDS SUMMARY | 2025-04-07 08:00 | XMS_ITS | Encounter Summary ---
Author Organization [facility] Address [address] [place] [address] Phone Care Team Providers Care Mixing House Operator Name Role Phone Maia Diamond CNP Primary Care Provider Vick Yuen MD Unavailable [phone] Susie Goode MD Unavailable [phone] Melyssa Matthew-C Unavailable Holger Strickland MD Unavailable Holger Strickland MD Primary Care Provider [phone] Unknown, Unknown Primary Care Provider Kiara Vernon NP Primary Care Provider Encounter Details Date Type Department Care Team (Late st Contact Info) Description 05/17/2020 Procedure Pass [facility], Ct [facility] - [address] [address] Social History Tobacco Use Types Packs/Day Years [...] high school, GED, job training, learning the Malawian language, technical skills, or developing parenting skills)? [...] documented as of this encounter Care Teams Mixing House Operator Relationship Specialty Start Date End Date Maia Diamond CNP [address] [place] [address] [email or web address] PCP - General Internal Medicine 10/11/19 01/09/23 Holger Strickland MD [address] [place] [address] PCP - General Internal Medicine 01/10/23 06/22/23 Unknown, Vy, PCP - General 06/23/23 10/13/24 Kiara Turk, ROUTE RETURNER [address] [place] [address] [address] [email or web address] PCP - General Nurse Practitioner 10/14/24 Vick Yuen MD [address] [place] [address] Insurance Assigned Provider 01/31/20 01/05/22 Susie Goode MD [address] [place] [address] [email or web address] 08/13/21 Melyssa Matthew PA-C [address] [place] [address] Physician Bender Machine Hematology 08/15/21 Holger Strickland MD [address] [place] [address] Insurance Assigned Provider 04/06/22 04/05/23 documented as of this encounter Additional Source Comments The information contained in this document represents components of the legal health record. It is not the complete legal health record.[facility]
--- OUTSIDE RECORDS SUMMARY | 2025-04-07 08:00 | XMS_ITS | Encounter Summary ---
Author Organization [facility] Address [address] [place] [address] Phone Care Team Providers Care Senior Supplier Quality Engineer Name Role Phone Susie Goode MD Unavailable [phone] Melyssa Matthew PA-C Unavailable [phone] Unknown, Unknown Primary Care Provider Kiara Vernon PM TECHNICIAN Primary Care Provider Encounter Details Date Type Department Care Team (Late st Contact Info) Description 09/08/2024 Procedure Pass [facility] - [address] [place] [address] Social History Tobacco Use Types Packs/Day Years [...] high school, GED, job training, learning the Indian language, technical skills, or developing parenting skills)? [...] documented as of this encounter Care Teams Senior Supplier Quality Engineer Relationship Specialty Start Date End Date Unknown, Unknown, MD PCP - General 06/23/23 10/13/24 Kiara Turk NP [address] [place] [address] [place] [address] [email or web address] PCP - General Nurse Practitioner 10/14/24 Susie Goode MD [address] [place] [address] [email or web address] 08/13/21 Melyssa Matthew PA-C [address] [place] [email or web address] Physician Nursing Assoc Hematology 08/15/21 documented as of this encounter Additional Source Comments The information contained in this document represents components of the legal health record. It is not the complete legal health record.[facility]
--- OUTSIDE RECORDS SUMMARY | 2025-04-07 08:00 | XMS_ITS | Clinical Summary ---
Author Organization [facility] Address [address] [place] [address] Care Team Providers Care Java Application Developer Name Role Phone Akosua Kaplan MD Primary [...] DX:Fibromyalgia; COMMENT: Followed with infectious disease and boxing trainer as well as neurologist. No history of lymes disease Marijuana use 05/12/2017 DX:Marijuana use Prehypertension 05/12/2017 DX:Prehypertensi on ASCUS with positive high risk HPV 05/29/2017 DX:ASCUS with positive high risk HPV; COMMENT: 11/17/2014 at [facility] obn Rectal bleeding 10/10/2017 DX:Rectal bleedi [...] RESULTING AGENCY - 10/13/2017 3:49 PM EDT [id number] THINPREP PAP, IMAGED: NEGATIVE FOR SQUAMOUS INTRAEPITHELIAL [...] Recently Relevant to Health Maintenance Care Teams Java Application Developer Relationship Specialty Start Date End Date Akosua Kaplan MD PCP - General Internal Medicine 02/17/17
--- OUTSIDE RECORDS SUMMARY | 2025-04-07 08:00 | XMS_ITS | Encounter Summary ---
Author Organization [facility] Address [address] [place] [address] [place] [address] Phone Care Team Providers Care Pigment Mixer Name Role Phone Maia Diamond MEAT BONER AND SLICER Primary Care Provider Susie Goode MD Unavailable [phone] Melyssa Matthew PA-C Unavailable [phone] Holger Strickland MD Unavailable Holger Strickland MD Primary Care Provider [phone] Unknown, Unknown Primary Care Provider Kiara Vernon NP Primary Care Provider Encounter Details Date Type Department Care Team (Late st Contact Info) Description 11/25/2022 Procedure Pass [facility], Ct Scan - [address] [address] Social History Tobacco Use Types Packs/Day Years [...] high school, GED, job training, learning the Tajik language, technical skills, or developing parenting skills)? [...] documented as of this encounter Care Teams Pigment Mixer Relationship Specialty Start Date End Date Maia Diamond CNP [address] [place] [address] PCP - General Internal Medicine 10/11/19 01/09/23 Holger Strickland MD [address] [place] [address] PCP - General Internal Medicine 01/10/23 06/22/23 Unknown, Unknown, PCP - General 06/23/23 10/13/24 Kiara Turk, VETERINARY X RAY OPERATOR [address] [place] [address] [address] [email or web address] PCP - General Nurse Practitioner 10/14/24 Susie Goode MD [address] [place] [address] [email or web address] 08/13/21 Melyssa Matthew PA-C [address] [place] [address] Physician Marine [employer] Planners Hematology 08/15/21 Holger Strickland MD [address] [place] [address] [email or web address] Insurance Assigned Provider 04/06/22 04/05/23 documented as of this encounter Additional Source Comments The information contained in this document represents components of the legal health record. It is not the complete legal health record.[facility]
--- OUTSIDE RECORDS SUMMARY | 2025-04-07 08:00 | XMS_ITS | Encounter Summary ---
Author Organization [facility] Address [address] [place] [address] Phone Care Team Providers Care Social Media Manager Name Role Phone Maia Diamond MANAGER ACTUARIAL Primary Care Provider Susie Goode MD Unavailable [phone] Melyssa Matthew PA-C Unavailable [phone] Holger Strickland MD Unavailable Holger Strickland MD Primary Care Provider [phone] Unknown, Unknown Primary Care Provider Kiara Vernon NP Primary Care Provider Encounter Details Date Type Department Care Team (Late st Contact Info) Description 11/06/2022 Procedure Pass [address] [address] Social History Tobacco Use Types Packs/Day Years [...] as of this encounter Care Teams Social Media Manager Relationship Specialty Start Date End Date Maia Diamond CNP [address] [place] [address] PCP - General Internal Medicine 10/11/19 01/09/23 Holger Strickland MD [address] [place] [address] PCP - General Internal Medicine 01/10/23 06/22/23 Unknown, Unknown, PCP - General 06/23/23 10/13/24 Kiara Turk, SPREADER OPERATOR AUTOMATIC [address] [place] [address] [email or web address] PCP - General Nurse Practitioner 10/14/24 Susie Goode MD [address] [place] [address] [email or web address] 08/13/21 Melyssa Matthew PA-C [address] [place] [address] Physician Pheresis Nurse Hematology 08/15/21 Holger Strickland MD [address] [place] [address] [email or web address] Insurance Assigned Provider 04/06/22 04/05/23 documented as of this encounter Additional Source Comments The information contained in this document represents components of the legal health record. It is not the complete legal health record.[facility]
--- OUTSIDE RECORDS SUMMARY | 2025-04-07 08:00 | XMS_ITS | Encounter Summary ---
Author Organization [facility] Address [address] [place] [address] Phone Care Team Providers Care Electrical Equipment Technician Name Role Phone Vick Yuen MD Primary Care Provider Maia Diamond CNP Primary Care Provider Maia Diamond CNP Primary Care Provider Vick Yuen MD Unavailable Susie Goode MD Unavailable [phone] Melyssa Matthew-Junior Unavailable Holger Strickland MD Unavailable Holger Strickland MD Primary Care Provider Unknown, Unknown Primary Care Provider Kiara Vernon NP Primary Care Provider Reason for Referral * MRI/CAT Scan - Closed Specialty Diagnoses / Procedures Referred By Cecile hopper Referred To Contact Procedures MRI Brain Outside (No Interpretation) System, Provider Not In, PhD [address] [address] Referral ID Status Reason Start Date Expiration Date Visits Re quested Visits Authorized [id number] Closed 11/18/2018 11/18/2019 1 1 Encounter Details Date Type Department Care Team (Late st Contact Info) Description 11/18/2018 Ancillary Orders [facility],Outside Imaging [address] [place] [address] System, Provider Not In, PhD Partners [address] [address] Social History Tobacco Use Types Packs/Day Years [...] documented as of this encounter Care Teams Electrical Equipment Technician Relationship Specialty Start Date End Date Vick Yuen MD [address] [place] [address] [email or web address] PCP - General Internal Medicine 11/03/18 04/12/19 Maia Diamond CNP [address] [place] [address] [email or web address] PCP - General Internal Medicine 04/13/19 10/10/19 Maia Diamond, ARIANNA [address] [place] [address] [email or web address] PCP - General Internal Medicine 10/11/19 01/09/23 Holger Strickland MD [address] [place] [address] [email or web address] PCP - General Internal Medicine 01/10/23 06/22/23 Unknown, Vy, PCP - General 06/23/23 10/13/24 Kiara Turk, CEASAR [address] [place] [phone] [email or web address] PCP - General Nurse Practitioner 10/14/24 Vick Yuen MD [address] [place] [address] [email or web address] Insurance Assigned Provider 01/31/20 01/05/22 Susie Goode MD [address] [place] [address] [email or web address] Hematology and Oncology 08/13/21 Melyssa Matthew PA-C [address] [place] [address] [email or web address] Physician Notching Press Operator Hematology 08/15/21 Holger Strickland MD [address] [place] [address] [email or web address] Insurance Assigned Provider 04/06/22 04/05/23 documented as of this encounter Additional Source Comments The information contained in this document represents components of the legal health record. It is not the complete legal health record.[facility]
== END ==
LOC: HO.CARD 07:54
PROVIDERS: PCP Nurse Practitioner Family; Visit Provider Internal Medicine Cardiovascular Disease
DX: R06.02 Shortness of breath (principal); R07.9 Chest pain, unspecified
CPT/HCPCS: 78452; 93017; A9500

== ENCOUNTER → 2025-04-07 07:56 | Outpatient (BNV) | payer BC, SELFPAY | PROVIDERS: PCP Nurse Practitioner Family | DX: R06.02 Shortness of breath (principal) | CPT/HCPCS: 78452; 93016; 93018 ==

== ENCOUNTER 2025-05-11 08:25 | Outpatient (AMB) | payer BC, SELFPAY ==
--- NOTE | 2025-05-11 08:28 | A.OFFPC_ITS ---
Vital Signs 05/11/25 08:32 Height 5 ft 5 in Weight 272 lb 8 oz BMI 45.3 BP 124/72 Blood Pressure Location Rt brachial Position Sitting Respiration 12 Pulse 78 Pulse Source Pulse Oximeter Temp 97.1 F Temp Source Oral Pulse Oximetry (%) 99 Oxygen Delivery Method Room Air Intake Visit Reasons: 3 mo FU DM, CPAP, HTN 30 min Intake Note: Follow up on dm, and htn. Patient c/o having problems swallowing and it has not gotten better with time. [facility] [employer] [facility] [employer]anner Required: No Allergies No Known Allergies Allergy (Verified 05/11/25 08:29) Medication List - Last Reconciled 05/11/25 by Kiara Delaney, IMPORT EXPORT CLERK-BC cetirizine 10 mg PO DAILY famotidine 20 mg PO BID hydroxychloroquine (Plaquenil) 200 mg PO BID lisinopril 5 mg PO DAILY metformin ER 1,000 mg (2 x 500 mg) PO QPM triamcinolone acetonide 0.1% 1 appl topical BID Tobacco use date assessed: 05/11/25 Dental Screening Dental Screen Date: 05/11/25 Did you have a dental visit in the last 12 months?: Yes Did you have a dental problem in the last 6 months where you did not have access to dental care?: No Was dental information given to patient?: Patient has dentist HPI HPI Comments History of Present Illness Details 39 y/o f with elevated LFTs d/t fatty li greg, MDD, RLS, fibromyalgia, vitamin b 1 def, autoimmmune thrombocytopenia, + CHRISSIE , hepatosplenomegaly (CT CDH 2021) DM 2, smooth muscle ab + , KATERINE, Incomplete RBBB, Elevated Ferritin, s/p r lymphnode removal 2020 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 Cards first appt next week for eval and tx of Echo l The patient is a 39-year-old female presenting with complex routine follow-up Started on plaquenil by Immune; feels worse; next visit 05/2025. Physiatry appt was not a good fit; she left in tears [place] [facility] [place] Had EMG R arm; told of CTS Has joint pain all over. KATERINE - has not started CPAP therapy. Advised to start DM A1c improved, tolerating metformin Cont to have issue swallowing Dysphagia with increased difficulty swallowing noted in the last two months; family history present. HTN - controlled on lisinopril w/o side effects. RUQ pain is better Still feels like cannot regulate body temp Cont w/ douglas horses, to the point going to collapse has been going to the gym still having L anterior chest pain; there most of the time. Negative cards work up. Indifferent to Gym workouts. Does NOT have Aortic stenonsis - misread on echo. Review of Systems - Neurological: Reports leg spasms; carp al tunnel syndrome in right arm. - Cardiovascular: Reports chronic chest pain; cardiac evaluation negative. - Respiratory: Denies improvement in obs tructive sleep apnea. - Gastrointestinal: Reports difficulty s wallowing; family history of achalasia. - Musculoskeletal: Reports generalized s tiffness and body pain. - Psychiatric: Denies changes in schizop hrenia symptoms. - Endocrine: Reports improved glucose co ntrol. Physical Exam Awake alert NAD PERRLA,EOMI RRR, 2/6 systolic murmur Reproducible chest pain over L anterior chest wall LS CTAB Abd soft, normoactive bs, pain over RUQ w/ palp w/o rebound or rigidity. No CvAT No spinal tenderness, normal strength No edema BLE Tone is firm in ext x 4, more so in legs; Results A1c 6% Echo no Aortic stenosis holter and stress test normal Discussion Notes We discussed management of her diabetes with continued use of metformin, given her improved A1c value. I reviewed the importance of compliance with the CPAP for obstructive sleep apnea management and explained its benefits on general health, despite the possible issue of requiring it due to weight. We addressed the rheumatology referral challenges, and I highlighted the need for a gastroenterological workup for her dysphagia, suggesting modified barium swallow as the initial investigative step. I emphasized the role of consistent weight management and exercise in her obesity and cardiac health. We discussed potential treatment with Savella for her chronic pain and body stiffness, acknowledging its non-curative role but for symptomatic relief, and obtained her consent for further evaluation and CPAP initiation. I instructed her about follow-ups, especially for lab testing and respective specialties consultations, and the possible need to revisit this plan based on how symptoms progress or respond to these interventions. Patient was given time to ask questions. All questions were answered to their satisfaction. Assessment and Plan 1. Sleep Apnea - [facility]. - Insurance coverage discussions. - Compliance visit in 3 months to be marie eduled. 2. Essential Hypertension - Continue lisinopril. - Monitor blood pressure, 3. Type 2 Diabetes Mellitus - Cont metformin dosage 1000mg QD - Aim for A1c 6. 4. Dysphagia/RUQ pain/fatty liver/elevat ed ferritin -Mod barium swallow GI referral 5. CTS R consider hand surgeon referral in the future. Hold @ this time. 6. FU with Immune for plaquenil Patient Instructions - Use CPAP machine as instructed; call i f issues arise with mask or machine. - Take lisinopril as prescribed. - Cont metformin two tablets once a day . - Watch for difficulty swallowing specif ic foods or liquids and tell me about any changes. - Stay hydrated, fu with rheum - Follow up in three months or as needed . Labs 1 week before, sooner as needed. Consent Patient was informed and verbally consented to the use of an ambient scribe for clinic note documentation during this visit. Total time spent caring for the patient today was 45 minutes. This includes time spent before the visit reviewing the chart, time spent during the visit, and time spent after the visit on documentation, reviewing laboratory results, diagnostic imaging, medications, performing a medically necessary evaluation, counseling on diagnoses, care coordination, ordering appropriate tests, ordering appropriate medications, review of tests performed by other providers, reporting test results with the patient, communication with other healthcare providers. [facility] Medical History (Updated 05/11/25 @ 09:14 by Kiara Delaney, [facility]) Acute dermatitis Anxiety and depression Asthma Depression Fibromyalgia GERD (gastroesophageal reflux disease) Headache IBS (irritable bowel syndrome) Morbid obesity Restless leg syndrome Surgical History Hx of appendectomy Hx of breast surgery Hx of colonoscopy (~2020) Hx of endoscopy Hx of neck surgery Hx of wisdom tooth extraction Family History Mother History of lung surgery Lung cancer COPD (chronic obstructive pulmonary disease) HTN (hypertension) Father Diabetes HTN (hypertension) Cardiovascular disease Brother Diabetes Family/Other Lung cancer Throat cancer Diabetes Maternal Grandmother Lung cancer Heart attack Stroke Diabetes Paternal Grandfather Prostate CA Family/Other Prostate CA Paternal Grandmother CHF (congestive heart failure) Diabetes Cardiovascular disease Social History (Updated 03/21/25 @ 09:04 by Shilpa Reece MA) Household Members: Significant Other Both parents involved: No Caregiver staying overnight: No Housing: Apartment Are you a primary senior care specialist to a significant other at home: No Do you presently have visiting nurse or other home services: No 75 years or older and lives alone: No Alcohol intake: current Alcohol intake frequency: holidays/special occasions only Alcohol type: wine Patient Tobacco Use Status: Never used Tobacco e-Cigarette/Vaping Use: Never Used Second Hand Smoke Exposure: No Current occupational status: employed 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 1. Little interest or pleasure in doing things: not at all 2. Feeling down, depressed, or hopeless: not at all 3. Trouble falling or staying asleep, or sleeping too much: not at all 4. Feeling tired or having little energy: not at all 5. Poor appetite or overeating: not at all 6. Feeling bad about yourself - or that you are a failure or have let yourself or your family down: not at all 7. Trouble concentrating on things, such as reading the newspaper or watching television: not at all 8. Moving or speaking so slowly that other people could have noticed. Or the opposite - being so fidgety or restless that you have been moving around a lot more than usual: not at all 9. Thoughts that you would be better off or of hurting yourself in some way: not at all Total score: 0 Depression Screening Interpretation: Negative Depression Screening Done: Yes 46473 - PHQ-9 Billing: Yes Source: Developed by Drs. Fernando Valentino, Aga Rodriguez, Alan Anguiano and colleagues, with an educational giovanni from [employer]. Thrive Questionnaire Date Thrive assessed: 05/11/25 I am a: Patient What is your living situation today?: I have a steady place to live Within the past 12 months, did the food you bought not last and you didn't have the money to get more?: Never true Within the past 12 months, did you worry whether your food would run out before you got money to buy more?: Never true Do you have trouble paying for medicines?: No Do you have trouble getting transportation to medical appointments?: No Do you have trouble paying your heating and electricity bill?: No Do you have trouble taking care of your child, family member or friend?: No Do you have trouble with day-to-day activities such as bathing, preparing meals, shopping, managing finances, etc.?: No Are you currently unemployed and looking for a job?: No Are you interested in more education?: No Please select the resources that you would like help with: None Currently or been in a relationship where the following occur: No concerns reported THRIVE Score: 0 MIKAELA-7 AMB Questionnaire MIKAELA-7 Date MIKAELA - 7 assessed: 05/11/25 Feeling nervous, anxious, or on edge: 0 = Not at all Not being able to stop or control worryin = Not at all Worrying too much about different things: 0 = Not at all Trouble relaxin = Not at all Being so restless that it is hard to sit still: 0 = Not at all Becoming easily annoyed or irritable: 0 = Not at all Feeling afraid as if something awful might happen: 0 = Not at all Total MIKAELA-7 score (0-4 normal; 5-9 mild; 10-14 moderate; 15-21 severe): 0 Source: Developed by Drs. Fernando Valentino, Aga Rodriguez, Alan Anguiano and colleagues, with an educational giovanni from [employer]. MIKAELA-7 Assessment Billing MIKAELA-7 Assessment Tool: MIKAELA-7 Assessment 59734 Physical exam (Primary Care) Vital Signs: Last Vital Signs Temp 97.1 F 05/11/25 08:32 Pulse 78 05/11/25 08:32 Resp 12 05/11/25 08:32 BP 124/72 05/11/25 08:32 Pulse Ox 99 05/11/25 08:32 Oxygen Delivery Method Room Air 05/11/25 08:32 BMI result Body Mass Index 45.3 BMI Assessment/Plan discussion: High BMI High, discussed plan: lifestyle Tobacco/Smoking Status: Tobacco use Status Tobacco use date assessed 05/11/25 05/11/25 08:32 Patient Tobacco Use Status Never used Tobacco 05/11/25 08:32 e-Cigarette/Vaping Use Never Used 05/11/25 08:32 PHQ-9: PHQ-9 Score PHQ-9: Total score 0 05/11/25 08:32 Depression Screening Interpretation: Negative Thrive Assessment: Date of Thrive Assessment Date Thrive assessed 05/11/25 05/11/25 08:32 Currently or been in a relationship where the following occur: No concerns reported Results AMB Hemoglobin A1c AMB Hemoglobin A1c 6.0 % Last Edit by Alicia Herrmann MA on 05/11/25 08:42 Results Reviewed Results Reviewed: Laboratory Last Values Hgb A1c (Clinic) 6.0 % (4.0-6.0) 05/11/25 08:33 Coding Level of Care Code Est Pt Level 5 (28761) Complex EM visit Add On G2211 Diagnoses Primary hypertension I10 Hypertension type: primary hypertension Diabetes mellitus type 2 with complications E11.8 Morbid obesity E66.01 Elevated ferritin R79.89 Influenza vaccination declined Z28.21 KATERINE (obstructive sleep apnea) G47.33 Steatosis, liver K76.0 Choking sensation R09.89 Fibromyalgia M79.7 Additional Codes MIKAELA-7 Assessment Billing - MIKAELA-7 Assessment Tool: MIKAELA-7 Assessment 60369 ([id number]) PHQ-9 - 82013 - PHQ-9 Billing: Yes ([id number]) Assessment & Plan Assessment & Plan (1) HTN (hypertension): Code(s): I10 - Essential (primary) hypertension Category: Medical Qualifiers: Hypertension type: primary hypertension Qualified Code(s): I10 - Essential (primary) hypertension (2) Diabetes mellitus type 2 with complications: Onset Date: ~09/2024 Comment: HTN and obesity BMI > 45 Code(s): E11.8 - Type 2 diabetes mellitus with unspecified complications Category: Medical (3) Morbid obesity: Comment: BMI > 45 Code(s): E66.01 - Morbid (severe) obesity due to excess calories Category: Medical (4) Elevated ferritin: Comment: HEME EVAL 2021 Code(s): R79.89 - Other specified abnormal findings of blood chemistry Category: Medical (5) Influenza vaccination declined: Onset Date: ~05/11/25 Code(s): Z28.21 - Immunization not carried out because of patient refusal Category: Medical (6) KATERINE (obstructive sleep apnea): Onset Date: ~01/24/25 Comment: KATERINE MOD-SEVERE, AHI 16.3 SNORING 70% BORDERLINE NOCTURNAL HYPOXEMIA, O2 SAT < 88% FOR 6 MINUTES PLAN: CPAP W/ AUTOPAP MODE AND PRESSURE OF 6-20CM [facility] 05/11/25 has not started, will need compliance @ next visit. Code(s): G47.33 - Obstructive sleep apnea (adult) (pediatric) Category: Medical (7) Steatosis, liver: Code(s): K76.0 - Fatty (change of) liver, not elsewhere classified Category: Medical (8) Choking sensation: Code(s): R09.89 - Other specified symptoms and signs involving the circulatory and respiratory systems Category: Medical (9) Fibromyalgia: Comment: trial sevalla Code(s): M79.7 - Fibromyalgia Category: Medical Plan . Orders: Orders FL Modified Barium Swallow Today R09.89 - Other specified symptoms and signs involving the circulatory and respiratory systems Microalbumin, Random (w Creat) 3 Months I10 - Essential (primary) hypertension, R79.89 - Other specified abnormal findings of blood chemistry Comprehensive Met. Panel 3 Months I10 - Essential (primary) hypertension, R79.89 - Other specified abnormal findings of blood chemistry IRON PROFILE 3 Months I10 - Essential (primary) hypertension, R79.89 - Other specified abnormal findings of blood chemistry AMB Hemoglobin A1c Today E11.8 - Type 2 diabetes mellitus with unspecified complications, Z13.9 - Encounter for screening, unspecified Lipid Panel 3 Months I10 - Essential (primary) hypertension, R79.89 - Other specified abnormal findings of blood chemistry Ferritin 3 Months I10 - Essential (primary) hypertension, R79.89 - Other specified abnormal findings of blood chemistry Complete Blood Count no Diff 3 Months I10 - Essential (primary) hypertension, R79.89 - Other specified abnormal findings of blood chemistry Referrals Gastroenterology Referral K76.0 - Fatty (change of) liver, not elsewhere classified, R09.89 - Other specified symptoms and signs involving the circulatory and respiratory systems, R79.89 - Other specified abnormal findings of blood chemistry Medications: New milnacipran (Savella) PO PER PKG DIR 55 ea 0RF Refilled lisinopril 5 mg PO DAILY 90 tabs 1RF metformin ER 1,000 mg (2 x 500 mg) PO QPM 180 tabs 1RF Discontinued famotidine Discontinued Reason: Order 20 mg PO BID 180 tabs 1RF cetirizine Discontinued Reason: Order 10 mg PO DAILY 90 tabs 1RF triamcinolone acetonide 0.1% Discontinued Reason: Patient Completed Course 1 appl topical BID 30 grams 0RF
[2025-05-11 08:32] VITALS: BP 124/72; PULSE 78; RESP 12; TEMP 36.2; O2SAT 99; BMI 45.3
--- OUTSIDE RECORDS SUMMARY | 2025-05-11 08:48 | XMS_ITS | Clinical Summary ---
Author Organization [facility] Address [address] [place] [address] Care Team Providers Care Chore Tender Name Role Phone Akosua Kaplan MD Primary [...] wit h BMI of 45.0-49.9, adult ([facility]) Fibromyalgia 03/11/2017 DX:Fibromyalgia; COMMENT: Followed with infectious disease and car dumper operator as well as neurologist. No history of lymes disease Marijuana use 05/12/2017 DX:Marijuana use Prehypertension 05/12/2017 DX:Prehypertensi on ASCUS with positive high risk HPV 05/29/2017 DX:ASCUS with positive high risk HPV; COMMENT: 11/17/2014 at [facility] obn Rectal bleeding 10/10/2017 DX:Rectal bleedi [...] of 3 - 19+ 3-dose series) 2006 HPV Vaccines (1 - 3-dose SCD M series) 2014 Cervical Cancer Screening: P ap Smear 10/09/2020 10/09/2017 DTaP,Tdap,and Td Vaccines (3 - Td or Tdap) 09/03/2023 09/03/2013, 11/13/2011 Depression Screening 07/28/2024 COVID-19 Vaccine ( - 2023-2 5 season) 2025 Influenza Vaccine (#1) 2025 RSV Immunization Adult Patients (1 - 1-dose 75+ series) 2062 Pneumococcal Vaccine: Pediatrics (0 to 5 Years) [...] RESULTING AGENCY - 10/13/2017 3:49 PM EDT [id number] THINPREP PAP, IMAGED: NEGATIVE FOR SQUAMOUS INTRAEPITHELIAL LESION AND MALIGNANCY . RESULT OF APTIMA HIGH RISK HPV ASSAY: NEGATIVE (SEROTYPES 16,18,31,33,35,39,45,51,52,56,58,59,66,68) JEAN-PIERRE NOLAN(ASCP) (CASE ELECTRONICALLY SIGNED 10 13 2017) ADEQUACY: SATISFACTORY. ENDOCERVICAL/TRANSFORMATION ZONE COMPONENT PRESENT. SOURCE: THINPREP PAP HPV ANY DX: REFLEX 16 AND 18, CERVICAL, IMAGED: CLINICAL INFORMATION: HPV ANY DIAGNOSIS. PAP HX NEG [Z12.4, Z01.419] Maria Brady [facility] CYTOLOGY ORDERABLES Final R esult HISTORICAL TESTING LAB RESULTING AGENCY from Last 3 Months or Most Recently Relevant to Health Maintenance Care Teams Chore Tender Relationship Specialty Start Date End Date Akosua Kaplan MD PCP - General Internal Medicine 02/17/17
== END 2025-05-11 09:07 | disposition home or self-care (01) ==
LOC: HO.HMCFM 08:26
PROVIDERS: PCP Nurse Practitioner Family; Visit Provider Nurse Practitioner Family
DX: I10 Essential (primary) hypertension (principal); E11.8 Type 2 diabetes mellitus with unspecified complications; E66.01 Morbid (severe) obesity due to excess calories; Z68.42 Body mass index [BMI] 45.0-49.9, adult; R79.89 Other specified abnormal findings of blood chemistry; Z28.21 Immunization not carried out because of patient refusal; G47.33 Obstructive sleep apnea (adult) (pediatric); K76.0 Fatty (change of) liver, not elsewhere classified; R09.89 Other specified symptoms and signs involving the circulatory and respiratory systems; M79.7 Fibromyalgia

== ENCOUNTER → 2025-05-11 08:25 | Outpatient (BNVA) | payer BC, SELFPAY | PROVIDERS: PCP Nurse Practitioner Family; Visit Provider Nurse Practitioner Family | DX: I10 Essential (primary) hypertension (principal); G47.30 Sleep apnea, unspecified; E11.9 Type 2 diabetes mellitus without complications; R13.10 Dysphagia, unspecified; R10.11 Right upper quadrant pain; K76.0 Fatty (change of) liver, not elsewhere classified; R79.89 Other specified abnormal findings of blood chemistry; G47.33 Obstructive sleep apnea (adult) (pediatric); R09.89 Other specified symptoms and signs involving the circulatory and respiratory systems; M79.7 Fibromyalgia; E66.01 Morbid (severe) obesity due to excess calories; Z99.89 Dependence on other enabling machines and devices; Z28.21 Immunization not carried out because of patient refusal; Z68.42 Body mass index [BMI] 45.0-49.9, adult | CPT/HCPCS: 83036; 96127 ==

== ENCOUNTER 2025-06-07 10:40 | Outpatient (REF) | payer BC, SELFPAY ==
[2025-06-07 10:55] LABS: MANUAL DIFF FLAG NO
[2025-06-07 11:30] LABS: Hematocrit 37.7 % (37.0-47.0); Hemoglobin 12.5 g/dl (12.0-16.0); Imm Gran Abs Auto 0.06 X10*3/uL (0.00-0.03); Imm Gran Pct Auto 0.7 % (0.0-0.4); Lymphocytes Absolute Auto 1.8 X10*3/uL (1.2-4.9); Mean Corpuscular HGB Conc 33.2 g/dl (31.0-35.0); Mean Corpuscular Hemoglobin 29.6 pg (27.0-33.0); Mean Corpuscular Volume 89.1 fL (80.0-98.0); NRBC Abs Auto 0.000 X10*3/uL (0.0-0.012); NRBC Pct Auto 0.0 /100WBC (0.0-0.2); Platelet Count 228 X10*3/uL (160-400); Red Blood Count 4.23 X10*6/uL (4.20-5.50); White Blood Count 8.6 X10*3/uL (4.8-10.8)
[2025-06-07 11:59] LABS: Alanine Aminotransferase 39 U/L (0-31); Albumin Level 4.5 g/dL (3.5-5.0); Alkaline Phosphatase 107 U/L (39-117); Anion Gap 13 (12-20); Aspartate Amino Transferase 38 U/L (5-31); Blood Urea Nitrogen 12 mg/dL (9-16); Calcium 9.3 mg/dL (8.4-10.2); Carbon Dioxide 27 mmol/L (22-29); Chloride 103 mmol/L (96-108); Estimated Glomerular Filt Rate > 60; Potassium 4.2 mmol/L (3.3-5.1); Sodium 139 mmol/L (135-145); Total Protein 7.4 g/dL (6.5-8.0)
--- OUTSIDE RECORDS SUMMARY | 2025-06-07 12:17 | XMS_ITS | Encounter Summary ---
Author Organization [facility] Address [address] [place] [address] Phone Care Team Providers Care Shirt Bander Name Role Phone Vick Yuen MD Primary Care Provider Maia Diamond CNP Primary Care Provider Maia Diamond CNP Primary Care Provider Vick Yuen MD Unavailable [phone] Susie Goode MD Unavailable [phone] Melyssa Matthew-Junior Unavailable Holger Strickland MD Unavailable Holger Strickland MD Primary Care Provider [phone] Unknown, Unknown Primary Care Provider Kiara Vernon NP Primary Care Provider Encounter Details Date Type Department Care Team (Late st Contact Info) Description 11/18/2018 Procedure Pass [facility]Outside Imaging [address], [place] [id number] Social History Tobacco Use Types Packs/Day Years [...] documented as of this encounter Care Teams Shirt Bander Relationship Specialty Start Date End Date Vick Yuen MD [address] [place] [address] [email or web address] PCP - General Internal Medicine 11/03/18 04/12/19 Maia Diamond CNP [address] [place] [phone] [email or web address] PCP - General Internal Medicine 04/13/19 10/10/19 Maia Diamond CNP [address] [place] [address] [email or web address] PCP - General Internal Medicine 10/11/19 01/09/23 Holger Strickland MD [address] [place] [address] PCP - General Internal Medicine 6/16/23 11/26/23 Unknown, Unknown, MD PCP - General 06/23/23 10/13/24 Kiara Turk NP [address] [place] [phone] [email or web address] PCP - General Nurse Practitioner 10/14/24 Vick Yuen MD [address] [place] [phone] Insurance Assigned Provider 01/31/20 01/05/22 Susie Goode MD [address] [place] [address] [email or web address] Hematology and Oncology 08/13/21 Melyssa Matthew PA-C [address] [place] [address] Physician Professor Of Legal Studies Hematology 08/15/21 Holger Strickland MD [address] [place] [phone] Insurance Assigned Provider 04/06/22 04/05/23 documented as of this encounter Additional Source Comments The information contained in this document represents components of the legal health record. It is not the complete legal health record.[facility]
--- OUTSIDE RECORDS SUMMARY | 2025-06-07 12:17 | XMS_ITS | Encounter Summary ---
Author Organization [facility] Address [address] [place] [address] [place] [phone] Phone Care Team Providers Care Metal Hanging Helper Name Role Phone Maia Diamond SUPERVISOR [employer] Primary Care Provider Susie Goode MD Unavailable [phone] Melyssa Matthew PA-C Unavailable [phone] Holger Strickland MD Unavailable Holger Strickland MD Primary Care Provider Unknown, Unknown Primary Care Provider Kiara Vernon INSURANCE CLAIMS CLERK Primary Care Provider Reason for Referral * MRI/CAT Scan - Closed Specialty Diagnoses / Procedures Referred By Cecile hopper Referred To Contact Radiology Diagnoses Dizziness Numbness Procedures MRI Brain Carlos Fox MD Phone: tel: fax: [email or web address] Referral ID Status Reason Start Date Expiration Date Visits Re quested Visits Authorized [id number] Closed 03/05/2022 03/05/2023 1 1 Encounter Details Date Type Department Care Team (Latest Contact Info) Description 03/05/2022 Transcribe Orders [facility] Department [address] [place] [phone] Carlos Fox MD [address] [place] [address], [address] [place] [address] [email or web address] Dizziness (Primary Dx); Numbness Social [...] high school, GED, job training, learning the Upper Sor[place] language, technical skills, or developing parenting skills)? [...] documented as of this encounter Care Teams Metal Hanging Helper Relationship Specialty Start Date End Date Maia Diamond CNP [address] [place] [phone] [email or web address] PCP - General Internal Medicine 10/11/19 01/09/23 Holger Strickland MD [address] [place] [address] PCP - General Internal Medicine 01/10/23 06/22/23 Unknown, Vy, PCP - General 06/23/23 10/13/24 Kiara Turk, CESAAR [address] [place] [address] [facility] [place] [address] [email or web address] PCP - General Nurse Practitioner 10/14/24 Susie Goode MD [address] [place] [address] [email or web address] Hematology and Oncology 08/13/21 Melyssa Matthew PA-C [address] [place] [address] Physician Ticketing Clerk Hematology 08/15/21 Holger Strickland MD [address] [place] [address] [email or web address] Insurance Assigned Provider 04/06/22 04/05/23 documented as of this encounter Additional Source Comments The information contained in this document represents components of the legal health record. It is not the complete legal health record.[facility]
--- OUTSIDE RECORDS SUMMARY | 2025-06-07 12:17 | XMS_ITS | Encounter Summary ---
Author Organization [facility] Address [address] [place] [address] Phone Care Team Providers Care Corrosion Control Technician Name Role Phone Maia Diamond CAM SPECIALIST Primary Care Provider Vick Yuen MD Unavailable [phone] Susie Goode MD Unavailable [phone] Melyssa Matthew-C Unavailable Holger Strickland MD Unavailable Holger Strickland MD Primary Care Provider [phone] Unknown, Unknown Primary Care Provider Kiara Vernon NP Primary Care Provider Encounter Details Date Type Department Care Team (Late st Contact Info) Description 05/22/2020 Ancillary Orders [facility] Rheumatology [address] [place] [address] Dick Coles MD [address] [place] [address] [email or web address] Fibromyalgia Social History Tobacco Use Types Packs/Day [...] high school, GED, job training, learning the Cape Verdean language, technical skills, or developing parenting skills)? [...] documented as of this encounter Care Teams Corrosion Control Technician Relationship Specialty Start Date End Date Maia Diamond CNP [address] [place] [address] PCP - General Internal Medicine 10/11/19 01/09/23 Holger Strickland MD [address] [place] [address] PCP - General Internal Medicine 01/10/23 06/22/23 Unknown, Unknown, MD PCP - General 06/23/23 10/13/24 Kiara Turk, HOUSEKEEPER/CUSTODIAN/LAUNDRY WORKER [address] [place] [address] [email or web address] PCP - General Nurse Practitioner 10/14/24 Vick Yuen MD [address] [place] [address] Insurance Assigned Provider 01/31/20 01/05/22 Susie Goode MD [address] [place] [address] [email or web address] Hematology and Oncology 08/13/21 Melyssa Matthew PA-C [address] [place] [address] [email or web address] Physician Sea Air Land Officer Hematology 08/15/21 Holger Strickland MD [address] [place] [address] 17093 Insurance Assigned Provider 04/06/22 04/05/23 documented as of this encounter Additional Source Comments The information contained in this document represents components of the legal health record. It is not the complete legal health record.[facility]
--- OUTSIDE RECORDS SUMMARY | 2025-06-07 12:17 | XMS_ITS | Encounter Summary ---
Author Organization [facility] Address [address] [place] [address] Phone Care Team Providers Care Bracer Name Role Phone Maia Diamond EXPLORATION MANAGER Primary Care Provider Susie Goode MD Unavailable Melyssa Matthew PA-C Unavailable [phone] Holger Strickland MD Unavailable Holger Strickland MD Primary Care Provider [phone] Unknown, Unknown Primary Care Provider Kiara Vernon NP Primary Care Provider Encounter Details Date Type Department Care Team (Late st Contact Info) Description 03/05/2022 Procedure Pass [facility], [address] [address] Social History Tobacco Use Types Packs/Day Years [...] high school, GED, job training, learning the Liberian language, technical skills, or developing parenting skills)? [...] documented as of this encounter Care Teams Bracer Relationship Specialty Start Date End Date Maia Diamond CNP [address] [place] [address] PCP - General Internal Medicine 10/11/19 01/09/23 Holger Strickland MD [address] [place] [address] PCP - General Internal Medicine 01/10/23 06/22/23 Unknown, Vy, PCP - General 06/23/23 10/13/24 Kiara Turk NP NPI: [id number] [place] [address] [place] [address] [email or web address] PCP - General Nurse Practitioner 10/14/24 Susie Goode MD [address] [place] [address] [email or web address] Hematology and Oncology 08/13/21 Melyssa Matthew PA-C [address] [place] [address] [email or web address] Physician Car Sweeper Hematology 08/15/21 Holger Strickland MD [address] [place] [address] [email or web address] Insurance Assigned Provider 04/06/22 04/05/23 documented as of this encounter Additional Source Comments The information contained in this document represents components of the legal health record. It is not the complete legal health record.[facility]
--- OUTSIDE RECORDS SUMMARY | 2025-06-07 12:17 | XMS_ITS | Encounter Summary ---
Author Organization [facility] Address [address] [place] [address] Phone Care Team Providers Care Supervisor Underwriting Clerks Name Role Phone Maia Diamond CUT TOBACCO BULKER Primary Care Provider Maia Diamond CUT TOBACCO BULKER Primary Care Provider Vick Yuen MD Unavailable Susie Goode MD Unavailable [phone] Melyssa Matthew-C Unavailable [phone] Holger Strickland MD Unavailable Holger Strickland MD Primary Care Provider Unknown, Unknown Primary Care Provider Kiara Vernon SANITARIAN INSPECTOR Primary Care Provider Encounter Details Date Type Department Care Team (Late st Contact Info) Description 06/08/2019 Procedure Pass [place] Admitting Dept - Virtual Department [address] [place] [address] Social History Tobacco Use Types Packs/Day Years [...] high school, GED, job training, learning the Ugandan language, technical skills, or developing parenting skills)? [...] documented as of this encounter Care Teams Supervisor Underwriting Clerks Relationship Specialty Start Date End Date Maia Diamond BetsyARIANNA [address] [place], [place] [email or web address] PCP - General Internal Medicine 04/13/19 10/10/19 Dankjose Maia BetsyARIANNA [address] [place], [place] [email or web address] PCP - General Internal Medicine 10/11/19 01/09/23 Holger Strickland MD [address] [place], [place] [email or web address] PCP - General Internal Medicine 01/10/23 06/22/23 Unknown, Vy, PCP - General 06/23/23 10/13/24 Kiara Turk, CEASAR [address] [place] [address] [phone] [email or web address] PCP - General Nurse Practitioner 10/14/24 Vick Yuen MD [address] [place], [place] [email or web address] Insurance Assigned Provider 01/31/20 01/05/22 Susie Goode MD [address] [place] [address] [email or web address] Hematology and Oncology 08/13/21 Melyssa Matthew PA-C [address] [place] [address] [email or web address] Physician Ager Operator Hematology 08/15/21 Holger Strickland MD [address] [place] [address] [email or web address] Insurance Assigned Provider 04/06/22 04/05/23 documented as of this encounter Additional Source Comments The information contained in this document represents components of the legal health record. It is not the complete legal health record.[facility]
--- OUTSIDE RECORDS SUMMARY | 2025-06-07 12:18 | XMS_ITS | Encounter Summary ---
Author Organization [facility] Address [address] [place] [address] Phone Care Team Providers Care Leather Goods Assembler Name Role Phone Maia Diamond CNP Primary Care Provider Vick Yuen MD Unavailable Susie Goode MD Unavailable [phone] Melyssa Matthew-C Unavailable [phone] Holger Strickland MD Unavailable Holger Strickland MD Primary Care Provider Unknown, Unknown Primary Care Provider Kiara Vernon NP Primary Care Provider Encounter Details Date Type Department Care Team (Latest Contact Info) Description 12/06/2020 Transcribe Orders Virtual Department [address] [place] [address] Aga Noble NP [address] [place] [address] Pre-procedure lab exam (Primary Dx) Social History [...] Order (12/08/2020 12:40 PM EDT) COVID-19 Comment [id number] [facility] COVID Testing Status Sent to [facility] 12/08/2020 12:4 0 PM EDT 12/08/2020 4:43 PM EDT us Aga Noble NP LAB GENERAL ORDERABLES Fi nal Result [facility] [address] [place] [address] documented in this encounter Visit Diagnoses Diagnosis [...] documented as of this encounter Care Teams Leather Goods Assembler Relationship Specialty Start Date End Date Maia Diamond, ARIANNA [address] [place] [address] [email or web address] PCP - General Internal Medicine 10/11/19 01/09/23 Holger Strickland MD [address] [place] [address] [email or web address] PCP - General Internal Medicine 01/10/23 06/22/23 Unknown, Vy, PCP - General 06/23/23 10/13/24 Kiara Turk, CEASAR [address] [place] [address] [address] [email or web address] PCP - General Nurse Practitioner 10/14/24 Vick Yuen MD [address] [place] [address] [email or web address] Insurance Assigned Provider 01/31/20 01/05/22 Susie Goode MD [address] [place] [address] [email or web address] Hematology and Oncology 08/13/21 Melyssa Matthew PA-C [address] [place] [email or web address] Physician Department Of Sociology Chair Hematology 08/15/21 Holger Strickland MD [address] [place] [address] [email or web address] Insurance Assigned Provider 04/06/22 04/05/23 documented as of this encounter Additional Source Comments The information contained in this document represents components of the legal health record. It is not the complete legal health record.[facility]
--- OUTSIDE RECORDS SUMMARY | 2025-06-07 12:18 | XMS_ITS | Encounter Summary ---
Author Organization [facility] Address [address] [place] [address] Phone Care Team Providers Care Treadle Cut Off Saw Operator Name Role Phone Maia Diamond CNP Primary Care Provider Vick Yuen MD Unavailable Susie Goode MD Unavailable [phone] Melyssa Matthew-C Unavailable [phone] Holger Strickland MD Unavailable Holger Strickland MD Primary Care Provider Unknown, Unknown Primary Care Provider Kiara Vrenon NP Primary Care Provider Encounter Details Date Type Department Care Team (Late st Contact Info) Description 12/11/2020 Procedure Pass [facility] Admitting Dept Virtual Department [address] [place] [address] Social History Tobacco Use Types Packs/Day Years [...] high school, GED, job training, learning the Lithuanian language, technical skills, or developing parenting skills)? [...] Indicated Resolved Time CoV-Risk 08/16/2021 08/17/2021 08/18/2021 7:3 3 AM EST CoV-Exposed Comment:Positive COVID-19 08/16/2021 08/16/2021 08/18/2021 7:3 3 AM EST COVID-19 08/17/2021 08/17/2021 09/07/2021 1:22 AM EST Assessment Noted Time PHQ-2 Depression Total Score: 0 09/29/19 19 2:34 PM EST documented as of this encounter Care Teams Treadle Cut Off Saw Operator Relationship Specialty Start Date End Date Maia Diamond CNP [address] [place] [address] [email or web address] PCP - General Internal Medicine 10/11/19 01/09/23 Holger Strickland MD [address] [place] [address] PCP - General Internal Medicine 01/10/23 06/22/23 Unknown, Vy, PCP - General 06/23/23 10/13/24 Kiara Turk, CARDIAC TECHNICIAN [address] [place] [address] [address] [email or web address] PCP - General Nurse Practitioner 10/14/24 Vick Yuen MD [address] [place] [address] Insurance Assigned Provider 01/31/20 01/05/22 Susie Goode MD [address] [place] [address] [email or web address] Hematology [email or web address] [email or web address] 08/13/21 Melyssa Matthew PA-C [address] [place] [address] Physician Classified Ad Taker Hematology 08/15/21 Holger Strickland MD [address] [place] [address] Insurance Assigned Provider 04/06/22 04/05/23 documented as of this encounter Additional Source Comments The information contained in this document represents components of the legal health record. It is not the complete legal health record.[facility]
--- OUTSIDE RECORDS SUMMARY | 2025-06-07 12:18 | XMS_ITS | Encounter Summary ---
Author Organization [facility] Address [address] [place] [address] Phone Care Team Providers Care Manager Transition Name Role Phone Maia Diamond ANESTHESIOLOGY RESIDENT Primary Care Provider Susie Goode MD Unavailable [phone] Melyssa Matthew PA-C Unavailable [phone] Holger Strickland MD Unavailable Holger Strickland MD Primary Care Provider [phone] Unknown, Unknown Primary Care Provider Kiara Vernon NP Primary Care Provider Encounter Details Date Type Department Care Team (Late st Contact Info) Description 10/01/2022 Procedure Pass [facility], [address] [place] [address] Social History Tobacco Use Types Packs/Day Years [...] as of this encounter Care Teams Manager Transition Relationship Specialty Start Date End Date Maia Diamond CNP [address] [place] [address] PCP - General Internal Medicine 10/11/19 01/09/23 Holger Strickland MD [address] [place] [address] PCP - General Internal Medicine 01/10/23 06/22/23 Unknown, Vy, PCP - General 06/23/23 10/13/24 Kiara Turk NP [address] [place] [address] [place] [address] [email or web address] PCP - General Nurse Practitioner 10/14/24 Susie Goode MD [address] [place] [address] [email or web address] Hematology and Oncology 08/13/21 Melyssa Matthew PA-C [address] [place] [phone] [email or web address] Physician Magnetic Tape Composer Operator Hematology 08/15/21 Holger Strickland MD [address] [place] [address] [email or web address] Insurance Assigned Provider 04/06/22 04/05/23 documented as of this encounter Additional Source Comments The information contained in this document represents components of the legal health record. It is not the complete legal health record.[facility]
--- OUTSIDE RECORDS SUMMARY | 2025-06-07 12:18 | XMS_ITS | Encounter Summary ---
Author Organization [facility] Address [address] [place] [address] Phone Care Team Providers Care Manager Of Development Name Role Phone Maia Diamond CNP Primary Care Provider Vick Yuen MD Unavailable [phone] Susie Goode MD Unavailable [phone] Melyssa Matthew-C Unavailable Holger Strickland MD Unavailable Holger Strickland MD Primary Care Provider [phone] Unknown, Unknown Primary Care Provider Kiara Vernon NP Primary Care Provider Encounter Details Date Type Department Care Team (Latest Contact Info) Description 01/05/2021 Transcribe Orders Virtual Department [address] [place] [address] Aga Noble NP [address] [place], [place] [phone] (nonalcoholic steatohepatitis) (Primary Dx); LLQ abdominal pain; [...] high school, GED, job training, learning the Serbian language, technical skills, or developing parenting skills)? [...] in the right hepatic lobe on a [employer] ultrasound machine. 2D shear wave elastography technique [...] obtained in the righthepatic lobe on a [employer] ultrasound machine. 2D shear wave elastographytechnique was [...] are not well established. us Aga Noble FASHION COORDINATOR IMG US ABDOMEN Final Res ult documented [...] as of this encounter Care Teams Manager Of Development Relationship Specialty Start Date End Date Maia Diamond CNP [address] [place] [address] PCP - General Internal Medicine 10/11/19 01/09/23 Holger Strickland MD [address] [place] [address] PCP - General Internal Medicine 01/10/23 06/22/23 Unknown, Unknown, PCP - General 06/23/23 10/13/24 Kiara Turk NP [address] [place] [address] [email or web address] PCP - General Nurse Practitioner 10/14/24 Vick Yuen MD [address] [place] [address] [email or web address] Insurance Assigned Provider 01/31/20 01/05/22 Susie Goode MD [address] [place] [address] [email or web address] [email or web address] [email or web address] 08/13/21 Melyssa Matthew PA-C [address] [place] [address] Physician Digital Press Operator Hematology 08/15/21 Holger Strickland MD [address] [place] [address] Insurance Assigned Provider 04/06/22 04/05/23 documented as of this encounter Additional Source Comments The information contained in this document represents components of the legal health record. It is not the complete legal health record.[facility]
--- OUTSIDE RECORDS SUMMARY | 2025-06-07 12:19 | XMS_ITS | Clinical Summary ---
Author Organization [facility] Address [address] [place] [address] Phone Care Team Providers Care Social Work Manager Name Role Phone Susie Goode MD Unavailable [phone] Melyssa Matthew PA-C Unavailable Kiara Turk NP Primary Care Provider Allergies [...] subdermal nodule, will obtain a ultrasound at [facility] and see if it is a [...] HPV 05/29/2017 Overview (09/28/2018): Overview: 11/17/2014 at [facility] obgyn Marijuana use 05/12/2017 Fibromyalgia 03/11/2017 Overview (10/16/2021): Overview: Followed with infectious disease and territory account manager as well as neurologist. No history of lymes disease Followed with infectious disease and territory account manager as well as neurologist. No history [...] patient's age to complete this topic IPV VACCINES Aged Out No longer eligi ble [...] * Pap Test (09/08/2024 12:00 AM EST) Report [address] [address] Clinical Research Manager: Robin Alonso MD HEARING AID SPECIALIST Cytology Report FINAL DIAGNOSIS A. PAP SMEAR (THIN PREP) CE: SPECIMEN ADEQUACY: Satisfactory for evaluation; transformation zone present. INTERPRETATION: NEGATIVE FOR INTRAEPITHELIAL LESION OR MALIGNANCY. This specimen was analyzed by the automated ThinPrep Imaging System ([employer].) and the selected mejia were reviewed by a carburizer. Electronically Signed Out By: JEAN-PIERRE Jolley(ASCP) The [...] by real-time polymerase chain reaction (PCR) at [facility], [address] [place] [address] using the FDA-approved BD Onclarity9 HPV Assay with extended genotyping. Uses of the assay in scenarios other than those approved by the FDA should be considered off-label use. The accuracy and precision of this test for all other off-label specimen sources has been verified in the Cytopathology Laboratory of the [facility] and has not been cleared or [...] : 1985 (Age: 38) Sex: F Institution: [facility] Location: [facility] Date of Collection: 09/08/2024 Date of Reported: 09/15/2024 11:27 Results to: Bobby Pearce MD [facility] Final Diagnosis A. PAP SMEAR (THIN PREP) CE: SPECIMEN ADEQUACY: Satisfactory for evaluation; transformation zone present. INTERPRETATION: NEGATIVE FOR INTRAEPITHELIAL LESION OR MALIGNANCY. This specimen was analyzed by the automated ThinPrep Imaging System ([employer].) and the selected mejia were reviewed by a carburizer. [facility] Results\Inter pretation A. PAP SMEAR (THIN PREP) CE: High-risk HPV Panel w/ extended genotyping NEG HPV 16-NEG HPV 18-NEG HPV 45-NEG HPV 33/58-NEG HPV 31-NEG HPV 56/59/66-NEG HPV 51-NEG HPV 52-NEG HPV 35/39/68-NEG Performed by real-time polymerase chain reaction (PCR) at [facility], [address] [place] [address] using the FDA-approved BD Onclarity HPV Assay with extended genotyping. Uses of the assay in scenarios other than those approved by the FDA should be considered off-label use. The accuracy and precision of this test for all other off-label specimen sources has been verified in the Cytopathology Laboratory of the [facility] and has not been cleared or approved by the U.S. Food and Drug Administration. Clinical correlation is advised. The assay assesses the E6/E7 DNA target and utilizes human beta globin as an internal control. Cytology and HPV testing are screening assays and should not be used as the sole means of detecting cancer. False-positives and false-negatives can occur. [facility] Conversion Type (Conversion Source) 09/08/2024 09/09/2024 9:32 AM EST Bobby Pearce MD CYTOLOGY ORDERABLES Edited Resul t - Final Performing Organization Address City/[facility]/ZIP Co de Phone Number [address] [address] * Hepatitis C antibody, qualitative (11/06/2022 1:58 PM EDT) HCV NON-REACTIV E NON-REACTI VE [facility] Blood 11/06/2022 1:58 PM EDT 11/06/2022 2:06 PM EDT Maia Diamond PAROLE OR PROBATION OFFICER LAB BLOOD BKR ORDERABL ES Final Result Performing Organization Address City/[facility]/ZIP Co de Phone Number [address] [address] * (ABNORMAL) Glucose (10/16/2018 9:39 AM EDT) GLUCOSE 105(H) 70 - 99 mg/dL [facility] Blood 10/16/2018 9:39 AM EDT 10/16/2018 9:44 AM EDT Fernando Srinivasan MD LAB BLOOD BKR ORDERABLES Final Result [facility] [address] [place] [address] from Last 3 Months or Most Recently Relevant to Health Maintenance Insurance [facility] [[email or web address]] POS Member Subscriber Plan / Payer (Ef fective 2024-Present) Name:Scott Shore Relation to Subscriber:Self Name:Scott Shore Payer ID:[id number] (NAIC) Type:O Address: [facility] [id number] [facility] [place] [place] [address] [place] [address] [facility] [place] [address] [place] [address] [facility] [[email or web address]] POS [facility] [[email or web address]] POS Member Subscriber Plan / Payer (Ef fective 2024-Present) Name:Scott Shore Relation to Subscriber:Self Name:Scott Shore Payer ID:[id number] (NAIC) Type:O Address: [facility] [id number] [address] [facility] [[email or web address]] POS [facility] Advance Directives For more information, please contact: [phone] (9AM - 5PM [facility], Friday-Friday) * Full Code (Latest Code Status on File) Date Activated Date Inactivated Comments 12/28/2020 11:33 AM Question Answer Comments Code Status Confirmed With: Patient * Full Code (Presumed) Date Activated Date Inactivated Comments 06/08/2019 12:19 PM 06/08/2019 6:25 PM Care Teams Social Work Manager Relationship Specialty Start Date End Date Kiara Turk NP [address] [place] [address] [facility] [place] [address] [email or web address] PCP - General Nurse Practitioner 10/14/24 Susie Goode MD [address] [place] [address] [email or web address] Hematology and Oncology 08/13/21 Melyssa Matthew PA-C [address] [place] [email or web address] Physician Parimutuel Ticket Checker Hematology 08/15/21 Additional Source Comments The information contained in this document represents components of the legal health record. It is not the complete legal health record.[facility]
--- OUTSIDE RECORDS SUMMARY | 2025-06-07 12:19 | XMS_ITS | Encounter Summary ---
Author Organization [facility] Address [address] [place] [address] Phone Care Team Providers Care Economic Development Coordinator Name Role Phone Maia Diamond CNP Primary Care Provider Vick Yuen MD Unavailable Susie Goode MD Unavailable [phone] Melyssa Matthew-C Unavailable [phone] Holger Strickland MD Unavailable Holger Strickland MD Primary Care Provider Unknown, Unknown Primary Care Provider Kiara Vernon NP Primary Care Provider Encounter Details Date Type Department Care Team (Late st Contact Info) Description 05/17/2020 Procedure Pass [facility], Ct Scan - [address] [address] Social History Tobacco Use Types Packs/Day Years [...] documented as of this encounter Care Teams Economic Development Coordinator Relationship Specialty Start Date End Date Maia Diamond CNP [address] [place] [address] [email or web address] PCP - General Internal Medicine 10/11/19 01/09/23 Holger Strickland MD [address] [place] [address] PCP - General Internal Medicine 01/10/23 06/22/23 Unknown, Vy, PCP - General 06/23/23 10/13/24 Kiara Turk, LUMBER PLANER [address] [place] [address] [address] [email or web address] PCP - General Nurse Practitioner 10/14/24 Vick Yuen MD [address] [place] [address] Insurance Assigned Provider 01/31/20 01/05/22 Susie Goode MD [address] [place] [address] [email or web address] 08/13/21 Melyssa Matthew PA-C [address] [place] [address] Physician Underground Production Foreperson Hematology 08/15/21 Holger Strickland MD [address] [place] [address] Insurance Assigned Provider 04/06/22 04/05/23 documented as of this encounter Additional Source Comments The information contained in this document represents components of the legal health record. It is not the complete legal health record.[facility]
--- OUTSIDE RECORDS SUMMARY | 2025-06-07 12:19 | XMS_ITS | Encounter Summary ---
Author Organization [facility] Address [address] [place] [address] Phone Care Team Providers Care Hosiery Pairer Name Role Phone Susie Goode MD Unavailable [phone] Melyssa Matthew PA-C Unavailable [phone] Unknown, Unknown Primary Care Provider Kiara Vernon ENERGY DERIVATIVES TRADER Primary Care Provider Encounter Details Date Type Department Care Team (Late st Contact Info) Description 09/08/2024 Procedure Pass [facility] - [address] [place] [address] Social History Tobacco Use Types Packs/Day Years [...] documented as of this encounter Care Teams Hosiery Pairer Relationship Specialty Start Date End Date Unknown, Unknown, MD PCP - General 06/23/23 10/13/24 Kiara Turk NP [address] [place] [address] [place] [address] [email or web address] PCP - General Nurse Practitioner 10/14/24 Susie Goode MD [address] [place] [address] [email or web address] and Oncology 08/13/21 Melyssa Matthew PA-C [address] [place] [address] [email or web address] Physician Tax Technician Hematology 08/15/21 documented as of this encounter Additional Source Comments The information contained in this document represents components of the legal health record. It is not the complete legal health record.[facility]
--- OUTSIDE RECORDS SUMMARY | 2025-06-07 12:19 | XMS_ITS | Clinical Summary ---
Author Organization [facility] Address [address] [place] [address] Care Team Providers Care Oven Operator Automatic Name Role Phone Akosua Kaplan MD Primary Care Provider [phone] Surgical History Surgery Date Site/Laterality Comments APPENDECTOMY [...] obesity wit h BMI of 45.0-49.9, adult ([facility]) Fibromyalgia 03/11/2017 DX:Fibromyalgia; COMMENT: Followed with infectious disease and energy audit advisor as well as neurologist. No history of lymes disease Marijuana use 05/12/2017 DX:Marijuana use Prehypertension 05/12/2017 DX:Prehypertensi on ASCUS with positive high risk HPV 05/29/2017 DX:ASCUS with positive high risk HPV; COMMENT: 11/17/2014 at [facility] obn Rectal bleeding 10/10/2017 DX:Rectal bleedi ng; [...] Depression Screening 07/28/2024 COVID-19 Vaccine ( - 2024-2 6 season) 2025 Influenza Vaccine (#1) 2025 RSV [...] RESULTING AGENCY - 10/13/2017 3:49 PM EDT [id number] THINPREP PAP, IMAGED: NEGATIVE FOR SQUAMOUS INTRAEPITHELIAL LESION AND MALIGNANCY . RESULT OF APTIMA HIGH RISK HPV ASSAY: NEGATIVE (SEROTYPES 16,18,31,33,35,39,45,51,52,56,58,59,66,68) JEAN-PIERRE NOLAN(ASCP) (CASE ELECTRONICALLY SIGNED 10 13 2017) ADEQUACY: SATISFACTORY. ENDOCERVICAL/TRANSFORMATION ZONE COMPONENT PRESENT. SOURCE: THINPREP PAP HPV ANY DX: REFLEX 16 AND 18, CERVICAL, IMAGED: CLINICAL INFORMATION: HPV ANY DIAGNOSIS. PAP HX NEG [Z12.4, Z01.419] Maria Brady [facility] LAB CYTOLOGY ORDERABLES Final R esult HISTORICAL TESTING LAB RESULTING AGENCY from Last 3 Months or Most Recently Relevant to Health Maintenance Care Teams Oven Operator Automatic Relationship Specialty Start Date End Date Akosua Kaplan MD PCP - General Internal Medicine 02/17/17
--- OUTSIDE RECORDS SUMMARY | 2025-06-07 12:19 | XMS_ITS | Encounter Summary ---
Author Organization [facility] Address [address] [facility] [address] [place] [address] Phone Care Team Providers Care Prn Physical Therapist Name Role Phone Susie Goode MD Unavailable [phone] Melyssa Matthew PA-C Unavailable [phone] Unknown, Unknown Primary Care Provider Kiara Vernon SENIOR STRATEGY MANAGER Primary Care Provider Encounter Details Date Type Department Care Team (Late st Contact Info) Description 09/08/2024 Procedure Pass [facility] - [address] [place] [address] Social History Tobacco Use Types Packs/Day Years [...] documented as of this encounter Care Teams Prn Physical Therapist Relationship Specialty Start Date End Date Unknown, Unknown, MD PCP - General 06/23/23 10/13/24 Kiara Turk NP [address] [place] [address] Dr [facility] [place] [address] [email or web address] PCP - General Nurse Practitioner 10/14/24 Susie Goode MD [address] [place] [address] [email or web address] 08/13/21 Melyssa Matthew PA-C [address] [place] [address] [email or web address] Physician Customer Loyalty Representative Hematology 08/15/21 documented as of this encounter Additional Source Comments The information contained in this document represents components of the legal health record. It is not the complete legal health record.[facility]
--- OUTSIDE RECORDS SUMMARY | 2025-06-07 12:19 | XMS_ITS | Encounter Summary ---
Author Organization [facility] Address [address] [place] [address] Phone Care Team Providers Care Daycare Director Name Role Phone Maia Diamond PRECINCT I POLICE SERGEANT Primary Care Provider Vick Yuen MD Unavailable Susie Goode MD Unavailable [phone] Melyssa Matthew-C Unavailable Holger Strickland MD Unavailable Holger Strickland MD Primary Care Provider Unknown, Unknown Primary Care Provider Kiara Vernon NP Primary Care Provider Encounter Details Date Type Department Care Team (Latest Contact Info) Description 12/06/2020 Transcribe Orders [facility] [address] [facility] [address] [place], [place] [id number] Aga Noble NP [address] [place] [address] Rectal bleeding (Primary Dx); Generalized abdominal pain [...] high school, GED, job training, learning the Tunisian language, technical skills, or developing parenting skills)? [...] AM EDT) Calprotectin, stool <27.1 <50.0 mcg/g [facility] Calprotectin Interp Negative Negative [facility] Stool (Stool) 12/14/2020 11: 31 AM EDT 12/14/2020 11:33 AM EDT Aga Noble NP LAB BODY FLUIDS AND STOOL ORDERABLES Final Result [facility] [address] [place] [address] * Hepatitis B core antibody, total (12/06/2020 1:34 PM EDT) HEP B CORE AB, TOT NON-REACTI VE NON-REACTI VE [facility] Blood 12/06/2020 1:34 PM EDT 12/06/2020 1:45 PM EDT Aga Noble TRACK INSPECTING SUPERVISOR LAB BLOOD BKR ORDERABLES Final Result Performing Organization Address City/[facility]/ZIP Co de Phone Number [address] [address] * CPK (creatine kinase) (12/06/2020 1:34 PM EDT) Pathologist [facility] CREATINE KINASE 88 21 - 215 U/L [facility] Blood 12/06/2020 1:34 PM EDT 12/06/2020 1:45 PM EDT Aga Noble NP LAB BLOOD BKR ORDERABLES Final Result Performing Organization Address [facility]/ZIP Co de Phone Number [address] [address] * (ABNORMAL) Ferritin (12/06/2020 1:34 PM EDT) Pathologist [facility] FERRITIN 204(H) 13 - 150 ug/L [facility] Blood 12/06/2020 1:34 PM EDT 12/06/2020 1:45 PM EDT Aga Noble NP LAB BLOOD BKR ORDERABLES Final Result Performing Organization Address [facility] [[email or web address]] Co de Phone Number [address] [address] * Iron and iron binding capacity (12/06/2020 1:34 PM EDT) IRON 72 30 - 160 ug/dL [facility] IRON BINDING CAPACITY 312 228 - 428 ug/dL [facility] TRANSFERRIN SATURAT. 23 15 - 50 % [facility] Blood 12/06/2020 1:34 PM EDT 12/06/2020 1:45 PM EDT us Aga Noble NP LAB BLOOD BKR ORDERABLES Final Result Performing Organization Address [facility] de Phone Number [address] [address] * Hepatitis C antibody, qualitative (12/06/2020 1:34 PM EDT) HCV NON-REACTIV E NON-REACTI VE [facility] Blood 12/06/2020 1:34 PM EDT 12/06/2020 1:45 PM EDT Aga Noble NP LAB BLOOD BKR ORDERABLES Final Result Performing Organization Address [facility] Number [address] [address] * Hepatitis B surface antigen (12/06/2020 1:34 PM EDT) HBV SURFACE ANTIGEN NON-REACTI VE NON-REACTI VE [facility] Blood 12/06/2020 1:34 PM EDT 12/06/2020 1:45 PM EDT Aga Noble NP LAB BLOOD BKR ORDERABLES Final Result Performing Organization Address [facility] de Phone Number [address] [address] * Hepatitis B surface antibody (12/06/2020 1:34 PM EDT) HBV SURFACE ANTIBODY Negative [facility] Comment: Unvaccinated: Negative Vaccinated: Positive Blood 12/06/2020 1:34 PM EDT 12/06/2020 1:45 PM EDT Aga Noble NP LAB BLOOD BKR ORDERABLES Final Result [address] [address] * HEPATITIS A ANTIBODY, TOTAL (12/06/2020 1:34 PM EDT) [facility] HAV TOTAL AB NON-REACTI VE NON-REACTI VE [facility] Blood 12/06/2020 1:34 PM EDT 12/06/2020 1:45 PM EDT Aga Noble NP LAB BLOOD BKR ORDERABLES Final Result Performing Organization Address [facility]/ZIP Co de Phone Number [address] [address] * (ABNORMAL) C-Reactive Protein (12/06/2020 1:34 PM EDT) [facility] C REACTIVE PROTEIN 24.9(H) 0.0 - 4.0 mg/L [facility] Blood 12/06/2020 1:34 PM EDT 12/06/2020 1:45 PM EDT Aga Noble NP LAB BLOOD BKR ORDERABLES Final Result Performing Organization Address [facility]/ZIP Co de Phone Number [address] [address] * (ABNORMAL) Comprehensive metabolic panel (12/06/2020 1:34 PM EDT) [facility] SODIUM 139 133 - 146 mmol/L [facility] POTASSIUM 4.2 3.3 - 5.1 mmol/L [facility] CHLORIDE 103 96 - 108 mmol/L [facility] CO2 23 21 - 35 mmol/L [facility] BUN 8 6 - 19 mg/dL [facility] CREATININE 0.60 0.5 - 1.5 mg/dL [facility] GLUCOSE 113(H) 70 - 99 mg/dL [facility] ALBUMIN 4.3 3.9 - 4.8 g/dL [facility] TOTAL PROTEIN 7.5 6.5 - 8.0 g/dL [facility] CALCIUM 9.7 8.4 - 10.3 mg/dL [facility] ALKALINE PHOSPHATASE 117 39 - 117 U/L [facility] TOTAL BILIRUBIN 0.4 0.0 - 1.2 mg/dL [facility] AST 48(H) 0 - 37 U/L [facility] ALT 41(H) 0 - 40 U/L [facility] GLOBULIN 3.2 1 - 4.8 g/dL [facility] EGFR 120 >59 mL/min/1.7 3m2 [facility] Comment:Estimated glomerular filtration rate calculated using the CKD-EPI equation. ANION GAP 17 10 - 20 mmol/L [facility] Blood 12/06/2020 1:34 PM EDT 12/06/2020 1:45 PM EDT Aga Noble NP LAB BLOOD BKR ORDERABLES Final Result Performing Organization Address City/[facility]/ZIP Co de Phone Number [facility] [address] [place] [address] * Ceruloplasmin (12/06/2020 1:34 PM EDT) CERULOPLASMIN 38 20 - 60 mg/dL [facility] Blood 12/06/2020 1:34 PM EDT 12/06/2020 1:44 PM EDT Aga Noble NP LAB BLOOD ORDERABLES Roro l Result [facility] [address] [place] [address] * Tissue transglutaminase IgA (12/06/2020 1:34 PM EDT) TTG IGA ANTIBODY <1.2 <4.0 (Negative) U/mL [facility] Blood 12/06/2020 1:34 PM EDT 12/06/2020 1:45 PM EDT Aga Noble NP LAB BLOOD BKR ORDERABLES Final Result [facility] [place] [address] * Smooth Muscle Antibody (12/06/2020 1:34 PM EDT) SMOOTH MUSCLE AB POSITIVE AT 1:40 [facility] Comment:Normal: Negative at 1:20 Blood 12/06/2020 1:34 PM EDT 12/06/2020 1:44 PM EDT Aga Noble TRACK INSPECTING SUPERVISOR LAB BLOOD ORDERABLES Roro l Result Performing Organization Address [facility]/ZIP Co de Phone Number [address] [address] * Antinuclear antibody (CHRISSIE) (12/06/2020 1:34 PM EDT) CHRISSIE SCREEN ON HEP 2 Negative Negative [facility] Blood 12/06/2020 1:34 PM EDT 12/06/2020 1:45 PM EDT Aga Noble TRACK INSPECTING SUPERVISOR LAB BLOOD BKR ORDERABLES Final Result Performing Organization Address [facility] [[email or web address]] Co de Phone Number [facility] [address] [place] [address] * Anti-Mitochondrial Antibody (AMA) (12/06/2020 1:34 PM EDT) MITOCHONDRIAL AB NEGATIVE AT 1:20 [facility] Comment:Normal: Negative at 1:20 Blood 12/06/2020 1:34 PM EDT 12/06/2020 1:44 PM EDT Aga Noble TRACK INSPECTING SUPERVISOR LAB BLOOD ORDERABLES Roro l Result Performing Organization Address [facility] [[email or web address]] Co de Phone Number [address] [address] * Qawnp-9-eqynnzviphf phenotyping (12/06/2020 1:34 PM EDT) ALPHA 1 ANTITRYPSIN 167 100 - 190 mg/dL [facility] Comment: (NOTE) ADDITIONAL INFORMATION Method: Nephelometry A1A PHENOTYPE MM bands [facility] Comment: (NOTE) ADDITIONAL INFORMATION Method: Isoelectric Focusing, This assay identifies the phenotype of the circulating shnro-3-ovwomjunkrd (A1A) protein. If the patient is on replacement therapy or has been recently transfused, the phenotype will detect patient and replacement or transfused plasma A1A protein. This test also cannot detect a null allele which could be responsible for an A1A deficiency. Blood 12/06/2020 1:34 PM EDT 12/06/2020 1:45 PM EDT Aga Noble TRACK INSPECTING SUPERVISOR LAB BLOOD ORDERABLES Roro l Result [facility] MED/[address] [place] [address] documented in this encounter Visit Diagnoses Diagnosis [...] documented as of this encounter Care Teams Daycare Director Relationship Specialty Start Date End Date Maia Diamond CNP [address] [place] [address] [email or web address] PCP - General Internal Medicine 10/11/19 01/09/23 Holger Strickland MD [address] [place] [address] PCP - General Internal Medicine 01/10/23 06/22/23 Unknown, Vy, PCP - General 06/23/23 10/13/24 Kiara Turk, TRACK INSPECTING SUPERVISOR [address] [place] [address] [facility] [place] [address] [email or web address] PCP - General Nurse Practitioner 10/14/24 Vick Yuen MD [address] [place] [address] [email or web address] Insurance Assigned Provider 01/31/20 01/05/22 Susie Goode MD [address] [place] [address] [email or web address] Hematology and Oncology 08/13/21 Melyssa Matthew PA-C [address] [place] [address] [email or web address] Physician Desizing Machine Offbearer Hematology 08/15/21 Holger Strickland MD [address] [place] [address] [email or web address] Insurance Assigned Provider 04/06/22 04/05/23 documented as of this encounter Additional Source Comments The information contained in this document represents components of the legal health record. It is not the complete legal health record.[facility]
--- OUTSIDE RECORDS SUMMARY | 2025-06-07 12:19 | XMS_ITS | Encounter Summary ---
Author Organization [facility] Address [address] [place] [address] [place] [address] Phone Care Team Providers Care Collections Officer Name Role Phone Maia Diamond MOTORCYCLE MECHANIC Primary Care Provider Susie Goode MD Unavailable [phone] Melyssa Matthew PA-C Unavailable [phone] Holger Strickland MD Unavailable Holger Strickland MD Primary Care Provider [phone] Unknown, Unknown Primary Care Provider Kiara Vernon NP Primary Care Provider Encounter Details Date Type Department Care Team (Late st Contact Info) Description 11/25/2022 Procedure Pass [facility], Ct Scan - [address] [address] Social History Tobacco Use Types Packs/Day Years [...] high school, GED, job training, learning the Turkish language, technical skills, or developing parenting skills)? [...] documented as of this encounter Care Teams Collections Officer Relationship Specialty Start Date End Date Maia Diamond CNP [address] [place] [address] PCP - General Internal Medicine 10/11/19 01/09/23 Holger Strickland MD [address] [place] [address] PCP - General Internal Medicine 01/10/23 06/22/23 Unknown, Unknown, PCP - General 06/23/23 10/13/24 Kiara Turk, FISH DRIER [address] [place] [address] [address] [email or web address] PCP - General Nurse Practitioner 10/14/24 Susie Goode MD [address] [place] [phone] [email or web address] 08/13/21 Melyssa Matthew PA-C [address] [place] [address] Physician Veneer Gluer Hematology 08/15/21 Holger Strickland MD [address] [place] [address] [email or web address] Insurance Assigned Provider 04/06/22 04/05/23 documented as of this encounter Additional Source Comments The information contained in this document represents components of the legal health record. It is not the complete legal health record.[facility]
--- OUTSIDE RECORDS SUMMARY | 2025-06-07 12:19 | XMS_ITS | Encounter Summary ---
Author Organization [facility] Address [address] [place] [address] [place] [address] Phone Care Team Providers Care Relay Shop Supervisor Name Role Phone Susie Goode MD Unavailable Melyssa Matthew PA-C Unavailable [phone] Holger Strickland MD Unavailable Holger Strickland MD Primary Care Provider [phone] Unknown, Unknown Primary Care Provider Kiara Vernon NP Primary Care Provider Encounter Details Date Type Department Care Team (Late st Contact Info) Description 03/13/2023 Procedure Pass [facility] - [address] [place] [address] Social History Tobacco Use Types Packs/Day Years [...] documented as of this encounter Care Teams Relay Shop Supervisor Relationship Specialty Start Date End Date Holger Strickland MD [address] [place] [address] PCP - General Internal Medicine 01/10/23 06/22/23 Unknown, Vy, PCP - General 06/23/23 10/13/24 Kiara Truk NP [address] [place] [address] [facility] [place] [address] [email or web address] PCP - General Nurse Practitioner 10/14/24 Susie Goode MD [address] [place] [address] [email or web address] 08/13/21 Melyssa Matthew PA-C [address] [place] [address] Physician Conduit Cleaner Hematology 08/15/21 Holger Strickland MD [address] [place] [address] [email or web address] Insurance Assigned Provider 04/06/22 04/05/23 documented as of this encounter Additional Source Comments The information contained in this document represents components of the legal health record. It is not the complete legal health record.[facility]
--- OUTSIDE RECORDS SUMMARY | 2025-06-07 12:19 | XMS_ITS | Encounter Summary ---
Author Organization [facility] Address [address] [place] [address] Phone Care Team Providers Care Mixer Operator Vacuum Pan Salt Name Role Phone Vick Yuen MD Primary Care Provider Maia Diamond CNP Primary Care Provider Maia Diamond CNP Primary Care Provider Vick Yuen MD Unavailable [phone] Susie Goode MD Unavailable [phone] Melyssa Matthew-Junior Unavailable Holger Strickland MD Unavailable Holger Strickland MD Primary Care Provider [phone] Unknown, Unknown Primary Care Provider Kiara Vernon NP Primary Care Provider Reason for Referral * MRI/CAT Scan - Closed Specialty Diagnoses / Procedures Referred By Cecile hopper Referred To Contact Procedures MRI Brain Outside (No Interpretation) System, Provider Not In, PhD [address] [address] Referral ID Status Reason Start Date Expiration Date Visits Re quested Visits Authorized [id number] Closed 11/18/2018 11/18/2019 1 1 Encounter Details Date Type Department Care Team (Late st Contact Info) Description 11/18/2018 Ancillary Orders [facility],Outside Imaging [address] [place] [address] System, Provider Not In, PhD Partners [address] [address] Social History Tobacco Use Types Packs/Day Years [...] documented as of this encounter Care Teams Mixer Operator Vacuum Pan Salt Relationship Specialty Start Date End Date Vick Yuen MD [address] [place] [address] [email or web address] PCP - General Internal Medicine 11/03/18 04/12/19 Maia Diamond CNP [address] [place] [address] [email or web address] PCP - General Internal Medicine 04/13/19 10/10/19 Maia Diamond, ARIANNA [address] [place] [address] [email or web address] PCP - General Internal Medicine 10/11/19 01/09/23 Holger Strickland MD [address] [place] [address] [email or web address] PCP - General Internal Medicine 01/10/23 06/22/23 Unknown, Vy, PCP - General 06/23/23 10/13/24 Kiara Turk, CEASAR [address] [place] [address] [phone] [email or web address] PCP - General Nurse Practitioner 10/14/24 Vick Yuen MD [address] [place] [address] [email or web address] Insurance Assigned Provider 01/31/20 01/05/22 Susie Goode MD [address] [place] [address] [email or web address] H[facility] On[facility] 08/13/21 Melyssa Matthew PA-C [address] [place] [address] [email or web address] Physician Patient Services Manager Hematology 08/15/21 Holger Strickland MD [address] [place] [address] [email or web address] Insurance Assigned Provider 04/06/22 04/05/23 documented as of this encounter Additional Source Comments The information contained in this document represents components of the legal health record. It is not the complete legal health record.[facility]
--- OUTSIDE RECORDS SUMMARY | 2025-06-07 12:19 | XMS_ITS | Encounter Summary ---
Author Organization [facility] Address [address] [place] [address] Phone Care Team Providers Care Snuff Box Finisher Name Role Phone Vick Yuen MD Primary Care Provider Maia Diamond CNP Primary Care Provider Maia Diamond CNP Primary Care Provider Vick Yuen MD Unavailable Susie Goode MD Unavailable [phone] Melyssa Matthew-Junior Unavailable Holger Strickland MD Unavailable Holger Strickland MD Primary Care Provider Unknown, Unknown Primary Care Provider Kiara Vernon NP Primary Care Provider Encounter Details Date Type Department Care Team (Late st Contact Info) Description 11/12/2018 Procedure Pass [facility], [address] [address] Social History Tobacco Use Types Packs/Day Years [...] documented as of this encounter Care Teams Snuff Box Finisher Relationship Specialty Start Date End Date Vick Yuen MD [address] [place] [address] [email or web address] PCP - General Internal Medicine 11/03/18 04/12/19 Maia Diamond CNP [address] [place] [address] [email or web address] PCP - General Internal Medicine 04/13/19 10/10/19 Maia Diamond CNP [address] [place] [address] [email or web address] PCP - General Internal Medicine 10/11/19 01/09/23 Holger Strickland MD [address] [place] [address] PCP - General Internal Medicine 01/10/23 06/22/23 Unknown, Vy, PCP - General 06/23/23 10/13/24 Kiara Turk NP [address] [place] [address] [email or web address] PCP - General Nurse Practitioner 10/14/24 Vick Yuen MD [address] [place] [address] Insurance Assigned Provider 01/31/20 01/05/22 Susie Goode MD [address] [place] [address] [email or web address] 08/13/21 Melyssa Matthew PA-C [address] [place] [address] Physician Joint Finisher Hematology 08/15/21 Holger Strickland MD [address] [place] [address] [email or web address] Insurance Assigned Provider 04/06/22 04/05/23 documented as of this encounter Additional Source Comments The information contained in this document represents components of the legal health record. It is not the complete legal health record.[facility]
--- OUTSIDE RECORDS SUMMARY | 2025-06-07 12:19 | XMS_ITS | Encounter Summary ---
Author Organization [facility] Address [address] [place] [address] Phone Care Team Providers Care Forestry Pilot Name Role Phone Maia Diamond MOLASSES AND CARAMEL OPERATOR Primary Care Provider Susie Goode MD Unavailable [phone] Melyssa Matthew PA-C Unavailable [phone] Holger Strickland MD Unavailable Holger Strickland MD Primary Care Provider [phone] Unknown, Unknown Primary Care Provider Kiara Vernon NP Primary Care Provider Encounter Details Date Type Department Care Team (Late st Contact Info) Description 11/06/2022 Procedure Pass [address] [address] Social History Tobacco Use Types Packs/Day Years [...] high school, GED, job training, learning the German language, technical skills, or developing parenting skills)? [...] documented as of this encounter Care Teams Forestry Pilot Relationship Specialty Start Date End Date Maia Diamond CNP [address] [place] [address] PCP - General Internal Medicine 10/11/19 01/09/23 Holger Strickland MD [address] [place] [address] PCP - General Internal Medicine 01/10/23 06/22/23 Unknown, Unknown, PCP - General 06/23/23 10/13/24 Kiara Turk, RESUME WRITER [address] [place] [address] [email or web address] PCP - General Nurse Practitioner 10/14/24 Susie Goode MD [address] [place] [address] [email or web address] 08/13/21 Melyssa Matthew PA-C [address] [place] [email or web address] Physician Snuff Blender Hematology 08/15/21 Holger Strickland MD [address] [place] [address] [email or web address] Insurance Assigned Provider 04/06/22 04/05/23 documented as of this encounter Additional Source Comments The information contained in this document represents components of the legal health record. It is not the complete legal health record.[facility]
--- OUTSIDE RECORDS SUMMARY | 2025-06-07 12:19 | XMS_ITS | Encounter Summary ---
Author Organization [facility] Address [address] [place] [address] Phone Care Team Providers Care Lease Attendant Name Role Phone Maia Diamond CNP Primary Care Provider Vick Yuen MD Unavailable Susie Goode MD Unavailable [phone] Melyssa Matthew-C Unavailable [phone] Holger Strickland MD Unavailable Holger Strickland MD Primary Care Provider [phone] Unknown, Unknown Primary Care Provider Kiara Vernon NP Primary Care Provider Encounter Details Date Type Department Care Team (Late st Contact Info) Description 12/28/2020 Procedure Pass [place] Admitting Dept - Virtual Department [address] [place] [address] Social History Tobacco Use Types Packs/Day Years [...] high school, GED, job training, learning the Pashto language, technical skills, or developing parenting skills)? [...] documented as of this encounter Care Teams Lease Attendant Relationship Specialty Start Date End Date Maia Diamond CNP [address] [place] [address] [email or web address] PCP - General Internal Medicine 10/11/19 01/09/23 Holger Strickland MD [address] [place] [address] PCP - General Internal Medicine 01/10/23 06/22/23 Unknown, Vy, PCP - General 06/23/23 10/13/24 Kiara Turk, TERMITE CONTROL REPRESENTATIVE [address] [place] [address] [address] [email or web address] PCP - General Nurse Practitioner 10/14/24 Vick Yuen MD [address] [place] [address] Insurance Assigned Provider 01/31/20 01/05/22 Susie Goode MD [address] [place] [address] [email or web address] 08/13/21 Melyssa Matthew PA-C [address] [place] [address] Physician Media Consultant Hematology 08/15/21 Holger Strickland MD [address] [place] [address] Insurance Assigned Provider 04/06/22 04/05/23 documented as of this encounter Additional Source Comments The information contained in this document represents components of the legal health record. It is not the complete legal health record.[facility]
[2025-06-13 11:58] LABS: Anti Nuclear Antibody Pattern Nuclear, Speckled; Anti Nuclear Antibody Screen POSITIVE (NEGATIVE); Anti Nuclear Antibody Titer 1:320 titer
== END 2025-06-07 10:41 | disposition home or self-care (01) ==
LOC: HO.LAB 10:40
PROVIDERS: PCP Nurse Practitioner Family; Visit Provider Allergy & Immunology
DX: Z01.84 Encounter for antibody response examination (principal); M25.50 Pain in unspecified joint; M79.10 Myalgia, unspecified site
CPT/HCPCS: 36415; 80053; 82085; 82550; 85025; 85652; 86038; 86039; 86140; 86160; 86200; 86225

== ENCOUNTER 2025-06-15 10:27 | Outpatient (REF) | payer BC, SELFPAY ==
--- NOTE | ~2025-06-15 | FL_ITS ---
EXAMINATION: XR BARIUM SWALLOW CLINICAL INFORMATION: R09.89 - Other specified symptoms and signs involving the circulatory an... COMPARISON: None available. TECHNIQUE: Fluoroscopic guidance was provided for modified barium swallow performed by the speech and hearing department. Patient was administered thin liquid barium, barium mixed with applesauce and barium mixed with cookie. Barium tablet was also administered. FINDINGS: No aspiration penetration or retention seen with any media. Barium tablet passed freely into the stomach. FLUOROSCOPY TIME: 26 seconds DOSE AREA PRODUCT: 413 uGy-m2 (microgray-meter squared) FL/FL Modified Barium Swallow IMPRESSION: Unremarkable examination. Electronically signed by: Briana Casillas MD 06/15/2025 12:17 PM [facility]
--- OUTSIDE RECORDS SUMMARY | 2025-06-15 20:15 | XMS_ITS | Encounter Summary ---
Author Organization [facility] Address [address] [place] [address] Phone Care Team Providers Care Technical Instructor Course Developer Name Role Phone Maia Diamond SIZING END BANDER Primary Care Provider Susie Goode MD Unavailable Melyssa Matthew PA-C Unavailable [phone] Holger Strickland MD Unavailable Holger Strickland MD Primary Care Provider [phone] Unknown, Unknown Primary Care Provider Kiara Vernon NP Primary Care Provider Encounter Details Date Type Department Care Team (Late st Contact Info) Description 03/05/2022 Procedure Pass [facility], [address] [address] Social History Tobacco Use Types Packs/Day Years [...] high school, GED, job training, learning the Honduran language, technical skills, or developing parenting skills)? [...] documented as of this encounter Care Teams Technical Instructor Course Developer Relationship Specialty Start Date End Date Maia Diamond CNP [address] [place] [address] PCP - General Internal Medicine 10/11/19 01/09/23 Holger Strickland MD [address] [place] [address] PCP - General Internal Medicine 01/10/23 06/22/23 Unknown, Vy, PCP - General 06/23/23 10/13/24 Kiara Turk NP NPI: [id number] [place] [address] [place] [address] [email or web address] PCP - General Nurse Practitioner 10/14/24 Susie Goode MD [address] [place] [address] [email or web address] Hematology and Oncology 08/13/21 Melyssa Matthew PA-C [address] [place] [address] [email or web address] Physician Web Application Developer Hematology 08/15/21 Holger Strickland MD [address] [place] [address] [email or web address] Insurance Assigned Provider 04/06/22 04/05/23 documented as of this encounter Additional Source Comments The information contained in this document represents components of the legal health record. It is not the complete legal health record.[facility]
--- OUTSIDE RECORDS SUMMARY | 2025-06-15 20:15 | XMS_ITS | Encounter Summary ---
Author Organization [facility] Address [address] [place] [address] [place] [address] Phone Care Team Providers Care Communication Equipment Mechanic Name Role Phone Maia Diamond REFRIGERATION SYSTEMS INSTALLER Primary Care Provider Susie Goode MD Unavailable [phone] Melyssa Matthew PA-C Unavailable [phone] Holger Strickland MD Unavailable Holger Strickland MD Primary Care Provider [phone] Unknown, Unknown Primary Care Provider Kiara Vernon STORE DIRECTOR Primary Care Provider Reason for Referral * MRI/CAT Scan - Closed Specialty Diagnoses / Procedures Referred By Cecile hopper Referred To Contact Radiology Diagnoses Dizziness Numbness Procedures MRI Brain Carlos Fox MD Phone: tel: fax: [email or web address] Referral ID Status Reason Start Date Expiration Date Visits Re quested Visits Authorized [id number] Closed 03/05/2022 03/05/2023 1 1 Encounter Details Date Type Department Care Team (Latest Contact Info) Description 03/05/2022 Transcribe Orders [facility] Department [address] [place] [address] Carlos Fox MD [address] [place] [address], [address] [place] [address] [email or web address] Dizziness (Primary Dx); Numbness Social [...] high school, GED, job training, learning the Kyrgyz language, technical skills, or developing parenting skills)? [...] documented as of this encounter Care Teams Communication Equipment Mechanic Relationship Specialty Start Date End Date Maia Diamond CNP [address] [place] [address] [email or web address] PCP - General Internal Medicine 10/11/19 01/09/23 Holger Strickland MD [address] [place] [address] PCP - General Internal Medicine 01/10/23 06/22/23 Unknown, Vy, PCP - General 06/23/23 10/13/24 Kiara Turk, CEASAR [address] [place] [address] [facility] [place] [address] [email or web address] PCP - General Nurse Practitioner 10/14/24 Susie Goode MD [address] [place] [address] [email or web address] 08/13/21 Melyssa Matthew PA-C [address] [place] [address] Physician Maintenance And Engineering Manager Hematology 08/15/21 Holger Strickland MD [address] [place] [address] [email or web address] Insurance Assigned Provider 04/06/22 04/05/23 documented as of this encounter Additional Source Comments The information contained in this document represents components of the legal health record. It is not the complete legal health record.[facility]
--- OUTSIDE RECORDS SUMMARY | 2025-06-15 20:15 | XMS_ITS | Encounter Summary ---
Author Organization [facility] Address [address] [place] [address] Phone Care Team Providers Care Licensed Surveyor Name Role Phone Maia Diamond SENIOR SITE MANAGER Primary Care Provider Maia Diamond SENIOR SITE MANAGER Primary Care Provider Vick Yuen MD Unavailable Susie Goode MD Unavailable [phone] Melyssa Matthew-C Unavailable Holger Strickland MD Unavailable Holger Strickland MD Primary Care Provider Unknown, Unknown Primary Care Provider Kiara Vernon POTATO SORTER Primary Care Provider Encounter Details Date Type Department Care Team (Late st Contact Info) Description 06/08/2019 Procedure Pass [place] Admitting Dept - Virtual Department [address] [place] [address] Social History Tobacco Use Types Packs/Day Years [...] high school, GED, job training, learning the [place] language, technical skills, or developing parenting skills)? [...] documented as of this encounter Care Teams Licensed Surveyor Relationship Specialty Start Date End Date Maia Diamond BetsyARIANNA [address] [place], [place] [email or web address] PCP - General Internal Medicine 04/13/19 10/10/19 Dankjose Maia BetsyARIANNA [address] [place], [place] [email or web address] PCP - General Internal Medicine 10/11/19 01/09/23 Holger Strickland MD [address] [place], [place] [email or web address] PCP - General Internal Medicine 01/10/23 06/22/23 Unknown, Vy, PCP - General 06/23/23 10/13/24 Kiara Turk, CEASAR [address] [place] [address] [phone] [email or web address] PCP - General Nurse Practitioner 10/14/24 Vick Yuen MD [address] [place], [place] [email or web address] Insurance Assigned Provider 01/31/20 01/05/22 Susie Goode MD [address] [place] [address] [email or web address] Hematology and Oncology 08/13/21 Melyssa Matthew PA-C [address] [place] [email or web address] Physician Shipping Order Clerk Hematology 08/15/21 Holger Strickland MD [address] [place] [address] [email or web address] Insurance Assigned Provider 04/06/22 04/05/23 documented as of this encounter Additional Source Comments The information contained in this document represents components of the legal health record. It is not the complete legal health record.[facility]
--- OUTSIDE RECORDS SUMMARY | 2025-06-15 20:15 | XMS_ITS | Encounter Summary ---
Author Organization [facility] Address [address] [place] [address] Phone Care Team Providers Care Certified Phlebotomist Name Role Phone Vick Yuen MD Primary Care Provider Maia Diamond CNP Primary Care Provider Maia Diamond CNP Primary Care Provider Vick Yuen MD Unavailable Susie Goode MD Unavailable [phone] Melyssa Matthew-Junior Unavailable Holger Strickland MD Unavailable Holger Strickland MD Primary Care Provider Unknown, Unknown Primary Care Provider Kiara Vernon NP Primary Care Provider Encounter Details Date Type Department Care Team (Late st Contact Info) Description 11/18/2018 Procedure Pass [facility],Outside Imaging [address] [place], [place] [phone] Social History Tobacco Use Types Packs/Day Years [...] documented as of this encounter Care Teams Certified Phlebotomist Relationship Specialty Start Date End Date Vick Yuen MD [address] [place] [address] [email or web address] PCP - General Internal Medicine 11/03/18 04/12/19 Maia Diamond CNP [address] [place] [address] [email or web address] PCP - General Internal Medicine 04/13/19 10/10/19 Maai Diamond CNP [address] [place] [address] [email or web address] PCP - General Internal Medicine 10/11/19 01/09/23 Holger Strickland MD [address] [place] [address] PCP - General Internal Medicine 6/16/23 11/26/23 Unknown, Unknown, MD PCP - General 06/23/23 10/13/24 Kiara Turk NP [address] [place] [address] [email or web address] PCP - General Nurse Practitioner 10/14/24 Vick Yuen MD [address] [place] [address] Insurance Assigned Provider 01/31/20 01/05/22 Susie Goode MD [address] [place] [address] [email or web address] Hematology and Oncology 08/13/21 Melyssa Matthew PA-C [address] [place] [address] Physician Mica Inspector Hematology 08/15/21 Holger Strickland MD [address] [place] [address] Insurance Assigned Provider 04/06/22 04/05/23 documented as of this encounter Additional Source Comments The information contained in this document represents components of the legal health record. It is not the complete legal health record.[facility]
--- OUTSIDE RECORDS SUMMARY | 2025-06-15 20:16 | XMS_ITS | Encounter Summary ---
Author Organization [facility] Address [address] [place] [address] Phone Care Team Providers Care Mutual Fund Analyst Name Role Phone Maia Diamond ROOF MECHANIC Primary Care Provider Vick Yuen MD Unavailable [phone] Susie Goode MD Unavailable [phone] Melyssa Matthew-C Unavailable Holger Strickland MD Unavailable Holger Strickland MD Primary Care Provider Unknown, Unknown Primary Care Provider Kiara Vernon NP Primary Care Provider Encounter Details Date Type Department Care Team (Late st Contact Info) Description 05/22/2020 Ancillary Orders [facility] Rheumatology [address] [place] [address] Dick Coles MD [address] [place] [address] [email or web address] Social History Tobacco Use Types Packs/Day [...] high school, GED, job training, learning the Libyan language, technical skills, or developing parenting skills)? [...] documented as of this encounter Care Teams Mutual Fund Analyst Relationship Specialty Start Date End Date Maia Diamond CNP [address] [place] [address] PCP - General Internal Medicine 10/11/19 01/09/23 Holger Strickland MD [address] [place] [address] PCP - General Internal Medicine 01/10/23 06/22/23 Unknown, Unknown, MD PCP - General 06/23/23 10/13/24 Kiara Turk, DYEHOUSE WORKER [address] [place] [address] [email or web address] PCP - General Nurse Practitioner 10/14/24 Vick Yuen MD [address] [place] [address] Insurance Assigned Provider 01/31/20 01/05/22 Susie Goode MD [address] [place] [address] [email or web address] 08/13/21 Melyssa Matthew PA-C [address] [place] [address] [email or web address] Physician Wool Shearer Hematology 08/15/21 Holger Strickland MD [address] [place] [address] Insurance Assigned Provider 04/06/22 04/05/23 documented as of this encounter Additional Source Comments The information contained in this document represents components of the legal health record. It is not the complete legal health record.[facility]
--- OUTSIDE RECORDS SUMMARY | 2025-06-15 20:16 | XMS_ITS | Encounter Summary ---
Author Organization [facility] Address [address] [place] [address] Phone Care Team Providers Care Financial Aid Coordinator Name Role Phone Maia Diamond CNP Primary Care Provider Vick Yuen MD Unavailable Susie Goode MD Unavailable [phone] Melyssa Matthew-C Unavailable [phone] Holger Strickland MD Unavailable Holger Strickland MD Primary Care Provider Unknown, Unknown Primary Care Provider Kiara Vernon NP Primary Care Provider Encounter Details Date Type Department Care Team (Latest Contact Info) Description 12/06/2020 Transcribe Orders Virtual Department [address] [place] [address] Aga Noble NP 10 [place] [address] Pre-procedure lab exam (Primary Dx) Social History [...] high school, GED, job training, learning the Macedonian language, technical skills, or developing parenting skills)? [...] Order (12/08/2020 12:40 PM EDT) COVID-19 Comment [id number] [facility] COVID Testing Status Sent to [facility] 12/08/2020 12:4 0 PM EDT 12/08/2020 4:43 PM EDT us Aga Noble NP LAB GENERAL ORDERABLES Fi nal Result [facility] [address] [place] [address] documented in this encounter Visit Diagnoses Diagnosis [...] documented as of this encounter Care Teams Financial Aid Coordinator Relationship Specialty Start Date End Date Maia Diamond, ARIANNA [address] [place] [address] [email or web address] PCP - General Internal Medicine 10/11/19 01/09/23 Holger Strickland MD [address] [place] [address] [email or web address] PCP - General Internal Medicine 01/10/23 06/22/23 Unknown, Vy, PCP - General 06/23/23 10/13/24 Kiara Turk, CEASAR [address] [place] [address] [address] [email or web address] PCP - General Nurse Practitioner 10/14/24 Vick Yuen MD [address] [place] [address] [email or web address] Insurance Assigned Provider 01/31/20 01/05/22 Susie Goode MD [address] [place] [address] [email or web address] H[facility] On[facility] 08/13/21 Melyssa Matthew PA-C [address] [place] [address] [email or web address] Physician Pheresis Nurse Hematology 08/15/21 Holger Strickland MD [address] [place] [address] [email or web address] Insurance Assigned Provider 04/06/22 04/05/23 documented as of this encounter Additional Source Comments The information contained in this document represents components of the legal health record. It is not the complete legal health record.[facility]
--- OUTSIDE RECORDS SUMMARY | 2025-06-15 20:16 | XMS_ITS | Encounter Summary ---
Author Organization [facility] Address [address] [place] [address] [place] [address] Phone Care Team Providers Care College Football Coach Name Role Phone Maia Diamond STIFF NECK LOADER Primary Care Provider Susie Goode MD Unavailable [phone] Melyssa Matthew PA-C Unavailable [phone] Holger Strickland MD Unavailable Holger Strickland MD Primary Care Provider [phone] Unknown, Unknown Primary Care Provider Kiara Vernon NP Primary Care Provider Encounter Details Date Type Department Care Team (Late st Contact Info) Description 10/01/2022 Procedure Pass [facility], [address] [place] [address] Social History Tobacco Use Types Packs/Day Years [...] high school, GED, job training, learning the Greenlandic language, technical skills, or developing parenting skills)? [...] documented as of this encounter Care Teams College Football Coach Relationship Specialty Start Date End Date Maia Diamond CNP [address] [place] [address] PCP - General Internal Medicine 10/11/19 01/09/23 Holger Strickland MD [address] [place] [address] PCP - General Internal Medicine 01/10/23 06/22/23 Unknown, Vy, PCP - General 06/23/23 10/13/24 Kiara Turk NP [address] [place] [address] [place] [address] [email or web address] PCP - General Nurse Practitioner 10/14/24 Susie Goode MD [address] [place] [address] [email or web address] Hematology and Oncology 08/13/21 Melyssa Matthew PA-C [address] [place] [address] [email or web address] Physician Driver Starting Gate Hematology 08/15/21 Holger Strickland MD [address] [place] [address] [email or web address] Insurance Assigned Provider 04/06/22 04/05/23 documented as of this encounter Additional Source Comments The information contained in this document represents components of the legal health record. It is not the complete legal health record.[facility]
--- OUTSIDE RECORDS SUMMARY | 2025-06-15 20:16 | XMS_ITS | Encounter Summary ---
Author Organization [facility] Address [address] [place] [address] Phone Care Team Providers Care Invoicing Machine Operator Name Role Phone Maia Diamond CNP Primary Care Provider Vick Yuen MD Unavailable Susie Goode MD Unavailable [phone] Melyssa Matthew-C Unavailable [phone] Holger Strickland MD Unavailable Holger Strickland MD Primary Care Provider Unknown, Unknown Primary Care Provider Kiara Vernon NP Primary Care Provider Encounter Details Date Type Department Care Team (Late st Contact Info) Description 12/11/2020 Procedure Pass [facility] Admitting Dept Virtual Department [address] [place] [address] Social History Tobacco Use Types Packs/Day Years [...] high school, GED, job training, learning the Latvian language, technical skills, or developing parenting skills)? [...] documented as of this encounter Care Teams Invoicing Machine Operator Relationship Specialty Start Date End Date Maia Diamond CNP [address] [place] [address] [email or web address] PCP - General Internal Medicine 10/11/19 01/09/23 Holger Strickland MD [address] [place] [address] PCP - General Internal Medicine 01/10/23 06/22/23 Unknown, Vy, PCP - General 06/23/23 10/13/24 Kiara Turk, TECHNICAL ACCOUNT EXECUTIVE [address] [place] [address] [address] [email or web address] PCP - General Nurse Practitioner 10/14/24 Vick Yuen MD [address] [place] [address] Insurance Assigned Provider 01/31/20 01/05/22 Susie Goode MD [address] [place] [address] [email or web address] 08/13/21 Melyssa Matthew PA-C [address] [place] [address] Physician Vocational Training Director Hematology 08/15/21 Holger Strickland MD [address] [place] [address] Insurance Assigned Provider 04/06/22 04/05/23 documented as of this encounter Additional Source Comments The information contained in this document represents components of the legal health record. It is not the complete legal health record.[facility]
--- OUTSIDE RECORDS SUMMARY | 2025-06-15 20:16 | XMS_ITS | Encounter Summary ---
Author Organization [facility] Address [address] [place] [address] Phone Care Team Providers Care Drum Sander Offbearer Name Role Phone Maia Diamond CNP Primary Care Provider Vick Yuen MD Unavailable [phone] Susie Goode MD Unavailable [phone] Melyssa Matthew-C Unavailable Holger Strickland MD Unavailable Holger Strickland MD Primary Care Provider Unknown, Unknown Primary Care Provider Kiara Vernon NP Primary Care Provider Encounter Details Date Type Department Care Team (Latest Contact Info) Description 01/05/2021 Transcribe Orders Virtual Department 30 [place] [address] Aga Noble NP [address] [place], [place] [id number] (nonalcoholic steatohepatitis) (Primary Dx); LLQ abdominal pain; [...] in the right hepatic lobe on a [employer] ultrasound machine. 2D shear wave elastography technique [...] obtained in the righthepatic lobe on a [employer] ultrasound machine. 2D shear wave elastographytechnique was [...] are not well established. us Aga Noble CALENDER WIND UP TENDER IMG US ABDOMEN Final Res ult documented [...] documented as of this encounter Care Teams Drum Sander Offbearer Relationship Specialty Start Date End Date Maia Diamond CNP [address] [place] [address] PCP - General Internal Medicine 10/11/19 01/09/23 Holger Strickland MD [address] [place] [address] PCP - General Internal Medicine 01/10/23 06/22/23 Unknown, Unknown, PCP - General 06/23/23 10/13/24 Kiara Turk NP [address] [place] [address] [email or web address] PCP - General Nurse Practitioner 10/14/24 Vick Yuen MD [address] [place] [address] [email or web address] Insurance Assigned Provider 01/31/20 01/05/22 Susie Goode MD [address] [place] [address] [email or web address] Hematology [email or web address] Oncology 08/13/21 Melyssa Matthew PA-C [address] [place] [address] Physician Golf Caddie Hematology 08/15/21 Holger Strickland MD [address] [place] [address] Insurance Assigned Provider 04/06/22 04/05/23 documented as of this encounter Additional Source Comments The information contained in this document represents components of the legal health record. It is not the complete legal health record.[facility]
--- OUTSIDE RECORDS SUMMARY | 2025-06-15 20:16 | XMS_ITS | Clinical Summary ---
Author Organization [facility] Address [address] [place] [address] Phone Care Team Providers Care Outsole Cutter Machine Name Role Phone Susie Goode MD Unavailable [phone] Melyssa Matthew PA-C Unavailable [phone] Kiara Turk NP Primary Care Provider Allergies [...] subdermal nodule, will obtain a ultrasound at [facility] and see if it is a [...] HPV 05/29/2017 Overview (09/28/2018): Overview: 11/17/2014 at [facility] obgyn Marijuana use 05/12/2017 Fibromyalgia 03/11/2017 Overview (10/16/2021): Overview: Followed with infectious disease and search and rescue officer as well as neurologist. No history of lymes disease Followed with infectious disease and search and rescue officer as well as neurologist. No history of [...] Pap Test (09/08/2024 12:00 AM EST) [place] [address] Sharepoint Manager: Robin Alonso MD PHTHALIC ACID PURIFIER Cytology Report FINAL DIAGNOSIS A. PAP SMEAR (THIN PREP) CE: SPECIMEN ADEQUACY: Satisfactory for evaluation; transformation zone present. INTERPRETATION: NEGATIVE FOR INTRAEPITHELIAL LESION OR MALIGNANCY. This specimen was analyzed by the automated ThinPrep Imaging System (N-Trig.) and the selected mejia were reviewed by a truck despatcher. Electronically Signed Out By: JEAN-PIERRE Jolley(ASCP) The [...] by real-time polymerase chain reaction (PCR) at [address] using the FDA-approved BD Onclarity9 HPV Assay with extended genotyping. Uses of the assay in scenarios other than those approved by the FDA should be considered off-label use. The accuracy and precision of this test for all other off-label specimen sources has been verified in the Cytopathology Laboratory of the [facility] and has not been cleared or [...] : 1985 (Age: 38) Sex: F Institution: [facility] Location: [facility] Date of Collection: 09/08/2024 Date of Reported: 09/15/2024 11:27 Results to: Bobby Pearce MD [facility] Final Diagnosis A. PAP SMEAR (THIN PREP) CE: SPECIMEN ADEQUACY: Satisfactory for evaluation; transformation zone present. INTERPRETATION: NEGATIVE FOR INTRAEPITHELIAL LESION OR MALIGNANCY. This specimen was analyzed by the automated ThinPrep Imaging System ([employer]rop[employer] Pari.) and the selected mejia were reviewed by a truck despatcher. [facility] Results\Inter pretation A. PAP SMEAR (THIN PREP) CE: High-risk HPV Panel w/ extended genotyping NEG HPV 16-NEG HPV 18-NEG HPV 45-NEG HPV 33/58-NEG HPV 31-NEG HPV 56/59/66-NEG HPV 51-NEG HPV 52-NEG HPV 35/39/68-NEG Performed by real-time polymerase chain reaction (PCR) at [address] using the FDA-approved BD Onclarity HPV Assay with extended genotyping. Uses of the assay in scenarios other than those approved by the FDA should be considered off-label use. The accuracy and precision of this test for all other off-label specimen sources has been verified in the Cytopathology Laboratory of the [facility] and has not been cleared or approved by the U.S. Food and Drug Administration. Clinical correlation is advised. The assay assesses the E6/E7 DNA target and utilizes human beta globin as an internal control. Cytology and HPV testing are screening assays and should not be used as the sole means of detecting cancer. False-positives and false-negatives can occur. [facility] Conversion Type (Conversion Source) 09/08/2024 09/09/2024 9:32 AM EST Bobby Pearce MD CYTOLOGY ORDERABLES Edited Resul t - Final Performing Organization Address [facility] Co de Phone Number [address] [address] * Hepatitis C antibody, qualitative (11/06/2022 1:58 PM EDT) HCV NON-REACTIV E NON-REACTI VE [facility] Blood 11/06/2022 1:58 PM EDT 11/06/2022 2:06 PM EDT Maia Diamond CNP LAB BLOOD BKR ORDERABL ES Final Result Performing Organization Address [facility] Co de Phone Number [address] [address] * (ABNORMAL) Glucose (10/16/2018 9:39 AM EDT) GLUCOSE 105(H) 70 - 99 mg/dL [facility] Blood 10/16/2018 9:39 AM EDT 10/16/2018 9:44 AM EDT Fernando Srinivasan MD LAB BLOOD BKR ORDERABLES Final Result [facility] [address] [place] [address] from Last 3 Months or Most Recently Relevant to Health Maintenance Insurance [facility] [place] [address] [address] [facility] [place] [address] [place] [address] [facility] [place] [place] [address] [place] [address] [facility] POS [facility] Address: [facility] [id number] [facility] [place] [address] [facility] POS [facility] Advance Directives For more information, please contact: [phone] (9AM - 5PM [facility], Friday-Friday) * Full Code (Latest Code Status on File) Date Activated Date Inactivated Comments 12/28/2020 11:33 AM Question Answer Comments Code Status Confirmed With: Patient * Full Code (Presumed) Date Activated Date Inactivated Comments 06/08/2019 12:19 PM 06/08/2019 6:25 PM Care Teams Outsole Cutter Machine Relationship Specialty Start Date End Date Kiara Turk NP [address] [place] [address] [facility] [place] [address] [email or web address] PCP - General Nurse Practitioner 10/14/24 Susie Goode MD [address] [place] [address] [email or web address] and Oncology 08/13/21 Melyssa Matthew PA-C [address] [place] [address] [email or web address] Physician Beamer Operator Hematology 08/15/21 Additional Source Comments The information contained in this document represents components of the legal health record. It is not the complete legal health record.[facility]
--- OUTSIDE RECORDS SUMMARY | 2025-06-15 20:17 | XMS_ITS | Encounter Summary ---
Author Organization [facility] Address [address] [place] [address] Phone Care Team Providers Care Biodiesel Production Technician Name Role Phone Vick Yuen MD Primary Care Provider Maia Diamond CNP Primary Care Provider Maia Diamond CNP Primary Care Provider Vick Yuen MD Unavailable [phone] Susie Goode MD Unavailable [phone] Melyssa Matthew-Junior Unavailable Holger Strickland MD Unavailable Holger Strickland MD Primary Care Provider [phone] Unknown, Unknown Primary Care Provider Kiara Vernon NP Primary Care Provider Reason for Referral * MRI/CAT Scan - Closed Specialty Diagnoses / Procedures Referred By Cecile hopper Referred To Contact Procedures MRI Brain Outside (No Interpretation) System, Provider Not In, PhD [address] [address] Referral ID Status Reason Start Date Expiration Date Visits Re quested Visits Authorized [id number] Closed 11/18/2018 11/18/2019 1 1 Encounter Details Date Type Department Care Team (Late st Contact Info) Description 11/18/2018 Ancillary Orders [facility],Outside Imaging [address] [place] [address] System, Provider Not In, PhD Partners [address] [address] Social History Tobacco Use Types Packs/Day Years [...] documented as of this encounter Care Teams Biodiesel Production Technician Relationship Specialty Start Date End Date Vick Yuen MD [address] [place] [address] [email or web address] PCP - General Internal Medicine 11/03/18 04/12/19 Maia Diamond CNP [address] [place] [address] [email or web address] PCP - General Internal Medicine 04/13/19 10/10/19 Maia Diamond, ARIANNA [address] [place] [address] [email or web address] PCP - General Internal Medicine 10/11/19 01/09/23 Holger Strickland MD [address] [place] [address] [email or web address] PCP - General Internal Medicine 01/10/23 06/22/23 Unknown, Vy, PCP - General 06/23/23 10/13/24 Kiara Turk, CEASAR [address] [place] [phone] [email or web address] PCP - General Nurse Practitioner 10/14/24 Vick Yuen MD [address] [place] [address] [email or web address] Insurance Assigned Provider 01/31/20 01/05/22 Susie Goode MD [address] [place] [address] [email or web address] Hematology and Oncology 08/13/21 Melyssa Matthew PA-C [address] [place] [address] [email or web address] Physician Chemist Food Hematology 08/15/21 Holger Strickland MD [address] [place] [address] [email or web address] Insurance Assigned Provider 04/06/22 04/05/23 documented as of this encounter Additional Source Comments The information contained in this document represents components of the legal health record. It is not the complete legal health record.[facility]
--- OUTSIDE RECORDS SUMMARY | 2025-06-15 20:17 | XMS_ITS | Encounter Summary ---
Author Organization [facility] Address [address] [place] [address] Phone Care Team Providers Care Deputy Sheriff K9 Handler Name Role Phone Maia Diamond ACCOUNTING CONSULTANT Primary Care Provider Vick Yuen MD Unavailable [phone] Susie Goode MD Unavailable [phone] Melyssa Matthew-C Unavailable [phone] Holger Strickland MD Unavailable Holger Strickland MD Primary Care Provider Unknown, Unknown Primary Care Provider Kiara Vernon NP Primary Care Provider Encounter Details Date Type Department Care Team (Latest Contact Info) Description 12/06/2020 Transcribe Orders [facility] [address] [place], [place] [id number] Aga Noble NP [address] [place] [address] Rectal bleeding (Primary Dx); Generalized abdominal pain [...] high school, GED, job training, learning the St Helenian language, technical skills, or developing parenting skills)? [...] AM EDT) Calprotectin, stool <27.1 <50.0 mcg/g [facility] Calprotectin Interp Negative Negative [facility] Stool (Stool) 12/14/2020 11: 31 AM EDT 12/14/2020 11:33 AM EDT Aga Noble NP LAB BODY FLUIDS AND STOOL ORDERABLES Final Result [facility] [address] [place] [address] * Hepatitis B core antibody, total (12/06/2020 1:34 PM EDT) HEP B CORE AB, TOT NON-REACTI VE NON-REACTI VE [facility] Blood 12/06/2020 1:34 PM EDT 12/06/2020 1:45 PM EDT Aga Noble RAILROAD PASSENGER AGENT LAB BLOOD BKR ORDERABLES Final Result Performing Organization Address City/[facility]/ZIP Co de Phone Number [address] [address] * CPK (creatine kinase) (12/06/2020 1:34 PM EDT) Pathologist [facility] CREATINE KINASE 88 21 - 215 U/L [facility] Blood 12/06/2020 1:34 PM EDT 12/06/2020 1:45 PM EDT Aga Noble NP LAB BLOOD BKR ORDERABLES Final Result Performing Organization Address [facility]/ZIP Co de Phone Number [address] [address] * (ABNORMAL) Ferritin (12/06/2020 1:34 PM EDT) Pathologist [facility] FERRITIN 204(H) 13 - 150 ug/L [facility] Blood 12/06/2020 1:34 PM EDT 12/06/2020 1:45 PM EDT Aga Noble NP LAB BLOOD BKR ORDERABLES Final Result Performing Organization Address [facility] Co de Phone Number [address] [address] * Iron and iron binding capacity (12/06/2020 1:34 PM EDT) IRON 72 30 - 160 ug/dL [facility] IRON BINDING CAPACITY 312 228 - 428 ug/dL [facility] TRANSFERRIN SATURAT. 23 15 - 50 % [facility] Blood 12/06/2020 1:34 PM EDT 12/06/2020 1:45 PM EDT us Aga Noble NP LAB BLOOD BKR ORDERABLES Final Result Performing Organization Address [facility] de Phone Number [address] [address] * Hepatitis C antibody, qualitative (12/06/2020 1:34 PM EDT) HCV NON-REACTIV E NON-REACTI VE [facility] Blood 12/06/2020 1:34 PM EDT 12/06/2020 1:45 PM EDT Aga Noble NP LAB BLOOD BKR ORDERABLES Final Result Performing Organization Address [facility] Number [address] [address] * Hepatitis B surface antigen (12/06/2020 1:34 PM EDT) HBV SURFACE ANTIGEN NON-REACTI VE NON-REACTI VE [facility] Blood 12/06/2020 1:34 PM EDT 12/06/2020 1:45 PM EDT Aga Noble NP LAB BLOOD BKR ORDERABLES Final Result Performing Organization Address [facility] de Phone Number [address] [address] * Hepatitis B surface antibody (12/06/2020 1:34 PM EDT) HBV SURFACE ANTIBODY Negative [facility] Comment: Unvaccinated: Negative Vaccinated: Positive Blood 12/06/2020 1:34 PM EDT 12/06/2020 1:45 PM EDT Aga Noble NP LAB BLOOD BKR ORDERABLES Final Result [address] [address] * HEPATITIS A ANTIBODY, TOTAL (12/06/2020 1:34 PM EDT) [facility] HAV TOTAL AB NON-REACTI VE NON-REACTI VE [facility] Blood 12/06/2020 1:34 PM EDT 12/06/2020 1:45 PM EDT Aga Noble NP LAB BLOOD BKR ORDERABLES Final Result Performing Organization Address [facility]/ZIP Co de Phone Number [address] [address] * (ABNORMAL) C-Reactive Protein (12/06/2020 1:34 PM EDT) [facility] C REACTIVE PROTEIN 24.9(H) 0.0 - 4.0 mg/L [facility] Blood 12/06/2020 1:34 PM EDT 12/06/2020 1:45 PM EDT Aga Noble NP LAB BLOOD BKR ORDERABLES Final Result Performing Organization Address [facility]/ZIP Co de Phone Number [address] [address] * (ABNORMAL) Comprehensive metabolic panel (12/06/2020 1:34 PM EDT) [facility] SODIUM 139 133 - 146 mmol/L [facility] POTASSIUM 4.2 3.3 - 5.1 mmol/L [facility] CHLORIDE 103 96 - 108 mmol/L [facility] CO2 23 21 - 35 mmol/L [facility] BUN 8 6 - 19 mg/dL [facility] CREATININE 0.60 0.5 - 1.5 mg/dL [facility] GLUCOSE 113(H) 70 - 99 mg/dL [facility] ALBUMIN 4.3 3.9 - 4.8 g/dL [facility] TOTAL PROTEIN 7.5 6.5 - 8.0 g/dL [facility] CALCIUM 9.7 8.4 - 10.3 mg/dL [facility] ALKALINE PHOSPHATASE 117 39 - 117 U/L [facility] TOTAL BILIRUBIN 0.4 0.0 - 1.2 mg/dL [facility] AST 48(H) 0 - 37 U/L [facility] ALT 41(H) 0 - 40 U/L [facility] GLOBULIN 3.2 1 - 4.8 g/dL [facility] EGFR 120 >59 mL/min/1.7 3m2 [facility] Comment:Estimated glomerular filtration rate calculated using the CKD-EPI equation. ANION GAP 17 10 - 20 mmol/L [facility] Blood 12/06/2020 1:34 PM EDT 12/06/2020 1:45 PM EDT Aga Noble NP LAB BLOOD BKR ORDERABLES Final Result Performing Organization Address City/[facility]/ZIP Co de Phone Number [facility] [address] [place] [address] * Ceruloplasmin (12/06/2020 1:34 PM EDT) CERULOPLASMIN 38 20 - 60 mg/dL [facility] Blood 12/06/2020 1:34 PM EDT 12/06/2020 1:44 PM EDT Aga Noble NP LAB BLOOD ORDERABLES Roro l Result [facility] [address] [place] [address] * Tissue transglutaminase IgA (12/06/2020 1:34 PM EDT) TTG IGA ANTIBODY <1.2 <4.0 (Negative) U/mL [facility] Blood 12/06/2020 1:34 PM EDT 12/06/2020 1:45 PM EDT Aga Noble NP LAB BLOOD BKR ORDERABLES Final Result [facility] [address] * Smooth Muscle Antibody (12/06/2020 1:34 PM EDT) SMOOTH MUSCLE AB POSITIVE AT 1:40 [facility] Comment:Normal: Negative at 1:20 Blood 12/06/2020 1:34 PM EDT 12/06/2020 1:44 PM EDT Aga Noble RAILROAD PASSENGER AGENT LAB BLOOD ORDERABLES Roro l Result Performing Organization Address [facility]/ZIP Co de Phone Number [address] [address] * Antinuclear antibody (CHRISSIE) (12/06/2020 1:34 PM EDT) CHRISSIE SCREEN ON HEP 2 Negative Negative [facility] Blood 12/06/2020 1:34 PM EDT 12/06/2020 1:45 PM EDT Aga Noble RAILROAD PASSENGER AGENT LAB BLOOD BKR ORDERABLES Final Result Performing Organization Address [facility] Co de Phone Number [facility] [address] [place] [address] * Anti-Mitochondrial Antibody (AMA) (12/06/2020 1:34 PM EDT) MITOCHONDRIAL AB NEGATIVE AT 1:20 [facility] Comment:Normal: Negative at 1:20 Blood 12/06/2020 1:34 PM EDT 12/06/2020 1:44 PM EDT Aga Noble RAILROAD PASSENGER AGENT LAB BLOOD ORDERABLES Roro l Result Performing Organization Address [facility] Co de Phone Number [address] [address] * Ywnbr-7-eyxojydbndc phenotyping (12/06/2020 1:34 PM EDT) ALPHA 1 ANTITRYPSIN 167 100 - 190 mg/dL [facility] Comment: (NOTE) ADDITIONAL INFORMATION Method: Nephelometry A1A PHENOTYPE MM bands [facility] Comment: (NOTE) ADDITIONAL INFORMATION Method: Isoelectric Focusing, This assay identifies the phenotype of the circulating mzbpx-6-qixzfxkrcvq (A1A) protein. If the patient is on replacement therapy or has been recently transfused, the phenotype will detect patient and replacement or transfused plasma A1A protein. This test also cannot detect a null allele which could be responsible for an A1A deficiency. Blood 12/06/2020 1:34 PM EDT 12/06/2020 1:45 PM EDT Aga Noble RAILROAD PASSENGER AGENT LAB BLOOD ORDERABLES Roro l Result [facility] [address] [place] [address] documented in this encounter Visit Diagnoses Diagnosis [...] documented as of this encounter Care Teams Deputy Sheriff K9 Handler Relationship Specialty Start Date End Date Maia Diamond CNP [address] [place] [address] [email or web address] PCP - General Internal Medicine 10/11/19 01/09/23 Holger Strickland MD [address] [place] [address] PCP - General Internal Medicine 01/10/23 06/22/23 Unknown, Vy, PCP - General 06/23/23 10/13/24 Kiara Turk, RAILROAD PASSENGER AGENT [address] [place] [address] [facility] [place] [address] [email or web address] PCP - General Nurse Practitioner 10/14/24 Vick Yuen MD [address] [place] [address] [email or web address] Insurance Assigned Provider 01/31/20 01/05/22 Susie Goode MD [address] [place] [address] [email or web address] 08/13/21 Melyssa Matthew PA-C [address] [place] [address] [email or web address] Physician Cash Posting Clerk Hematology 08/15/21 Holger Strickland MD [address] [place] [address] [email or web address] Insurance Assigned Provider 04/06/22 04/05/23 documented as of this encounter Additional Source Comments The information contained in this document represents components of the legal health record. It is not the complete legal health record.[facility]
--- OUTSIDE RECORDS SUMMARY | 2025-06-15 20:17 | XMS_ITS | Encounter Summary ---
Author Organization [facility] Address [address] [place] [address] Phone Care Team Providers Care Flatwork Finisher Name Role Phone Maia Diamond SLASHER TENDER HELPER Primary Care Provider Susie Goode MD Unavailable [phone] Melyssa Matthew PA-C Unavailable [phone] Holger Strikcland MD Unavailable Holger Strickland MD Primary Care Provider [phone] Unknown, Unknown Primary Care Provider Kiara Vernon NP Primary Care Provider Encounter Details Date Type Department Care Team (Late st Contact Info) Description 11/06/2022 Procedure Pass [address] [address] Social History Tobacco Use Types Packs/Day Years [...] high school, GED, job training, learning the Divehi language, technical skills, or developing parenting skills)? [...] documented as of this encounter Care Teams Flatwork Finisher Relationship Specialty Start Date End Date Maia Diamond CNP [address] [place] [address] PCP - General Internal Medicine 10/11/19 01/09/23 Holger Strickland MD [address] [place] [address] PCP - General Internal Medicine 01/10/23 06/22/23 Unknown, Unknown, PCP - General 06/23/23 10/13/24 Kiara Turk, PROFESSIONAL NURSING TUTOR [address] [place] [address] [email or web address] PCP - General Nurse Practitioner 10/14/24 Susie Goode MD [address] [place] [address] [email or web address] 08/13/21 Melyssa Matthew PA-C [address] [place] [address] Physician Surgical Endoscopist Hematology 08/15/21 Holger Strickland MD [address] [place] [address] [email or web address] Insurance Assigned Provider 04/06/22 04/05/23 documented as of this encounter Additional Source Comments The information contained in this document represents components of the legal health record. It is not the complete legal health record.[facility]
--- OUTSIDE RECORDS SUMMARY | 2025-06-15 20:17 | XMS_ITS | Encounter Summary ---
Author Organization [facility] Address [address] [place] [address] [place] [address] Phone Care Team Providers Care Yarrow Gatherer Name Role Phone Maia Diamond INVESTMENT BANKING ANALYST Primary Care Provider Susie Goode MD Unavailable [phone] Melyssa Matthew PA-C Unavailable [phone] Holger Strickland MD Unavailable Holger Strickland MD Primary Care Provider [phone] Unknown, Unknown Primary Care Provider Kiara Vernon NP Primary Care Provider Encounter Details Date Type Department Care Team (Late st Contact Info) Description 11/25/2022 Procedure Pass [facility], Ct Scan - [address] [address] Social History Tobacco Use Types Packs/Day Years [...] high school, GED, job training, learning the Belarusian language, technical skills, or developing parenting skills)? [...] documented as of this encounter Care Teams Yarrow Gatherer Relationship Specialty Start Date End Date Maia Diamond CNP [address] [place] [address] PCP - General Internal Medicine 10/11/19 01/09/23 Holger Strickland MD [address] [place] [address] PCP - General Internal Medicine 01/10/23 06/22/23 Unknown, Unknown, PCP - General 06/23/23 10/13/24 Kiara Turk, FOOD AND DRINK FACTORY WORKERS [address] [place] [address] [address] [email or web address] PCP - General Nurse Practitioner 10/14/24 Susie Goode MD [address] [place] [address] [email or web address] 08/13/21 Melyssa Matthew PA-C [address] [place] [address] Physician Rent Control Office Manager Hematology 08/15/21 Holger Strickland MD [address] [place] [address] [email or web address] Insurance Assigned Provider 04/06/22 04/05/23 documented as of this encounter Additional Source Comments The information contained in this document represents components of the legal health record. It is not the complete legal health record.[facility]
--- OUTSIDE RECORDS SUMMARY | 2025-06-15 20:18 | XMS_ITS | Encounter Summary ---
Author Organization [facility] Address [address] [place] [address] Phone Care Team Providers Care Leadite Heater Name Role Phone Susie Goode MD Unavailable [phone] Melyssa Matthew PA-C Unavailable [phone] Unknown, Unknown Primary Care Provider Kiara Vernon MUNICIPAL MAINTENANCE WORKER Primary Care Provider Encounter Details Date Type Department Care Team (Late st Contact Info) Description 09/08/2024 Procedure Pass [facility] - [address] [place] [address] Social History Tobacco Use Types Packs/Day Years [...] high school, GED, job training, learning the Occitan language, technical skills, or developing parenting skills)? [...] documented as of this encounter Care Teams Leadite Heater Relationship Specialty Start Date End Date Unknown, Unknown, MD PCP - General 06/23/23 10/13/24 Kiara Turk NP [address] [place] [address] Dr AV[address] [facility] [place] [address] [email or web address] PCP - General Nurse Practitioner 10/14/24 Susie Goode MD [address] [place] [address] [email or web address] 08/13/21 Melyssa Matthew PA-C [address] [place] [address] [email or web address] Physician Livestock Laborer Hematology 08/15/21 documented as of this encounter Additional Source Comments The information contained in this document represents components of the legal health record. It is not the complete legal health record.[facility]
--- OUTSIDE RECORDS SUMMARY | 2025-06-15 20:18 | XMS_ITS | Encounter Summary ---
Author Organization [facility] Address [address] [place] [address] Phone Care Team Providers Care Bean Viner Name Role Phone Maia Diamond CNP Primary Care Provider Vick Yuen MD Unavailable [phone] Susie Goode MD Unavailable [phone] Melyssa Matthew-C Unavailable [phone] Holger Strickland MD Unavailable Holger Strickland MD Primary Care Provider Unknown, Unknown Primary Care Provider Kiara Vernon NP Primary Care Provider Encounter Details Date Type Department Care Team (Late st Contact Info) Description 12/28/2020 Procedure Pass [place] Admitting Dept - Virtual Department [address] [place] [address] Social History Tobacco Use Types Packs/Day Years [...] documented as of this encounter Care Teams Bean Viner Relationship Specialty Start Date End Date Maia Diamond CNP [address] [place] [address] [email or web address] PCP - General Internal Medicine 10/11/19 01/09/23 Holger Strickland MD [address] [place] [address] PCP - General Internal Medicine 01/10/23 06/22/23 Unknown, Vy, PCP - General 06/23/23 10/13/24 Kiara Turk, DIRECTOR HOME HEALTH [address] [place] [address] [address] [email or web address] PCP - General Nurse Practitioner 10/14/24 Vick Yuen MD [address] [place] [address] Insurance Assigned Provider 01/31/20 01/05/22 Susie Goode MD [address] [place] [address] [email or web address] 08/13/21 Melyssa Matthew PA-C [address] [place] [address] [email or web address] Physician Commercial Airplane Pilot Hematology 08/15/21 Holger Strickland MD [address] [place] [address] Insurance Assigned Provider 04/06/22 04/05/23 documented as of this encounter Additional Source Comments The information contained in this document represents components of the legal health record. It is not the complete legal health record.[facility]
--- OUTSIDE RECORDS SUMMARY | 2025-06-15 20:18 | XMS_ITS | Clinical Summary ---
Author Organization [facility] Address [address] [place] [address] Care Team Providers Care Bar Machine Operator Production Name Role Phone Akosua Kaplan MD Primary [...] obesity wit h BMI of 45.0-49.9, adult ([facility]) Fibromyalgia 03/11/2017 DX:Fibromyalgia; COMMENT: Followed with infectious disease and child care supervisor as well as neurologist. No history of lymes disease Marijuana use 05/12/2017 DX:Marijuana use Prehypertension 05/12/2017 DX:Prehypertensi on ASCUS with positive high risk HPV 05/29/2017 DX:ASCUS with positive high risk HPV; COMMENT: 11/17/2014 at [facility] obn Rectal bleeding 10/10/2017 DX:Rectal bleedi [...] RESULTING AGENCY - 10/13/2017 3:49 PM EDT [id number] THINPREP PAP, IMAGED: NEGATIVE FOR SQUAMOUS INTRAEPITHELIAL LESION AND MALIGNANCY . RESULT OF APTIMA HIGH RISK HPV ASSAY: NEGATIVE (SEROTYPES 16,18,31,33,35,39,45,51,52,56,58,59,66,68) JEAN-PIERRE NOLAN(ASCP) (CASE ELECTRONICALLY SIGNED 10 13 2017) ADEQUACY: SATISFACTORY. ENDOCERVICAL/TRANSFORMATION ZONE COMPONENT PRESENT. SOURCE: THINPREP PAP HPV ANY DX: REFLEX 16 AND 18, CERVICAL, IMAGED: CLINICAL INFORMATION: HPV ANY DIAGNOSIS. PAP HX NEG [Z12.4, Z01.419] Maria Brady [facility] LAB CYTOLOGY ORDERABLES Final R esult HISTORICAL TESTING LAB RESULTING AGENCY from Last 3 Months or Most Recently Relevant to Health Maintenance Care Teams Bar Machine Operator Production Relationship Specialty Start Date End Date Akosua Kaplan MD PCP - General Internal Medicine 02/17/17
--- OUTSIDE RECORDS SUMMARY | 2025-06-15 20:18 | XMS_ITS | Encounter Summary ---
Author Organization [facility] Address [address] [place] [address] Phone Care Team Providers Care Animal Health Technician Name Role Phone Vick Yuen MD Primary Care Provider Maia Diamond CNP Primary Care Provider Maia Diamond CNP Primary Care Provider Vick Yuen MD Unavailable [phone] Susie Goode MD Unavailable [phone] Melyssa Matthew-Junior Unavailable [phone] Holger Strickland MD Unavailable Holger Strickland MD Primary Care Provider Unknown, Unknown Primary Care Provider Kiara Vernon NP Primary Care Provider Encounter Details Date Type Department Care Team (Late st Contact Info) Description 11/12/2018 Procedure Pass [facility], [address] [address] Social History Tobacco Use Types Packs/Day Years [...] documented as of this encounter Care Teams Animal Health Technician Relationship Specialty Start Date End Date Vick Yuen MD [address] [place] [address] [email or web address] PCP - General Internal Medicine 11/03/18 04/12/19 Maia Diamond CNP [address] [place] [address] [email or web address] PCP - General Internal Medicine 04/13/19 10/10/19 Maia Diamond CNP [address] [place] [address] [email or web address] PCP - General Internal Medicine 10/11/19 01/09/23 Holger Strickland MD [address] [place] [address] PCP - General Internal Medicine 01/10/23 06/22/23 Unknown, Vy, PCP - General 06/23/23 10/13/24 Kiara Turk NP [address] [place] [address] [email or web address] PCP - General Nurse Practitioner 10/14/24 Vick Yuen MD [address] [place] [address] Insurance Assigned Provider 01/31/20 01/05/22 Susie Goode MD [address] [place] [address] [email or web address] 08/13/21 Melyssa Matthew PA-C [address] [place] [address] Physician Wire Machine Operator Hematology 08/15/21 Holger Strickland MD [address] [place] [address] [email or web address] Insurance Assigned Provider 04/06/22 04/05/23 documented as of this encounter Additional Source Comments The information contained in this document represents components of the legal health record. It is not the complete legal health record.[facility]
--- OUTSIDE RECORDS SUMMARY | 2025-06-15 20:18 | XMS_ITS | Encounter Summary ---
Author Organization [facility] Address [address] [place] [address] Phone Care Team Providers Care Motorcycle Subassembler Name Role Phone Susie Goode MD Unavailable Melyssa Matthew PA-C Unavailable [phone] Unknown, Unknown Primary Care Provider Kiara Vernon SMALL PRODUCTS ASSEMBLER Primary Care Provider Encounter Details Date Type Department Care Team (Late st Contact Info) Description 09/08/2024 Procedure Pass [facility] - [address] [place] [address] Social History Tobacco Use Types Packs/Day Years [...] high school, GED, job training, learning the Icelandic language, technical skills, or developing parenting skills)? [...] documented as of this encounter Care Teams Motorcycle Subassembler Relationship Specialty Start Date End Date Unknown, Unknown, MD PCP - General 06/23/23 10/13/24 Kiara Turk NP [address] [place] [address] [place] [address] [email or web address] PCP - General Nurse Practitioner 10/14/24 Susie Goode MD [address] [place] [address] [email or web address] 08/13/21 Melyssa Matthew PA-C [address] [place] [address] [email or web address] Physician Television Technician Hematology 08/15/21 documented as of this encounter Additional Source Comments The information contained in this document represents components of the legal health record. It is not the complete legal health record.[facility]
--- OUTSIDE RECORDS SUMMARY | 2025-06-15 20:18 | XMS_ITS | Encounter Summary ---
Author Organization [facility] Address [address] [place] [address] [place] [address] Phone Care Team Providers Care Cafeteria Director Name Role Phone Susie Goode MD Unavailable [phone] Melyssa Matthew PA-C Unavailable [phone] Holger Strickland MD Unavailable Holger Strickland MD Primary Care Provider [phone] Unknown, Unknown Primary Care Provider Kiara Vernon NP Primary Care Provider Encounter Details Date Type Department Care Team (Late st Contact Info) Description 03/13/2023 Procedure Pass [facility] - [address] [place] [address] Social History Tobacco Use Types Packs/Day Years [...] high school, GED, job training, learning the Malaysian language, technical skills, or developing parenting skills)? [...] documented as of this encounter Care Teams Cafeteria Director Relationship Specialty Start Date End Date Holger Strickland MD [address] [place] [address] PCP - General Internal Medicine 01/10/23 06/22/23 Unknown, Vy, PCP - General 06/23/23 10/13/24 Kiara Turk NP [address] [place] [address] [facility] [place] [address] [email or web address] PCP - General Nurse Practitioner 10/14/24 Susie Goode MD [address] [place] [phone] [email or web address] 08/13/21 Melyssa Matthew PA-C [address] [place] [email or web address] Physician Rn Cardiovascular Hematology 08/15/21 Holger Strickland MD [address] [place] [address] [email or web address] Insurance Assigned Provider 04/06/22 04/05/23 documented as of this encounter Additional Source Comments The information contained in this document represents components of the legal health record. It is not the complete legal health record.[facility]
--- OUTSIDE RECORDS SUMMARY | 2025-06-15 20:18 | XMS_ITS | Encounter Summary ---
Author Organization [facility] Address [address] [place] [address] Phone Care Team Providers Care Educational Speech Language Clinician Name Role Phone Maia Diamond CNP Primary Care Provider Vick Yuen MD Unavailable Susie Goode MD Unavailable [phone] Melyssa Matthew-C Unavailable [phone] Holger Strickland MD Unavailable Holger Strickland MD Primary Care Provider Unknown, Unknown Primary Care Provider Kiara Vernon NP Primary Care Provider Encounter Details Date Type Department Care Team (Late st Contact Info) Description 05/17/2020 Procedure Pass [facility] - [address] [address] Social History Tobacco Use Types Packs/Day Years [...] high school, GED, job training, learning the Urdu language, technical skills, or developing parenting skills)? [...] documented as of this encounter Care Teams Educational Speech Language Clinician Relationship Specialty Start Date End Date Maia Diamond CNP [address] [place] [address] [email or web address] PCP - General Internal Medicine 10/11/19 01/09/23 Holger Strickland MD [address] [place] [address] PCP - General Internal Medicine 01/10/23 06/22/23 Unknown, Vy, PCP - General 06/23/23 10/13/24 Kiara Turk, HARNESS M[employer]ER [address] [place] [address] [address] [email or web address] PCP - General Nurse Practitioner 10/14/24 Vick Yuen MD [address] [place] [address] Insurance Assigned Provider 01/31/20 01/05/22 Susie Goode MD [address] [place] [phone] [email or web address] 08/13/21 Melyssa Matthew PA-C [address] [place] [email or web address] Physician [employer] Hematology 08/15/21 Holger Strickland MD [address] [place] [address] Insurance Assigned Provider 04/06/22 04/05/23 documented as of this encounter Additional Source Comments The information contained in this document represents components of the legal health record. It is not the complete legal health record.[facility]
--- NOTE | 2025-06-16 08:23 | MHC.SL.IMP ---
Date of Plan of Treatment: 06/15/25 Onset of Symptoms/Illness: 04/15/25 Date Treatment Started: 06/15/25 Admitting Diagnosis: Hx GERD Primary Speech & Language Diagnosis: R13.10 Dysphagia Reason for Today's Visit: 39573 Modified Barium Swallow Study Pre-evaluation Dietary Consistencies: Regular Pre-evaluation Liquid Consistency: Thin Pre-evaluation Medication Administration: Whole with Liquid Medical History: Modified Barium Swallow Study Fluoroscopic Evaluation of Swallowing Function CPT Code 68245 Evaluation Year: 2024 Reason for Study: Patient reporting difficulty swallowing. Referring Physician: Kiara Delaney [facility] Evaluating Clinician: Veena Segura MA, CCC-COAL HANDLING SUPERVISOR Study Number: 1 Patient Name: Rachelle Shore Status: Outpatient, Ambulatory Age: 39 Sex: Female Medical History Medical History (Updated 05/11/25 @ 09:14 by Kiara Delaney, [facility]) Acute dermatitis Anxiety and depression Asthma Depression Fibromyalgia GERD (gastroesophageal reflux disease) Headache IBS (irritable bowel syndrome) Morbid obesity Restless leg syndrome Surgical History Hx of appendectomy Hx of breast surgery Hx of colonoscopy (~2020) Hx of endoscopy Hx of neck surgery Hx of wisdom tooth extraction Current (pre-evaluation) Intake/Diet: Route: PO Diet Grade: Regular Liquid Consistencies: Thin Pre-Study Functional Oral Intake Scale (FOIS): 7- Total oral intake with no restrictions Pain: None reported at time of study SUBJECTIVE: Patient is a 39 year old female with history of fibromyalgia, KATERINE, GERD, vitamin B 1 deficiency, and autoimmune thrombocytopenia, reporting difficulty swallowing for the past 2 months. Patient reports feeling food get stuck in her throat and needing a lot of water in order to clear it. She says that this happens on a daily basis. Patient also reports that sometimes water goes down ?the wrong pipe? and that a couple times a month she has more significant episodes when she feels like she is choking. Patient denies pain with swallowing. Note family history of achalasia. Oral Motor Exam Facial Symmetry: Symmetrical Mouth Occlusion: Normal Oral-Facial Teeth Characteristics: Intact/Normal Oral-Facial Lip Pucker Description: Normal Oral-Facial Smile (Lips) Description: Normal Oral-Facial Puff Cheeks Description: Normal Tongue Size: Normal Tongue Excursion Description: Normal Tongue Range of Movement Description: Normal Tongue Speed of Movement Description: Normal Tongue Strength of Movement (against opposing pressure): Normal Tongue Movement Characteristics: Normal/Absent Is patient able to manage secretions?: Yes Is patient able to produce volitional cough?: Yes Food and Liquid Trials: Oral Impairment: Lip Closure: Did not test Oral Impairment: Tongue Control During Bolus Hold: 0=Cohesive bolus between tongue to palatal seal Oral Impairment: Bolus Preparation/Mastication: 0=Timely and efficient chewing and mashing Oral Impairment: Bolus Transport/Lingual Motion: 0=Brisk tongue motion Oral Impairment: Oral Residue: 1=Trace residue lining oral structures Oral Impairment:Initiation of Pharyngeal Swallow: 0=Bolus head at posterior angle of ramus (first hyoid excursion) Pharyngeal Impairment: Soft Palate Elevation: 0=No bolus between soft palate (SP)/pharyngeal wall (PW) Pharyngeal Impairment: Laryngeal Elevation: 1=Partial thyroid cartilage/arytenoids to epiglottic petiole movement Pharyngeal Impairment: Anterior Hyoid Excursion: 1=Partial anterior movement Pharyngeal Impairment: Epiglottic Movement: 0=Complete inversion Pharyngeal Impairment: Laryngeal Vestibular Closure:: 0=Complete: no air/contrast in laryngeal vestibule Pharyngeal Impairment: Pharyngeal Stripping Wave: 0=Present: complete Pharyngeal Impairment: Pharyngeal Contraction: Did not test Pharyngeal Impairment: Pharyngoesophageal Segment Openin=Complete distension and complete duration: no obstruction of flow Pharyngeal Impairment: Tongue Base (TB) Retraction: 0=No contrast between tongue base and posterior pharyngeal wall Pharyngeal Impairment: Pharyngeal Residue: 0=Complete pharyngeal clearance Pharyngeal Impairment: Esophageal Clearance Upright Position: Did not test Impressions and Recommendations OBJECTIVE: Time-out: performed at 10:45 Evaluation Start: 10:30; Stop: 10:35 Patient Positioning: Standing Viewing Planes: LAT & AP Contrast: MBSImP? Standardized Protocol using commercially prepared, standardized Barium viscosities, including: Varibar? THIN LIQUID (40% w/v, <15 cps) , Varibar? PUDDING (40% w/v, <7247-8972 cps) , 1/2 Shortbread Cookie (1 x1 x.25 ) MBSImP ID: [id number] MBSImP Results: Lip closure for intraoral bolus containment could not be assessed due to logistical reasons not related to physiologic impairment. Tongue control during bolus hold maintained a cohesive bolus held between tongue to palate seal. Bolus preparation and mastication resulted in timely and efficient chewing and mashing. Bolus transport/lingual motion was with brisk tongue motion. Oral residue was a trace, lining oral structures. Initiation of the pharyngeal swallow occurred as the bolus head reached the posterior angle of the mandibular ramus. Soft palate elevation resulted in no bolus between the soft palate and the pharyngeal wall. Laryngeal elevation was decreased, with partial superior movement of the thyroid cartilage/partial approximation of the arytenoids to the epiglottic petiole. Anterior hyoid excursion demonstrated partial anterior movement. Epiglottic movement resulted in complete inversion. Laryngeal vestibular closure was complete, as indicated by no air or contrast within the laryngeal vestibule at the height of the swallow. Pharyngeal stripping wave was present and complete. Pharyngeal contraction could not be determined due to logistical reasons not related to physiologic impairment. Pharyngoesophageal segment opening was completely distended for complete duration with no obstruction of bolus flow. Tongue base retraction allowed no contrast between the retracted tongue base and the posterior pharyngeal wall. Pharyngeal residue was not present. There was complete pharyngeal clearance. Esophageal clearance in the upright position could not be assessed due to logistical reasons not related to physiologic impairment. Oral Impairment Score: 0 (absence of score, component 1) Pharyngeal Impairment Score: 2 (absence of score, component 13) Esophageal Impairment Score: --- (absence of score, component 17) Laryngeal Penetration and Aspiration: Neither penetration nor aspiration was observed in today's study with Cookie, Pudding-thick, Thin. ASSESSMENT: This exam was performed by the radiologist and the speech pathologist. Patient was standing for lateral and AP views. She fed herself independently and trialed the following consistencies: -Thin liquid (via individual sips & rapid sequential sips) -Puree (mixture applesauce w/ barium pudding) -Regular (shortbread cookies coated w/ barium pudding) -Whole barium tablet with sips of water Good tongue control with no premature posterior escape and timely AP transit. Mastication was timely and efficient, with intact rotary chewing pattern. Pharyngeal swallow trigger was timely. Post-swallow, there was trace residue on the posterior tongue. No evidence of nasopharyngeal reflux. Partial laryngeal elevation, with complete epiglottic inversion and complete laryngeal vestibular closure. No evidence of aspiration or penetration during this exam. Complete pharyngeal clearance seen. Barium tablet passed through the pharynx, esophagus, and into the stomach without any hang up. Liquid Intake Recommendation: Thin Liquid Intake Strategies: Unrestricted Dietary Recommendations: Regular Medication Administration: Whole with Liquid Please contact the pharmacy regarding appropriate crushable or liquid drug formulations that are available whenever modified delivery is recommended. Compensatory Strategies Recommended: Sitting Upright (90 deg), Small Bites and Sips, Alternate Liquids/Solids, Rate of Ingestion Change Supervision during eating and or drinking: None Needed Recommendation for Speech Therapy: NA:Typical Evaluation Text Comment: Intake Recommendations: Route: PO Diet Grade: Regular Liquid Consistencies: Thin Post-Study Functional Oral Intake Scale (FOIS): 7- Total oral intake with no restrictions No evidence of aspiration or penetration on trials of liquids and solids. Patient did complain of globus sensation at the conclusion of the exam, however, imaging did not show any residue in the pharynx. Suggested Referrals: The patient might benefit from a referral to: Gastroenterology Indication for Referral: Patient w/ hx GERD, c/o globus sensation w/ MBSS showing good oral and pharyngeal clearance. Therapy Recommendations: Speech therapy and diet modification are not warranted at this time, as patient?s swallow is deemed to be within functional limits in the oral and pharyngeal phases. Clinician - Supplemental, Miscellaneous Communication: It is important to note MBSS objective studies are snapshots in time and Patient function might vary with factors such as time of day or concomitant medical conditions. For this reason, the final treatment plan for this patient should rest with their medical care team. Additional recommendations should be considered with the totality of the Patient in mind. Thank for the opportunity to participate in the care of this patient. If you have any questions about the content of this report, please contact the [facility] at [facility]. Education: Education regarding findings from today's study and plans for therapy were provided to Patient only through Verbal Instruction. Understanding was expressed by the Patient only. Skiver Counter Clinician/Clinical Fellow: No Supervisory Statement: N/A Speech Language Pathologist: Veena Segura M.A., CCC-COAL HANDLING SUPERVISOR
== END 2025-06-15 10:28 | disposition home or self-care (01) ==
LOC: HO.XRAY 10:27
PROVIDERS: Visit Provider Nurse Practitioner Family
DX: R09.89 Other specified symptoms and signs involving the circulatory and respiratory systems (principal); R13.10 Dysphagia, unspecified
CPT/HCPCS: 74230; 92611

== ENCOUNTER → 2025-06-15 10:30 | Outpatient (BNV) | payer BC, SELFPAY | PROVIDERS: Visit Provider Radiology Diagnostic Radiology | DX: R09.89 Other specified symptoms and signs involving the circulatory and respiratory systems (principal) | CPT/HCPCS: 74230 ==